=== PATIENT | male | born 1965 | race Caucasian/White ===

== ENCOUNTER 2018-01-08 14:06 | Inpatient (IN) | payer OTHER ==
[2018-01-08] VITALS (7 sets, daily range): BP systolic 145–176; BP diastolic 68–83
[~2018-01-08] VITALS: Ht 167.6 cm; Wt 68.5 kg
--- NOTE | 2018-01-08 14:10 | NUR ---
WITNESSED SEIZURE FROM HEART TO HEART, NO MEDICATION GIVEN. NO ACTIVE SEIZURE BOX CHIPPER. PT IS OBTUNDED, NAD NOTED, VSS, RESP EVEN AND UNLABORED. WAITING FOR MD CAPPS.
[2018-01-08 15:39] LABS: BASOPHILS % (AUTO) 0.3 % (0.0-2.0); EOSINOPHILS % (AUTO) 2.6 % (0.0-6.0); HEMATOCRIT 37 % (39-51); HEMOGLOBIN 12.2 g/dL (13.5-17.5); LYMPHOCYTES # (AUTO) 0.6 /CMM (0.8-4.8); LYMPHOCYTES % (AUTO) 8.2 % (20.0-44.0); MEAN CORPUSCULAR HGB CONC 33 g/dl (31.0-36.0); MEAN CORPUSCULAR VOLUME 83 fL (80-96); MONOCYTES # (AUTO) 0.5 /CMM (0.1-1.30); MONOCYTES % (AUTO) 6.2 % (2.0-12.0); NEUTROPHILS # (AUTO) 6.5 /CMM (1.8-8.9); NEUTROPHILS % (AUTO) 82.7 % (43.0-81.0); PLATELET COUNT (AUTO) 203 /CMM (150-450); RDW COEFFICIENT OF VARIATION 19.9 (11.5-15.0); RED BLOOD CELL COUNT(AUTO) 4.47 MIL/uL (4.5-6.0); WHITE BLOOD COUNT (AUTO) 7.9 K/uL (4.3-11.0)
[2018-01-08 15:41] LABS: APPEARANCE,URINE Turbid (CLEAR); BILIRUBIN,URINE Negative (NEGATIVE); BLOOD, URINE Small Ery/uL (NEGATIVE); COLOR,URINE Dark (YELLOW); KETONES,URINE Negative (NEGATIVE); LEUKOCYTE ESTERASE ,URINE Large (NEGATIVE); NITRITE, URINE Negative (NEGATIVE); PROTEIN,URINE >=300 mg/dl (NEGATIVE); UGLUCOSE Negative (NEGATIVE); UROBILINOGEN,URINE 0.2 EU/dL (0.2)
[2018-01-08] MEDS ORDERED: LORAZEPAM INJ 2 MG/ML VIAL ONE (15:42)
[2018-01-08 15:50] LABS: CALCIUM, SERUM 9.9 mg/dL (8.5-10.1); POTASSIUM 4.8 mmol/L (3.5-5.1)
[2018-01-08 15:56] LABS: BACTERIA,URINE 1+ /HPF (None Seen); SQUAMOUS EPITHELIAL CELL,UR Rare /HPF (None Seen); URINE AMORPHOUS URATE Many /HPF (None Seen)
[2018-01-08 15:57] LABS: WBC,URINE 100-150 /HPF (0-3)
[2018-01-08 15:59] LABS: INR 1.04 (0.85-1.15)
[2018-01-08] MEDS ORDERED: LORAZEPAM INJ 2 MG/ML VIAL IV ONE (16:00)
[2018-01-08] MEDS ORDERED: CEFTRIAXONE 1GM BAG (ER ONLY) 1 GM/50 ML PIGGYBACK IV ONE (16:00)
[2018-01-08] MEDS: LEVETIRACETAM (500MG) 1,000 MG in IV NS 0.9% 100 ML IV SCH ×2 (16:01→16:48)
[2018-01-08 16:02] LABS: ALBUMIN 3.3 g/dL (3.4-5.0); BILIRUBIN,DIRECT 0.1 mg/dL (0.0-0.2); BILIRUBIN,TOTAL 0.6 mg/dL (0.2-1.0); TOTAL PROTEIN, SERUM 7.1 g/dL (6.4-8.2)
[2018-01-08] MEDS ORDERED: CEFTRIAXONE 1 G in IV NS 0.9% 50 ML IV ONE (16:30)
--- NOTE | 2018-01-08 16:49 | NUR ---
non- admin- rocephine er 1 bag order duplicate order.
--- NOTE | 2018-01-08 17:12 | NUR ---
CALLED [facility] FOR PANEL CALL AND ARA KRISHNA NP WAS PAGED
[2018-01-08] MEDS ORDERED: CHOL200026 GT (17:22)
[2018-01-08] MEDS ORDERED: ATOR20TA GT (17:22)
[2018-01-08] MEDS ORDERED: FOLI1TAB16 GT (17:22)
[2018-01-08] MEDS ORDERED: MULT-213 GT (17:22)
[2018-01-08] MEDS ORDERED: AMLO10TA6 GT (17:22)
[2018-01-08] MEDS ORDERED: HEPA500014 SQ (17:22)
[2018-01-08] MEDS ORDERED: INSU100C10 SQ (17:22)
[2018-01-08] MEDS ORDERED: SERT25TA GT (17:22)
[2018-01-08] MEDS ORDERED: DOCU50LI PO (17:22)
[2018-01-08] MEDS ORDERED: LABE200T5 GT (17:22)
[2018-01-08] MEDS ORDERED: CLON0.5T12 GT (17:22)
[2018-01-08] MEDS ORDERED: LORA-259 GT (17:22)
[2018-01-08] MEDS ORDERED: INSU100V7 SQ (17:22)
[2018-01-08] MEDS ORDERED: DARB40DI SQ (17:22)
--- NOTE | 2018-01-08 17:23 | NUR ---
PT IS ASSIGNED TO [facility]#: [id number], DX: SEIZURE, AND ACCEPTING: ARA KRISHNA NP
--- NOTE | 2018-01-08 18:10 | NUR ---
TD PHONE BANKER NOTES: ADMITTED PT FROM ER WITH A DIAGNOSIS OF SEIZURE. PT IS OBTUNDED UPON ADMISSION FROM UNIT. NO APPARENT DISTRESS NOTED. NO FACIAL GRIMACING OR ANY SIGNS OF PAIN NOTED. ON 5LPM NC, NO SOB NOTED. PERTINENT ASSESSMENT DONE. PICTURES TAKEN AND PLACED ON CHART. IV ON LFA #20 INTACT AND PATENT, FLUSHING WELL. VITAL SIGNS STABLE. GT INTACT AND CLAMPED. SINUS RHYTHM ON TELE MONITOR HR 72BPM. KEPT CLEAN, DRY AND COMFORTABLE. SEIZURE PRECAUTIONS OBSERVED AND MAINTAINED. WILL ENDORSE TO DIETARY TECH FOR CONTINUITY OF CARE
[2018-01-08] MEDS ORDERED: MAGNESIUM HYDROXIDE 30 ML UDC PO PRN (18:30)
[2018-01-08] MEDS ORDERED: MAG HYDROX/AL HYDROX/SIMETH 30 ML UDC PO PRN (18:30)
[2018-01-08] MEDS ORDERED: DOCUSATE SODIUM LIQ 100 MG/10 ML UDC PO PRN (18:30)
[2018-01-08] MEDS ORDERED: ONDANSETRON HCL/PF 4 MG/2 ML VIAL IVP PRN (18:30)
[2018-01-08] MEDS ORDERED: phenytoin SODIUM IV 1,000 MG in IV NS 0.9% 100 ML IV ONE (19:00)
--- NOTE | 2018-01-08 19:00 | NUR ---
RN INITIAL NOTES RECEIVED THE PATIENT AWAKE ON BED, OBTUNDED, RESPONDS TO TOUCH AND PAIN ONLY. ON 5L O2 VIA NASAL CANNULA, SATURATING WELL, NO S/S OF RESP DISTRESS. CURRENTLY SINUS RHYTHM ON THE MONITOR, HR 60-70'S. PT IS ANURIC. RIGHT CHEST WALL HD CATH INTACT. LEFT AC 18G FLUSHED AND PATENT, NO S/S OF INFILTRATION/INFECTION, DRESSING CDI. PATIENT TO GO FOR STAT CTA BRAIN AND CAROTID, WILL INITIATE ANOTHER PERIPHERAL IV ACCESS. WILL TRANSFER TO ICU ROOM 254 S/P CTA. BED LOW AND LOCKED, SIDERAILS UP, SEIZURE PRECAUTIONS IN PLACE. WILL MONITOR CLOSELY
[2018-01-08] MEDS ORDERED: CT SWABBABLE VALVE TRANS SET 1 EA INFUS.SET MC ONE (19:46)
[2018-01-08] MEDS ORDERED: IV NS 0.9% 250 ML IV ONE (19:46)
[2018-01-08] MEDS ORDERED: IOHEXOL-350 100 ML VIAL IV ONE (19:46)
[2018-01-08] MEDS ORDERED: CEFTRIAXONE 1 G in IV NS 0.9% 50 ML IV SCH (20:00)
[2018-01-08] MEDS ORDERED: HEPARIN SODIUM, PORCINE 5000 UNITS/1 ML VIAL SQ SCH (21:00)
[2018-01-08] MEDS ORDERED: LABETALOL HCL 200 MG TABLET GT SCH (21:00)
--- NOTE | 2018-01-08 21:00 | NUR ---
RN NOTES NOTIFIED ON-CALL CABANA ATTENDANT NUNO ANDREWS ABOUT PATIENT SBP > 170'S. PER CABANA ATTENDANT, OK FOR HTN RECOMMENDED BY NEURO.
[2018-01-08 21:24] LABS: ABG BASE EXCESS 3.5 mmol/L; ABG OXYGEN SATURATION 96.4 % (92.0-98.5); ABG PCO2 31.4 mmHg (35.0-45.0); ABG PH 7.531 (7.350-7.450); ABG PO2 81.5 mmHg (75.0-100.0); AaDO2 138.8 mmHg; COHb 0.8 % (0.5-1.5); O2Hb 95.6 % (94.0-97.0); SITE, ABG Right Brachial; VENT MODE, BG Nasal Cannula
--- NOTE | 2018-01-08 21:26 | NUR ---
ABG DONE. RN NOTIFIED WITH THE RESULT.
[2018-01-08] MEDS: INSULIN GLARGINE, 100 UNIT/ML CARTRIDGE SQ SCH (22:00)
[2018-01-08] MEDS: BLOOD SUGAR DIAGNOSTIC 1 EACH STRIP IN SCH (23:53)
[2018-01-09] VITALS (24 sets, daily range): BP systolic 97–150; BP diastolic 50–66
[2018-01-09] MEDS: ACETAMINOPHEN 325 MG TABLET PO PRN (04:01)
[2018-01-09 04:47] LABS: BASOPHILS % (AUTO) 0.1 % (0.0-2.0); EOSINOPHILS % (AUTO) 0.1 % (0.0-6.0); HEMATOCRIT 36 % (39-51); HEMOGLOBIN 11.8 g/dL (13.5-17.5); LYMPHOCYTES # (AUTO) 0.8 /CMM (0.8-4.8); LYMPHOCYTES % (AUTO) 7.1 % (20.0-44.0); MEAN CORPUSCULAR HGB CONC 33 g/dl (31.0-36.0); MEAN CORPUSCULAR VOLUME 86 fL (80-96); MONOCYTES # (AUTO) 0.7 /CMM (0.1-1.30); MONOCYTES % (AUTO) 6.6 % (2.0-12.0); NEUTROPHILS # (AUTO) 9.2 /CMM (1.8-8.9); NEUTROPHILS % (AUTO) 86.1 % (43.0-81.0); PLATELET COUNT (AUTO) 206 /CMM (150-450); RDW COEFFICIENT OF VARIATION 21.3 (11.5-15.0); RED BLOOD CELL COUNT(AUTO) 4.24 MIL/uL (4.5-6.0); WHITE BLOOD COUNT (AUTO) 10.7 K/uL (4.3-11.0)
[2018-01-09] MEDS: BLOOD SUGAR DIAGNOSTIC 1 EACH STRIP IN SCH ×4 (05:07→23:45)
[2018-01-09 05:14] LABS: CALCIUM, SERUM 9.3 mg/dL (8.5-10.1); CREATININE 5.6 mg/dL (0.6-1.3); MAGNESIUM 2.3 mg/dL (1.8-2.4); PHOSPHORUS 3.1 mg/dL (2.5-4.9); POTASSIUM 4.7 mmol/L (3.5-5.1)
[2018-01-09 05:20] LABS: THYROID STIMULATING HORMONE 1.33 uIU/mL (0.358-3.74)
--- NOTE | 2018-01-09 06:10 | NUR ---
RN CLOSING NOTES PT REMAINS STABLE OF THE MOMENT. NO EPISODES OF SEIZURES TONIGHT. ALL DUE MEDS GIVEN, AM CARE PROVIDED. WILL ENDORSE KARLENE TO AM RN
[2018-01-09] MEDS ORDERED: phenytoin SODIUM IV 500 MG in IV NS 0.9% 50 ML IV SCH (07:00)
--- NOTE | 2018-01-09 07:30 | NUR ---
LEATHER STAMPER NOTE: RECEIVED PATIENT IN BED, AWAKE, NONVERBAL, AND NOT ON ANY FORM OF DISTRESS. HOB ELEVATED. ON O2 5L/MIN VIA NC AND SATURATING 97%. NO FACIAL GRIMACING. HOB ELEVATED. ON SEIZURE PRECAUTION. GT SITE CLAMPED PER MD ORDER. BED ALARMED AND LOCKED AT ALL TIMES. CALL LIGHT WITHIN REACH. NEEDS ANTICIPATED.
--- NOTE | 2018-01-09 08:11 | NUR ---
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 PT NOTED TO HAVE HEALED TRACH AND CLAMPED G TUBE. ALL SKIN CARE AND SKIN PROTECTION RECOMMENDATIONS DISCUSSED WITH NURSING STAFF. CURRENT RAFY SCORE IS 13. WILL SEE PRN. [place] IN AGREEMENT WITH PLAN OF CARE. Addendum: 01/09/18 at 0817 by JASMINE HOLBROOK WNDNU Amended: Links added.
[2018-01-09] MEDS ORDERED: AMLODIPINE BESYLATE 10 MG TABLET GT SCH (09:00)
[2018-01-09] MEDS: FOLIC ACID 1 MG TABLET GT SCH (09:56)
[2018-01-09] MEDS: SERTRALINE HCL 25 MG TABLET GT SCH (09:56)
[2018-01-09] MEDS: CHOLECALCIFEROL 1,000 UNIT TABLET (VIT D3) GT SCH (09:56)
[2018-01-09] MEDS: ATORVASTATIN 10 MG TABLET GT SCH (09:56)
[2018-01-09] MEDS: MULTIVIT, IRON, MIN NO. 8, FA 1 TAB GT SCH (09:56)
--- NOTE | 2018-01-09 10:00 | NUR ---
TOWER OBSERVER NOTE: CALLED AND SPOKE WITH DR. GARCIA RE: THE PATIENT'S GT FEEDING. PER MD, IT'S OK TO RESUME THE PATIENT'S FEEDING FROM THE FACILITY. SPOKE WITH ALFREDO SEWELL FROM HEART TO HEART FACILITY AND ACCORDING TO HER THE PATIENT IS RECEIVING NEPHRO @45ML/HR CONTINUOUS. LAST HD WAS MONDAY (01/06/18). WILL INFORM DR. BING MEEKS ABOUT IT WHEN SHE MAKES ROUND.
[2018-01-09] MEDS: NEPRO 1,000 ML BOTTLE GT PRN (10:33)
--- NOTE | 2018-01-09 11:00 | NUR ---
WEB PROJECT MANAGER NOTE: SEEN BY DR. GREGG AT THE BEDSIDE AND REPORTED THE REPEAT DILANTIN LEVEL 16.1. MD WITH NO NEW ORDER.
[2018-01-09] MEDS: PHENYTOIN SODIUM IV 50 MG/ML VIAL IV SCH ×2 (12:10→21:56)
[2018-01-09] MEDS: CALCIUM CARB 600MG /VIT D 1 EACH TABLET GT SCH (13:30)
[2018-01-09] MEDS: INSULIN REGULAR, HUMAN 100 UNIT/ML 3 ML VIAL SQ PRN ×2 (18:20→23:46)
--- NOTE | 2018-01-09 19:28 | NUR ---
OFFICE MANAGER RECEPTIONIST NOTE: PATIENT ABLE TO OPEN HIS EYES, NOT ON ANY FORM OF DISTRESS. HOB ELEVATED. ON O2 @5L/MIN VIA NC SATURATING 95%. ON SEIZURE PRECAUTION. NO SEIZURE EPISODE NOTED WITHIN THE SHIFT. REPORT GIVEN TO PM SHIFT NURSE FOR CONTINUITY OF CARE.
[2018-01-09] MEDS ORDERED: CEFTRIAXONE 1 G in IV D5W 50 ML IV SCH (20:00)
--- NOTE | 2018-01-09 20:30 | NUR ---
RN NOTES RECEIVED PT ASLEEP ON BED. RESPONSIVE TO NAME, AND PAIN, MOUTHING WORDS WHEN ASKED QUESTION BUT NO SOUNDS. DENIES PAIN. NO SEIZURE EPISODE. NO ACUTE RESP DISTRESS. TEMP 99.7 SR ON TELE MONITOR. PEG INTACT AND PATENT. IV SITE ON LFA AND LAC INFILTRATED. CHANGED WITH NEW LINE AT LAC G 20 AND L THUMB G 20 WITH GOOD BLOOD RETURN. RCW HD CATH CLEANED AND DRY. REPOSITIONED FOR SKIN MANAGEMENT. COOLING MEASURES PROVIDED. KEPT PT CLEAN AND IN COMFORTABLE POSITION. WILL CONTINUE TO MONITOR.
[2018-01-09] MEDS: INSULIN GLARGINE, 100 UNIT/ML CARTRIDGE SQ SCH (22:03)
[2018-01-10] VITALS (26 sets, daily range): BP systolic 115–189; BP diastolic 52–77
[2018-01-10 04:44] LABS: BASOPHILS # (AUTO) 0.1 /CMM (0.0-0.2); BASOPHILS % (AUTO) 0.4 % (0.0-2.0); EOSINOPHILS % (AUTO) 0.9 % (0.0-6.0); HEMATOCRIT 34 % (39-51); HEMOGLOBIN 11.1 g/dL (13.5-17.5); LYMPHOCYTES # (AUTO) 1.1 /CMM (0.8-4.8); LYMPHOCYTES % (AUTO) 8.9 % (20.0-44.0); MEAN CORPUSCULAR HGB CONC 33 g/dl (31.0-36.0); MEAN CORPUSCULAR VOLUME 86 fL (80-96); MONOCYTES # (AUTO) 1.1 /CMM (0.1-1.30); MONOCYTES % (AUTO) 8.9 % (2.0-12.0); NEUTROPHILS # (AUTO) 10.1 /CMM (1.8-8.9); NEUTROPHILS % (AUTO) 80.9 % (43.0-81.0); PLATELET COUNT (AUTO) 221 /CMM (150-450); RDW COEFFICIENT OF VARIATION 20.9 (11.5-15.0); RED BLOOD CELL COUNT(AUTO) 3.98 MIL/uL (4.5-6.0); WHITE BLOOD COUNT (AUTO) 12.5 K/uL (4.3-11.0)
[2018-01-10 05:04] LABS: CALCIUM, SERUM 9.3 mg/dL (8.5-10.1); CREATININE 6.6 mg/dL (0.6-1.3); MAGNESIUM 2.4 mg/dL (1.8-2.4); PHOSPHORUS 3.8 mg/dL (2.5-4.9); POTASSIUM 4.9 mmol/L (3.5-5.1)
[2018-01-10] MEDS: BLOOD SUGAR DIAGNOSTIC 1 EACH STRIP IN SCH ×2 (05:25→12:51)
[2018-01-10] MEDS: PHENYTOIN SODIUM IV 50 MG/ML VIAL IV SCH ×3 (05:27→20:59)
--- NOTE | 2018-01-10 07:05 | NUR ---
RN NOTES PT ASLEEP WELL ON BED, BREATHING EVEN AND UNLABORED , DENIES PAIN, AFEBRILE. NO EPISODE OF SEIZURE . NO SIGNIFICANT CHANGES SHOWS. INCONTINENT CARE RENDERED. NO BOWEL, NO URINE OUTPUT THROUGHOUT THE SHIFT. ALL IV SITE INTACT AND PATENT. BED BATH DONE AND TOLERATED WELL. PT IS CLEAN AND DRY. ENDORSED CONTINUITY OF CARE TO AM NURSE.
[2018-01-10] MEDS: CALCIUM CARB 600MG /VIT D 1 EACH TABLET GT SCH (09:02)
[2018-01-10] MEDS: SERTRALINE HCL 25 MG TABLET GT SCH (09:02)
[2018-01-10] MEDS: MULTIVIT, IRON, MIN NO. 8, FA 1 TAB GT SCH (09:02)
[2018-01-10] MEDS: ATORVASTATIN 10 MG TABLET GT SCH (09:02)
[2018-01-10] MEDS: CHOLECALCIFEROL 1,000 UNIT TABLET (VIT D3) GT SCH (09:02)
[2018-01-10] MEDS: FOLIC ACID 1 MG TABLET GT SCH (09:02)
[2018-01-10] MEDS: INSULIN REGULAR, HUMAN 100 UNIT/ML 3 ML VIAL SQ PRN (12:52)
[2018-01-10] MEDS: LORAZEPAM INJ 2 MG/ML VIAL IV PRN (13:27)
[2018-01-10] MEDS: ACETAMINOPHEN 325 MG TABLET PO PRN (13:27)
--- NOTE | 2018-01-10 16:45 | NUR ---
RN NOTE PATIENT OBSERVED WITH LABORED BREATHING CALLED RT. SWITCHED TO 15L NON REBREATHER MASK
[2018-01-10 19:40] LABS: ABG BASE EXCESS 3.3 mmol/L; ABG OXYGEN SATURATION 93.3 % (92.0-98.5); ABG PCO2 44.3 mmHg (35.0-45.0); ABG PH 7.422 (7.350-7.450); ABG PO2 67.8 mmHg (75.0-100.0); AaDO2 600.9 mmHg; COHb 0.7 % (0.5-1.5); MetHb 0.2 % (0.0-1.5); O2Hb 92.5 % (94.0-97.0); SITE, ABG Right Brachial
--- NOTE | 2018-01-10 20:35 | NUR ---
@192 RECEIVED PT ON 3L NC AND BREATHING LABORED. PT STARTED TO DESAT IN THE 80'S. PLACED ON NRB AND O2 SAT WENT UP TO 90'S. @193 O2 SAT DROPPED TO MID 80'S. STAT ABG WAS DONE AND NOTIFIED RN ABOUT THE RESULT. PT REMAINS ON NRB 15L O2 SAT 99%. WILL CONTINUE TO MONITOR.
[2018-01-10] MEDS: NEPRO 1,000 ML BOTTLE GT PRN (20:56)
[2018-01-10] MEDS: DOXYCYCLINE HYCLATE (100 MG) 100 MG TABLET PO SCH (21:00)
[2018-01-10] MEDS: MUPIROCIN OINT 2% 22 GM TUBE SCH (21:00)
[2018-01-10] MEDS: PIPERACILLIN /TAZOBACTAM 2.25 G in IV D5W 50 ML IV SCH (21:01)
--- NOTE | 2018-01-10 21:15 | NUR ---
SWIMMING POOL INSTALLER: PT CONTINUES TO DESATURATE BET. 79%-80s DESPITE OF BEING ON NON-REBREATHER MASK AT 15LPM. OBTAINED ORDER FOR STAT CXR. WILL HOLD FEEDING AT THIS TIME TO R/O ASPIRATION. HOB AT 45 DEGREES.
[2018-01-10] MEDS: INSULIN GLARGINE, 100 UNIT/ML CARTRIDGE SQ SCH (21:28)
--- NOTE | 2018-01-10 22:10 | NUR ---
GROCERY CLERK STOCKING: RELAYED CXR RESULT TO DR. SKYE CAM WT NEW ORDERS. NOTED AND CARRIED OUT. PT. IS PLACED ON BIPAP. WILL CONTINUE TO MONITOR EFFECTIVITY.
--- NOTE | 2018-01-10 22:26 | NUR ---
PT PLACED ON BIPAP PER WOLF CAM, SETTINGS 15/5 R 16 100% O2. PT MASK SIZE WAS MEDIUM SKIN BARRIER (MEPLIX)IN PLACE. PENDING ABG. PERFORMED CPT ORDERED. ALFREDO PEÑA AND CHARGE NURSE AWARE. Addendum: 01/10/18 at 2231 by LONNIE ASHBY RT Amended: Links added.
[2018-01-10 23:03] LABS: ABG BASE EXCESS 0.8 mmol/L; ABG OXYGEN SATURATION 83.9 % (92.0-98.5); ABG PCO2 37.5 mmHg (35.0-45.0); ABG PH 7.438 (7.350-7.450); ABG PO2 46.5 mmHg (75.0-100.0); COHb 0.9 % (0.5-1.5); MetHb 0.3 % (0.0-1.5); O2Hb 82.9 % (94.0-97.0); SITE, ABG Right Brachial
--- NOTE | 2018-01-10 23:05 | NUR ---
NET LEAD ARCHITECT: DR. CAM MADE AWARE OF ABG RESULTS AFTER 30 MINS OF BIPAP WT NO IMPROVEDB SATURATION. DNP SAID HE WILL CALL ER.
--- NOTE | 2018-01-10 23:25 | NUR ---
ASSOCIATE CONSULTING ENGINEER: PT. INTUBATED BY DR. WATSON FROM ER.
--- NOTE | 2018-01-10 23:30 | NUR ---
LEVELER HELPER: HONG AND SON JOSSELYN MADE AWARE OF INTUBATION.
[2018-01-10] MEDS ORDERED: PROPOFOL 100 ML ONE (23:34)
--- NOTE | 2018-01-10 23:42 | NUR ---
@2325 PT ORALLY INUTBATED BY DR WATSON (ER). 7.0 ETT SECURED AT 24CM AT THE LIP VIA ANCHOR FAST. GOOD COLOR CHANGED ON CO2 DETECTOR. EQUAL CHEST RISE AND BREATH SOUND. PLACED ON 840 VENT, AC 16, 450, 100%, +[address] WATSON. ABG IN 30MINS.
[2018-01-11] VITALS (64 sets, daily range): BP systolic 67–147; BP diastolic 39–73
[2018-01-11] MEDS ORDERED: ACETYLCYSTEINE 10% SOLN 400 MG/4 ML VIAL NEB SCH
[2018-01-11] MEDS: PROPOFOL 100 ML IV PRN ×3 (00:03→15:09)
--- NOTE | 2018-01-11 00:40 | NUR ---
PT SPUTUM SAMPLE COLLECTED, RED TINGED SPAULDING, APPROX. 10CC COLLECTED. ALFREDO HICKS
[2018-01-11 00:48] LABS: ABG BASE EXCESS 1.6 mmol/L; ABG OXYGEN SATURATION 97.1 % (92.0-98.5); ABG PH 7.446 (7.350-7.450); ABG PO2 98.6 mmHg (75.0-100.0); AaDO2 576.4 mmHg; COHb 0.6 % (0.5-1.5); MetHb 0.1 % (0.0-1.5); O2Hb 96.4 % (94.0-97.0); SITE, ABG Right Brachial; VENT MODE, BG AC 16 450 100% +5
[2018-01-11] MEDS: BLOOD SUGAR DIAGNOSTIC 1 EACH STRIP IN SCH ×5 (00:56→23:34)
[2018-01-11] MEDS: INSULIN REGULAR, HUMAN 100 UNIT/ML 3 ML VIAL SQ PRN ×3 (00:59→23:33)
[2018-01-11] MEDS: PHENYTOIN SODIUM IV 50 MG/ML VIAL IV SCH ×3 (05:30→21:41)
[2018-01-11] MEDS: PIPERACILLIN /TAZOBACTAM 2.25 G in IV D5W 50 ML IV SCH ×3 (05:31→21:42)
--- NOTE | 2018-01-11 06:30 | NUR ---
KITCHEN WORK SUPERVISOR: NOTIFIED DR. CAM THAT PT HAS BEEN HAVING LOW BP. DNP WT ORDER TO GIVE NS 500ML BOLUS X 1 THEN START LEVOPHED DRIP IF NOT RESOLVED. NOTED AND CARRIED OUT.
--- NOTE | 2018-01-11 06:55 | NUR ---
TENONER OPERATOR: SIRENA 500ML BOLUS STARTED. BS=65. WILL ENDORSE TO DAY SHIFT TO FOLLOW-UP MD IF WANTS TO RESUME FEEDING. NO ACUTE DISTRESS, NO S/S OF HYPOGLYCEMIA.
[2018-01-11] MEDS ORDERED: IV NS 0.9% 500 ML IV ONE (07:00)
--- NOTE | 2018-01-11 08:24 | NUR ---
received pt from slot shift supervisor, s/p intubation, sedated on Diprivan at 20mcg, SR, lungs diminished/congested, R arm edema, GT to feeding tolerates well, anuric, HD pt, restraints on, v/s stable, no pain, pt turned and repositioned.
[2018-01-11] MEDS: ATORVASTATIN 10 MG TABLET GT SCH (08:49)
[2018-01-11] MEDS: MULTIVIT, IRON, MIN NO. 8, FA 1 TAB GT SCH (08:49)
[2018-01-11] MEDS: DOXYCYCLINE HYCLATE (100 MG) 100 MG TABLET PO SCH (08:49)
[2018-01-11] MEDS: FOLIC ACID 1 MG TABLET GT SCH (08:49)
[2018-01-11] MEDS: SERTRALINE HCL 25 MG TABLET GT SCH (08:49)
[2018-01-11] MEDS: CALCIUM CARB 600MG /VIT D 1 EACH TABLET GT SCH (08:49)
[2018-01-11] MEDS: CHOLECALCIFEROL 1,000 UNIT TABLET (VIT D3) GT SCH (08:50)
[2018-01-11] MEDS: MUPIROCIN OINT 2% 22 GM TUBE SCH ×2 (08:51→21:42)
[2018-01-11] MEDS ORDERED: SUCCINYLCHOLINE CHLORIDE 20 MG/ML VIAL IV ONE (11:41)
[2018-01-11] MEDS ORDERED: ETOMIDATE 2 MG/ML VIAL IV ONE (11:41)
--- NOTE | 2018-01-11 12:12 | NUR ---
pt is resting in the bed, sedated on Diprivan at 20mcg, v/s stable, no pain, pt turned and repositioned q2hrs.
[2018-01-11] MEDS: IPRATROPIUM NEB FS 0.5 MG/2.5 ML AMPUL.NEB NEB SCH ×2 (13:03→19:48)
[2018-01-11] MEDS: ACETYLCYSTEINE 10% SOLN 400 MG/4 ML VIAL NEB SCH ×2 (13:03→23:27)
[2018-01-11] MEDS: ALBUTEROL HALF STRENGTH 1.25 MG/3 ML VIAL.NEB NEB SCH ×2 (13:34→19:48)
--- NOTE | 2018-01-11 16:11 | NUR ---
pt is resting in the bed, sedated on Diprivan at 15mcg, SR, tolerates feeding, v/s stable, no pain, pt cleaned, changed and repositioned q2hrs.
[2018-01-11] MEDS ORDERED: FEE PK DOSING 1 MIN EA MC ONE ×2 (17:14→17:19)
[2018-01-11] MEDS ORDERED: VANCOMYCIN 1 GM in IV D5W 250 ML IV ONE (18:00)
--- NOTE | 2018-01-11 19:51 | NUR ---
Received pt on ventilator intubated, pt is stable on current ventilator settings, no sob or respiratory distress noted at this time. Vent alarms are on and audible, ventilator is plugged into red outlet ambu bag at bedside. Addendum: 01/11/18 at 1953 by JOSIAS NGUYỄN RT Amended: Links added.
[2018-01-11] MEDS: INSULIN GLARGINE, 100 UNIT/ML CARTRIDGE SQ SCH (23:32)
[2018-01-12] VITALS (64 sets, daily range): BP systolic 109–160; BP diastolic 53–78
[2018-01-12] MEDS: ALBUTEROL HALF STRENGTH 1.25 MG/3 ML VIAL.NEB NEB SCH ×4 (00:57→19:47)
[2018-01-12] MEDS: IPRATROPIUM NEB FS 0.5 MG/2.5 ML AMPUL.NEB NEB SCH ×4 (00:57→19:47)
[2018-01-12] MEDS: PROPOFOL 100 ML IV PRN ×2 (03:28→21:08)
[2018-01-12 05:08] LABS: CREATININE 6.3 mg/dL (0.6-1.3); MAGNESIUM 2.4 mg/dL (1.8-2.4); POTASSIUM 4.4 mmol/L (3.5-5.1)
[2018-01-12] MEDS: PIPERACILLIN /TAZOBACTAM 2.25 G in IV D5W 50 ML IV SCH ×3 (05:20→20:52)
[2018-01-12] MEDS: PHENYTOIN SODIUM IV 50 MG/ML VIAL IV SCH ×3 (05:20→20:51)
[2018-01-12] MEDS: BLOOD SUGAR DIAGNOSTIC 1 EACH STRIP IN SCH ×4 (05:20→23:04)
[2018-01-12] MEDS: INSULIN REGULAR, HUMAN 100 UNIT/ML 3 ML VIAL SQ PRN ×4 (05:22→23:11)
--- NOTE | 2018-01-12 06:56 | NUR ---
RN NOTE PT DID NOT HAVE ANY SIGNIFICANT CHANGE IN CONDITION DURING SHFIT. ALL NEEDS MET, ALL ORDERS CARRIED OUT. WILL ENDORSE CARE TO AM RN FOR CONTINUITY OF CARE.
--- NOTE | 2018-01-12 08:22 | NUR ---
received pt from night, shift, sedated on diprivan at 15mcg, SR, on the vent, lungs partially congested, R arm pitting edema, GT to feeding, tolerates well, anuric, HD pt, restraints on, v/s stable, no pain, pt turned and repositioned.
[2018-01-12] MEDS: ACETYLCYSTEINE 10% SOLN 400 MG/4 ML VIAL NEB SCH ×3 (08:37→22:46)
[2018-01-12] MEDS: ATORVASTATIN 10 MG TABLET GT SCH (08:50)
[2018-01-12] MEDS: MUPIROCIN OINT 2% 22 GM TUBE SCH ×2 (08:51→20:54)
[2018-01-12] MEDS: FOLIC ACID 1 MG TABLET GT SCH (08:51)
[2018-01-12] MEDS: MULTIVIT, IRON, MIN NO. 8, FA 1 TAB GT SCH (08:51)
[2018-01-12] MEDS: CHOLECALCIFEROL 1,000 UNIT TABLET (VIT D3) GT SCH (08:51)
[2018-01-12] MEDS: CALCIUM CARB 600MG /VIT D 1 EACH TABLET GT SCH (08:51)
[2018-01-12] MEDS: SERTRALINE HCL 25 MG TABLET GT SCH (08:51)
[2018-01-12] MEDS: VANCOMYCIN 500 MG in IV D5W 100 ML IV PRN (13:43)
--- NOTE | 2018-01-12 16:12 | NUR ---
pt is resting in the bed, sedated on Diprivan at 20mcg, SR, tolerates feeding, v/s stable, no pain, pt cleaned, changed and repositioned q2hrs.
[2018-01-12] MEDS: LACTOBACILLUS RHAMNOSUS GG 1 EACH CAP.SPRINK GT SCH (16:28)
--- NOTE | 2018-01-12 19:34 | NUR ---
PAPER TESTER INITIAL NOTE RECEIVED PT CONT ON ET, MAINTAINED ON VENT SETTING ORDERED, WELL BALJINDER, ON CONT SEDATION, PROPOFOR@20MCQ, GTF RUNNING, WELL BALJINDER NO RESIDUAL AT THIS TIME, CLEAN AND DRY, HOB ELEVATED, WILL CONT TO MONITOR.
[2018-01-12] MEDS: INSULIN GLARGINE, 100 UNIT/ML CARTRIDGE SQ SCH (21:05)
[2018-01-12] MEDS: ACETAMINOPHEN 325 MG TABLET PO PRN (23:38)
[2018-01-12] MEDS: LORAZEPAM INJ 2 MG/ML VIAL IV PRN (23:38)
[2018-01-13] VITALS (80 sets, daily range): BP systolic 95–198; BP diastolic 46–126
[2018-01-13] MEDS: IPRATROPIUM NEB FS 0.5 MG/2.5 ML AMPUL.NEB NEB SCH ×4 (03:39→19:34)
[2018-01-13] MEDS: ALBUTEROL HALF STRENGTH 1.25 MG/3 ML VIAL.NEB NEB SCH ×4 (03:40→19:34)
[2018-01-13] MEDS: PROPOFOL 100 ML IV PRN ×2 (04:04→22:29)
[2018-01-13] MEDS: PHENYTOIN SODIUM IV 50 MG/ML VIAL IV SCH ×3 (04:06→20:09)
[2018-01-13] MEDS: PIPERACILLIN /TAZOBACTAM 2.25 G in IV D5W 50 ML IV SCH ×3 (04:06→20:09)
[2018-01-13 05:03] LABS: CREATININE 5.7 mg/dL (0.6-1.3); MAGNESIUM 2.5 mg/dL (1.8-2.4); POTASSIUM 3.7 mmol/L (3.5-5.1)
[2018-01-13] MEDS: BLOOD SUGAR DIAGNOSTIC 1 EACH STRIP IN SCH ×4 (05:04→23:41)
[2018-01-13] MEDS: INSULIN REGULAR, HUMAN 100 UNIT/ML 3 ML VIAL SQ PRN ×3 (05:14→23:23)
[2018-01-13 05:15] LABS: PHOSPHORUS 1.6 mg/dL (2.5-4.9)
--- NOTE | 2018-01-13 05:27 | NUR ---
Received pt on ventilator intubated, pt is stable on current ventilator settings, no sob or respiratory distress noted at this time. Vent alarms are on and audible, ventilator is plugged into red outlet ambu bag at bedside. Addendum: 01/13/18 at 0527 by MAKSIM OLIVARES RT Amended: Links added.
--- NOTE | 2018-01-13 06:18 | NUR ---
PAPER CORE MACHINE OPERATOR CLOSING NOTE ENDORSED PT CONT ON ET, MAINTAINED ON VENT SETTING ORDERED, WELL BALJINDER, ON CONT'D SEDATION, PROPOFOL@20MCQ, GTF RUNNING, WELL BALJINDER NO RESIDUAL AT THIS TIME, CLEAN AND DRY, HOB ELEVATED, WILL CONT TO MONITOR
--- NOTE | 2018-01-13 07:30 | NUR ---
RN NOTE RECEIVED PATIENT, PATIENT REMAINS INTUBATED WITH APPROPRIATE VENT SETTINGS AND SEDATED ON DIPRIVAN RUNNING AT 20MCG. ON BIOINFORMATICIST SINUS RHYTHM HR OF 67. PATIENT GT SITE INTACT AND PATENT WITH ONGOING FEEDINGS WITH NO RESIDUALS NOTED. IV SITE INTACT AND PATENT. PATIENT REMAINS COMFORTABLE AND STABLE. WILL CONTINUE TO REPOSITION AND TURN PATIENT Q2HRS. LEFT HAND RESTRAINTS IN PLACE WILL REMOVE AND RECHECK CIRCULATION PER PROTOCOL. ALL SAFETY MEASURES DONE. BED LOW AND LOCKED POSITION. WILL CONTINUE TO MONITOR CLOSELY.
[2018-01-13] MEDS: ACETYLCYSTEINE 10% SOLN 400 MG/4 ML VIAL NEB SCH ×3 (07:58→23:26)
[2018-01-13] MEDS: CHOLECALCIFEROL 1,000 UNIT TABLET (VIT D3) GT SCH (08:38)
[2018-01-13] MEDS: CALCIUM CARB 600MG /VIT D 1 EACH TABLET GT SCH (08:38)
[2018-01-13] MEDS: LACTOBACILLUS RHAMNOSUS GG 1 EACH CAP.SPRINK GT SCH ×2 (08:38→16:46)
[2018-01-13] MEDS: SERTRALINE HCL 25 MG TABLET GT SCH (08:38)
[2018-01-13] MEDS: FOLIC ACID 1 MG TABLET GT SCH (08:39)
[2018-01-13] MEDS: MULTIVIT, IRON, MIN NO. 8, FA 1 TAB GT SCH (08:39)
[2018-01-13] MEDS: ATORVASTATIN 10 MG TABLET GT SCH (08:39)
[2018-01-13] MEDS: MUPIROCIN OINT 2% 22 GM TUBE SCH ×2 (08:40→20:10)
--- NOTE | 2018-01-13 08:50 | NUR ---
pt is on CPAP mode, off of Diprivan.
--- NOTE | 2018-01-13 10:18 | NUR ---
RT NOTE RECEIVED PT MECHANICALLY VENTILATED VIA 7.0 ETT 24 CM AT LIP. TUBE SECURE. CUFF INFLATED. VENTILATOR SETTINGS PRESCRIBED. ALARMS SET PER PROTOCOL AND AUDIBLE. VENT PLUGGED IN TO RED OUTLET. AMBU BAG AT BED SIDE. NO DISTRESS NOTED. Addendum: 01/13/18 at 1021 by HILARY SUBRAMANIAN RT Amended: Links added.
[2018-01-13 10:45] LABS: ABG BASE EXCESS -1.1 mmol/L; ABG OXYGEN SATURATION 94.3 % (92.0-98.5); ABG PCO2 35.5 mmHg (35.0-45.0); ABG PH 7.427 (7.350-7.450); AaDO2 172.4 mmHg; COHb 0.4 % (0.5-1.5); MetHb 0.3 % (0.0-1.5); O2Hb 93.6 % (94.0-97.0); SITE, ABG Right Radial
--- NOTE | 2018-01-13 10:49 | NUR ---
ABG's done, increased FIO2 to 40% pt still very lethargic
--- NOTE | 2018-01-13 10:57 | NUR ---
pt did not tolerate weaning RR 38-42 and very lethargic pt back to AC mode.
[2018-01-13] MEDS ORDERED: NEUTRA PHOS 1 POWD.PACKET NG ONE (12:00)
[2018-01-13] MEDS: NEPRO 1,000 ML BOTTLE GT PRN (13:13)
--- NOTE | 2018-01-13 15:30 | NUR ---
pt SBP 177- 183 Dr Russell notified.
[2018-01-13] MEDS ORDERED: LABETALOL 20 MG/4 ML VIAL IV ONE (16:30)
[2018-01-13] MEDS: ACETAMINOPHEN 325 MG TABLET PO PRN (17:11)
[2018-01-13] MEDS ORDERED: hydrALAZINE HCL IV 20 MG VIAL IV PRN (18:00)
--- NOTE | 2018-01-13 19:00 | NUR ---
RN INITIAL NOTES RECEIVED THE PATIENT AWAKE ON BED, OCCASIONALLY CHEWING ON ETT, UNABLE TO FOLLOW COMMANDS. ON DIPRIVAN 15MCG/KG/MIN, WILL INCREASE PER PROTOCOL. INTUBATED AND ON VENT WITH SETTINGS AC 16, TV 450, FIO2 40%, PEEP 5, ETT 7.0/24, SATURATING WELL, NO S/S OF RESP DISTRESS. SR ON THE MONITOR, HR 70'S. PEG TO NEPRO @ 45MLS/HR, WITH 60MLS RESIDUALS. PT IS ANURIC, ON DIAPERS ONLY. LEFT WRIST RESTRAINT IN PLACE. RIGHT CHEST WALL HD CATH INTACT. LEFT UPPER ARM PICC AND LEFT AC 20G, BOTH FLUSHED AND PATENT, NO S/S OF INFILTRATION/INFECTION, DRESSINGS CDI. BED LOW AND LOCKED, SIDERAILS UP, BED ALARM ON. WILL MONITOR
--- NOTE | 2018-01-13 19:09 | NUR ---
RN NOTE PATIENT REMAINED STABLE THROUGHOUT SHIFT. NO DISTRESS NOTED. WILL ENDORSE TO NEXT SHIFT TO CONTINUE TO MONITOR CONTINUITY OF CARE.
[2018-01-13] MEDS: LABETALOL HCL (100MG) 100 MG TABLET GT SCH (20:09)
--- NOTE | 2018-01-13 20:25 | NUR ---
RECEIVED PT ORALLY INTUBATED, 7.0 ETT SECURED AT 24CM AT THE LIP VIA ANCHOR FAST. PT IS AWAKE, NO RESP DISTRESS. TOLERATING VENT SETTINGS. SX'D FOR LARGE AMT OF THICK SPAULDING SECRETIONS. VENT ALARMS SET AND AUDIBLE. AMBU BAG AT BEDSIDE. VENT PLUGGED INTO RED OUTLET. WILL CONTINUE TO MONITOR. Addendum: 01/13/18 at 2028 by ALLYSSA NEGRO RT Amended: Links added.
[2018-01-13] MEDS ORDERED: MEROPENEM 500 MG VIAL IV ONE (21:16)
[2018-01-13] MEDS: INSULIN GLARGINE, 100 UNIT/ML CARTRIDGE SQ SCH (21:22)
[2018-01-13] MEDS: MEROPENEM 500 MG in IV NS 0.9% 50 ML IV SCH (21:22)
--- NOTE | 2018-01-13 23:20 | NUR ---
RN NOTES NOTIFIED BUCKET PUSHER DR CAM ABOUT SBP > 160. PER DR CAM, CHANGE FREQUENCY OF PRN HYDRALAZINE IVP TO Q4H
[2018-01-13] MEDS: hydrALAZINE HCL IV 20 MG VIAL IV PRN (23:41)
[2018-01-14] VITALS (70 sets, daily range): BP systolic 84–194; BP diastolic 42–93
[2018-01-14] MEDS: ALBUTEROL HALF STRENGTH 1.25 MG/3 ML VIAL.NEB NEB SCH ×5 (00:51→23:39)
[2018-01-14] MEDS: IPRATROPIUM NEB FS 0.5 MG/2.5 ML AMPUL.NEB NEB SCH ×5 (00:51→23:39)
[2018-01-14] MEDS: PROPOFOL 100 ML IV PRN ×6 (04:29→22:58)
[2018-01-14 04:40] LABS: BASOPHILS # (AUTO) 0.1 /CMM (0.0-0.2); BASOPHILS % (AUTO) 0.4 % (0.0-2.0); EOSINOPHILS % (AUTO) 2.5 % (0.0-6.0); HEMATOCRIT 31 % (39-51); HEMOGLOBIN 10.1 g/dL (13.5-17.5); LYMPHOCYTES # (AUTO) 0.8 /CMM (0.8-4.8); LYMPHOCYTES % (AUTO) 4.1 % (20.0-44.0); MEAN CORPUSCULAR HGB CONC 33 g/dl (31.0-36.0); MEAN CORPUSCULAR VOLUME 84 fL (80-96); MONOCYTES # (AUTO) 1.1 /CMM (0.1-1.30); MONOCYTES % (AUTO) 5.6 % (2.0-12.0); NEUTROPHILS # (AUTO) 16.8 /CMM (1.8-8.9); NEUTROPHILS % (AUTO) 87.4 % (43.0-81.0); PLATELET COUNT (AUTO) 216 /CMM (150-450); RDW COEFFICIENT OF VARIATION 20.5 (11.5-15.0); RED BLOOD CELL COUNT(AUTO) 3.66 MIL/uL (4.5-6.0); WHITE BLOOD COUNT (AUTO) 19.2 K/uL (4.3-11.0)
[2018-01-14 04:58] LABS: CALCIUM, SERUM 9.1 mg/dL (8.5-10.1); CREATININE 6.2 mg/dL (0.6-1.3); MAGNESIUM 2.6 mg/dL (1.8-2.4); PHOSPHORUS 1.8 mg/dL (2.5-4.9); POTASSIUM 4.4 mmol/L (3.5-5.1)
[2018-01-14] MEDS: BLOOD SUGAR DIAGNOSTIC 1 EACH STRIP IN SCH ×3 (05:08→18:21)
[2018-01-14] MEDS: PHENYTOIN SODIUM IV 50 MG/ML VIAL IV SCH ×3 (05:09→20:52)
[2018-01-14] MEDS: INSULIN REGULAR, HUMAN 100 UNIT/ML 3 ML VIAL SQ PRN ×3 (05:09→18:24)
[2018-01-14] MEDS: PIPERACILLIN /TAZOBACTAM 2.25 G in IV D5W 50 ML IV SCH (05:09)
--- NOTE | 2018-01-14 06:10 | NUR ---
RN CLOSING NOTES PT REMAINS STABLE OF THE MOMENT. ALL DUE MEDS GIVEN, AM CARE PROVIDED. WILL ENDORSE KARLENE TO AM RN
[2018-01-14] MEDS: ACETYLCYSTEINE 10% SOLN 400 MG/4 ML VIAL NEB SCH ×3 (07:53→23:39)
--- NOTE | 2018-01-14 07:54 | NUR ---
RT PATIENT REC'D ORALLY INTUBATED ON [facility] VENT WITH ORDERED SETTINGS TOLERATED WELL. VENT ALARMS CHECKED + AUDIBLE. ETT SECURE AND IN PROPER POSITION. AIRWAY SUCTIONED WITH SMALL/MODERATE AMOUNT OF PALE SEMITHICK SECRETIONS. B/S DIM COARSE. PATIENT NON VERBAL, NON RESPONSIVE, NO SOB NOTED AT THIS TIME. AMBU BAG AT [facility] Addendum: 01/14/18 at 1642 by CASTILLO QURESHI RT Amended: Links added.
--- NOTE | 2018-01-14 07:54 | NUR ---
INITIAL HOOKER LASTER NOTE RCVD PT SEDATED, SR ON TELE UNDERGOING DIALYSIS AT THIS TIME. VITAL SIGNS REMAIN STABLE. INTUBATED, TOLERATING ORDERED VENT SETTINGS. PEG PLACEMENT VERIFIED BY AUSCULTATION/ASPIRATION. RESIDUAL OF 50 ML OBTAINED. IV SITES C/D/I/PATENT. NO S/O INFILTRATION/PHLEBITIS OBSERVED UPON FLUSHING. LEFT WRIST RESTRAINT IN PLACE. CIRCULATION CHECKS DONE. PULSES PRESENT DISTALLY/BILATERALLY. WILL CONTINUE TO MONITOR PT FOR SAFETY AND COMFORT. BED IN LOW AND LOCKED POSITION.
--- NOTE | 2018-01-14 08:25 | NUR ---
PT APPEARS TO BE LIGHTLY SEDATED, STILL BITING ETT AND CLENCHING TEETH WHEN ORAL CARE PROVIDED. Addendum: 01/14/18 at 827 by ELIAN MARTINEZ RN Amended: Links added.
[2018-01-14] MEDS: LABETALOL HCL (100MG) 100 MG TABLET GT SCH ×3 (09:00→20:52)
[2018-01-14] MEDS: CHOLECALCIFEROL 1,000 UNIT TABLET (VIT D3) GT SCH (09:05)
[2018-01-14] MEDS: SERTRALINE HCL 25 MG TABLET GT SCH (09:05)
[2018-01-14] MEDS: LACTOBACILLUS RHAMNOSUS GG 1 EACH CAP.SPRINK GT SCH ×2 (09:05→18:19)
[2018-01-14] MEDS: FOLIC ACID 1 MG TABLET GT SCH (09:05)
[2018-01-14] MEDS: ATORVASTATIN 10 MG TABLET GT SCH (09:05)
[2018-01-14] MEDS: CALCIUM CARB 600MG /VIT D 1 EACH TABLET GT SCH (09:05)
[2018-01-14] MEDS: MUPIROCIN OINT 2% 22 GM TUBE SCH ×2 (09:05→20:53)
[2018-01-14] MEDS: MULTIVIT, IRON, MIN NO. 8, FA 1 TAB GT SCH (09:05)
[2018-01-14] MEDS: IV NS 0.9% 250 ML IV PRN (09:06)
[2018-01-14] MEDS: MEROPENEM 500 MG in IV NS 0.9% 50 ML IV SCH (09:06)
[2018-01-14] MEDS: Z GUARD REMEDY 2 OZ OINT TP PRN (09:19)
--- NOTE | 2018-01-14 11:03 | NUR ---
LINEMAN A CLASS NOTE SEDATION VACATION DONE PT ABLE TO OPEN EYES WHEN HIS NAME IS CALLED BUT UNABLE TO FOLLOW COMMANDS IN EITHER TURKMEN/CHINESE. WILL CONTINUE TO MONITOR.
[2018-01-14] MEDS: VANCOMYCIN 500 MG in IV D5W 100 ML IV PRN (12:03)
[2018-01-14] MEDS: hydrALAZINE HCL IV 20 MG VIAL IV PRN (12:07)
[2018-01-14] MEDS: ACETAMINOPHEN 325 MG TABLET PO PRN ×2 (12:30→21:53)
[2018-01-14] MEDS: LORAZEPAM INJ 2 MG/ML VIAL IV PRN ×2 (12:32→22:16)
--- NOTE | 2018-01-14 12:35 | NUR ---
SHOCK ABSORPTION FLOOR LAYER NOTE PT REMAINS TACHYPNEIC DESPITE SEDATION BEING TITRATED UP. EYES ROLLED TO THE BACK OF THE HEAD, POSTURING OBSERVED, ATIVAN GIVEN. DR. EM IN UNIT AWARE OF PT'S CONDITION. PT REMAINS TACHYPNEIC. WILL CONTINUE TO MONITOR.
--- NOTE | 2018-01-14 12:47 | NUR ---
PER DR EM PATIENT IS TO HAVE HEAD CT WO S/T POSTURING ON VENT. CHEST X STAT. ORDER ONE TIME IVP 2MG ATIVAN AND ONE TIME IV 50MG DIPROVAN
[2018-01-14] MEDS ORDERED: LORAZEPAM INJ 2 MG/ML VIAL IV ONE (13:00)
[2018-01-14] MEDS ORDERED: PROPOFOL 200 MG/20 ML VIAL IV ONE (13:00)
--- NOTE | 2018-01-14 13:01 | NUR ---
SUPERVISOR TWISTING DEPARTMENT NOTE PT FELT HOT TO TOUCH RECTAL TEMP CHECKED 105.4. DR. EM IN UNIT INFORMED. COOLING BLANKET REQUESTED FROM [facility]. MD RECOMMENDED CT BRAIN AND CHEST X-RAY. RADIOLOGY DPT CALLED WILL TAKE PT IN 20 MINUTES.
[2018-01-14] MEDS ORDERED: MANNITOL 12.5 GM/50 ML VIAL IV ONE ×3 (14:00→17:00)
--- NOTE | 2018-01-14 14:12 | NUR ---
TECHNOLOGY INSTRUCTOR NOTE PT RETURNED FROM CT SCAN TO ROOM IN STABLE CONDITION. TEMP TRENDING DOWN, COOLING MEASURES STARTED, TYLENOL ADMINISTERED ORDERED.
[2018-01-14] MEDS ORDERED: Sodium Phosphate 7.5 MMOL in IV D5W 100 ML IV ONE (14:30)
[2018-01-14] MEDS: NEPRO 1,000 ML BOTTLE GT PRN (15:02)
--- NOTE | 2018-01-14 18:05 | NUR ---
TUMBLING AND ROLLING SUPERVISOR NOTE PT'S VITAL SIGNS REMAIN STABLE, PT'S AND BROTHER UPDATED ON TODAY'S EVENTS AND PT'S CONDITION. SR ON TELE. TOLERATING VENT SETTINGS AT THIS TIME. REMAINS SEDATED ON PROPOFOL, COOLING MEASURES IN PLACE WITH TEMP TRENDING DOWN. PT'S CARE WILL BE ENDORSED TO PLASTERER JOURNEYMAN RN FOR CONTINUITY OF CARE. BED IN LOW AND LOCKED POSITION.
--- NOTE | 2018-01-14 18:28 | NUR ---
MEDICATION NOTE MANNITOL ORDER FROM EARLIER IN THE DAY HELD UNTIL NOW PENDING CLARIFICATION WITH DR. EM. PER DR. EM TO GIVE MANNITOL VIA IV INFUSION INSTEAD OF AN IV PUSH. DOSE OF MANNITOL 25% 17.5 GRAMS GIVEN VIA IV INFUSION WITH FILTER. PT TOLERATED WELL. NO S/O REACTION OBSERVED.
[2018-01-14] MEDS ORDERED: DOSING PER PHARMACY-AMIKACI IV XX PRN (19:00)
--- NOTE | 2018-01-14 19:00 | NUR ---
RN INITIAL NOTES RECEIVED THE PATIENT SEDATED WITH DIPRIVAN 50MCG/KG/MIN, AROUSABLE TO PAIN. INTUBATED AND ON VENT WITH SETTINGS AC 16, TV 450, FIO2 40%, PEEP 5, ETT 7.0/24, SATURATING WELL, NO S/S OF RESP DISTRESS. SR ON THE MONITOR, HR 70'S. PEG TO NEPRO @ 45MLS/HR, WITH 50MLS RESIDUALS. PT IS ANURIC, ON DIAPERS ONLY. RIGHT CHEST WALL HD CATH INTACT. LEFT UPPER ARM PICC AND LEFT AC 20G, BOTH FLUSHED AND PATENT, NO S/S OF INFILTRATION/INFECTION, DRESSINGS CDI. BED LOW AND LOCKED, SIDERAILS UP, BED ALARM ON. WILL MONITOR
[2018-01-14] MEDS ORDERED: AMIKACIN 500 MG in IV D5W 100 ML IV ONE (20:00)
[2018-01-14] MEDS ORDERED: CEFEPIME 1 GM in IV D5W 50 ML IV SCH (20:00)
--- NOTE | 2018-01-14 20:56 | NUR ---
RECEIVED PT ORALLY INTUBATED ON VENT. NO RESP DISTRESS. TOLERATING VENT SETTINGS. SX'D FOR MOD AMT OF THICK SPAULDING SECRETIONS. VENT ALARMS SET AND AUDIBLE. AMBU BAG AT BEDSIDE. VENT PLUGGED INTO RED OUTLET. WILL CONTINUE TO MONITOR. Addendum: 01/14/18 at 2056 by ALLYSSA NEGRO RT Amended: Links added.
[2018-01-14] MEDS ORDERED: AMIKACIN 250 MG/ML VIAL ONE (20:57)
[2018-01-14] MEDS ORDERED: CEFEPIME 1 GM VIAL ONE (20:57)
[2018-01-14] MEDS: INSULIN GLARGINE, 100 UNIT/ML CARTRIDGE SQ SCH (21:04)
[2018-01-14] MEDS: CEFEPIME 1 GM in IV D5W 50 ML IV SCH (21:06)
--- NOTE | 2018-01-14 21:30 | NUR ---
RN NOTES PATIENT'S TEMP IS GRADUALLY INCREASING, CURRENTLY AT 99DEGREES PER RECTAL TEMP. WILL INITIATE COOLING MEASURES
[2018-01-15] VITALS (135 sets, daily range): BP systolic 55–141; BP diastolic 28–67
[2018-01-15] MEDS ORDERED: NOREPINEPHRINE 4 MG/4 ML AMPUL IV ONE (00:02)
[2018-01-15] MEDS: NOREPINEPHRINE 16 MG in IV D5W 500 ML IV PRN ×2 (00:09→15:35)
[2018-01-15] MEDS: BLOOD SUGAR DIAGNOSTIC 1 EACH STRIP IN SCH ×5 (00:17→23:32)
[2018-01-15] MEDS: PROPOFOL 100 ML IV PRN ×3 (02:08→11:29)
[2018-01-15] MEDS: ACETAMINOPHEN 325 MG TABLET PO PRN ×3 (03:03→20:30)
[2018-01-15 04:31] LABS: EOSINOPHILS % (AUTO) 1.6 % (0.0-6.0); HEMATOCRIT 30 % (39-51); HEMOGLOBIN 9.6 g/dL (13.5-17.5); LYMPHOCYTES # (AUTO) 0.8 /CMM (0.8-4.8); LYMPHOCYTES % (AUTO) 3.4 % (20.0-44.0); MEAN CORPUSCULAR HGB CONC 33 g/dl (31.0-36.0); MEAN CORPUSCULAR VOLUME 84 fL (80-96); MONOCYTES # (AUTO) 0.4 /CMM (0.1-1.30); MONOCYTES % (AUTO) 1.9 % (2.0-12.0); NEUTROPHILS % (AUTO) 93.1 % (43.0-81.0); PLATELET COUNT (AUTO) 137 /CMM (150-450); RDW COEFFICIENT OF VARIATION 20.5 (11.5-15.0); RED BLOOD CELL COUNT(AUTO) 3.54 MIL/uL (4.5-6.0); WHITE BLOOD COUNT (AUTO) 23.6 K/uL (4.3-11.0)
[2018-01-15 04:51] LABS: CALCIUM, SERUM 8.8 mg/dL (8.5-10.1); CREATININE 4.3 mg/dL (0.6-1.3); POTASSIUM 3.5 mmol/L (3.5-5.1)
[2018-01-15 04:52] LABS: BAND % (MANUAL) 7 % (0.0-5.0); EOSINOPHILS % (MANUAL) 3 % (0-4); LYMPHOCYTES % (MANUAL) 5 % (16-48); MONOCYTES % (MANUAL) 4 % (0-11.0); NEUTROPHILS % (MANUAL) 81 (42-76)
[2018-01-15 05:12] LABS: PHOSPHORUS 0.9 mg/dL (2.5-4.9)
[2018-01-15] MEDS: PHENYTOIN SODIUM IV 50 MG/ML VIAL IV SCH ×3 (05:13→20:31)
--- NOTE | 2018-01-15 06:10 | NUR ---
RN CLOSING NOTES PT REMAINS TO HAVE ELEVATED TEMP, CURRENTLY AT 101.5 DEGREES VIA RECTAL TEMP. COOLING MEASURES MAINTAINED. ALL DUE MEDS GIVEN, AM CARE PROVIDED. WILL ENDORSE KARLENE TO AM RN
--- NOTE | 2018-01-15 06:39 | NUR ---
RN NOTES SPRING ENCASER DR CAM ORDERED 30MMOL POTASSIUM PHOS IV TO BE GIVEN FOR CRITICAL LAB PHOS 0.9
[2018-01-15] MEDS: ACETYLCYSTEINE 10% SOLN 400 MG/4 ML VIAL NEB SCH ×3 (07:41→22:43)
[2018-01-15] MEDS: ALBUTEROL HALF STRENGTH 1.25 MG/3 ML VIAL.NEB NEB SCH ×3 (07:41→19:21)
[2018-01-15] MEDS: IPRATROPIUM NEB FS 0.5 MG/2.5 ML AMPUL.NEB NEB SCH ×3 (07:41→19:21)
--- NOTE | 2018-01-15 07:51 | NUR ---
INITIAL DEPUTY SHERIFF CHIEF NOTE RCVD PT SEDATED, ACCELERATED JUNCTIONAL RHYTHM ON TELE. TOLERATING ORDERED VENT SETTINGS WELL NO TACHYPNEA OBSERVED. PT APPEARS TO BE HYPOTENSIVE, LEVOPHED TITRATED TO MEET PARAMETERS. PEG PLACEMENT VERIFIED BY AUSCULTATION/ASPIRATION. RESIDUAL OBTAINED, TUBE FEEDING HELD. IV SITES REMAINS C/D/I/PATENT. NO S/O INFILTRATION/PHLEBITIS OBSERVED. PT ON DIPRIVAN, LEVOPHED. WILL CONTINUE TO MONITOR PT FOR SAFETY AND COMFORT. BED IN LOW AND LOCKED POSITION.
--- NOTE | 2018-01-15 07:54 | NUR ---
RT PATIENT REC'D ORALLY INTUBATED ON [facility] VENT WITH ORDERED SETTINGS. VENT ALARMS CHECKED + AUDIBLE. ETT SECURE AND IN PROPER POSITION. AIRWAY SUCTIONED WITH SMALL/MODERATE AMOUNT OF PALE SEMITHICK SECRETIONS. B/S DIM COARSE. PATIENT NON VERBAL, NON RESPONSIVE, IN CRITICAL CONDITION. AMBU BAG AT [facility] Addendum: 01/15/18 at 1342 by CASTILLO QURESHI RT Amended: Links added.
[2018-01-15] MEDS ORDERED: FEE PK DOSING 1 MIN EA MC ONE (08:02)
[2018-01-15] MEDS: FOLIC ACID 1 MG TABLET GT SCH (08:20)
[2018-01-15] MEDS: LACTOBACILLUS RHAMNOSUS GG 1 EACH CAP.SPRINK GT SCH ×2 (08:20→16:41)
[2018-01-15] MEDS: CALCIUM CARB 600MG /VIT D 1 EACH TABLET GT SCH (08:20)
[2018-01-15] MEDS: CHOLECALCIFEROL 1,000 UNIT TABLET (VIT D3) GT SCH (08:20)
[2018-01-15] MEDS: SERTRALINE HCL 25 MG TABLET GT SCH (08:20)
[2018-01-15] MEDS: MULTIVIT, IRON, MIN NO. 8, FA 1 TAB GT SCH (08:20)
[2018-01-15] MEDS: LABETALOL HCL (100MG) 100 MG TABLET GT SCH ×2 (08:21→20:32)
[2018-01-15] MEDS: ATORVASTATIN 10 MG TABLET GT SCH (08:21)
[2018-01-15 08:22] LABS: ABG BASE EXCESS -2.1 mmol/L; ABG OXYGEN SATURATION 98.5 % (92.0-98.5); ABG PH 7.368 (7.350-7.450); ABG PO2 223.8 mmHg (75.0-100.0); AaDO2 158.9 mmHg; COHb 0.3 % (0.5-1.5); MetHb 0.4 % (0.0-1.5); O2Hb 97.8 % (94.0-97.0); PEEP,BG 5 cm H2O; SITE, ABG Right Brachial; VENT MODE, BG AC 16 450 60% +5; VT, ABG 450 mL
[2018-01-15] MEDS ORDERED: PHENYLEPHRINE 40 MG in IV D5W 250 ML IV PRN (08:30)
[2018-01-15] MEDS: MUPIROCIN OINT 2% 22 GM TUBE SCH ×2 (08:34→20:33)
[2018-01-15] MEDS: POTASSIUM PHOSPHATE MM 5 MMOL in IV NS 0.9% 100 ML IV SCH ×6 (08:35→18:18)
[2018-01-15] MEDS ORDERED: IV NS 0.9% 1,000 ML IV PRN (10:00)
[2018-01-15 11:17] LABS: BILIRUBIN,TOTAL 1.6 mg/dL (0.2-1.0)
--- NOTE | 2018-01-15 12:07 | NUR ---
LOOSE HAND PACKER NOTE PT REMAINS FEBRILE, COOLING BLANKET IN PLACE. PT'S LACTIC ACID ELEVATED. DR. GARCIA AWARE. PT STARTED ON IVF WILL CONTINUE TO MONITOR. DR. GREGG IN UNIT EARLIER TODAY, UPDATED ON PT'S CONDITION. NO RECOMMENDATION FOR CT HEAD OR EEG AT THIS TIME.
--- NOTE | 2018-01-15 15:50 | NUR ---
CULINARY ASSISTANT NOTE PT CONTINUES TO HAVE HIGH TUBE FEEDING RESIDUALS, TUBE FEEDING REMAINS ON HOLD. DR RIVERA IN UNIT INFORMED. REGLAN IVP RECOMMENDED. ORDER ENTERED.
--- NOTE | 2018-01-15 16:26 | NUR ---
DIPRIVAN OFF PT REMAINS UNRESPONSIVE, HR TRENDING UP, RR MAINTAINED. DR. GARCIA AWARE CT HEAD ORDERED. RADIOLOGY CALLED VLADIMIR AWARE OF ORDER NOT READY FOR PT YET. KATHYA AHUJA AWARE. Addendum: 01/15/18 at 1629 by ELIAN MARTINEZ RN Amended: Links added.
[2018-01-15] MEDS: METOCLOPRAMIDE HCL 10 MG/2 ML VIAL IV SCH ×2 (16:42→23:32)
--- NOTE | 2018-01-15 17:58 | NUR ---
BALL MILL MIXER NOTE PT TRANSPORTED TO RADIOLOGY FOR CT HEAD PER PROTOCOL. NO S/O DISTRESS OBSERVED UPON TRANSPORT. PT BROUGHT BACK TO HIS ROOM.
--- NOTE | 2018-01-15 18:52 | NUR ---
DEFENSE ATTORNEY NOTE PT REMAINS INTUBATED ETT 7.0, 26 AT LIP, OFF SEDATION TOLERATING WELL, SR ON TELE, PEG CLAMPED DUE TO HIGH RESIDUALS, IV SITES C/D/I/PATENT. NO S/O INFILTRATION/PHLEBITIS OBSERVED UPON FLUSHING. PT'S TEMP DECREASING. IVF DISCONTINUED. PT'S CARE ENDORSED TO CNA RN FOR CONTINUITY OF CARE. BED IN LOW AND LOCKED POSITION. PT'S AND BROTHERS AT BEDSIDE UPDATED ON PT'S CONDITION. MADE DECISION TO CHANGE CODE STATUS TO DNR. DR. GARCIA UPDATED ON THIS AND RESULTS OF CT HEAD WERE GIVEN TO MD WITH NO NEW ORDERS RECOMMENDED.
--- NOTE | 2018-01-15 19:00 | NUR ---
RN INITIAL NOTES RECEIVED THE PATIENT OBTUNDED, ONLY AROUSABLE TO PAIN. INTUBATED AND ON VENT WITH SETTINGS AC 16, TV 450, FIO2 40%, PEEP 5, ETT 7.0/24, SATURATING WELL, NO S/S OF RESP DISTRESS. SR ON THE MONITOR, HR 90'S. PEG IS CLAMPED, WITH 150MLS RESIDUALS. PT IS ANURIC, ON DIAPERS ONLY. RIGHT CHEST WALL HD CATH INTACT. LEFT UPPER ARM PICC AND LEFT AC 20G, BOTH FLUSHED AND PATENT, NO S/S OF INFILTRATION/INFECTION, DRESSINGS CDI. BED LOW AND LOCKED, SIDERAILS UP, BED ALARM ON. WILL MONITOR
--- NOTE | 2018-01-15 19:34 | NUR ---
PATIENT REC'D ORALLY INTUBATED ON [facility] VENT WITH ORDERED SETTINGS. VENT ALARMS CHECKED + AUDIBLE. ETT SECURE AND IN PROPER POSITION. AIRWAY SUCTIONED WITH SMALL/MODERATE AMOUNT OF PALE SEMITHICK SECRETIONS. B/S DIM COARSE. PATIENT NON VERBAL, NON RESPONSIVE, IN CRITICAL CONDITION. AMBU BAG AT [facility] Addendum: 01/15/18 at 1935 by MOE GRIGSBY RT Amended: Links added.
[2018-01-15] MEDS: CEFEPIME 1 GM in IV D5W 50 ML IV SCH (20:31)
--- NOTE | 2018-01-15 20:33 | NUR ---
RN NOTES DID NOT ADMINISTER SCHEDULED LABETALOL PO DUE TO PATIENT HYPOTENSION AND CURRENTLY ON LEVO DRIP
[2018-01-15] MEDS: INSULIN GLARGINE, 100 UNIT/ML CARTRIDGE SQ SCH (21:58)
[2018-01-15] MEDS: INSULIN REGULAR, HUMAN 100 UNIT/ML 3 ML VIAL SQ PRN (23:32)
[2018-01-16] VITALS (119 sets, daily range): BP systolic 54–157; BP diastolic 27–73
[2018-01-16] MEDS: ALBUTEROL HALF STRENGTH 1.25 MG/3 ML VIAL.NEB NEB SCH ×5 (01:21→23:14)
[2018-01-16] MEDS: IPRATROPIUM NEB FS 0.5 MG/2.5 ML AMPUL.NEB NEB SCH ×5 (01:21→23:14)
[2018-01-16 04:26] LABS: EOSINOPHILS % (AUTO) 0.6 % (0.0-6.0); HEMATOCRIT 31 % (39-51); HEMOGLOBIN 9.8 g/dL (13.5-17.5); LYMPHOCYTES # (AUTO) 1.8 /CMM (0.8-4.8); LYMPHOCYTES % (AUTO) 3.1 % (20.0-44.0); MEAN CORPUSCULAR HGB CONC 32 g/dl (31.0-36.0); MEAN CORPUSCULAR VOLUME 84 fL (80-96); MONOCYTES # (AUTO) 1.1 /CMM (0.1-1.30); MONOCYTES % (AUTO) 1.9 % (2.0-12.0); NEUTROPHILS # (AUTO) 54.9 /CMM (1.8-8.9); NEUTROPHILS % (AUTO) 94.4 % (43.0-81.0); PLATELET COUNT (AUTO) 156 /CMM (150-450); RDW COEFFICIENT OF VARIATION 20.9 (11.5-15.0); RED BLOOD CELL COUNT(AUTO) 3.68 MIL/uL (4.5-6.0)
[2018-01-16 04:33] LABS: WHITE BLOOD COUNT (AUTO) 58.1 K/uL (4.3-11.0)
[2018-01-16 04:44] LABS: CALCIUM, SERUM 8.7 mg/dL (8.5-10.1); CREATININE 4.9 mg/dL (0.6-1.3); PHOSPHORUS 3.1 mg/dL (2.5-4.9); POTASSIUM 4.1 mmol/L (3.5-5.1)
[2018-01-16 05:01] LABS: BAND % (MANUAL) 30 % (0.0-5.0); LYMPHOCYTES % (MANUAL) 3 % (16-48); MONOCYTES % (MANUAL) 2 % (0-11.0); NEUTROPHILS % (MANUAL) 63 (42-76)
[2018-01-16 05:02] LABS: METAMYELOCYTES % 2 % (0-0)
[2018-01-16] MEDS: BLOOD SUGAR DIAGNOSTIC 1 EACH STRIP IN SCH ×4 (05:24→23:53)
[2018-01-16] MEDS: METOCLOPRAMIDE HCL 10 MG/2 ML VIAL IV SCH ×4 (05:25→22:12)
[2018-01-16] MEDS: PHENYTOIN SODIUM IV 50 MG/ML VIAL IV SCH ×2 (05:25→19:14)
[2018-01-16] MEDS: INSULIN REGULAR, HUMAN 100 UNIT/ML 3 ML VIAL SQ PRN ×2 (05:25→23:57)
--- NOTE | 2018-01-16 06:20 | NUR ---
RN CLOSING NOTES PT REMAINS STABLE OF THE MOMENT. CURRENTLY AFEBRILE. ALL DUE MEDS GIVEN, AM CARE PROVIDED. WILL ENDORSE KARLENE TO AM RN
[2018-01-16] MEDS ORDERED: phenytoin SODIUM IV 1,500 MG in IV NS 0.9% 100 ML IV STA (06:41)
--- NOTE | 2018-01-16 07:48 | NUR ---
INITIAL OIL TRUCK DRIVER NOTE RCVD PT UNRESPONSIVE, UNABLE TO FOLLOW COMMANDS OR RESPOND TO HIS NAME, SR ON TELE. TOLERATING VENT SETTINGS, ETT 7.0 26 AT LIP. PEG CLAMPED PLACEMENT VERIFIED BY AUSCULTATION/ASPIRATION, COFFEE GROUND OBSERVED IN TUBING AND SYRINGE ABOUT 80 ML, KATHYA AHUJA AWARE, IV SITES C/D/I/PATENT. PT REMAINS FEBRILE. WILL CONTINUE TO MONITOR PT FOR SAFETY AND COMFORT. BED IN LOW AND LOCKED POSITION.
[2018-01-16] MEDS: ACETYLCYSTEINE 10% SOLN 400 MG/4 ML VIAL NEB SCH ×3 (08:02→23:15)
--- NOTE | 2018-01-16 08:02 | NUR ---
RT PT RECEIVED ORALLY INTUBATED WITH A 7.0 ETT SECURED AT 23CM AT THE LIP LINE. PT RESPONDS TO STIMULI WHEN SX'D. PT IS ON THE VENT WITH NOTED SETTINGS WITH BVM BY BEDSIDE. INTERNET SITE DESIGNER CUFF PRESSURE NOTED. VENT ALARMS ARE SET AND AUDIBLE. PT SX'D WITH SMALL TO NONE THIN CLEAR SECRETIONS. NO RESPIRATORY DISTRESS NOTED AT THIS TIME, WILL CONTINUE TO MONITOR. Addendum: 01/16/18 at 1654 by JESSIE BERMUDEZ RT Amended: Links added.
[2018-01-16] MEDS: LABETALOL HCL (100MG) 100 MG TABLET GT SCH ×2 (09:00→20:12)
[2018-01-16 09:45] LABS: ABG BASE EXCESS -1.9 mmol/L; ABG OXYGEN SATURATION 96.4 % (92.0-98.5); ABG PCO2 31.2 mmHg (35.0-45.0); ABG PH 7.453 (7.350-7.450); ABG PO2 85.2 mmHg (75.0-100.0); AaDO2 164.1 mmHg; COHb 0.3 % (0.5-1.5); MetHb 0.5 % (0.0-1.5); O2Hb 95.6 % (94.0-97.0); PEEP,BG 5 cm H2O; SITE, ABG Right Brachial; VT, ABG 450 mL
[2018-01-16] MEDS: MULTIVIT, IRON, MIN NO. 8, FA 1 TAB GT SCH (09:49)
[2018-01-16] MEDS: CHOLECALCIFEROL 1,000 UNIT TABLET (VIT D3) GT SCH (09:49)
[2018-01-16] MEDS: FOLIC ACID 1 MG TABLET GT SCH (09:49)
[2018-01-16] MEDS: ATORVASTATIN 10 MG TABLET GT SCH (09:49)
[2018-01-16] MEDS: CALCIUM CARB 600MG /VIT D 1 EACH TABLET GT SCH (09:49)
[2018-01-16] MEDS: SERTRALINE HCL 25 MG TABLET GT SCH (09:49)
[2018-01-16] MEDS: LACTOBACILLUS RHAMNOSUS GG 1 EACH CAP.SPRINK GT SCH ×2 (09:49→16:06)
[2018-01-16] MEDS: MUPIROCIN OINT 2% 22 GM TUBE SCH ×2 (09:50→20:16)
--- NOTE | 2018-01-16 09:52 | NUR ---
SERVICE RIG OPERATOR NOTE TYLENOL GIVEN FOR FEVER, COOLING MEASURES RESTARTED. WILL CONTINUE TO MONITOR. PT'S FAMILY AT BEDSIDE UPDATE ON PT'S STATUS. DR. GREGG SPOKE WITH PT AND DISCUSSED PROGNOSIS. PT'S FAMILY INFORMED RN THAT THEY DON'T WANT PT TO HAVE TRACHEOSTOMY DONE. DR. RIVERA WAS GIVEN THIS INFORMATION. DR. GREGG WAS UPDATED REGARDING THE CHANGE IN MENTAL STATUS DESPITE PT BEING OFF SEDATION SINCE YESTERDAY. SHE ACKNOWLEDGED RAN MCDONOUGH INFORMED REGARDING COFFEE GROUND THIS AM. NO NEW ORDERS RCVD WILL CONTINUE TO MONITOR.
[2018-01-16] MEDS: NOREPINEPHRINE 16 MG in IV D5W 500 ML IV PRN (11:54)
[2018-01-16 12:29] LABS: ALANINE AMINOTRANSFERASE 76 U/L (12-78); ALBUMIN 1.9 g/dL (3.4-5.0); ALKALINE PHOSPHATASE 467 U/L (46-116); ASPARTATE AMINOTRANSFERASE 76 U/L (15-37); BILIRUBIN,DIRECT 0.9 mg/dL (0.0-0.2); BILIRUBIN,TOTAL 1.5 mg/dL (0.2-1.0); TOTAL PROTEIN, SERUM 6.3 g/dL (6.4-8.2)
[2018-01-16 12:34] LABS: PHENYTOIN (DILANTIN) 19.2 ug/ml (10.0-20.0)
[2018-01-16 12:36] LABS: SERUM AMMONIA < 10 umol/L (11-32)
[2018-01-16] MEDS: PANTOPRAZOLE 40 MG VIAL IV SCH ×2 (13:28→20:15)
[2018-01-16] MEDS: PROPOFOL 100 ML IV PRN (13:29)
[2018-01-16] MEDS: VANCOMYCIN 500 MG in IV D5W 100 ML IV PRN (16:06)
--- NOTE | 2018-01-16 18:06 | NUR ---
WHOLESALE ACCOUNT MANAGER NOTE PT'S BROTHER INFORMED RN THAT THEY WOULD LIKE TO DISCONNECT PT FROM VENT, PT'S NOT ON BOARD WITH DECISION. HE WAS INSTRUCTED TO DISCUSS THE DECISION WITH PT'S SINCE SHE'S MAKING DECISIONS FOR PT AT THIS TIME. FAMILY CHOSES TO CONTINUE CARE FOR THIS WEEK.
--- NOTE | 2018-01-16 18:47 | NUR ---
SOLAR INSTALLER PV NOTE PT REMAINS INTUBATED, TOLERATING VENT SETTINGS WELL, SR ON TELE. PEG CLAMPED, DIALYSIS COMPLETED THIS AFTERNOON. PT TOLERATED WELL. IV SITES C/D/I/PATENT. NO S/O INFILTRATION/PHLEBITIS OBSERVED, LEVO INFUSING. PT'S CARE ENDORSED TO TUBING DRIER RN FOR CONTINUITY OF CARE. BED IN LOW AND LOCKED POSITION.
[2018-01-16] MEDS: METRONIDAZOLE 500MG/ NS 100ML 500 MG in PREMIX 1 EA IV SCH ×2 (19:14→23:56)
--- NOTE | 2018-01-16 20:00 | NUR ---
HEAT AND VENT AIRCRAFT MECHANIC - NOTES - RCVD PT UNRESPONSIVE, UNABLE TO FOLLOW COMMANDS OR RESPOND TO HIS NAME, SR ON TELE. TOLERATING VENT SETTINGS, ETT 7.0 26 AT LIP. PEG CLAMPED PLACEMENT VERIFIED BY AUSCULTATION/ASPIRATION, COFFEE GROUND OBSERVED IN TUBING AND SYRINGE ABOUT 80 ML. IV SITES C/D/I/PATENT. PT REMAINS FEBRILE. WILL CONTINUE TO MONITOR PT FOR SAFETY AND COMFORT. BED IN LOW AND LOCKED POSITION.
[2018-01-16] MEDS: CEFEPIME 1 GM in IV D5W 50 ML IV SCH (20:15)
[2018-01-16] MEDS: ACETAMINOPHEN 325 MG TABLET PO PRN (20:15)
--- NOTE | 2018-01-16 21:26 | NUR ---
PT RECEIVED INTUBATED ON [facility] VENT. PT TOLERATING VENT SETTINGS. SX'D FOR MOD AMT OF THICK SPAULDING SECRETIONS. VENT ALARMS SET AND AUDIBLE. AMBU BAG AT BEDSIDE. VENT PLUGGED INTO RED OUTLET. WILL CONTINUE TO MONITOR. Addendum: 01/16/18 at 2127 by ALLYSSA NEGRO RT Amended: Links added.
[2018-01-16] MEDS: INSULIN GLARGINE, 100 UNIT/ML CARTRIDGE SQ SCH (21:34)
--- NOTE | 2018-01-16 22:00 | NUR ---
dr fontenot notified of 30 ml of coffee ground residuals noted from peg tube. he said to hold tf for now
[2018-01-17] VITALS (66 sets, daily range): BP systolic 64–116; BP diastolic 39–66
[2018-01-17 04:59] LABS: EOSINOPHILS % (AUTO) 0.2 % (0.0-6.0); HEMATOCRIT 29 % (39-51); HEMOGLOBIN 8.9 g/dL (13.5-17.5); LYMPHOCYTES # (AUTO) 1.4 /CMM (0.8-4.8); LYMPHOCYTES % (AUTO) 2.4 % (20.0-44.0); MEAN CORPUSCULAR HGB CONC 31 g/dl (31.0-36.0); MEAN CORPUSCULAR VOLUME 84 fL (80-96); MONOCYTES # (AUTO) 0.4 /CMM (0.1-1.30); MONOCYTES % (AUTO) 0.7 % (2.0-12.0); NEUTROPHILS # (AUTO) 54.2 /CMM (1.8-8.9); NEUTROPHILS % (AUTO) 96.7 % (43.0-81.0); PLATELET COUNT (AUTO) 174 /CMM (150-450); RDW COEFFICIENT OF VARIATION 21.1 (11.5-15.0); RED BLOOD CELL COUNT(AUTO) 3.46 MIL/uL (4.5-6.0)
[2018-01-17 05:21] LABS: WHITE BLOOD COUNT (AUTO) 56.1 K/uL (4.3-11.0)
[2018-01-17 05:26] LABS: ALBUMIN 1.9 g/dL (3.4-5.0); BILIRUBIN,TOTAL 1.1 mg/dL (0.2-1.0); CALCIUM, SERUM 8.4 mg/dL (8.5-10.1); CREATININE 3.9 mg/dL (0.6-1.3); MAGNESIUM 2.1 mg/dL (1.8-2.4); PHOSPHORUS 2.5 mg/dL (2.5-4.9); POTASSIUM 3.6 mmol/L (3.5-5.1); TOTAL PROTEIN, SERUM 6.4 g/dL (6.4-8.2)
--- NOTE | 2018-01-17 05:26 | NUR ---
WBC CRITICAL 56.1, DOWN FROM 58.1, TRENDING IN EXPECTED DIRECTION, PT IS ON ABX. WILL CONTINUE TO MONITOR AND CARRY OUT PLAN OF CARE
[2018-01-17] MEDS: METOCLOPRAMIDE HCL 10 MG/2 ML VIAL IV SCH ×4 (05:37→23:18)
[2018-01-17] MEDS: METRONIDAZOLE 500MG/ NS 100ML 500 MG in PREMIX 1 EA IV SCH ×4 (05:38→23:19)
[2018-01-17] MEDS: PHENYTOIN SODIUM IV 50 MG/ML VIAL IV SCH ×2 (05:39→17:21)
[2018-01-17] MEDS: BLOOD SUGAR DIAGNOSTIC 1 EACH STRIP IN SCH ×4 (05:59→23:19)
[2018-01-17 06:18] LABS: BAND % (MANUAL) 9 % (0.0-5.0); EOSINOPHILS % (MANUAL) 1 % (0-4); LYMPHOCYTES % (MANUAL) 2 % (16-48); MONOCYTES % (MANUAL) 1 % (0-11.0); NEUTROPHILS % (MANUAL) 87 (42-76)
--- NOTE | 2018-01-17 07:10 | NUR ---
RN INITIAL NOTES: Rec'd pt on bed, obtunded, not in any distress. On MV via ETT, sating at 100%. On telemonitor, SR 76 bpm. Has 2 IV line access: JEB PICC line, TLC w/ Levophed x 4 mcg/hr infusing well & L AC G20, SL, both no s/sx of infection/infiltration noted. Has RCW HD cath in place. Provided comfort & safety measures. Bed kept low & in locked pos. Call light placed w/in reach. Will observe isolation precaution. Will cont to monitor & attend pt needs.
--- NOTE | 2018-01-17 07:50 | NUR ---
RT PATIENT REC'D ORALLY INTUBATED ON [facility] VENT WITH ORDERED SETTINGS. VENT ALARMS CHECKED + AUDIBLE. ETT SECURE AND IN PROPER POSITION. AIRWAY SUCTIONED WITH SMALL/MODERATE AMOUNT OF PALE SEMITHICK SECRETIONS. B/S DIM COARSE. PATIENT NON VERBAL, NON RESPONSIVE, IN CRITICAL CONDITION. AMBU BAG AT HOB Addendum: 01/17/18 at 1055 by CASTILLO QURESHI RT Amended: Links added.
[2018-01-17] MEDS: ALBUTEROL HALF STRENGTH 1.25 MG/3 ML VIAL.NEB NEB SCH ×3 (08:00→19:33)
[2018-01-17] MEDS: ACETYLCYSTEINE 10% SOLN 400 MG/4 ML VIAL NEB SCH ×3 (08:00→23:06)
[2018-01-17] MEDS: IPRATROPIUM NEB FS 0.5 MG/2.5 ML AMPUL.NEB NEB SCH ×3 (08:00→19:33)
[2018-01-17] MEDS: FOLIC ACID 1 MG TABLET GT SCH (08:45)
[2018-01-17] MEDS: MULTIVIT, IRON, MIN NO. 8, FA 1 TAB GT SCH (08:45)
[2018-01-17] MEDS: LACTOBACILLUS RHAMNOSUS GG 1 EACH CAP.SPRINK GT SCH ×2 (08:45→17:21)
[2018-01-17] MEDS: CHOLECALCIFEROL 1,000 UNIT TABLET (VIT D3) GT SCH (08:45)
[2018-01-17] MEDS: ATORVASTATIN 10 MG TABLET GT SCH (08:45)
[2018-01-17] MEDS: SERTRALINE HCL 25 MG TABLET GT SCH (08:45)
[2018-01-17] MEDS: PANTOPRAZOLE 40 MG VIAL IV SCH ×2 (08:45→21:17)
[2018-01-17] MEDS: LABETALOL HCL (100MG) 100 MG TABLET GT SCH ×2 (08:46→21:00)
[2018-01-17] MEDS: MUPIROCIN OINT 2% 22 GM TUBE SCH ×2 (08:49→21:17)
[2018-01-17] MEDS: NOREPINEPHRINE 16 MG in IV D5W 500 ML IV PRN (08:49)
[2018-01-17] MEDS: Z GUARD REMEDY 2 OZ OINT TP PRN (08:50)
[2018-01-17] MEDS: CALCIUM CARB 600MG /VIT D 1 EACH TABLET GT SCH (08:51)
--- NOTE | 2018-01-17 09:16 | NUR ---
Per Dr. Tanner may DC PEEP. RT made aware.
--- NOTE | 2018-01-17 09:30 | NUR ---
Lelia, RAN & Berta (wound nurse) made aware of the wound consult for sacral re-evaluation. Pt seen & examined by HOSPICE COMMUNITY LIAISON, will order for wound tx & KCI mattress.
--- NOTE | 2018-01-17 10:51 | NUR ---
Pt seen & examined by Dr. Moctezuma & updated about pt condition.
--- NOTE | 2018-01-17 11:28 | NUR ---
PER DR RIVERA DAILY ABG CANCELLED
[2018-01-17] MEDS: INSULIN REGULAR, HUMAN 100 UNIT/ML 3 ML VIAL SQ PRN ×2 (12:01→17:24)
--- NOTE | 2018-01-17 12:30 | NUR ---
Pt seen & examined by RAN Diaz. Per HARPSICHORD MAKER may restart GTF.
[2018-01-17] MEDS: NEPRO 1,000 ML BOTTLE GT PRN (14:49)
--- NOTE | 2018-01-17 18:34 | NUR ---
RN CLOSING NOTES: No significant changes noted w/in shift. Pt able to open his eyes spontaneously. Pt tolerated current MV settings via ETT, PEEP 0. On telemonitor, still SR. 2 IV line access: JEB PICC line, TLC w/ Levophed x 2 mcg/hr infusing well, no s/sx of infection/infiltration noted. Has RCW HD cath in place. Kept well rested. Needs attended. Bed kept low & in locked pos. Call light placed w/in reach. Isolation precaution observed. Will cont to monitor & attend pt needs. Addendum: 01/17/18 at 1836 by PJ DAVISON RN Restarted on GTF Nepro x 20 cc/hr, no high residual noted.
--- NOTE | 2018-01-17 18:37 | NUR ---
Addendum: Pt noted seizing, gave Ativan PRN. Seizure precaution observed.
[2018-01-17] MEDS: LORAZEPAM INJ 2 MG/ML VIAL IV PRN (18:55)
--- NOTE | 2018-01-17 19:00 | NUR ---
GED TEACHER NOTES ATIVAN PRN FOR SEIZURE GIVEN , NO AMOUNT WASTED , WRONG AMOUNT WASTED IN OMNICELL , ORDER IS 2MG IVP PRN
[2018-01-17] MEDS: ACETAMINOPHEN 325 MG TABLET PO PRN (19:59)
--- NOTE | 2018-01-17 20:26 | NUR ---
PT RECEIVED INTUBATED 7.0 ETT AT 24CM. BITE BLOCK IN PLACE. PT TOLERATING VENT SETTINGS. SX'D FOR MOD AMT OF THICK SPAULDING SECRETIONS. VENT ALARMS SET AND AUDIBLE. AMBU BAG AT BEDSIDE. VENT PLUGGED INTO RED OUTLET. WILL CONTINUE TO MONITOR. Addendum: 01/17/18 at 2027 by ALLYSSA NEGRO RT Amended: Links added.
[2018-01-17] MEDS: CEFEPIME 1 GM in IV D5W 50 ML IV SCH (21:16)
[2018-01-17] MEDS: INSULIN GLARGINE, 100 UNIT/ML CARTRIDGE SQ SCH (21:29)
[2018-01-18] VITALS (77 sets, daily range): BP systolic 77–144; BP diastolic 43–96
[2018-01-18] MEDS: IPRATROPIUM NEB FS 0.5 MG/2.5 ML AMPUL.NEB NEB SCH ×4 (00:55→19:36)
[2018-01-18] MEDS: ALBUTEROL HALF STRENGTH 1.25 MG/3 ML VIAL.NEB NEB SCH ×4 (00:55→19:36)
[2018-01-18] MEDS: PHENYTOIN SODIUM IV 50 MG/ML VIAL IV SCH ×2 (05:08→17:41)
[2018-01-18] MEDS: BLOOD SUGAR DIAGNOSTIC 1 EACH STRIP IN SCH ×4 (05:08→23:42)
[2018-01-18] MEDS: METOCLOPRAMIDE HCL 10 MG/2 ML VIAL IV SCH ×4 (05:08→22:22)
[2018-01-18] MEDS: METRONIDAZOLE 500MG/ NS 100ML 500 MG in PREMIX 1 EA IV SCH ×4 (05:08→23:25)
[2018-01-18 06:43] LABS: EOSINOPHILS % (AUTO) 1.3 % (0.0-6.0); HEMATOCRIT 28 % (39-51); HEMOGLOBIN 9.2 g/dL (13.5-17.5); LYMPHOCYTES % (AUTO) 3.3 % (20.0-44.0); MEAN CORPUSCULAR HGB CONC 32 g/dl (31.0-36.0); MEAN CORPUSCULAR VOLUME 83 fL (80-96); MONOCYTES # (AUTO) 0.5 /CMM (0.1-1.30); MONOCYTES % (AUTO) 1.6 % (2.0-12.0); NEUTROPHILS # (AUTO) 29.3 /CMM (1.8-8.9); NEUTROPHILS % (AUTO) 93.8 % (43.0-81.0); PLATELET COUNT (AUTO) 128 /CMM (150-450); RDW COEFFICIENT OF VARIATION 20.7 (11.5-15.0); RED BLOOD CELL COUNT(AUTO) 3.43 MIL/uL (4.5-6.0)
--- NOTE | 2018-01-18 06:47 | NUR ---
RN NOTE PT DID NOT HAVE ANY SIGNIFICANT CHANGE IN CONDITION DURING SHIFT. PT TOLERATED VENT SETTING WELL. ALL NEEDS MET, ALL ORDERS CARRIED OUT. WILL ENDORSE CARE TO AM RN FOR CONTINUITY OF CARE.
--- NOTE | 2018-01-18 07:00 | NUR ---
RN NOTES RECEIVED PT ON BED, OBTUNDED, INTUBATED, TOLERATING CURRENT SETTING WELL, O2 SAT 98%, NO DISTRESS NOTED, ON TELE SR , HR IN 70'S , L UPPER ARM PICC LINE SITE , CLEAN ,DRY AND INTACT, LEVOPHED RUNNING AT 1MCG/MIN . NEPRO AT 20CC/HR RUNNING VIA GT , NO RESIDUAL NOTED, COMFORT AND SAFETY MEASURES PROVIDED, SR UP x3, CALL LIGHT WITHIN EASY REACH, BED LOCKED AND IN LOWEST POSITION , CONTINUE TO MONITOR
[2018-01-18 07:06] LABS: WHITE BLOOD COUNT (AUTO) 31.2 K/uL (4.3-11.0)
[2018-01-18 07:09] LABS: CALCIUM, SERUM 8.3 mg/dL (8.5-10.1); CREATININE 4.5 mg/dL (0.6-1.3); MAGNESIUM 2.2 mg/dL (1.8-2.4); PHOSPHORUS 2.6 mg/dL (2.5-4.9); POTASSIUM 3.7 mmol/L (3.5-5.1)
[2018-01-18] MEDS: ACETYLCYSTEINE 10% SOLN 400 MG/4 ML VIAL NEB SCH ×3 (07:58→23:27)
[2018-01-18] MEDS: LABETALOL HCL (100MG) 100 MG TABLET GT SCH ×2 (08:36→20:53)
[2018-01-18] MEDS: MUPIROCIN OINT 2% 22 GM TUBE SCH ×2 (08:39→22:04)
--- NOTE | 2018-01-18 08:49 | NUR ---
WOUND CARE CONSULT WOUND CARE RECEIVED CONSULT FOR SACRAL RE-EVALUATION. PATIENT CURRENTLY HAVING DIALYSIS, WILL SEE PATIENT AFTER DIALYSIS PATIENT CONDITION PERMITS FOR SACRAL EVALUATION. DISCUSSED WITH PRIMARY RN.
[2018-01-18 09:23] LABS: EOSINOPHILS % (MANUAL) 3 % (0-4); LYMPHOCYTES % (MANUAL) 3 % (16-48); MONOCYTES % (MANUAL) 2 % (0-11.0); NEUTROPHILS % (MANUAL) 92 (42-76)
--- NOTE | 2018-01-18 09:50 | NUR ---
RN NOTES P RECEIVING HD AT THIS TIME, MORNING MEDS HELD FOR NOW.
--- NOTE | 2018-01-18 10:00 | NUR ---
RN NOTES DR IGLESIAS NOTIFED REGARDING WBC 31.2 , CONTINUE TO MONITOR .
[2018-01-18] MEDS: NOREPINEPHRINE 16 MG in IV D5W 500 ML IV PRN (10:22)
[2018-01-18] MEDS: SERTRALINE HCL 25 MG TABLET GT SCH (10:36)
[2018-01-18] MEDS: FOLIC ACID 1 MG TABLET GT SCH (10:36)
[2018-01-18] MEDS: LACTOBACILLUS RHAMNOSUS GG 1 EACH CAP.SPRINK GT SCH ×2 (10:37→17:40)
[2018-01-18] MEDS: CALCIUM CARB 600MG /VIT D 1 EACH TABLET GT SCH (10:37)
[2018-01-18] MEDS: ATORVASTATIN 10 MG TABLET GT SCH (10:37)
[2018-01-18] MEDS: MULTIVIT, IRON, MIN NO. 8, FA 1 TAB GT SCH (10:37)
[2018-01-18] MEDS: CHOLECALCIFEROL 1,000 UNIT TABLET (VIT D3) GT SCH (10:37)
[2018-01-18] MEDS: PANTOPRAZOLE 40 MG VIAL IV SCH ×2 (10:37→20:54)
--- NOTE | 2018-01-18 10:56 | NUR ---
RN NOTES PHARMACY NOTIFED REGARDING AMIKACIN LEVEL OF 6.3 ,
[2018-01-18] MEDS ORDERED: CADEXOMER IODINE 40 GM TUBE TP SCH (11:00)
--- NOTE | 2018-01-18 11:09 | NUR ---
MILK BOTTLER PATIENT ADMITTED 01/08/18 WITH LARGE SCARRED AREA TO THE SACRAL REGION. I PLAC[facility]SPOKE TO ANTONIO) AND WAS ABLE TO RECEIVE PATIENT MEDICAL RECORDS DOCUMENTING A PREVIOUS PRESSURE ULCER TO THE SACRAL REGION. THE RECORDS WERE FROM [facility] . I HAVE MADE SEVERAL ATTEMPTS TO CONTACT [facility] AND HAVE LEFT NUMEROUS VOICE MAILS WITH THE SUPERVISORS FOR MEDICAL RECORDS AND HEALTH INFORMATION MANAGEMENT TO VALIDATE THE STAGE OF THE PRESSURE ULCER WHILE PATIENT WAS AT THEIR FACILITY AND HAVE NOT RECEIVED ANY PHONE CALLS BACK. THE PHONE NUMBERS THAT WERE CALLED ARE AND .
--- NOTE | 2018-01-18 11:44 | NUR ---
WOUND CARE CONSULT SPEECH/LANGUAGE THERAPIST EVALUATED PATIENT'S SACRAL REGION. PATIENT PRESENTS WITH SACRAL UNSTAGEABLE RECURRENT PRESSURE ULCER MEASURING 6CM X 9CM X UTD OVER POA SCARRED AREA. THERE IS NOTED NECROTIC TISSUE TO THE WOUND BED, THERE IS MOD AMOUNT OF S/S DRAINAGE WITH MILD ODOR. SURGICAL TEAM HAS EVALUATED ALSO AND WOUND CARE WILL DEFER TO SURGICAL TEAM FOR ALL TREATMENT PLANS. WOUND CARE WILL SEE PRN. A 1ST STEP LOW AIRLOSS MATTRESS IS IN PLACE FOR TREATMENT. PATIENT CONTINUES TO HAVE MULTIPLE CO-MORBIDITIES INCLUDING MULTI SYSTEM FAILURE, AND ALBUMIN OF 1.9.
[2018-01-18] MEDS ORDERED: CASPOFUNGIN 50 MG in IV NS 0.9% 250 ML IV SCH (12:00)
[2018-01-18] MEDS: VANCOMYCIN 500 MG in IV D5W 100 ML IV PRN (12:16)
[2018-01-18] MEDS: MICAFUNGIN SODIUM 100 MG in IV NS 0.9% 100 ML IV SCH (13:10)
[2018-01-18] MEDS: ACETAMINOPHEN 325 MG TABLET PO PRN (14:11)
--- NOTE | 2018-01-18 14:18 | NUR ---
RN NOTES T=100.7 RECTALLY, TYLENOL 650 x1 GIVEN , PAULINA BLAST FURNACE KEEPER NOTIFED, CONTINUE TO MONITOR .
[2018-01-18] MEDS: AMIKACIN 500 MG in IV D5W 100 ML IV PRN (14:33)
[2018-01-18] MEDS: IV NS 0.9% 250 ML IV PRN ×2 (14:51→23:15)
--- NOTE | 2018-01-18 15:00 | NUR ---
RN NOTES TELEPHONE CONSENT OBTAIN FROM PT'S FOR DEBRIDEMENT OF SACRAL WOUND .
--- NOTE | 2018-01-18 17:00 | NUR ---
RN NOTES T=99.1 AT THIS TIME .
[2018-01-18] MEDS: INSULIN REGULAR, HUMAN 100 UNIT/ML 3 ML VIAL SQ PRN ×2 (17:40→23:41)
--- NOTE | 2018-01-18 18:38 | NUR ---
RN NOTES VERONICAA WAX SPECIALIST NOTIFED REGARDING T=100.7 EARLIER . ET SUCTIONING DONE , R UPPER ARM PICC LINE ,CLEAN ,DRY AND INTACT, SR UP x3, BED LOCKED AND IN LOWEST POSITION, WILL ENDOSE TO LAWN MOWER OPERATOR NURSE FOR CONTINUITY OF CARE
--- NOTE | 2018-01-18 19:00 | NUR ---
RN NOTES UNABLE TO TAKE POST DEBRIDEMENT PICTURE OF SACRAL WOUND DUE TO MODERATE AMOUNT OF OOZING AT THE SACRAL WOUND. PRESSURE DRESSING APPLIED AND ENDORSE TO STEPHANIE FUENTES FOR CONTINUITY OF CARE AND POST DEBRIDEMENT SACRAL WOUND PICTURE .
--- NOTE | 2018-01-18 19:12 | NUR ---
RN NOTES DRESSING TO SACRAL WOUND IS DRY AND INTACT AT THIS TIME.
--- NOTE | 2018-01-18 19:38 | NUR ---
PT RECEIVED INTUBATED 7.0 ETT AT 24CM. BITE BLOCK IN PLACE. PT TOLERATING VENT SETTINGS.NO RESPIRATORY DISTRESS NOTED AT THIS TIME. SX'D FOR MOD AMT OF THICK SPAULDING SECRETIONS. VENT ALARMS SET AND AUDIBLE. AMBU BAG AT BEDSIDE. VENT PLUGGED INTO RED OUTLET. WILL CONTINUE TO MONITOR. Addendum: 01/18/18 at 1938 by JOSIAS NGUYỄN RT Amended: Links added.
--- NOTE | 2018-01-18 20:00 | NUR ---
ICU/RN RECEIVED PT OBTUNDED,ON VENT VIA ORAL ETT FI02 AT40% WITH SATURATION OF 99%.ON LEVOPHED AT 1 MCG/MIN W/ AAZ=100DTGP.ON TUBE FEEDING NEPHRO AT 20 ML/HR,WITHOUT RESIDUAL
[2018-01-18] MEDS: CEFEPIME 1 GM in IV D5W 50 ML IV SCH (20:55)
[2018-01-18] MEDS: HYDROGEL DRESSING 90 GM TUBE TP SCH (21:00)
[2018-01-18] MEDS: INSULIN GLARGINE, 100 UNIT/ML CARTRIDGE SQ SCH (22:11)
[2018-01-19] VITALS (55 sets, daily range): BP systolic 76–154; BP diastolic 47–73
[2018-01-19] MEDS: IPRATROPIUM NEB FS 0.5 MG/2.5 ML AMPUL.NEB NEB SCH ×4 (01:52→19:40)
[2018-01-19] MEDS: ALBUTEROL HALF STRENGTH 1.25 MG/3 ML VIAL.NEB NEB SCH ×4 (01:52→19:40)
[2018-01-19] MEDS: ACETAMINOPHEN 325 MG TABLET PO PRN (02:19)
[2018-01-19] MEDS: BLOOD SUGAR DIAGNOSTIC 1 EACH STRIP IN SCH ×3 (05:47→17:05)
[2018-01-19] MEDS: PHENYTOIN SODIUM IV 50 MG/ML VIAL IV SCH ×2 (05:53→17:09)
[2018-01-19] MEDS: METRONIDAZOLE 500MG/ NS 100ML 500 MG in PREMIX 1 EA IV SCH ×3 (05:55→17:09)
[2018-01-19] MEDS: METOCLOPRAMIDE HCL 10 MG/2 ML VIAL IV SCH ×4 (05:58→23:07)
--- NOTE | 2018-01-19 06:00 | NUR ---
ICU/RN. REMAINS ON LEVOPHED DRIP AT 1MCG/MIN, ATTEMPTED TO DECREASE RATE EARLIER THIS AM BUT SBP=80'S.SUCTIONED FOR LARGE AMT ORAL SECRETIONS,ORAL CARE DONE.
[2018-01-19] MEDS: INSULIN REGULAR, HUMAN 100 UNIT/ML 3 ML VIAL SQ PRN (06:01)
--- NOTE | 2018-01-19 07:00 | NUR ---
ICU/RN LEVOPHED DRIP INCREASED TO 2MCG/MIN SBP=76.
--- NOTE | 2018-01-19 07:15 | NUR ---
ICU/RN: Pt received, intubated, no distress; levophed titrated per MD parameters, BP labile. Tolerating TF. Will cont to monitor pt.
[2018-01-19] MEDS: ACETYLCYSTEINE 10% SOLN 400 MG/4 ML VIAL NEB SCH ×3 (07:22→23:50)
[2018-01-19] MEDS: PANTOPRAZOLE 40 MG VIAL IV SCH ×2 (08:17→21:03)
[2018-01-19] MEDS: CALCIUM CARB 600MG /VIT D 1 EACH TABLET GT SCH (08:17)
[2018-01-19] MEDS: SERTRALINE HCL 25 MG TABLET GT SCH (08:18)
[2018-01-19] MEDS: LACTOBACILLUS RHAMNOSUS GG 1 EACH CAP.SPRINK GT SCH ×2 (08:18→16:20)
[2018-01-19] MEDS: ATORVASTATIN 10 MG TABLET GT SCH (08:18)
[2018-01-19] MEDS: MULTIVIT, IRON, MIN NO. 8, FA 1 TAB GT SCH (08:18)
[2018-01-19] MEDS: CHOLECALCIFEROL 1,000 UNIT TABLET (VIT D3) GT SCH (08:18)
[2018-01-19] MEDS: HYDROGEL DRESSING 90 GM TUBE TP SCH ×2 (08:19→21:12)
[2018-01-19] MEDS: FOLIC ACID 1 MG TABLET GT SCH (08:19)
[2018-01-19 08:26] LABS: BASOPHILS % (AUTO) 0.2 % (0.0-2.0); EOSINOPHILS % (AUTO) 3.3 % (0.0-6.0); HEMATOCRIT 29 % (39-51); HEMOGLOBIN 9.5 g/dL (13.5-17.5); MEAN CORPUSCULAR HGB CONC 33 g/dl (31.0-36.0); MEAN CORPUSCULAR VOLUME 83 fL (80-96); MONOCYTES # (AUTO) 0.3 /CMM (0.1-1.30); MONOCYTES % (AUTO) 2.3 % (2.0-12.0); NEUTROPHILS # (AUTO) 12.6 /CMM (1.8-8.9); NEUTROPHILS % (AUTO) 87.2 % (43.0-81.0); PLATELET COUNT (AUTO) 136 /CMM (150-450); RDW COEFFICIENT OF VARIATION 20.2 (11.5-15.0); RED BLOOD CELL COUNT(AUTO) 3.52 MIL/uL (4.5-6.0); WHITE BLOOD COUNT (AUTO) 14.4 K/uL (4.3-11.0)
[2018-01-19 08:34] LABS: CALCIUM, SERUM 7.6 mg/dL (8.5-10.1); CREATININE 4.1 mg/dL (0.6-1.3); POTASSIUM 3.6 mmol/L (3.5-5.1)
[2018-01-19] MEDS: MUPIROCIN OINT 2% 22 GM TUBE SCH ×2 (08:40→21:20)
[2018-01-19] MEDS: LABETALOL HCL (100MG) 100 MG TABLET GT SCH ×2 (08:40→21:00)
--- NOTE | 2018-01-19 09:15 | NUR ---
ICU/RN: Dr Sneed rounds; updated on pt status. Awaiting family decision regarding trach vs comfort care.
[2018-01-19] MEDS: Z GUARD REMEDY 2 OZ OINT TP PRN (12:07)
[2018-01-19] MEDS: MICAFUNGIN SODIUM 100 MG in IV NS 0.9% 100 ML IV SCH (12:07)
--- NOTE | 2018-01-19 14:00 | NUR ---
ICU/RN: Bed bath, wound care rendered. Pt opens eyes, lethargic. Tolerated well.
--- NOTE | 2018-01-19 14:55 | NUR ---
HHN DEFERRED RT BUSY ON FLOORS. ZERO DISTRESS NOTED RN AWARE.
--- NOTE | 2018-01-19 15:45 | NUR ---
ICU/RN: Pt and family at bedside, updated on pt status. Per , the family decided to wait a few more days before making a decision. Per , family is leaning towards comfort care should pt status continue to decline.
[2018-01-19] MEDS: NOREPINEPHRINE 16 MG in IV D5W 500 ML IV PRN (17:05)
--- NOTE | 2018-01-19 17:35 | NUR ---
ICU/RN: RAN Ruiz at bedside for ID consult. Updated on pt status.
--- NOTE | 2018-01-19 19:41 | NUR ---
PT RECEIVED INTUBATED 7.0 ETT AT 24CM. BITE BLOCK IN PLACE. PT TOLERATING VENT SETTINGS.NO RESPIRATORY DISTRESS NOTED AT THIS TIME. SX'D FOR MOD AMT OF THICK SPAULDING SECRETIONS. VENT ALARMS SET AND AUDIBLE. AMBU BAG AT BEDSIDE. VENT PLUGGED INTO RED OUTLET. WILL CONTINUE TO MONITOR. Addendum: 01/19/18 at 1941 by JOSIAS NGUYỄN RT Amended: Links added.
--- NOTE | 2018-01-19 20:00 | NUR ---
ICU/RN RECEIVED PT W EYES OPEN TRACKS,DOES NOT FOLLOW COMMANDS.ON VENT PER TRACH SAT 100% ON 40%,SUCTIONED FOR SCANT AMOUNT SECRETIONS,TANNISH-COLORED.TOLERATING TF W/OUT RESIDUAL.REMAINS ON LEVOPHED DRIP AT 1MCG/MIN W/WJX=734'SMMHG.
[2018-01-19] MEDS: CEFEPIME 1 GM in IV D5W 50 ML IV SCH (21:04)
[2018-01-19] MEDS: HYDROGEL DRESSING 90 GM TUBE TP PRN (21:10)
[2018-01-19] MEDS: INSULIN GLARGINE, 100 UNIT/ML CARTRIDGE SQ SCH (22:05)
[2018-01-20] VITALS (71 sets, daily range): BP systolic 81–176; BP diastolic 47–83
[2018-01-20] MEDS: BLOOD SUGAR DIAGNOSTIC 1 EACH STRIP IN SCH ×4 (00:47→17:08)
[2018-01-20] MEDS: METRONIDAZOLE 500MG/ NS 100ML 500 MG in PREMIX 1 EA IV SCH ×4 (00:50→17:00)
[2018-01-20] MEDS: IPRATROPIUM NEB FS 0.5 MG/2.5 ML AMPUL.NEB NEB SCH ×4 (01:40→19:49)
[2018-01-20] MEDS: ALBUTEROL HALF STRENGTH 1.25 MG/3 ML VIAL.NEB NEB SCH ×4 (01:40→19:49)
[2018-01-20] MEDS: METOCLOPRAMIDE HCL 10 MG/2 ML VIAL IV SCH ×4 (05:17→21:49)
[2018-01-20] MEDS: PHENYTOIN SODIUM IV 50 MG/ML VIAL IV SCH (05:20)
[2018-01-20] MEDS: NEPRO 1,000 ML BOTTLE GT PRN (05:55)
--- NOTE | 2018-01-20 06:00 | NUR ---
ICU/RN REMAINS ON LEVOPHED AT 1MCG/MIN.MONITOR SHOW NSR.WRIST RESTRAINTS DC'D.NO SEIZURE ACTIVITY NOTED.
--- NOTE | 2018-01-20 07:00 | NUR ---
RN NOTES RECEIVED PT ON BED , INTUBATED, OBTUNDED, ON VENT, ET SUCTIONING DONE, ON TELE SR HR IN 60'S , L UPPER ARM PICC LINE SITE WITH LEVO AT 1MCG/MIN RUNNING , IV SITE , CLEAN, DRY AND INTACT, TF NEPHRO AT 20CC/HR RUNNING VIA GT , TOLERATING WELL, NO RESIDUAL NOTED, R UPPER CHEST HD CATH SITE CLEAN ,DRY AND INTACT, SR UP x3, CALL LIGHT WITHIN EASY REACH, BED LOCKED AND IN LOWEST POSITION, CONTINUE TO MONITOR ZOE.
[2018-01-20] MEDS: ACETYLCYSTEINE 10% SOLN 400 MG/4 ML VIAL NEB SCH ×3 (08:14→23:53)
[2018-01-20] MEDS: FOLIC ACID 1 MG TABLET GT SCH (08:23)
[2018-01-20] MEDS: CHOLECALCIFEROL 1,000 UNIT TABLET (VIT D3) GT SCH (08:23)
[2018-01-20] MEDS: MULTIVIT, IRON, MIN NO. 8, FA 1 TAB GT SCH (08:23)
[2018-01-20] MEDS: LACTOBACILLUS RHAMNOSUS GG 1 EACH CAP.SPRINK GT SCH ×2 (08:23→16:54)
[2018-01-20] MEDS: SERTRALINE HCL 25 MG TABLET GT SCH (08:23)
[2018-01-20] MEDS: PANTOPRAZOLE 40 MG VIAL IV SCH ×2 (08:24→21:21)
[2018-01-20] MEDS: MUPIROCIN OINT 2% 22 GM TUBE SCH ×2 (08:24→21:19)
[2018-01-20] MEDS: CALCIUM CARB 600MG /VIT D 1 EACH TABLET GT SCH (08:24)
[2018-01-20] MEDS: ATORVASTATIN 10 MG TABLET GT SCH (08:24)
[2018-01-20] MEDS: Z GUARD REMEDY 2 OZ OINT TP PRN (08:26)
[2018-01-20] MEDS: LABETALOL HCL (100MG) 100 MG TABLET GT SCH ×2 (09:00→21:19)
[2018-01-20] MEDS: HYDROGEL DRESSING 90 GM TUBE TP SCH ×2 (10:09→21:19)
[2018-01-20 10:47] LABS: BASOPHILS % (AUTO) 0.2 % (0.0-2.0); EOSINOPHILS % (AUTO) 4.1 % (0.0-6.0); HEMATOCRIT 32 % (39-51); HEMOGLOBIN 9.8 g/dL (13.5-17.5); LYMPHOCYTES % (AUTO) 8.4 % (20.0-44.0); MEAN CORPUSCULAR HGB CONC 31 g/dl (31.0-36.0); MEAN CORPUSCULAR VOLUME 82 fL (80-96); MONOCYTES # (AUTO) 0.8 /CMM (0.1-1.30); MONOCYTES % (AUTO) 6.3 % (2.0-12.0); PLATELET COUNT (AUTO) 177 /CMM (150-450); RDW COEFFICIENT OF VARIATION 21.2 (11.5-15.0); RED BLOOD CELL COUNT(AUTO) 3.84 MIL/uL (4.5-6.0); WHITE BLOOD COUNT (AUTO) 12.4 K/uL (4.3-11.0)
[2018-01-20 11:03] LABS: CALCIUM, SERUM 7.9 mg/dL (8.5-10.1); CREATININE 4.8 mg/dL (0.6-1.3); MAGNESIUM 2.2 mg/dL (1.8-2.4); POTASSIUM 3.8 mmol/L (3.5-5.1)
--- NOTE | 2018-01-20 11:42 | NUR ---
RN NOTES PT STILL RECEIVING HD , 11 AM MEDS HELD FOR NOW
[2018-01-20] MEDS: MICAFUNGIN SODIUM 100 MG in IV NS 0.9% 100 ML IV SCH (12:57)
--- NOTE | 2018-01-20 13:00 | NUR ---
RN NOTES PT IS MORE AWAKE AND RESPONDS TO YES OR NO QUESTIONS
--- NOTE | 2018-01-20 16:00 | NUR ---
RN NOTES PHARMACY NOTIFED REGARDING AMIKACIN LEVEL 12.5,
--- NOTE | 2018-01-20 16:30 | NUR ---
RN NOTES LEVO D/MACHELLE AT THIS TIME , BP STABLE , CONTINUE TO MONITOR.
[2018-01-20] MEDS: INSULIN REGULAR, HUMAN 100 UNIT/ML 3 ML VIAL SQ PRN (17:07)
[2018-01-20] MEDS: IV NS 0.9% 250 ML IV PRN (18:16)
--- NOTE | 2018-01-20 18:20 | NUR ---
RN NOTES VSS STABLE, TOLERATING TF WELL ,PT EYES ARE OPEN , NODDING TO YES OR NO QUESTIONS, L UPPER ARM PICC LINE CLEAN, DRY AND INTACT, HR IN 80'S , SR UP x3, CALL LIGHT WITHIN EASY REACH, BED LOCKED AND IN LOWEST POSITION, WILL ENDORSE TO SYSTEM ANALYST NURSE FOR CONTINUITY OF CARE .
--- NOTE | 2018-01-20 19:06 | NUR ---
RN NOTES TF INCREASED TO 30 CC/HR .
--- NOTE | 2018-01-20 19:45 | NUR ---
ICU/DEFENSIVE DRIVING INSTRUCTOR RECEIVED REPORT FROM DAY NURSE, PT APPEARS TO BE MORE ALERT THAN WHAT WAS RECEIVED IN REPORT. PT IS VENTED, SATURATION IS 99-100% TOLERATING VENT SETTINGS WELL. G/T FEEDING INCREASED TO 35 FROM 25 WILL MONITOR THE RESIDUALS. SKIN ISSUES ARE ADDRESSED ON FLOWSHEET. PT WAS TURNED AND REPOSITIONED FOR COMFORT AND CARE, WILL CONTINUE TO MONITOR THIS PT.
--- NOTE | 2018-01-20 19:56 | NUR ---
RECEIVED PT ORALLY INTUBATED ON VENT. NO RESP DISTRESS. PT TOLERATING VENT SETTINGS. SX'D FOR MOD AMT OF THICK SPAULDING SECRETIONS. VENT ALARMS SET AND AUDIBLE. AMBU BAG AT BEDSIDE. VENT PLUGGED INTO RED OUTLET. WILL CONTINUE TO MONITOR. Addendum: 01/20/18 at 1956 by JOSIAS NGUYỄN RT Amended: Links added.
[2018-01-20] MEDS: PHENYTOIN SUSP UDC 100 MG/4 ML UDC GT SCH (21:18)
[2018-01-20] MEDS: CEFEPIME 1 GM in IV D5W 50 ML IV SCH (21:21)
[2018-01-20] MEDS: INSULIN GLARGINE, 100 UNIT/ML CARTRIDGE SQ SCH (21:48)
--- NOTE | 2018-01-20 22:30 | NUR ---
ICU/GLASS SANDER BELT BLOOD SUGAR IS 141, THIS WAS COVERED WITH PM DOSE OF LANTUS 10 UNITS SQ THAT WAS ORDERED PER MD. WILL CONTINUE TO MONITOR PT'S SUGARS. PT WAS TURNED AND REPOSITIONED FOR COMFORT AND CARE, NO ACUTE DISTRESS SEEN AT THIS TIME.
[2018-01-21] VITALS (42 sets, daily range): BP systolic 94–159; BP diastolic 47–83
[2018-01-21] MEDS: BLOOD SUGAR DIAGNOSTIC 1 EACH STRIP IN SCH ×4 (00:11→17:08)
[2018-01-21] MEDS: METRONIDAZOLE 500MG/ NS 100ML 500 MG in PREMIX 1 EA IV SCH ×4 (00:13→17:01)
--- NOTE | 2018-01-21 00:15 | NUR ---
ICU/IT PROGRAMMER BLOOD SUGAR IS 161, THIS WAS COVERED WITH SLIDING SCALE THAT WAS ORDERED PER MD. WILL CONTINUE TO MONITOR PT'S SUGARS. PT WAS TURNED AND REPOSITIONED FOR COMFORT AND CARE, NO ACUTE DISTRESS SEEN AT THIS TIME.
[2018-01-21] MEDS: INSULIN REGULAR, HUMAN 100 UNIT/ML 3 ML VIAL SQ PRN ×2 (00:16→17:11)
[2018-01-21] MEDS: IPRATROPIUM NEB FS 0.5 MG/2.5 ML AMPUL.NEB NEB SCH ×4 (01:03→19:27)
[2018-01-21] MEDS: ALBUTEROL HALF STRENGTH 1.25 MG/3 ML VIAL.NEB NEB SCH ×4 (01:03→19:27)
--- NOTE | 2018-01-21 02:30 | NUR ---
ICU/EMERGENCY CREW SUPERVISOR PT GIVEN AM CARE ALONG WITH ORAL CARE, PT TOLERATED THIS WELL. PT REMAINS ON CURRENT VENT SETTINGS, WITH SATURATION AT 99%. PT WAS TURNED AND REPOSITIONED FOR COMFORT AND CARE. WILL CONTINUE TO MONITOR THIS PT, NO ACUTE DISTRESS SEEN AT THIS TIME.
[2018-01-21] MEDS: METOCLOPRAMIDE HCL 10 MG/2 ML VIAL IV SCH ×4 (05:15→23:00)
[2018-01-21 05:23] LABS: BASOPHILS % (AUTO) 0.2 % (0.0-2.0); EOSINOPHILS % (AUTO) 2.5 % (0.0-6.0); HEMATOCRIT 29 % (39-51); HEMOGLOBIN 9.3 g/dL (13.5-17.5); LYMPHOCYTES % (AUTO) 8.6 % (20.0-44.0); MEAN CORPUSCULAR HGB CONC 33 g/dl (31.0-36.0); MEAN CORPUSCULAR VOLUME 82 fL (80-96); MONOCYTES # (AUTO) 0.8 /CMM (0.1-1.30); MONOCYTES % (AUTO) 6.9 % (2.0-12.0); NEUTROPHILS # (AUTO) 9.6 /CMM (1.8-8.9); NEUTROPHILS % (AUTO) 81.8 % (43.0-81.0); PLATELET COUNT (AUTO) 150 /CMM (150-450); RDW COEFFICIENT OF VARIATION 20.6 (11.5-15.0); RED BLOOD CELL COUNT(AUTO) 3.49 MIL/uL (4.5-6.0); WHITE BLOOD COUNT (AUTO) 11.8 K/uL (4.3-11.0)
[2018-01-21 05:42] LABS: CREATININE 3.5 mg/dL (0.6-1.3); MAGNESIUM 2.2 mg/dL (1.8-2.4); PHOSPHORUS 2.6 mg/dL (2.5-4.9); POTASSIUM 3.7 mmol/L (3.5-5.1)
--- NOTE | 2018-01-21 05:50 | NUR ---
ICU/WOOD REPATCHER BLOOD SUGAR IS 77, THIS WASN'T COVERED PER MD'S ORDERS. WILL CONTINUE TO MONITOR PT'S SUGARS. PT WAS TURNED AND REPOSITIONED FOR COMFORT AND CARE, NO ACUTE DISTRESS SEEN AT THIS TIME.
[2018-01-21] MEDS: NEPRO 1,000 ML BOTTLE GT PRN (06:06)
[2018-01-21] MEDS: IV NS 0.9% 250 ML IV PRN (06:07)
[2018-01-21] MEDS: ACETYLCYSTEINE 10% SOLN 400 MG/4 ML VIAL NEB SCH ×2 (07:24→15:27)
--- NOTE | 2018-01-21 07:49 | NUR ---
MACHINE DESIGN ENGINEER NOTE PATIENT IN BED , OPEN BOTH EYES SLOWLY, ON TELE MONITOR ST HR 104 . WITH ETT 7CM TO LIP SIDE 24 CM TO VENT SETTING, AMBU BAG AT HOB , RT CW HD CATH INTACT , LT UPPER ARM PICC LINE IN PLACE WITH TKO ,WITH G TUBE FEEDING ORDERED , KEEP HOB ELEVATED AT ALL TIME SAT 99 %AT THIS TIME ,ON SEIZURE PRECAUTION, RT AT BEDSIDE TRACH SUCTION DONE , RECTAL TUBE IN PLACE, T NOW 101.6,BED IN LOWEST AND LOCKED POSITION , WILL CONT TO MONITORS CLOSELY Addendum: 01/21/18 at 1840 by MIRANDA JEROME RN RECEIVED PATIENT IN BED ,NOT RESPONSIVE TO VERBAL OR TACTILE STIMULI
[2018-01-21] MEDS: ACETAMINOPHEN 325 MG TABLET PO PRN ×3 (08:40→21:51)
--- NOTE | 2018-01-21 08:40 | NUR ---
SWITCHBOARD WIRE WORKER HELPER NOTE T 102.3 TYLENOL GIVEN COOLING MEASURE PROVIDED ,COOLING BLANKET APPLIED , PATIENT IS RESTLESS, RR 34, WILL CONT TO MONITOR CLOSELY
[2018-01-21] MEDS: CHOLECALCIFEROL 1,000 UNIT TABLET (VIT D3) GT SCH (08:41)
[2018-01-21] MEDS: SERTRALINE HCL 25 MG TABLET GT SCH (08:41)
[2018-01-21] MEDS: ATORVASTATIN 10 MG TABLET GT SCH (08:42)
[2018-01-21] MEDS: LACTOBACILLUS RHAMNOSUS GG 1 EACH CAP.SPRINK GT SCH ×2 (08:42→16:39)
[2018-01-21] MEDS: FOLIC ACID 1 MG TABLET GT SCH (08:42)
[2018-01-21] MEDS: MULTIVIT, IRON, MIN NO. 8, FA 1 TAB GT SCH (08:42)
[2018-01-21] MEDS: PHENYTOIN SUSP UDC 100 MG/4 ML UDC GT SCH ×2 (08:42→21:51)
[2018-01-21] MEDS: CALCIUM CARB 600MG /VIT D 1 EACH TABLET GT SCH (08:42)
[2018-01-21] MEDS: LABETALOL HCL (100MG) 100 MG TABLET GT SCH ×2 (08:43→21:52)
[2018-01-21] MEDS: LORAZEPAM INJ 2 MG/ML VIAL IV PRN (08:43)
[2018-01-21] MEDS: PANTOPRAZOLE 40 MG VIAL IV SCH ×2 (08:44→21:50)
[2018-01-21] MEDS: HYDROGEL DRESSING 90 GM TUBE TP SCH ×2 (08:44→21:55)
[2018-01-21] MEDS: MUPIROCIN OINT 2% 22 GM TUBE SCH ×2 (08:44→21:49)
--- NOTE | 2018-01-21 09:00 | NUR ---
ROOM SERVICE FOOD SERVER NOTE PATIENT IS RESTLESS .RR 37 ATIVAN 2 MG IVP GIVEN ORDERED , WILL CONT TO MONITOR CLOSELY
--- NOTE | 2018-01-21 09:44 | NUR ---
TOWBOAT CAPTAIN NOTE NOTED SAT 91-9% RT AT BEDSIDE CHANGED FI02 45% .WILL MONITOR
--- NOTE | 2018-01-21 11:22 | NUR ---
GENERAL CLERK NOTE SAT 100% ON FIO2 45% , NO RESIDUAL NOTED , INCREASED G TUBE FEEDING TO 35 ML PER HOUR ALSO T 101 AT THIS TIME, RT AT BEDSIDE, WILL MONITOR
[2018-01-21 11:58] LABS: ABG BASE EXCESS -1.3 mmol/L; ABG OXYGEN SATURATION 97.3 % (92.0-98.5); ABG PCO2 29.4 mmHg (35.0-45.0); ABG PH 7.482 (7.350-7.450); ABG PO2 109.5 mmHg (75.0-100.0); AaDO2 177.9 mmHg; COHb 0.3 % (0.5-1.5); MetHb 0.2 % (0.0-1.5); O2Hb 96.8 % (94.0-97.0); PEEP,BG 0 cm H2O; SITE, ABG Right Brachial; VT, ABG 450 mL
[2018-01-21] MEDS: MICAFUNGIN SODIUM 100 MG in IV NS 0.9% 100 ML IV SCH (12:41)
--- NOTE | 2018-01-21 12:43 | NUR ---
SOURCE WATER PROTECTION SPECIALIST NOTE ABG DONE, REPORTED RESULT TO DR SOSA PHOTORESIST CONTACT PRINTER, AWARE THAT BREATHING LABORED SLIGHTLY, STATED STILL OK SAME VENT SETTING , ALSO AWARE THAT T 100.7 ATIVAN AND TYLENOL GIVEN EARLIER ,WILL CONT TO MONITOR ,PER DR LOPEZ RN CEO & FOUNDER ID RN BLOOD CX DONE AWARE THAT WAS DONE ON 01/16/18 STILL PENDING RESULT AND AWARE THAT NOW 100.8
--- NOTE | 2018-01-21 14:15 | NUR ---
ICU R N NOTE T 100.7 ,TYLENOL VIA G TUBE GIVEN ORDERED ,WILL CONT TO MONITOR CLOSELY, MOUTH CARE DONE TRACH CARE DONE ,FAMILY AT BEDSIDE , KEEP CLEAN DRY, CONT ON COOLING BLANKET
--- NOTE | 2018-01-21 15:47 | NUR ---
OUTBOARD MOTOR MECHANIC NOTE SHARONDA GALLARDO RN GROUP CHIEF OPERATOR AT BEDSIDE ,AWARE THAT PATIENT SPIKE FEVER TODAY , JESSICA FUENTES GROUP CHIEF OPERATOR ID AWARE ,NOTIFIED THAT ATIVAN AND TYLENOL GIVEN EARLIER WILL CONT TO MONITOR CLOSELY T 99.6 FOR NOW
--- NOTE | 2018-01-21 17:35 | NUR ---
RT NOTE: PATIENT RECEIVED ORALLY INTUBATED WITH 7.0 ETT SECURED AT 24 CM MID LIP LINE ON ESPRIT VENT. ORANGE BITE BLOCK IN PLACE. ANCHOR FAST REPLACED AND SECURED AT 24 CM MID LIP LINE. ETT MOVED FROM LEFT TO RIGHT VIA ANCHORFAST THROUGHOUT SHIFT PER PROTOCOL. ALARMS VERIFIED AND AUDIBLE. SUCTIONED AND LAVAGED SMALL AMOUNTS OF THIN CLEAR SECRETIONS. BILATERAL CHEST RISE NOTED. VENT PLUGGED INTO RED OUTLET. AMBU BAG AT [facility].
--- NOTE | 2018-01-21 18:29 | NUR ---
LOCAL SALES ASSOCIATE NOTE BECOME MORE ALERT, MOVING HIS HEAD WHEN DO SUCTION , AT RISK TO REMOVE ETT AND OTHER LINE, SHARONDA GALLARDO RN SECURITY GUARD SUPERVISOR AWARE WITH ORDER OK TO PLACE SOFT RESTRAIN , PLACED O LT SIDE , WILL CONT TO MONITOR CLOSELY
--- NOTE | 2018-01-21 18:41 | NUR ---
HISTOTECHNICIAN NOTE PATIENT IN BED ,WITH ETT TO VENT SETTING ORDERED, FAMILY AT BEDSIDE T 99.7
[2018-01-21] MEDS: CEFEPIME 1 GM in IV D5W 50 ML IV SCH (21:50)
[2018-01-21] MEDS: INSULIN GLARGINE, 100 UNIT/ML CARTRIDGE SQ SCH (22:13)
[2018-01-22] VITALS (37 sets, daily range): BP systolic 79–152; BP diastolic 48–82
[2018-01-22] MEDS: METRONIDAZOLE 500MG/ NS 100ML 500 MG in PREMIX 1 EA IV SCH ×5 (00:24→23:09)
[2018-01-22] MEDS: BLOOD SUGAR DIAGNOSTIC 1 EACH STRIP IN SCH ×5 (00:25→23:09)
[2018-01-22] MEDS: INSULIN REGULAR, HUMAN 100 UNIT/ML 3 ML VIAL SQ PRN ×3 (00:25→23:21)
[2018-01-22] MEDS: ACETYLCYSTEINE 10% SOLN 400 MG/4 ML VIAL NEB SCH ×4 (01:05→23:29)
[2018-01-22] MEDS: IPRATROPIUM NEB FS 0.5 MG/2.5 ML AMPUL.NEB NEB SCH ×4 (01:06→19:43)
[2018-01-22] MEDS: ALBUTEROL HALF STRENGTH 1.25 MG/3 ML VIAL.NEB NEB SCH ×4 (01:06→19:43)
[2018-01-22] MEDS: HYDROCODONE/APAP 5/325MG 1 EACH TABLET PO PRN (02:58)
--- NOTE | 2018-01-22 02:59 | NUR ---
STRATEGIC INSIGHTS LEAD - PT. WAS ADM. NORCO=/GT FOR GEN. PAIN. PT. HAS FACIAL GRIMACING & NODDED "YES" WHEN ASKED IF HE WAS IN PAIN. A COMPLETE BEDBATH WAS ADM. W/ORAL/VENT/CHRISTIANE/PEG/TRACH/SKIN & WOUND CARE WAS GIVEN. SKIN PICS TAKEN & PLACED IN CHART FOR DOCUMENTATION. CONT.POC.
[2018-01-22 04:57] LABS: BASOPHILS # (AUTO) 0.2 /CMM (0.0-0.2); BASOPHILS % (AUTO) 1.5 % (0.0-2.0); EOSINOPHILS % (AUTO) 0.5 % (0.0-6.0); HEMATOCRIT 28 % (39-51); HEMOGLOBIN 9.1 g/dL (13.5-17.5); LYMPHOCYTES # (AUTO) 1.7 /CMM (0.8-4.8); LYMPHOCYTES % (AUTO) 10.5 % (20.0-44.0); MEAN CORPUSCULAR HGB CONC 32 g/dl (31.0-36.0); MEAN CORPUSCULAR VOLUME 82 fL (80-96); MONOCYTES # (AUTO) 0.4 /CMM (0.1-1.30); MONOCYTES % (AUTO) 2.7 % (2.0-12.0); NEUTROPHILS # (AUTO) 13.7 /CMM (1.8-8.9); NEUTROPHILS % (AUTO) 84.8 % (43.0-81.0); PLATELET COUNT (AUTO) 217 /CMM (150-450); RDW COEFFICIENT OF VARIATION 20.3 (11.5-15.0); RED BLOOD CELL COUNT(AUTO) 3.45 MIL/uL (4.5-6.0); WHITE BLOOD COUNT (AUTO) 16.2 K/uL (4.3-11.0)
[2018-01-22] MEDS: METOCLOPRAMIDE HCL 10 MG/2 ML VIAL IV SCH ×4 (05:00→23:08)
[2018-01-22 05:21] LABS: ALBUMIN 1.9 g/dL (3.4-5.0); BILIRUBIN,TOTAL 0.9 mg/dL (0.2-1.0); CALCIUM, SERUM 8.2 mg/dL (8.5-10.1); CREATININE 4.3 mg/dL (0.6-1.3); MAGNESIUM 2.2 mg/dL (1.8-2.4); PHOSPHORUS 3.1 mg/dL (2.5-4.9); TOTAL PROTEIN, SERUM 5.8 g/dL (6.4-8.2)
[2018-01-22 05:33] LABS: BAND % (MANUAL) 1 % (0.0-5.0); LYMPHOCYTES % (MANUAL) 7 % (16-48); MONOCYTES % (MANUAL) 3 % (0-11.0); NEUTROPHILS % (MANUAL) 89 (42-76)
--- NOTE | 2018-01-22 05:50 | NUR ---
RT NOTE: PATIENT RECEIVED ORALLY INTUBATED WITH 7.0 ETT SECURED AT 24 CM LIP LINE VENT. ETT PROPERLY SECURED. ALARMS VERIFIED AND AUDIBLE. SUCTIONED AND LAVAGED SMALL AMOUNTS OF THIN CLEAR SECRETIONS. BILATERAL CHEST RISE NOTED. VENT PLUGGED INTO RED OUTLET. AMBU BAG AT HOB. Addendum: 01/22/18 at 0551 by MAKSIM OLIVARES RT Amended: Links added.
--- NOTE | 2018-01-22 07:45 | NUR ---
ICU/RN: Pt received, intubated, tolerating current settings, airway noted with thick copious secretions, cleared. Tolerating TF. VSS.
[2018-01-22] MEDS: LABETALOL HCL (100MG) 100 MG TABLET GT SCH ×2 (08:37→21:25)
[2018-01-22] MEDS: FOLIC ACID 1 MG TABLET GT SCH (08:37)
[2018-01-22] MEDS: LACTOBACILLUS RHAMNOSUS GG 1 EACH CAP.SPRINK GT SCH ×2 (08:37→16:48)
[2018-01-22] MEDS: PHENYTOIN SUSP UDC 100 MG/4 ML UDC GT SCH ×2 (08:37→21:25)
[2018-01-22] MEDS: CALCIUM CARB 600MG /VIT D 1 EACH TABLET GT SCH (08:37)
[2018-01-22] MEDS: MULTIVIT, IRON, MIN NO. 8, FA 1 TAB GT SCH (08:37)
[2018-01-22] MEDS: PANTOPRAZOLE 40 MG VIAL IV SCH ×2 (08:38→21:24)
[2018-01-22] MEDS: SERTRALINE HCL 25 MG TABLET GT SCH (08:38)
[2018-01-22] MEDS: ATORVASTATIN 10 MG TABLET GT SCH (08:38)
[2018-01-22] MEDS: CHOLECALCIFEROL 1,000 UNIT TABLET (VIT D3) GT SCH (08:38)
[2018-01-22] MEDS: HYDROGEL DRESSING 90 GM TUBE TP SCH ×2 (08:38→21:28)
[2018-01-22] MEDS: MUPIROCIN OINT 2% 22 GM TUBE SCH ×2 (08:39→21:27)
[2018-01-22] MEDS: Z GUARD REMEDY 2 OZ OINT TP PRN (08:39)
[2018-01-22] MEDS: NEPRO 1,000 ML BOTTLE GT PRN (08:52)
--- NOTE | 2018-01-22 12:00 | NUR ---
ICU/RN: HD RN at bedside; VSS stable; IV abx on hold. Labs and VS reviewed.
--- NOTE | 2018-01-22 14:00 | NUR ---
ICU/RN: HD complete, 1L out. VSS. Notified Rx of vanco trough 20 and clarified whether or not to hold post-HD dose; per Rx Radha "okay to give it"
[2018-01-22] MEDS: MICAFUNGIN SODIUM 100 MG in IV NS 0.9% 100 ML IV SCH (14:09)
[2018-01-22] MEDS: VANCOMYCIN 500 MG in IV D5W 100 ML IV PRN (14:10)
[2018-01-22] MEDS: AMIKACIN 500 MG in IV D5W 100 ML IV PRN (16:43)
--- NOTE | 2018-01-22 17:00 | NUR ---
ICU/RN: Family at bedside, per , the family has decided to terminally extubate pt on Jan 24 around 1100 to allow other family members to arrive. Emily Polanco NP notified. finance mgr aware.
--- NOTE | 2018-01-22 19:15 | NUR ---
ICU/RN: Pt resting in bed comfortably, no distress noted. Restraint care rendered. Tolerating TF. Dressing C/D/I. Safety measures in place. Bedside report given to noc RN for KARLENE.
--- NOTE | 2018-01-22 19:30 | NUR ---
NEON SIGN SERVICER INITIAL SHIFT NOTES: Pt received in bed, asleep, eyes closed, orally intubated, tolerating current settings, airway noted with moderate secretions, suctioned for clearance. Tolerating TF well, no gastric residuals at this time. VSS. Will monitor closely
--- NOTE | 2018-01-22 20:18 | NUR ---
RECEIVED PT INTUBATED ON VENT. PT TOLERATING VENT SETTINGS. SX'D FOR SML AMT OF THIN WHITE SECRETIONS. VENT ALARMS SET AND AUDIBLE. ETT SECURED, CUFF VETERINARY MICROBIOLOGIST AND BITE BLOCK IN PLACE. AMBU BAG AT BEDSIDE. VENT PLUGGED INTO RED OUTLET. WILL CONTINUE TO MONITOR. Addendum: 01/22/18 at 2020 by ALLYSSA NEGRO RT Amended: Links added.
[2018-01-22] MEDS: CEFEPIME 1 GM in IV D5W 50 ML IV SCH (21:25)
[2018-01-22] MEDS: INSULIN GLARGINE, 100 UNIT/ML CARTRIDGE SQ SCH (21:34)
[2018-01-23] VITALS (35 sets, daily range): BP systolic 106–190; BP diastolic 48–99
[2018-01-23] MEDS: ALBUTEROL HALF STRENGTH 1.25 MG/3 ML VIAL.NEB NEB SCH ×4 (00:58→19:55)
[2018-01-23] MEDS: IPRATROPIUM NEB FS 0.5 MG/2.5 ML AMPUL.NEB NEB SCH ×4 (00:58→19:55)
--- NOTE | 2018-01-23 01:10 | NUR ---
RN NOTES PATIENT ENDORSED TO NURSE MARGOTH FOR CONTINUITY OF CARE
[2018-01-23] MEDS: IV NS 0.9% 250 ML IV PRN (01:43)
[2018-01-23] MEDS: METOCLOPRAMIDE HCL 10 MG/2 ML VIAL IV SCH ×4 (04:31→23:10)
[2018-01-23] MEDS: HYDROCODONE/APAP 5/325MG 1 EACH TABLET PO PRN (04:31)
[2018-01-23 04:55] LABS: BASOPHILS # (AUTO) 0.1 /CMM (0.0-0.2); BASOPHILS % (AUTO) 0.4 % (0.0-2.0); EOSINOPHILS % (AUTO) 1.5 % (0.0-6.0); HEMATOCRIT 28 % (39-51); HEMOGLOBIN 8.9 g/dL (13.5-17.5); LYMPHOCYTES # (AUTO) 0.9 /CMM (0.8-4.8); LYMPHOCYTES % (AUTO) 6.3 % (20.0-44.0); MEAN CORPUSCULAR HGB CONC 31 g/dl (31.0-36.0); MEAN CORPUSCULAR VOLUME 83 fL (80-96); MONOCYTES # (AUTO) 0.7 /CMM (0.1-1.30); MONOCYTES % (AUTO) 4.8 % (2.0-12.0); NEUTROPHILS # (AUTO) 11.8 /CMM (1.8-8.9); PLATELET COUNT (AUTO) 242 /CMM (150-450); RDW COEFFICIENT OF VARIATION 21.5 (11.5-15.0); RED BLOOD CELL COUNT(AUTO) 3.41 MIL/uL (4.5-6.0); WHITE BLOOD COUNT (AUTO) 13.6 K/uL (4.3-11.0)
[2018-01-23 05:15] LABS: CALCIUM, SERUM 8.2 mg/dL (8.5-10.1); MAGNESIUM 2.1 mg/dL (1.8-2.4); PHOSPHORUS 3.3 mg/dL (2.5-4.9); POTASSIUM 3.9 mmol/L (3.5-5.1)
[2018-01-23] MEDS: METRONIDAZOLE 500MG/ NS 100ML 500 MG in PREMIX 1 EA IV SCH ×3 (06:02→17:08)
[2018-01-23] MEDS: BLOOD SUGAR DIAGNOSTIC 1 EACH STRIP IN SCH ×4 (06:02→23:10)
[2018-01-23] MEDS: ACETYLCYSTEINE 10% SOLN 400 MG/4 ML VIAL NEB SCH ×3 (07:21→23:51)
--- NOTE | 2018-01-23 07:21 | NUR ---
PT. RECEIVED ON VENT SUPPORT VIA ET TUBE SIZE 7.0 SECURED @ 24 CM LIP LINE WITH PARAMETERS BELOW ORDER: AC 16 VT 450 FIO2 40 % 0 PEEP BREATH SOUNDS COARSE RHONCHI BILATERAL, SXN MOD. AMNT PALE YELLOW SEMI THICK SECRETIONS. EVIE BAG @ BEDSIDE. Addendum: 01/23/18 at 1100 by DENISE BERRY RT Amended: Links added.
[2018-01-23] MEDS: NEPRO 1,000 ML BOTTLE GT PRN (07:59)
[2018-01-23] MEDS: PHENYTOIN SUSP UDC 100 MG/4 ML UDC GT SCH ×2 (08:08→21:10)
[2018-01-23] MEDS: SERTRALINE HCL 25 MG TABLET GT SCH (08:08)
[2018-01-23] MEDS: CHOLECALCIFEROL 1,000 UNIT TABLET (VIT D3) GT SCH (08:08)
[2018-01-23] MEDS: PANTOPRAZOLE 40 MG VIAL IV SCH ×2 (08:08→21:10)
[2018-01-23] MEDS: FOLIC ACID 1 MG TABLET GT SCH (08:08)
[2018-01-23] MEDS: MULTIVIT, IRON, MIN NO. 8, FA 1 TAB GT SCH (08:08)
[2018-01-23] MEDS: LACTOBACILLUS RHAMNOSUS GG 1 EACH CAP.SPRINK GT SCH ×2 (08:08→16:22)
[2018-01-23] MEDS: CALCIUM CARB 600MG /VIT D 1 EACH TABLET GT SCH (08:08)
[2018-01-23] MEDS: ATORVASTATIN 10 MG TABLET GT SCH (08:09)
[2018-01-23] MEDS: HYDROGEL DRESSING 90 GM TUBE TP SCH ×2 (08:09→21:10)
[2018-01-23] MEDS: hydrALAZINE HCL IV 20 MG VIAL IV PRN (08:09)
[2018-01-23] MEDS: MUPIROCIN OINT 2% 22 GM TUBE SCH ×2 (08:10→21:11)
[2018-01-23] MEDS: Z GUARD REMEDY 2 OZ OINT TP PRN (08:10)
[2018-01-23 09:05] LABS: ABG BASE EXCESS 0.3 mmol/L; ABG OXYGEN SATURATION 96.4 % (92.0-98.5); ABG PCO2 34.1 mmHg (35.0-45.0); ABG PH 7.461 (7.350-7.450); ABG PO2 91.1 mmHg (75.0-100.0); AaDO2 154.9 mmHg; COHb 0.3 % (0.5-1.5); MetHb 0.2 % (0.0-1.5); O2Hb 95.9 % (94.0-97.0); PEEP,BG 0 cm H2O; SITE, ABG Left Radial; VT, ABG 450 mL
[2018-01-23] MEDS: LABETALOL HCL (100MG) 100 MG TABLET GT SCH ×2 (09:24→21:10)
--- NOTE | 2018-01-23 10:00 | NUR ---
ICU/RN: Dr Sneed at bedside; updated on pt status, ABG's reviewed. Pt awake, alert, no distress, follows some commands however noted with mild tachypnea. Per MD, pt with marked improvement, will place on CPAP trial. Informed MD that family does not wish to proceed with tracheostomy should pt status continue to decline. Pt's family considering terminal extubation tomorrow, 01/24/18.
--- NOTE | 2018-01-23 10:15 | NUR ---
PLACED ON CPAP WITH PS 10 @ 40 % FIO2 PER DR. IGLESIAS. HR 85 SPO2 100% Addendum: 01/23/18 at 1017 by DENISE BERRY RT Amended: Links added.
--- NOTE | 2018-01-23 10:40 | NUR ---
ICU/RN: Dr Francesca dumont; pt currently on CPAP trial, s/p HD yesterday with 1L out. Informed of ID rec to DC permacath/ line holiday. MD to consult with Dr Snow or Dr Higginbotham regarding permacath removal.
--- NOTE | 2018-01-23 10:55 | NUR ---
BACK TO AC 16, VT 450, FIO2 40%, NO PEEP DUE TO 39 RR. Addendum: 01/23/18 at 1057 by DENISE BERRY RT Amended: Links added.
--- NOTE | 2018-01-23 11:00 | NUR ---
ICU/RN: Dr Drew dumont; updated on pt status, labs, failed CPAP trial. Informed of family wishes, no trach; plan to dc permacath per Dr Ma.
[2018-01-23] MEDS: MICAFUNGIN SODIUM 100 MG in IV NS 0.9% 100 ML IV SCH (12:25)
--- NOTE | 2018-01-23 15:00 | NUR ---
ICU/RN: Bed bath, wound care rendered, pt tolerated well. Remains afebrile at this time. Small soft formed brown bm x1 noted.
[2018-01-23] MEDS: INSULIN REGULAR, HUMAN 100 UNIT/ML 3 ML VIAL SQ PRN ×2 (17:28→23:11)
--- NOTE | 2018-01-23 18:15 | NUR ---
ICU/RN: IV abx, meds administered. Family at bedside, updated on poc. Will cont to monitor pt.
--- NOTE | 2018-01-23 18:40 | NUR ---
ICU/RN: Family at bedside, speaking and communicating with pt. Pt nods head in agreement when asked if he would agree to a tracheostomy if needed. Pt asked in korean and kiswahili and confirmed with multiple family members. electric power line examiner and Dr Russell updated.
--- NOTE | 2018-01-23 19:43 | NUR ---
ADMINISTRATIVE SERVICES ASSISTANT RCD PT W/DX SEIZURE; PT IS LETHARGIC WITH EPISODES OF WAKING UP BUT DOES NOT FOLLOW COMMANDS W/RIGHT SIDED PARALYSIS HOWEVER PT HAS LEFT HAND SOFT WRIST RESTRAINT IN PLACE FOR SAFETY. NSR ON MONITOR. INTUBATED 7.0 @ 24 W/VENT SETTINGS AC 16 450 40% 0. PT IS ANURIC. SACRAL WOUND WITH DRESSING IN PLACE. JEB PICC LINE W/NS@ TKO. NEPRO @ 40 ML/HR WITH GOAL RATE 50; 10 ML RESIDUAL AT THIS TIME. HEELS OFFLOADED. HOB ELEVATED. POC PENDING DISCUSSION BETWEEN FAMILY AND DOCTORS.
[2018-01-23] MEDS: INSULIN GLARGINE, 100 UNIT/ML CARTRIDGE SQ SCH (23:12)
[2018-01-24] VITALS (50 sets, daily range): BP systolic 99–163; BP diastolic 36–70
[2018-01-24] MEDS: ALBUTEROL HALF STRENGTH 1.25 MG/3 ML VIAL.NEB NEB SCH ×4 (02:18→19:42)
[2018-01-24] MEDS: IPRATROPIUM NEB FS 0.5 MG/2.5 ML AMPUL.NEB NEB SCH ×4 (02:18→19:42)
--- NOTE | 2018-01-24 04:10 | NUR ---
pt received on vent via ett with charted settings. airway patent. secure via anchor fast. ambu bag at bedside. alarms set and audible, disconnect alarms checked plugged into red outlet suctioned a small amount of thin white secretions. pt hob at 30 degrees. suctioned oral secretion from pts mouth Addendum: 01/24/18 at 0410 by RENETTA FRANK RT Amended: Links added.
[2018-01-24 04:15] LABS: BASOPHILS # (AUTO) 0.1 /CMM (0.0-0.2); BASOPHILS % (AUTO) 0.7 % (0.0-2.0); EOSINOPHILS % (AUTO) 1.2 % (0.0-6.0); HEMATOCRIT 28 % (39-51); HEMOGLOBIN 8.5 g/dL (13.5-17.5); LYMPHOCYTES # (AUTO) 0.9 /CMM (0.8-4.8); MEAN CORPUSCULAR HGB CONC 31 g/dl (31.0-36.0); MEAN CORPUSCULAR VOLUME 82 fL (80-96); MONOCYTES # (AUTO) 0.7 /CMM (0.1-1.30); MONOCYTES % (AUTO) 5.9 % (2.0-12.0); NEUTROPHILS # (AUTO) 9.6 /CMM (1.8-8.9); NEUTROPHILS % (AUTO) 84.2 % (43.0-81.0); PLATELET COUNT (AUTO) 298 /CMM (150-450); RED BLOOD CELL COUNT(AUTO) 3.34 MIL/uL (4.5-6.0); WHITE BLOOD COUNT (AUTO) 11.4 K/uL (4.3-11.0)
[2018-01-24 04:22] LABS: CALCIUM, SERUM 8.1 mg/dL (8.5-10.1); CREATININE 4.6 mg/dL (0.6-1.3); MAGNESIUM 2.2 mg/dL (1.8-2.4); PHOSPHORUS 3.4 mg/dL (2.5-4.9); POTASSIUM 3.9 mmol/L (3.5-5.1)
[2018-01-24] MEDS: NEPRO 1,000 ML BOTTLE GT PRN (05:22)
[2018-01-24] MEDS: METOCLOPRAMIDE HCL 10 MG/2 ML VIAL IV SCH ×4 (05:22→22:27)
[2018-01-24] MEDS: INSULIN REGULAR, HUMAN 100 UNIT/ML 3 ML VIAL SQ PRN ×3 (05:33→23:30)
[2018-01-24] MEDS: BLOOD SUGAR DIAGNOSTIC 1 EACH STRIP IN SCH ×4 (05:47→23:29)
--- NOTE | 2018-01-24 07:15 | NUR ---
RECEIVED PATIENT VENT SETTINGS PER ORDER. ETT 7.0/24. PATIENT IS AWAKE AND FOLLOWING COMMANDS IN EXTREMITIES ABLE TO BE MOVED. PATIENT HAS NO NOTED SOB, DIFFICULTY BREATHING AND FLACC 0. PATIENT TELE NSR. LEFT WRIST RESTRAINT IN PLACE AND REMOVED FOR ROM AND PLACED BACK ON. PATIENT NEPHRO RUNNING PER ORDER NO RESIDUALS NOTED AT THIS TIEM. IV LIVE C/D/I/P GOOD BLOOD RETURN. RCW PERMACATH INTACT AND CLEAN. SKIN, SAFETY, ASPIRATION PRECAUTIONS IN PLACE. WILL MONITOR
[2018-01-24] MEDS: ACETYLCYSTEINE 10% SOLN 400 MG/4 ML VIAL NEB SCH ×3 (07:43→23:19)
--- NOTE | 2018-01-24 07:43 | NUR ---
RT PATIENT REC'D ORALLY INTUBATED ON [facility] VENT WITH SETTING SET BY . VENT ALARMS CHECKED + AUDIBLE. 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 SUCTIONED AIRWAY WITH SMALL/MOD AMT OF SPAULDING SEMITHICK SECRETIONS. B/S DIM. PATIENT IN CRITICAL CONDITION. AMBU BAG AT HOB. Addendum: 01/24/18 at 0856 by CASTILLO QURESHI RT Amended: Links added.
--- NOTE | 2018-01-24 07:58 | NUR ---
PATIENT TEMP 100.8 APPLIED COOLING BLANKET WILL MONITOR.
[2018-01-24] MEDS: PANTOPRAZOLE 40 MG VIAL IV SCH ×2 (08:34→20:38)
[2018-01-24] MEDS: SERTRALINE HCL 25 MG TABLET GT SCH (08:34)
[2018-01-24] MEDS: ATORVASTATIN 10 MG TABLET GT SCH (08:35)
[2018-01-24] MEDS: PHENYTOIN SUSP UDC 100 MG/4 ML UDC GT SCH ×2 (08:35→20:38)
[2018-01-24] MEDS: FOLIC ACID 1 MG TABLET GT SCH (08:35)
[2018-01-24] MEDS: CALCIUM CARB 600MG /VIT D 1 EACH TABLET GT SCH (08:35)
[2018-01-24] MEDS: CHOLECALCIFEROL 1,000 UNIT TABLET (VIT D3) GT SCH (08:35)
[2018-01-24] MEDS: LACTOBACILLUS RHAMNOSUS GG 1 EACH CAP.SPRINK GT SCH ×2 (08:35→17:09)
[2018-01-24] MEDS: LABETALOL HCL (100MG) 100 MG TABLET GT SCH ×2 (08:35→20:39)
[2018-01-24] MEDS: MULTIVIT, IRON, MIN NO. 8, FA 1 TAB GT SCH (08:35)
[2018-01-24] MEDS: Z GUARD REMEDY 2 OZ OINT TP PRN ×2 (08:35→11:32)
[2018-01-24] MEDS: ACETAMINOPHEN 325 MG TABLET PO PRN (08:35)
[2018-01-24] MEDS: HYDROGEL DRESSING 90 GM TUBE TP SCH ×2 (08:36→21:00)
[2018-01-24] MEDS: IV NS 0.9% 250 ML IV PRN (09:40)
[2018-01-24] MEDS: MUPIROCIN OINT 2% 22 GM TUBE SCH ×2 (09:42→20:40)
--- NOTE | 2018-01-24 10:44 | NUR ---
DR IGLESIAS NOTIFIED PATIENT REQUEST FOR TRACHEOSTOMY PLACEMENT. PER MD PLEASE HAVE PATIENT TIRAL CPAP AGAIN PSV 10 AFTER HD
--- NOTE | 2018-01-24 11:21 | NUR ---
RT PER DR IGLESIAS'S ORDER PATIENT PLACED ON CPAP 10 TRIAL. PATIENT IMMEDIATELY BEGAN TO BREATH IN THE HIGH 30'S. PATIENT HAS LOTS OF SECRETIONS. WILL MONITOR CLOSELY. Addendum: 01/24/18 at 1123 by CASTILLO QURESHI RT Amended: Links added.
[2018-01-24] MEDS: AMIKACIN 500 MG in IV D5W 100 ML IV PRN (11:27)
[2018-01-24] MEDS: VANCOMYCIN 500 MG in IV D5W 100 ML IV PRN (11:28)
--- NOTE | 2018-01-24 11:28 | NUR ---
NON ADMIN VANCO AND AMIKACIN PER ELEVATED TROUGH LEVELS.
[2018-01-24] MEDS: MICAFUNGIN SODIUM 100 MG in IV NS 0.9% 100 ML IV SCH (11:31)
[2018-01-24] MEDS: HYDROGEL DRESSING 90 GM TUBE TP PRN (11:32)
--- NOTE | 2018-01-24 12:30 | NUR ---
ON CPAP PATIENT UNABLE TO TOLERATE. BECAME TACHYPNEIC AND FIGHING VENT. PER DR IGLESIAS RESUME DIPRIVAN SEDATION TO ASSIST WITH VENTILATOR ACCEPTANCE.
--- NOTE | 2018-01-24 12:34 | NUR ---
PATIENT UNABLE TO TOLERATE CPAP VENT WEANING MODE. RR INCREASED AND INCREASE IN SECRETIONS. PER DR IGLESIAS PLACED BACK ON AC MODE. ABG CANCELLED. Addendum: 01/24/18 at 1236 by CASTILLO QURESHI RT Amended: Links added.
[2018-01-24] MEDS: PROPOFOL 100 ML IV PRN ×2 (12:45→20:38)
[2018-01-24 15:47] LABS: INR 1.22 (0.87-1.13)
--- NOTE | 2018-01-24 18:47 | NUR ---
PATIENT STABLE. DIP RUNNING 20MCG/KG/MIN AND RESPIRATORY RATE STABLE. IV SITE C/D/I/P GOOD BLOOD RETURN. HD CATH C/D/I. PATIENT SAFETY, SKIN, ASPIRATION, AND SEIZURE PRECAUTIONS IN PLACE. FAMILY AT BEDSIDE.
--- NOTE | 2018-01-24 19:30 | NUR ---
TALENT ACQUISITION ASSISTANT INITIAL NOTE RECEIVED PATIENT ASLEEP, DROWSY, AROUSABLE, BLINKS TO ANSWER YES OR NO QUESTIONS. DENIES PAIN OR DISCOMFORT. NO RESPIRATORY DISTRESS NOTED. WITH ETT 7.0/24CM AT THE LIP. VENT SETTINGS AC 16, TV 450, FIO2 40%, PEEP 0. SKIN WARM AND DRY TO TOUCH. WITH GT PATENT, INTACT, IN PLACE, NO RESIDUAL NOTED. ON TEL MONITOR SR WITH BBB. NOTED WITH LEFT WRIST RESTRAINT, WITH GOOD CIRCULATION. LUE PICC LINE PATENT AND INTACT, WITH TKO AND DIPRIVAN AT 20MCG/KG/MIN RUNNING. PER REPORT DIPRIVAN IS FOR RESPIRATORY RATE CONTROL AND NOT FOR SEDATION PURPOSES. RCW HD CATH IN PLACE. ISOLATION PRECAUTIONS OBSERVED. SEIZURE PRECAUTIONS OBSERVED. HOB ELEVATED. SIDE RAILS UP AND LOCKED. BED KEPT AT LOWEST POSITION. CALL LIGHT KEPT WITHIN EASY REACH. WILL CONTINUE TO MONITOR.
--- NOTE | 2018-01-24 20:10 | NUR ---
RECEIVED PT INTUBATED ON VENT. PT TOLERATING VENT SETTINGS. SX'D FOR SML AMT OF THIN WHITE SECRETIONS. VENT ALARMS SET AND AUDIBLE. ETT SECURED, CUFF STRADDLE BUG AND BITE BLOCK IN PLACE. AMBU BAG AT BEDSIDE. VENT PLUGGED INTO RED OUTLET. WILL CONTINUE TO MONITOR Addendum: 01/24/18 at 2010 by ALLYSSA NEGRO RT Amended: Links added.
--- NOTE | 2018-01-24 21:00 | NUR ---
TERRAZZO TILE MAKER NOTE PATIENT NOTED WITH NO HYDROGEL AT BEDSIDE, FAXED ORDER TO RN CAREER TECHNICAL EDUCATION TEACHER, PER CAREER TECHNICAL EDUCATION TEACHER SHE DOES NOT HAVE HYDROGEL EITHER.
[2018-01-24] MEDS: INSULIN GLARGINE, 100 UNIT/ML CARTRIDGE SQ SCH (22:26)
[2018-01-25] VITALS (48 sets, daily range): BP systolic 124–177; BP diastolic 56–79
[2018-01-25] MEDS: HYDROCODONE/APAP 5/325MG 1 EACH TABLET PO PRN ×4 (00:50→22:58)
[2018-01-25] MEDS: ALBUTEROL HALF STRENGTH 1.25 MG/3 ML VIAL.NEB NEB SCH ×4 (00:55→19:40)
[2018-01-25] MEDS: IPRATROPIUM NEB FS 0.5 MG/2.5 ML AMPUL.NEB NEB SCH ×4 (00:55→19:40)
[2018-01-25] MEDS: hydrALAZINE HCL 10 MG TABLET GT PRN ×3 (03:00→15:03)
--- NOTE | 2018-01-25 03:13 | NUR ---
ON SITE PROPERTY MANAGER NOTE NOTED PATIENT WITH BP 174/79, NO S/S OF PAIN OR DISCOMFORT. NO DISTRESS NOTED. PRN HYDRALAZINE GIVEN. WILL CONTINUE TO MONITOR.
[2018-01-25] MEDS: NEPRO 1,000 ML BOTTLE GT PRN (04:06)
[2018-01-25] MEDS: METOCLOPRAMIDE HCL 10 MG/2 ML VIAL IV SCH ×4 (04:06→22:58)
[2018-01-25] MEDS: PROPOFOL 100 ML IV PRN ×2 (04:07→09:22)
[2018-01-25 04:39] LABS: BASOPHILS % (AUTO) 0.4 % (0.0-2.0); EOSINOPHILS % (AUTO) 1.8 % (0.0-6.0); HEMATOCRIT 26 % (39-51); HEMOGLOBIN 8.4 g/dL (13.5-17.5); LYMPHOCYTES % (AUTO) 7.8 % (20.0-44.0); MEAN CORPUSCULAR HGB CONC 32 g/dl (31.0-36.0); MEAN CORPUSCULAR VOLUME 82 fL (80-96); MONOCYTES # (AUTO) 0.8 /CMM (0.1-1.30); MONOCYTES % (AUTO) 6.3 % (2.0-12.0); NEUTROPHILS # (AUTO) 10.3 /CMM (1.8-8.9); NEUTROPHILS % (AUTO) 83.7 % (43.0-81.0); PLATELET COUNT (AUTO) 335 /CMM (150-450); RDW COEFFICIENT OF VARIATION 20.8 (11.5-15.0); WHITE BLOOD COUNT (AUTO) 12.3 K/uL (4.3-11.0)
[2018-01-25 04:50] LABS: CALCIUM, SERUM 8.1 mg/dL (8.5-10.1); CREATININE 3.8 mg/dL (0.6-1.3); POTASSIUM 3.6 mmol/L (3.5-5.1)
[2018-01-25] MEDS: BLOOD SUGAR DIAGNOSTIC 1 EACH STRIP IN SCH ×4 (05:10→23:19)
--- NOTE | 2018-01-25 07:20 | NUR ---
RECEIVED PATIENT VENT SETTINGS PER ORDER. ETT 7.0/24. PATIENT IS SEDATED ON DIPRIVAN 35MCG/KG/MIN PER DR IGLESIAS FOR RR CONTROL. PATIENT RR 24 AT THIS TIME. PATIENT HAS NO NOTED SOB, DIFFICULTY BREATHING AND FLACC 0. PATIENT TELE NSR. LEFT WRIST RESTRAINT IN PLACE AND REMOVED FOR ROM AND PLACED BACK ON. PATIENT AWAKE TO LIGHT TOUCH AND WILL CONTINUE TO TRY AND PULL AT ETT. PATIENT NEPHRO RUNNING PER ORDER NO RESIDUALS NOTED AT THIS TIME. IV LIVE C/D/I/P GOOD BLOOD RETURN. PERMACATH INTACT AND CLEAN; PENDING MD ORDER FOR POSSIBLE REMOVAL AND CULTURE. SKIN, SAFETY, ASPIRATION PRECAUTIONS IN PLACE. WILL MONITOR
[2018-01-25] MEDS: ACETYLCYSTEINE 10% SOLN 400 MG/4 ML VIAL NEB SCH ×3 (07:25→23:35)
--- NOTE | 2018-01-25 07:29 | NUR ---
pt received on vent via ett with charted settings. airway patent. secure via anchor fast. ambu bag at bedside. alarms set and audible, disconnect alarms checked plugged into red outlet suctioned a small amount of thin white secretions. suctioned oral secretion from pts mouth Addendum: 01/25/18 at 0730 by LUIS M BILLY RT Amended: Links added.
--- NOTE | 2018-01-25 07:48 | NUR ---
CHIP FRIER CLOSING NOTE NO SIGNIFICANT CHANGES OVERNIGHT. ALL DUE MEDS GIVEN. NO RESPIRATORY DISTRESS NOTED, TOLERATING CURRENT VENT SETTINGS. TOLERATING GTF. KEPT CLEAN AND DRY. TURNED AND REPOSITIONED Q2 AND PRN. WOUND TX PROVIDED. NO SEIZURE ACTIVITY NOTED. SEIZURE PRECAUTIONS OBSERVED. HOB ELEVATED. SIDE RAILS UP AND LOCKED. BED KEPT AT LOWEST POSITION. CALL LIGHT KEPT WITHIN EASY REACH. CONTINUITY OF CARE ENDORSED TO AM NURSE.
[2018-01-25] MEDS: MULTIVIT, IRON, MIN NO. 8, FA 1 TAB GT SCH (08:24)
[2018-01-25] MEDS: SERTRALINE HCL 25 MG TABLET GT SCH (08:24)
[2018-01-25] MEDS: LACTOBACILLUS RHAMNOSUS GG 1 EACH CAP.SPRINK GT SCH ×2 (08:24→16:01)
[2018-01-25] MEDS: PANTOPRAZOLE 40 MG VIAL IV SCH ×2 (08:24→21:05)
[2018-01-25] MEDS: ATORVASTATIN 10 MG TABLET GT SCH (08:24)
[2018-01-25] MEDS: CALCIUM CARB 600MG /VIT D 1 EACH TABLET GT SCH (08:24)
[2018-01-25] MEDS: CHOLECALCIFEROL 1,000 UNIT TABLET (VIT D3) GT SCH (08:24)
[2018-01-25] MEDS: FOLIC ACID 1 MG TABLET GT SCH (08:24)
[2018-01-25] MEDS: LABETALOL HCL (100MG) 100 MG TABLET GT SCH ×2 (08:24→21:07)
[2018-01-25] MEDS: Z GUARD REMEDY 2 OZ OINT TP PRN ×2 (08:25→15:03)
[2018-01-25] MEDS: HYDROGEL DRESSING 90 GM TUBE TP SCH ×2 (08:25→21:07)
[2018-01-25] MEDS: PHENYTOIN SUSP UDC 100 MG/4 ML UDC GT SCH ×2 (08:26→21:05)
[2018-01-25] MEDS: MUPIROCIN OINT 2% 22 GM TUBE SCH ×2 (08:27→21:07)
[2018-01-25] MEDS: IV NS 0.9% 250 ML IV PRN (08:29)
--- NOTE | 2018-01-25 09:57 | NUR ---
PER DR IGLESIAS PATIENT IS TO HAVE TRACHEOSTOMY PROCEDURE. DR ROACH PAGED AND NOTIFIED.
--- NOTE | 2018-01-25 10:13 | NUR ---
PER DR ROACH PATIENT IS SCHEDULED FOR TRACHEOSTOMY PLACEMENT AT NOON 01/26. NPO MIDNIGHT. NOTIFIED DR IGLESIAS. PATIENT NODDING YES TO TRACH AND STILL AGREEABLE
[2018-01-25] MEDS: HYDROGEL DRESSING 90 GM TUBE TP PRN (15:04)
--- NOTE | 2018-01-25 15:31 | NUR ---
PATIENT COOPERATIVE. REMOVED RESTRAINTS.
--- NOTE | 2018-01-25 16:00 | NUR ---
MESSAGE TO DR GARCIA TO NOTIFY OF PERSISTENT HTN DESPITE MEDICATIONS.
--- NOTE | 2018-01-25 17:59 | NUR ---
ANOTHER MESSAGE TO DR GARCIA TO NOTIFY OF PATIENT BLOOD PRESSURE
[2018-01-25] MEDS: INSULIN REGULAR, HUMAN 100 UNIT/ML 3 ML VIAL SQ PRN ×2 (18:09→23:19)
--- NOTE | 2018-01-25 18:43 | NUR ---
PATIENT VS STABLE. TOLERATING LOW DOSE DIPRIVAN FOR VENTILATOR ACCEPTANCE. ON 10MCG/KG/MIN. FAMILY AT BEDSIDE AND UPDATED ON PATIENT. ALL DUE MEDS GIVEN AND ALL NEEDS MET. NO SOB NOTED. PATIENT AWAKE AND ALERT AGREEABLE TO TRACH STILL. TUBE FEEDING PER ORDER NO RESIDUAL NOTED. IV SITE C/D/I/P BLOOD RETURN POSITIVE. SKIN, SAFETY, ASPIRATION, SEIZURE, AND ISOLATION PRECAUTIONS MONITORED THROUGHOUT DAY. CARE WILL BE ENDORSED TO RN FOR KARLENE.
--- NOTE | 2018-01-25 19:30 | NUR ---
PUBLIC RELATIONS COUNSELOR INITIAL NOTE RECEIVED PATIENT ASLEEP, DROWSY, AROUSABLE, BLINKS TO ANSWER YES OR NO QUESTIONS. NO S/S OF PAIN OR DISCOMFORT. NO RESPIRATORY DISTRESS NOTED. WITH ETT 7.0/24CM AT THE LIP. VENT SETTINGS AC 16, TV 450, FIO2 40%, PEEP 0. SKIN WARM AND DRY TO TOUCH. WITH GT PATENT, INTACT, IN PLACE, NO RESIDUAL NOTED. ON TEL MONITOR SR WITH BBB. WITH LEFT WRIST RESTRAINT FOR SAFETY TO PREVENT PULLING LIFE SUSTAINING TUBES, WITH GOOD CIRCULATION. LUE PICC LINE PATENT AND INTACT, WITH TKO RUNNING. RCW HD CATH IN PLACE. ISOLATION PRECAUTIONS OBSERVED. SEIZURE PRECAUTIONS OBSERVED. PER REPORT PATIENT FOR TRACH PLACEMENT TOMORROW AT NOON WITH DR. ROACH. HOB ELEVATED. SIDE RAILS UP AND LOCKED. BED KEPT AT LOWEST POSITION. WILL CONTINUE TO MONITOR.
[2018-01-25] MEDS: INSULIN GLARGINE, 100 UNIT/ML CARTRIDGE SQ SCH (21:11)
[2018-01-26] VITALS (41 sets, daily range): BP systolic 91–177; BP diastolic 49–81
[2018-01-26] MEDS: IPRATROPIUM NEB FS 0.5 MG/2.5 ML AMPUL.NEB NEB SCH ×4 (01:55→18:56)
[2018-01-26] MEDS: ALBUTEROL HALF STRENGTH 1.25 MG/3 ML VIAL.NEB NEB SCH ×4 (01:55→18:56)
--- NOTE | 2018-01-26 03:00 | NUR ---
STOPBOARD ASSEMBLER NOTE NOTED PATIENT TACHYPNEIC, BITING ETT. DIPRIVAN RESUMED. WILL CONTINUE TO MONITOR.
[2018-01-26] MEDS: BLOOD SUGAR DIAGNOSTIC 1 EACH STRIP IN SCH ×3 (05:40→17:55)
[2018-01-26] MEDS: METOCLOPRAMIDE HCL 10 MG/2 ML VIAL IV SCH ×4 (05:40→22:12)
[2018-01-26] MEDS: INSULIN REGULAR, HUMAN 100 UNIT/ML 3 ML VIAL SQ PRN (05:41)
--- NOTE | 2018-01-26 06:17 | NUR ---
DIRECTOR OF CAREER RESOURCES NOTE HD NURSE AT BEDSIDE
[2018-01-26 06:20] LABS: BASOPHILS # (AUTO) 0.1 /CMM (0.0-0.2); BASOPHILS % (AUTO) 0.4 % (0.0-2.0); EOSINOPHILS % (AUTO) 1.2 % (0.0-6.0); HEMATOCRIT 27 % (39-51); HEMOGLOBIN 8.6 g/dL (13.5-17.5); LYMPHOCYTES # (AUTO) 1.1 /CMM (0.8-4.8); LYMPHOCYTES % (AUTO) 7.7 % (20.0-44.0); MEAN CORPUSCULAR HGB CONC 32 g/dl (31.0-36.0); MEAN CORPUSCULAR VOLUME 83 fL (80-96); MONOCYTES # (AUTO) 0.9 /CMM (0.1-1.30); MONOCYTES % (AUTO) 6.6 % (2.0-12.0); NEUTROPHILS # (AUTO) 11.9 /CMM (1.8-8.9); NEUTROPHILS % (AUTO) 84.1 % (43.0-81.0); PLATELET COUNT (AUTO) 387 /CMM (150-450); RDW COEFFICIENT OF VARIATION 21.3 (11.5-15.0); RED BLOOD CELL COUNT(AUTO) 3.29 MIL/uL (4.5-6.0); WHITE BLOOD COUNT (AUTO) 14.1 K/uL (4.3-11.0)
[2018-01-26 06:57] LABS: CALCIUM, SERUM 8.3 mg/dL (8.5-10.1); CREATININE 4.2 mg/dL (0.6-1.3); POTASSIUM 3.8 mmol/L (3.5-5.1)
--- NOTE | 2018-01-26 07:19 | NUR ---
SUPERVISOR FEED MILL CLOSING NOTE NO SIGNIFICANT CHANGES OVERNIGHT. ALL DUE MEDS GIVEN. NO RESPIRATORY DISTRESS NOTED, TOLERATING CURRENT VENT SETTINGS. NPO SINCE MIDNIGHT, FOR TRACH PLACEMENT TODAY. WITH JEB PICC LINE PATENT AND INTACT, WITH DIPRIVAN AT 20MCG/KG/MIN AND TKO RUNNING. ONGOING DIALYSIS. KEPT CLEAN AND DRY. TURNED AND REPOSITIONED Q2 AND PRN. WOUND TX PROVIDED. NO SEIZURE ACTIVITY NOTED. SEIZURE PRECAUTIONS OBSERVED. HOB ELEVATED. SIDE RAILS UP AND LOCKED. BED KEPT AT LOWEST POSITION. DVT PUMPS IN PLACE. CONTINUITY OF CARE ENDORSED TO AM NURSE.
--- NOTE | 2018-01-26 07:30 | NUR ---
RN NOTE RECEIVED PT ON BED, ETT IN PLACE, 7.0/24 AT LIP, NO RESPIRATORY DISTRESS NOTED, TOLERATING CURRENT VENT SETTINGS. JEB PICC LINE PATENT AND INTACT, WITH DIPRIVAN AT 20MCG/KG/MIN AND TKO RUNNING. OPENS EYES, ONGOING DIALYSIS. NO SEIZURE ACTIVITY NOTED. SEIZURE PRECAUTIONS OBSERVED. HOB ELEVATED. SIDE RAILS UP AND LOCKED. BED KEPT AT LOWEST POSITION. DVT PUMPS IN PLACE.
[2018-01-26] MEDS: ACETYLCYSTEINE 10% SOLN 400 MG/4 ML VIAL NEB SCH ×3 (07:43→23:14)
--- NOTE | 2018-01-26 08:44 | NUR ---
RT PT RECEIVED ORALLY INTUBATED WITH A 7.0 ETT SECURED AT 24CM AT THE LIP LINE. PT IS ON THE VENT WITH NOTED SETTINGS. VENT ALARMS ARE SET AND AUDIBLE WITH BVM BY BEDSIDE. MENTAL HEALTH TECHNICIAN CUFF PRESSURE NOTED. VENT IS PLUGGED INTO RED OUTLET. HHN TX GIVEN INLINE WITH NO ADVERSE REACTIONS. PT SX'D MODERATE THICK PALE YELLOW SECRETIONS. NO RESPIRATORY DISTRESS NOTED AT THIS TIME, WILL CONTINUE TO MONITOR. Addendum: 01/26/18 at 0845 by JESSIE BERMUDEZ RT Amended: Links added.
[2018-01-26] MEDS: ATORVASTATIN 10 MG TABLET GT SCH (09:00)
[2018-01-26] MEDS: FOLIC ACID 1 MG TABLET GT SCH (09:00)
[2018-01-26] MEDS: CALCIUM CARB 600MG /VIT D 1 EACH TABLET GT SCH (09:00)
[2018-01-26] MEDS: LABETALOL HCL (100MG) 100 MG TABLET GT SCH ×2 (09:00→20:33)
[2018-01-26] MEDS: SERTRALINE HCL 25 MG TABLET GT SCH (09:00)
[2018-01-26] MEDS: CHOLECALCIFEROL 1,000 UNIT TABLET (VIT D3) GT SCH (09:00)
[2018-01-26] MEDS: PHENYTOIN SUSP UDC 100 MG/4 ML UDC GT SCH ×2 (09:00→20:32)
[2018-01-26] MEDS: LACTOBACILLUS RHAMNOSUS GG 1 EACH CAP.SPRINK GT SCH ×2 (09:00→16:09)
[2018-01-26] MEDS: MULTIVIT, IRON, MIN NO. 8, FA 1 TAB GT SCH (09:00)
--- NOTE | 2018-01-26 09:10 | NUR ---
RN NOTE PT CXR RESULT NOTIFIED TO DR GARCIA AND DR IGLESIAS. NO NEW ORDERS YET. WILL MONITOR PT CLOSELY.
[2018-01-26] MEDS: PANTOPRAZOLE 40 MG VIAL IV SCH ×2 (09:34→20:34)
[2018-01-26] MEDS: HYDROGEL DRESSING 90 GM TUBE TP SCH ×2 (09:37→20:39)
[2018-01-26] MEDS: MUPIROCIN OINT 2% 22 GM TUBE SCH ×2 (09:37→20:38)
--- NOTE | 2018-01-26 10:52 | NUR ---
RN NOTE PER DR IGLESIAS IT IS OKAY TO PROCEED WITH TRACHEOSTOMY PLACEMENT. DR GARCIA AWARE.
--- NOTE | 2018-01-26 12:05 | NUR ---
RN NOTE RECEIVED CALL FROM [employer] REGARDING AMIKACIN TROUGH LEVEL 10.6. SPOKE WITH PHARMACY AND PER PHARMACY WILL ADMINISTER DOSE TOADY.
[2018-01-26] MEDS ORDERED: LIDOCAINE 1%-EPI 1:100,000 20 ML VIAL ONE (12:50)
[2018-01-26] MEDS ORDERED: ROCURONIUM BROMIDE 50 MG/5 ML ONE (13:04)
[2018-01-26] MEDS ORDERED: MIDAZOLAM HCL 2 MG/2ML VIAL ONE (13:04)
--- NOTE | 2018-01-26 13:50 | NUR ---
RT PT BROUGHT BACK FROM PROCEDURE. PT RECEIVED WITH A iNEWiTLEY 8 TRACH, PT PLACED BACK ON VENT WITH NOTED SETTINGS. SX'D MODERATE THICK BLOOD TINGED SECRETIONS. MARKER DELIVERY CUFF PRESSURE NOTED. EQUAL BILATERAL BREATHE SOUNDS AND CHEST RISE. NO RESPIRATORY DISTRESS NOTED AT THIS TIME, WILL CONTINUE TO MONITOR. Addendum: 01/26/18 at 1352 by JESSIE BERMUDEZ RT Amended: Links added.
--- NOTE | 2018-01-26 14:00 | NUR ---
RN NOTE PT CAME BACK FROM OR AFTER TRACHEOSTOMY PLACEMENT, NOTED TO HAVE A LOT OF SECRETIONS FROM TRACHEOSTOMY SITE., PT SUCTIONED AND CLEANED, WILL MONITOR, AND CARRY OUT POST OP ORDERS.
[2018-01-26] MEDS: VANCOMYCIN 500 MG in IV D5W 100 ML IV PRN (15:04)
[2018-01-26] MEDS: NEPRO 1,000 ML BOTTLE GT PRN (15:11)
[2018-01-26] MEDS: hydrALAZINE HCL 10 MG TABLET GT PRN (16:10)
[2018-01-26] MEDS: HYDROCODONE/APAP 5/325MG 1 EACH TABLET PO PRN (16:10)
[2018-01-26] MEDS: AMIKACIN 500 MG in IV D5W 100 ML IV PRN (16:45)
[2018-01-26] MEDS: LORAZEPAM INJ 2 MG/ML VIAL IV PRN (17:22)
--- NOTE | 2018-01-26 17:25 | NUR ---
RN NOTE PT NOTED TO BE STIFFENING HIS ARMS AND SHOULDERS AND MILDLY SHAKING, ATIVAN 2MG ADMINISTERED. WILL MONITOR PT CLOSELY. SAFETY PRECAUTIONS IN PLACE.
--- NOTE | 2018-01-26 19:30 | NUR ---
SKIMMER: RECEIVED S/P TRACHEOSTOMY PT ON VENT WT SETTINGS ORDERED. ALERT AND AWAKE, EYES TRACK AND ABLE TO NOD HEAD WHEN TALK TO. NO ACUTE DISTRESS, NO EVIDENCE OF DISCOMFORT. SR WT BBB ON MONITOR. TEMP. 99.4, COOLING MEASURES RENDERED. TRACH. SITE NOTED WT MINIMAL BLOOD TINGED SECRETIONS. SUCTIONED, KEPT CLEAN AND DRY. GT RUNNING NEPRO AT 45ML/HR WT NO RESIDUAL. JEB PICC TKO AND RT. CHEST WALL HD CATH IN PLACE WT NO S/S OF COMPLICATIONS. LT. WRIST SOFT RESTRAINT IN PLACE TO PREVENT FROM REMOVING TUBINGS. SKIN CIRCULATION WNL WT NO NEW BREAKDOWN. SR PADDED FOR SEIZURE PRECAUTION. HOB AT 35 DEGREES. WILL CONTINUE TO MONITOR.
[2018-01-26] MEDS: ACETAMINOPHEN 325 MG TABLET PO PRN (21:50)
[2018-01-26] MEDS: INSULIN GLARGINE, 100 UNIT/ML CARTRIDGE SQ SCH (21:51)
--- NOTE | 2018-01-26 23:00 | NUR ---
RIDE MECHANIC: REASSESSED AFTER GIVEN TYLENOL WT GOOD EFFECT. NO FACIAL GRIMACING NOTED AT THIS TIME. WILL CONTINUE TO MONITOR.
[2018-01-27] VITALS (37 sets, daily range): BP systolic 103–169; BP diastolic 55–86
[2018-01-27] MEDS: BLOOD SUGAR DIAGNOSTIC 1 EACH STRIP IN SCH ×5 (00:25→23:20)
[2018-01-27] MEDS: IPRATROPIUM NEB FS 0.5 MG/2.5 ML AMPUL.NEB NEB SCH ×4 (01:15→19:43)
[2018-01-27] MEDS: ALBUTEROL HALF STRENGTH 1.25 MG/3 ML VIAL.NEB NEB SCH ×4 (01:15→19:43)
--- NOTE | 2018-01-27 04:00 | NUR ---
MEDIA LIAISON OFFICER: NOTED WT 200ML BROWN GT RESIDUAL. WILL HOLD FEEDING AT THIS TIME AND WILL CONTINUE TO GIVE REGLAN ORDERED.
[2018-01-27] MEDS: ACETAMINOPHEN 325 MG TABLET PO PRN ×2 (04:02→20:20)
[2018-01-27] MEDS: hydrALAZINE HCL 10 MG TABLET GT PRN (04:03)
--- NOTE | 2018-01-27 04:15 | NUR ---
DISTRIBUTION LEAD: PT TEMP. NOW AT 101 FROM 100.9. CONTINUE COOLING MEASURES AND GIVEN TYLENOL ORDERED. PAGED SPLICING SUPERVISOR CURRICULUM WRITER FOR MORE ORDERS. ALSO GIVEN HYDRALAZINE FOR SBP ABOVE 165. WILL CONTINUE TO MONITOR.
[2018-01-27 04:39] LABS: BASOPHILS % (AUTO) 0.3 % (0.0-2.0); EOSINOPHILS % (AUTO) 0.8 % (0.0-6.0); HEMATOCRIT 28 % (39-51); HEMOGLOBIN 8.9 g/dL (13.5-17.5); LYMPHOCYTES # (AUTO) 1.1 /CMM (0.8-4.8); LYMPHOCYTES % (AUTO) 7.8 % (20.0-44.0); MEAN CORPUSCULAR HGB CONC 32 g/dl (31.0-36.0); MEAN CORPUSCULAR VOLUME 83 fL (80-96); MONOCYTES # (AUTO) 1.1 /CMM (0.1-1.30); MONOCYTES % (AUTO) 7.7 % (2.0-12.0); NEUTROPHILS # (AUTO) 11.7 /CMM (1.8-8.9); NEUTROPHILS % (AUTO) 83.4 % (43.0-81.0); PLATELET COUNT (AUTO) 449 /CMM (150-450); RDW COEFFICIENT OF VARIATION 20.5 (11.5-15.0); RED BLOOD CELL COUNT(AUTO) 3.38 MIL/uL (4.5-6.0); WHITE BLOOD COUNT (AUTO) 14.1 K/uL (4.3-11.0)
[2018-01-27 04:51] LABS: CALCIUM, SERUM 8.4 mg/dL (8.5-10.1); CREATININE 3.3 mg/dL (0.6-1.3); MAGNESIUM 1.9 mg/dL (1.8-2.4); PHOSPHORUS 3.5 mg/dL (2.5-4.9); POTASSIUM 3.7 mmol/L (3.5-5.1)
--- NOTE | 2018-01-27 05:00 | NUR ---
FACILITIES MANAGEMENT EXECUTIVE: REASSESSED AFTER GIVEN HYDRALAZINE WT GOOD EFFECT (SBP 135).
--- NOTE | 2018-01-27 05:24 | NUR ---
PT FRESHLY TRACHED WITH A SHILEY 8 TRACH,SUTURES STILL INTACT, PT PLACED BACK ON VENT WITH NOTED SETTINGS. SX'D MODERATE THICK BLOOD TINGED SECRETIONS. APIGEE DEVELOPER CUFF PRESSURE NOTED. EQUAL BILATERAL BREATHE SOUNDS AND CHEST RISE. NO RESPIRATORY DISTRESS NOTED AT THIS TIME, WILL CONTINUE TO MONITOR.
[2018-01-27] MEDS: METOCLOPRAMIDE HCL 10 MG/2 ML VIAL IV SCH ×4 (05:35→23:10)
[2018-01-27] MEDS: DEXTROSE 50%-WATER 50 ML DISP.SYRIN IV PRN (05:35)
--- NOTE | 2018-01-27 05:35 | NUR ---
MAGNETIC PROSPECTING SUPERVISOR: BLOOD SUGAR= 59. GT FEEDING IS STILL ON HOLD RESIDUAL IS NOW INCREASED AT 400CC. D50 GIVEN AND WILL CONTINUE TO MONITOR.
[2018-01-27] MEDS: IV NS 0.9% 250 ML IV PRN (05:46)
--- NOTE | 2018-01-27 06:15 | NUR ---
GENERAL SERVICE TECHNICIAN: BLOOD SUGAR RECHECKED AFTER GIVEN D50 WT RESULT OF 123. TEMP.=100.9, CONTINUE WT COOLING MEASURES. WILL CONTINUE TO HOLD GTF FOR HIGH RESIDUAL AND WILL ASK DAY SHIFT RN TO FF-UP WT MD IF WANT TO ORDER D5 IVF IF STILL UNABLE TO TOLERATE FEEDING. FREQUENT SUCTIONING RENDERED ON TRACH SITE FOR LARGE AMT. OF BLOOD TINGED SECRETIONS. NO SEIZURE NOTED DURING THE SHIFT. SAFETY, SEIZURE AND ASPIRATION PRECAUTIONS NOTED AT ALL TIMES.
--- NOTE | 2018-01-27 07:05 | NUR ---
RN INITIAL NOTES RECEIVED PT A/OX1, EYES OPEN, ABLE TO FOLLOW SIMPLE COMMANDS. TRACH IN PLACE. ON VENT. NO RESPIRATORY DISTRESS NOTED. NO SOB NOTED. NO SIGNS OF PAIN NOTED. JEB PICC IN PLACE. RCW HD CATH INTACT. GT CLAMPED DUE TO HIGH RESIDUALS, WILL CLOSELY MONITOR. PT REPOSITIONED. BLE ELEVATED. WILL MONITOR
[2018-01-27] MEDS: ACETYLCYSTEINE 10% SOLN 400 MG/4 ML VIAL NEB SCH ×3 (07:31→23:26)
[2018-01-27] MEDS: LABETALOL HCL (100MG) 100 MG TABLET GT SCH ×2 (08:19→20:19)
[2018-01-27] MEDS: CHOLECALCIFEROL 1,000 UNIT TABLET (VIT D3) GT SCH (08:19)
[2018-01-27] MEDS: LACTOBACILLUS RHAMNOSUS GG 1 EACH CAP.SPRINK GT SCH ×2 (08:19→17:01)
[2018-01-27] MEDS: PHENYTOIN SUSP UDC 100 MG/4 ML UDC GT SCH ×2 (08:19→20:18)
[2018-01-27] MEDS: MULTIVIT, IRON, MIN NO. 8, FA 1 TAB GT SCH (08:19)
[2018-01-27] MEDS: ATORVASTATIN 10 MG TABLET GT SCH (08:19)
[2018-01-27] MEDS: CALCIUM CARB 600MG /VIT D 1 EACH TABLET GT SCH (08:19)
[2018-01-27] MEDS: FOLIC ACID 1 MG TABLET GT SCH (08:19)
[2018-01-27] MEDS: PANTOPRAZOLE 40 MG VIAL IV SCH ×2 (08:19→20:19)
[2018-01-27] MEDS: HYDROGEL DRESSING 90 GM TUBE TP SCH ×2 (08:20→20:21)
[2018-01-27] MEDS: MUPIROCIN OINT 2% 22 GM TUBE SCH ×2 (08:20→20:21)
[2018-01-27] MEDS: SERTRALINE HCL 25 MG TABLET GT SCH (08:30)
--- NOTE | 2018-01-27 12:00 | NUR ---
RN NOTES [address] IGLESIAS. PT ON TRACH, PLACED YESTERDAY. TOLERATING VENT WELL. HOB ELEVATED. NO SOB NOTED. PICC LINE IN PLACE. GT CLAMPED DUE TO HIGH RESIDUAL. WILL MONITOR 1200 SEEN AND EXAMINED BY DR MEEKS. AWARE OF LAB VALUES AND CXR RESULT. LAST HD 01/26/18, 2100ML OUT. ORDERED LAB WORKS, HD AND EPOGEN IN AM. WILL CONTINUE TO MONITOR
[2018-01-27] MEDS: NEPRO 1,000 ML BOTTLE GT PRN (15:34)
--- NOTE | 2018-01-27 15:42 | NUR ---
RT NOTE: PATIENT RECEIVED TRACHED ON PB 840 VENT. ALARMS VERIFIED AND AUDIBLE. SUCTIONED AND LAVAGED THICK SPAULDING SECRETIONS. AMBU BAG AT [facility].
[2018-01-27] MEDS ORDERED: FEE PK DOSING 1 MIN EA MC ONE (17:40)
[2018-01-27] MEDS ORDERED: VANCOMYCIN 500 MG in IV D5W 100 ML IV ONE (18:00)
[2018-01-27] MEDS ORDERED: CEFEPIME 2 GM in IV D5W 100 ML IV SCH (18:00)
[2018-01-27] MEDS ORDERED: VANCOMYCIN 500 MG in IV D5W 100 ML IV PRN (18:00)
--- NOTE | 2018-01-27 18:37 | NUR ---
RN CLOSING NOTES NO SIGNIFICANT CHANGE NOTED. NO RESPIRATORY DISTRESS NOTED. NO SOB NOTED. KEPT HOB ELEVATED. GT CLAMPED, RESIDUAL AT 1800 WAS 200ML. PT ON REGLAN IVP. WILL RECHECK. KEPT CLEAN AND DRY. REPOSITIONED Q2. BLE ELEVATED. KEPT COMFORTABLE. WILL ENDORSE FOR CONTINUITY OF CARE.
--- NOTE | 2018-01-27 20:00 | NUR ---
RN INITIAL NOTES RECEIVED PT A/OX1, EYES OPEN, ABLE TO FOLLOW SIMPLE COMMANDS. TRACH IN PLACE. ON VENT. NO RESPIRATORY DISTRESS NOTED. NO SOB NOTED. NO SIGNS OF PAIN NOTED. JEB PICC IN PLACE. RCW HD CATH INTACT. GT CLAMPED DUE TO HIGH RESIDUALS, WILL CLOSELY MONITOR. PT REPOSITIONED. BLE ELEVATED. WILL CONT TO MONITOR
--- NOTE | 2018-01-27 21:05 | NUR ---
RECEIVED PT TRACHED SHLY 8 ON VENT. PT TOLERATING VENT SETTINGS. SX'D FOR SML AMT OF THIN TINGED SECRETIONS. VENT ALARMS SET AND AUDIBLE. TRACH SECURED, CUFF RANGE SCIENTIST. AMBU BAG AT BEDSIDE. VENT PLUGGED INTO RED OUTLET. WILL CONTINUE TO MONITOR. Addendum: 01/27/18 at 2107 by ALLYSSA NEGRO RT Amended: Links added.
[2018-01-27] MEDS: INSULIN GLARGINE, 100 UNIT/ML CARTRIDGE SQ SCH (23:13)
[2018-01-27] MEDS: INSULIN REGULAR, HUMAN 100 UNIT/ML 3 ML VIAL SQ PRN (23:14)
[2018-01-28] VITALS (39 sets, daily range): BP systolic 106–165; BP diastolic 54–84
[2018-01-28] MEDS: IPRATROPIUM NEB FS 0.5 MG/2.5 ML AMPUL.NEB NEB SCH ×4 (01:13→19:21)
[2018-01-28] MEDS: ALBUTEROL HALF STRENGTH 1.25 MG/3 ML VIAL.NEB NEB SCH ×4 (01:13→19:21)
[2018-01-28] MEDS: ACETAMINOPHEN 325 MG TABLET PO PRN ×2 (02:32→19:05)
[2018-01-28] MEDS: hydrALAZINE HCL 10 MG TABLET GT PRN (02:32)
[2018-01-28 04:45] LABS: BASOPHILS # (AUTO) 0.1 /CMM (0.0-0.2)
[2018-01-28 04:54] LABS: HEMATOCRIT 26 % (39-51); HEMOGLOBIN 8.4 g/dL (13.5-17.5); MEAN CORPUSCULAR HGB CONC 33 g/dl (31.0-36.0)
[2018-01-28 04:56] LABS: BASOPHILS % (AUTO) 0.6 % (0.0-2.0); EOSINOPHILS % (AUTO) 0.7 % (0.0-6.0); LYMPHOCYTES % (AUTO) 6.8 % (20.0-44.0); MEAN CORPUSCULAR VOLUME 82 fL (80-96); MONOCYTES # (AUTO) 1.3 /CMM (0.1-1.30); MONOCYTES % (AUTO) 8.4 % (2.0-12.0); NEUTROPHILS # (AUTO) 12.5 /CMM (1.8-8.9); NEUTROPHILS % (AUTO) 83.5 % (43.0-81.0); PLATELET COUNT (AUTO) 425 /CMM (150-450); RDW COEFFICIENT OF VARIATION 19.6 (11.5-15.0); RED BLOOD CELL COUNT(AUTO) 3.09 MIL/uL (4.5-6.0)
[2018-01-28 05:04] LABS: CALCIUM, SERUM 8.5 mg/dL (8.5-10.1); CREATININE 4.3 mg/dL (0.6-1.3); MAGNESIUM 2.1 mg/dL (1.8-2.4); PHOSPHORUS 4.5 mg/dL (2.5-4.9); POTASSIUM 3.9 mmol/L (3.5-5.1)
[2018-01-28] MEDS: BLOOD SUGAR DIAGNOSTIC 1 EACH STRIP IN SCH ×4 (05:48→23:47)
[2018-01-28] MEDS: METOCLOPRAMIDE HCL 10 MG/2 ML VIAL IV SCH ×4 (05:48→22:19)
--- NOTE | 2018-01-28 06:41 | NUR ---
RN CLOSING NOTES NO SIGNIFICANT CHANGE NOTED. NO RESPIRATORY DISTRESS NOTED. NO SOB NOTED. KEPT HOB ELEVATED. GT FEEDING RESTARTED AT RATE OF 10 AND INCREASED BY 10 EVERY 4HRS AFTER RESIDUAL WAS CHECKED. GT FEEDING RATE @ 45, NO RESIDUAL NOTED.COOLING BLANKET ON. KEPT CLEAN AND DRY. REPOSITIONED Q2. BLE ELEVATED. KEPT COMFORTABLE. WILL ENDORSE FOR CONTINUITY OF CARE.
[2018-01-28] MEDS: ACETYLCYSTEINE 10% SOLN 400 MG/4 ML VIAL NEB SCH ×3 (06:59→23:03)
[2018-01-28] MEDS: CALCIUM CARB 600MG /VIT D 1 EACH TABLET GT SCH (09:10)
[2018-01-28] MEDS: ATORVASTATIN 10 MG TABLET GT SCH (09:10)
[2018-01-28] MEDS: MULTIVIT, IRON, MIN NO. 8, FA 1 TAB GT SCH (09:10)
[2018-01-28] MEDS: FOLIC ACID 1 MG TABLET GT SCH (09:10)
[2018-01-28] MEDS: PHENYTOIN SUSP UDC 100 MG/4 ML UDC GT SCH ×2 (09:10→21:58)
[2018-01-28] MEDS: PANTOPRAZOLE 40 MG VIAL IV SCH ×2 (09:10→21:57)
[2018-01-28] MEDS: CHOLECALCIFEROL 1,000 UNIT TABLET (VIT D3) GT SCH (09:11)
[2018-01-28] MEDS: LABETALOL HCL (100MG) 100 MG TABLET GT SCH ×2 (09:11→21:58)
[2018-01-28] MEDS: LACTOBACILLUS RHAMNOSUS GG 1 EACH CAP.SPRINK GT SCH ×2 (09:11→16:29)
[2018-01-28] MEDS: SERTRALINE HCL 25 MG TABLET GT SCH (09:11)
[2018-01-28] MEDS: PROSOURCE / PROSTAT (PYXIS) 30 ML UDC GT SCH ×3 (09:12→17:42)
[2018-01-28] MEDS: HYDROGEL DRESSING 90 GM TUBE TP SCH ×2 (09:14→21:58)
[2018-01-28] MEDS: MUPIROCIN OINT 2% 22 GM TUBE SCH ×2 (09:14→21:59)
[2018-01-28] MEDS ORDERED: EPOETIN ALFA (10,000 UNIT) 10,000 UNIT/ML VIAL SQ ONE (09:30)
[2018-01-28] MEDS: DEXTROSE 50%-WATER 50 ML DISP.SYRIN IV PRN (11:54)
[2018-01-28] MEDS: NEPRO 1,000 ML BOTTLE GT PRN (16:29)
[2018-01-28] MEDS: CEFEPIME 1 GM in IV D5W 50 ML IV SCH (17:42)
[2018-01-28] MEDS: INSULIN REGULAR, HUMAN 100 UNIT/ML 3 ML VIAL SQ PRN ×2 (17:57→23:49)
--- NOTE | 2018-01-28 19:12 | NUR ---
REPORT GIVEN TO TAPING SUPERVISOR RN BAMB PT REMINDS WITH OUT PURPOSEFUL MOVEMENTS ON COOLING BLANKET HD DONE TODAY 1999 MO OUT. BLOOD CULTURES AND HEB B LABS DRAWN. PT MONITORED ALL SHIFT FOR COMPLICATIONS. BLOOD SUGAR CHECK AT NOON 56 GIVEN D50 RECHECK 121.
--- NOTE | 2018-01-28 19:30 | NUR ---
PHILATELIC CONSULTANT INITIAL NOTE RECEIVED PATIENT AROUSABLE TO NAME, SLEEPY. DENIES PAIN OR DISCOMFORT. RESPIRATIONS EVEN AND UNLABORED. TOLERATING CURRENT VENT SETTINGS AC 16, TV 450, FIO2 40%, PEEP 0, SPO2 100%. TRACH SITE CLEAN, NO BLEEDING NOTED, WITH SMALL AMOUNT OF SECRETIONS NOTED FROM TRACH STOMA SITE. GT PATENT, INTACT, IN PLACE, NO RESIDUAL NOTED. ON TELE MONITOR SR WITH BBB. WITH JEB PICC LINE PATENT AND INTACT., TKO RUNNING. NOTED WITH COOLING BLANKET IN PLACE, WITH RECTAL TEMP 100.2. PRN TYLENOL GIVEN, WILL CONTINUE COOLING MEASURES. HOB ELEVATED. TURNED AND REPOSITIONED. SEIZURE PRECAUTIONS OBSERVED. ISOLATION PRECAUTIONS OBSERVED. SIDE RAILS UP AND LOCKED. BED KEPT AT LOWEST POSITION. WILL CONTINUE TO MONITOR.
--- NOTE | 2018-01-28 20:10 | NUR ---
RECEIVED PT TRACHED SHLY 8 ON VENT. PT TOLERATING VENT SETTINGS. SX'D FOR SML AMT OF THIN TINGED SECRETIONS. VENT ALARMS SET AND AUDIBLE. TRACH SECURED, CUFF BASKETBALL COMMENTATOR. AMBU BAG AT BEDSIDE. VENT PLUGGED INTO RED OUTLET. WILL CONTINUE TO MONITOR. Addendum: 01/28/18 at 2010 by ALLYSSA NEGRO RT Amended: Links added.
[2018-01-28] MEDS: INSULIN GLARGINE, 100 UNIT/ML CARTRIDGE SQ SCH (21:59)
[2018-01-29] VITALS (35 sets, daily range): BP systolic 110–160; BP diastolic 47–71
[2018-01-29] MEDS: IPRATROPIUM NEB FS 0.5 MG/2.5 ML AMPUL.NEB NEB SCH ×4 (01:19→19:32)
[2018-01-29] MEDS: ALBUTEROL HALF STRENGTH 1.25 MG/3 ML VIAL.NEB NEB SCH ×4 (01:19→19:32)
[2018-01-29] MEDS: HYDROCODONE/APAP 5/325MG 1 EACH TABLET PO PRN ×3 (02:10→21:53)
[2018-01-29 04:33] LABS: BASOPHILS # (AUTO) 0.1 /CMM (0.0-0.2); BASOPHILS % (AUTO) 0.6 % (0.0-2.0); EOSINOPHILS % (AUTO) 0.7 % (0.0-6.0); HEMATOCRIT 23 % (39-51); HEMOGLOBIN 7.6 g/dL (13.5-17.5); LYMPHOCYTES # (AUTO) 0.8 /CMM (0.8-4.8); LYMPHOCYTES % (AUTO) 5.3 % (20.0-44.0); MEAN CORPUSCULAR HGB CONC 33 g/dl (31.0-36.0); MEAN CORPUSCULAR VOLUME 83 fL (80-96); MONOCYTES # (AUTO) 1.1 /CMM (0.1-1.30); MONOCYTES % (AUTO) 7.6 % (2.0-12.0); NEUTROPHILS # (AUTO) 12.8 /CMM (1.8-8.9); NEUTROPHILS % (AUTO) 85.8 % (43.0-81.0); PLATELET COUNT (AUTO) 416 /CMM (150-450); RED BLOOD CELL COUNT(AUTO) 2.79 MIL/uL (4.5-6.0); WHITE BLOOD COUNT (AUTO) 14.9 K/uL (4.3-11.0)
--- NOTE | 2018-01-29 04:40 | NUR ---
REPTILE KEEPER NOTE URINE CULTURE COLLECTED, SENT TO LAB
[2018-01-29] MEDS: METOCLOPRAMIDE HCL 10 MG/2 ML VIAL IV SCH ×4 (05:14→23:41)
[2018-01-29] MEDS: BLOOD SUGAR DIAGNOSTIC 1 EACH STRIP IN SCH ×4 (05:14→23:39)
[2018-01-29 05:30] LABS: CALCIUM, SERUM 8.3 mg/dL (8.5-10.1); CREATININE 3.9 mg/dL (0.6-1.3); MAGNESIUM 2.2 mg/dL (1.8-2.4); PHOSPHORUS 4.1 mg/dL (2.5-4.9); POTASSIUM 3.6 mmol/L (3.5-5.1)
[2018-01-29] MEDS: ACETAMINOPHEN 325 MG TABLET PO PRN (06:11)
--- NOTE | 2018-01-29 06:49 | NUR ---
BUYER PLANNER CLOSING NOTE NO SIGNIFICANT CHANGES OVERNIGHT. NO SEIZURE ACTIVITY NOTED. SEIZURE PRECAUTIONS OBSERVED. GT PATENT, INTACT, IN PLACE, TOLERATING GTF. TOLERATING CURRENT VENT SETTINGS, TRACH SITE KEPT CLEAN AND DRY, SUCTIONED NEEDED. KEPT CLEAN AND DRY. TURNED AND REPOSITIONED Q2 AND PRN. WOUND TX PROVIDED. HOB ELEVATED. SIDE RAILS UP AND LOCKED. SEIZURE PADS IN PLACE. DVT PUMPS IN PLACE. BED KEPT AT LOWEST POSITION. WILL ENDORSE CONTINUITY OF CARE TO AM NURSE.
[2018-01-29] MEDS: ACETYLCYSTEINE 10% SOLN 400 MG/4 ML VIAL NEB SCH ×2 (07:24→15:30)
--- NOTE | 2018-01-29 07:47 | NUR ---
INITIAL THIMBLE PRESS OPERATOR NOTE RCVD PT AWAKE ABLE TO COMMUNICATE NEEDS, SR ON TELE. TOLERATING ORDERED VENT SETTINGS. COPIOUS/THICK SECRETIONS FROM TRACH SITE WHICH HAS SUTURES PRESENT. PT ANURIC. JBE PICC C/D/I/PATENT. NO S/O INFILTRATION/PHLEBITIS OBSERVED. WILL CONTINUE TO MONITOR PT FOR SAFETY AND COMFORT. BED IN LOW AND LOCKED POSITION.
[2018-01-29] MEDS: PHENYTOIN SUSP UDC 100 MG/4 ML UDC GT SCH ×2 (08:17→21:39)
[2018-01-29] MEDS: ATORVASTATIN 10 MG TABLET GT SCH (08:17)
[2018-01-29] MEDS: FOLIC ACID 1 MG TABLET GT SCH (08:18)
[2018-01-29] MEDS: LACTOBACILLUS RHAMNOSUS GG 1 EACH CAP.SPRINK GT SCH ×2 (08:18→16:37)
[2018-01-29] MEDS: PROSOURCE / PROSTAT (PYXIS) 30 ML UDC GT SCH ×3 (08:18→16:37)
[2018-01-29] MEDS: CHOLECALCIFEROL 1,000 UNIT TABLET (VIT D3) GT SCH (08:18)
[2018-01-29] MEDS: SERTRALINE HCL 25 MG TABLET GT SCH (08:18)
[2018-01-29] MEDS: CALCIUM CARB 600MG /VIT D 1 EACH TABLET GT SCH (08:18)
[2018-01-29] MEDS: MULTIVIT, IRON, MIN NO. 8, FA 1 TAB GT SCH (08:18)
[2018-01-29] MEDS: PANTOPRAZOLE 40 MG VIAL IV SCH ×2 (08:18→21:40)
[2018-01-29] MEDS: LABETALOL HCL (100MG) 100 MG TABLET GT SCH ×2 (08:19→21:40)
[2018-01-29] MEDS: MUPIROCIN OINT 2% 22 GM TUBE SCH ×2 (08:21→21:48)
[2018-01-29] MEDS: HYDROGEL DRESSING 90 GM TUBE TP SCH ×2 (08:21→21:41)
[2018-01-29] MEDS: Z GUARD REMEDY 2 OZ OINT TP PRN (08:21)
[2018-01-29] MEDS: IV NS 0.9% 250 ML IV PRN (11:55)
[2018-01-29] MEDS: NEPRO 1,000 ML BOTTLE GT PRN (12:01)
[2018-01-29] MEDS ORDERED: LACTOBACILLUS RHAMNOSUS GG 1 EACH CAP.SPRINK GT SCH (17:00)
[2018-01-29] MEDS: CEFEPIME 1 GM in IV D5W 50 ML IV SCH (18:10)
[2018-01-29] MEDS: INSULIN REGULAR, HUMAN 100 UNIT/ML 3 ML VIAL SQ PRN (18:18)
--- NOTE | 2018-01-29 18:50 | NUR ---
HOUSEHOLD APPLIANCES SALESPERSON NOTE PT REMAINS STABLE, AFEBRILE, SR ON TELE TOLERATING ORDERED VENT SETTINGS AND TUBE FEEDING RATE. JEB PICC C/D/I/PATENT. NO S/O INFILTRATION/PHLEBITIS OBSERVED UPON FLUSHING. PT'S CARE WILL BE ENDORSED TO PRINTED CIRCUIT BOARD PREASSEMBLER RN FOR CONTINUITY OF CARE.
--- NOTE | 2018-01-29 19:30 | NUR ---
TILE MACHINE OPERATOR INITIAL SHIFT NOTES RECEIVED PATIENT IN BED, LETHARGIC, BUT AROUSABLE TO NAME. DENIES PAIN OR DISCOMFORT, NODDING YES/NO. RESPIRATIONS ARE EVEN AND UNLABORED, TOLERATING PRESCRIBED SETTINGS, SPO2 100%. TRACH MIDLINE AND INTACT, STITCHES IN PLACE, DRAIN GAUZE REPLACED. GT PATENT, INTACT, 90 ML OF STRAW COLORED GASTRIC RESIDUALS NOTED. ON TELEMETRY MONITORING, SHOWING SR WITH BBB. NOTED WITH JEB PICC LINE PATENT AND INTACT. COOLING BLANKET ON STANDBY AT BEDSIDE. HOB KEPT ELEVATED FOR ASPIRATION PRECAUTIONS. ISOLATION PRECAUTIONS OBSERVED. WILL CONTINUE TO CLOSELY MONITOR
--- NOTE | 2018-01-29 19:34 | NUR ---
pt received on vent via trach with charted settings. airway patent. secure via trach tie. ambu bag at bedside. alarms set and audible, disconnect alarms checked plugged into red outlet suctioned a small amount of thin white secretions. pt hob at 30 degrees. pt recieving breathing tx q6 at this time. suctioned oral secretion from pts mouth Addendum: 01/29/18 at 1938 by RENETTA FRANK RT Amended: Links added.
[2018-01-29] MEDS: INSULIN GLARGINE, 100 UNIT/ML CARTRIDGE SQ SCH (21:50)
[2018-01-30] VITALS (39 sets, daily range): BP systolic 119–170; BP diastolic 51–80
[2018-01-30] MEDS: ACETYLCYSTEINE 10% SOLN 400 MG/4 ML VIAL NEB SCH ×4 (00:21→23:59)
[2018-01-30] MEDS: ALBUTEROL HALF STRENGTH 1.25 MG/3 ML VIAL.NEB NEB SCH ×4 (02:03→20:16)
[2018-01-30] MEDS: IPRATROPIUM NEB FS 0.5 MG/2.5 ML AMPUL.NEB NEB SCH ×4 (02:03→20:16)
--- NOTE | 2018-01-30 04:00 | NUR ---
HOME SERVICE DEMONSTRATOR NOTES SACRAL WOUND SWABBED, SAMPLE SENT TO LAB FOR TESTING
[2018-01-30 04:46] LABS: BASOPHILS % (AUTO) 0.3 % (0.0-2.0); EOSINOPHILS % (AUTO) 1.7 % (0.0-6.0); HEMATOCRIT 24 % (39-51); HEMOGLOBIN 7.5 g/dL (13.5-17.5); LYMPHOCYTES # (AUTO) 0.8 /CMM (0.8-4.8); MEAN CORPUSCULAR HGB CONC 31 g/dl (31.0-36.0); MEAN CORPUSCULAR VOLUME 82 fL (80-96); MONOCYTES # (AUTO) 1.1 /CMM (0.1-1.30); MONOCYTES % (AUTO) 9.6 % (2.0-12.0); NEUTROPHILS # (AUTO) 9.2 /CMM (1.8-8.9); NEUTROPHILS % (AUTO) 81.4 % (43.0-81.0); PLATELET COUNT (AUTO) 510 /CMM (150-450); RDW COEFFICIENT OF VARIATION 20.3 (11.5-15.0); RED BLOOD CELL COUNT(AUTO) 2.93 MIL/uL (4.5-6.0); WHITE BLOOD COUNT (AUTO) 11.4 K/uL (4.3-11.0)
[2018-01-30 05:11] LABS: CALCIUM, SERUM 8.8 mg/dL (8.5-10.1); CREATININE 4.5 mg/dL (0.6-1.3); MAGNESIUM 2.3 mg/dL (1.8-2.4); PHOSPHORUS 4.4 mg/dL (2.5-4.9); POTASSIUM 3.4 mmol/L (3.5-5.1)
[2018-01-30] MEDS: METOCLOPRAMIDE HCL 10 MG/2 ML VIAL IV SCH ×4 (06:04→23:38)
[2018-01-30] MEDS: BLOOD SUGAR DIAGNOSTIC 1 EACH STRIP IN SCH ×4 (06:04→23:38)
[2018-01-30] MEDS: INSULIN REGULAR, HUMAN 100 UNIT/ML 3 ML VIAL SQ PRN ×3 (06:09→23:42)
--- NOTE | 2018-01-30 07:00 | NUR ---
CAN FILLING AND CLOSING MACHINE TENDER CLOSING NOTES NO SIGNIFICANT CHANGES THROUGHOUT SHIFT. NO SEIZURE ACTIVITY NOTED. WILL ENDORSE THE PATIENT TO THE AM SHIFT NURSE FOR CONTINUITY OF CARE
--- NOTE | 2018-01-30 07:50 | NUR ---
RT PT RECEIVED WITH A SHILEY 8 CUFFED TRACH ON THE VENT WITH NOTED SETTINGS. PT IS AWAKE AND RESPONDS TO STIMULI WHEN SX'D. VENT ALARMS ARE SET AND AUDIBLE WITH BVM BY BEDSIDE. HEDIS REGISTERED NURSE RN CUFF PRESSURE NOTED. VENT IS PLUGGED INTO RED OUTLET. HHN TX GIVEN INLINE WITH NO ADVERSE REACTIONS. SX'D SMALL THICK SPAULDING/YELLOW SECRETIONS. NO RESPIRATORY DISTRESS NOTED AT THIS TIME, WILL CONTINUE TO MONITOR. Addendum: 01/30/18 at 0932 by JESSIE BERMUDEZ RT Amended: Links added.
[2018-01-30] MEDS: LACTOBACILLUS RHAMNOSUS GG 1 EACH CAP.SPRINK GT SCH ×2 (10:00→17:18)
[2018-01-30] MEDS: SERTRALINE HCL 25 MG TABLET GT SCH (10:00)
[2018-01-30] MEDS: CALCIUM CARB 600MG /VIT D 1 EACH TABLET GT SCH (10:00)
[2018-01-30] MEDS: MULTIVIT, IRON, MIN NO. 8, FA 1 TAB GT SCH (10:00)
[2018-01-30] MEDS: PANTOPRAZOLE 40 MG VIAL IV SCH ×2 (10:00→21:36)
[2018-01-30] MEDS: FOLIC ACID 1 MG TABLET GT SCH (10:00)
[2018-01-30] MEDS: LABETALOL HCL (100MG) 100 MG TABLET GT SCH ×2 (10:01→21:38)
[2018-01-30] MEDS: ATORVASTATIN 10 MG TABLET GT SCH (10:01)
[2018-01-30] MEDS: PHENYTOIN SUSP UDC 100 MG/4 ML UDC GT SCH ×2 (10:01→21:37)
[2018-01-30] MEDS: HYDROCODONE/APAP 5/325MG 1 EACH TABLET PO PRN ×3 (10:02→21:38)
[2018-01-30] MEDS: PROSOURCE / PROSTAT (PYXIS) 30 ML UDC GT SCH ×3 (10:02→17:19)
[2018-01-30] MEDS: CHOLECALCIFEROL 1,000 UNIT TABLET (VIT D3) GT SCH (10:02)
[2018-01-30] MEDS: HYDROGEL DRESSING 90 GM TUBE TP SCH ×2 (10:04→21:37)
[2018-01-30] MEDS: Z GUARD REMEDY 2 OZ OINT TP PRN (10:04)
[2018-01-30] MEDS: MUPIROCIN OINT 2% 22 GM TUBE SCH ×2 (10:05→21:37)
[2018-01-30] MEDS: ACETAMINOPHEN 325 MG TABLET PO PRN (15:24)
[2018-01-30] MEDS: NEPRO 1,000 ML BOTTLE GT PRN (15:24)
[2018-01-30] MEDS: CEFEPIME 1 GM in IV D5W 50 ML IV SCH (18:13)
--- NOTE | 2018-01-30 18:45 | NUR ---
RN NOTES RECEIVED PT FROM ICU IN BED, ACCOMPANIED BY RN(PJ) AND RT. FAMILY AT BEDSIDE. ALERT AND NONVERBAL. WITH INTACT TRACH SHILEY 8, TOLERATING VENT SETTINGS: AC 16; TV 450; FIO2 40. WITH ONGOING NS @TKO, IVPB MERREM AT 100 ML/HR, INFUSING WELL ON JEB PICC. RCHEST WALL HD CATH DRESSING INTACT. WITH GT CLAMPED AND INPLACED, NO RESIDUAL NOTED. STARTED NEPRO@45ML/HR, GOAL 60 ML/HR. HOB ELEVATED. PLACED ON TELEMONITOR, SR HR 80S. VS TAKEN AND RECORDED. PLACED ON CONTACT ISOLATION. REPEAT MRSA RESULT PENDING. SAFETY MEASURES AND ASPIRATION PRECAUTION IN PLACED. CALL LIGHT WITHIN REACH. WILL CONT TO MONITOR
--- NOTE | 2018-01-30 20:42 | NUR ---
pt received on vent via trach with charted settings. airway patent. secure via trach tie. ambu bag at bedside. alarms set and audible, disconnect alarms checked plugged into red outlet suctioned a small amount of thin white secretions. pt hob at 30 degrees. pt receiving breathing tx q6 at this time. suctioned oral secretion from pts mouth Addendum: 01/30/18 at 2041 by RENETTA FRANK RT Amended: Links added.
[2018-01-30] MEDS: hydrALAZINE HCL 10 MG TABLET GT PRN (23:38)
[2018-01-30] MEDS: INSULIN GLARGINE, 100 UNIT/ML CARTRIDGE SQ SCH (23:44)
[2018-01-31] VITALS: BP 167/75
[2018-01-31] MEDS: IPRATROPIUM NEB FS 0.5 MG/2.5 ML AMPUL.NEB NEB SCH ×4 (01:46→18:59)
[2018-01-31] MEDS: ALBUTEROL HALF STRENGTH 1.25 MG/3 ML VIAL.NEB NEB SCH ×4 (01:46→18:59)
[2018-01-31 04:00] VITALS: BP 163/63
[2018-01-31] MEDS: hydrALAZINE HCL 10 MG TABLET GT PRN ×2 (05:19→17:35)
[2018-01-31] MEDS: BLOOD SUGAR DIAGNOSTIC 1 EACH STRIP IN SCH ×4 (05:19→23:35)
[2018-01-31] MEDS: HYDROCODONE/APAP 5/325MG 1 EACH TABLET PO PRN (05:19)
[2018-01-31] MEDS: METOCLOPRAMIDE HCL 10 MG/2 ML VIAL IV SCH ×4 (05:22→23:35)
[2018-01-31] MEDS: IV NS 0.9% 250 ML IV PRN (05:35)
[2018-01-31 06:25] LABS: CALCIUM, SERUM 8.8 mg/dL (8.5-10.1); MAGNESIUM 2.3 mg/dL (1.8-2.4); PHOSPHORUS 2.7 mg/dL (2.5-4.9); POTASSIUM 3.5 mmol/L (3.5-5.1)
[2018-01-31 06:45] LABS: BASOPHILS # (AUTO) 0.1 /CMM (0.0-0.2); BASOPHILS % (AUTO) 0.9 % (0.0-2.0); EOSINOPHILS % (AUTO) 2.7 % (0.0-6.0); HEMATOCRIT 26 % (39-51); HEMOGLOBIN 8.2 g/dL (13.5-17.5); LYMPHOCYTES % (AUTO) 10.7 % (20.0-44.0); MEAN CORPUSCULAR HGB CONC 32 g/dl (31.0-36.0); MEAN CORPUSCULAR VOLUME 83 fL (80-96); MONOCYTES # (AUTO) 1.1 /CMM (0.1-1.30); MONOCYTES % (AUTO) 11.3 % (2.0-12.0); NEUTROPHILS # (AUTO) 7.3 /CMM (1.8-8.9); NEUTROPHILS % (AUTO) 74.4 % (43.0-81.0); PLATELET COUNT (AUTO) 525 /CMM (150-450); RDW COEFFICIENT OF VARIATION 19.5 (11.5-15.0); RED BLOOD CELL COUNT(AUTO) 3.09 MIL/uL (4.5-6.0); WHITE BLOOD COUNT (AUTO) 9.8 K/uL (4.3-11.0)
[2018-01-31] MEDS: ACETYLCYSTEINE 10% SOLN 400 MG/4 ML VIAL NEB SCH ×3 (07:17→22:38)
[2018-01-31 08:00] VITALS: BP 146/71
[2018-01-31] MEDS: FOLIC ACID 1 MG TABLET GT SCH (08:44)
[2018-01-31] MEDS: LACTOBACILLUS RHAMNOSUS GG 1 EACH CAP.SPRINK GT SCH ×2 (08:45→17:28)
[2018-01-31] MEDS: MULTIVIT, IRON, MIN NO. 8, FA 1 TAB GT SCH (08:45)
[2018-01-31] MEDS: SERTRALINE HCL 25 MG TABLET GT SCH (08:45)
[2018-01-31] MEDS: PANTOPRAZOLE 40 MG VIAL IV SCH ×2 (08:45→21:11)
[2018-01-31] MEDS: ATORVASTATIN 10 MG TABLET GT SCH (08:45)
[2018-01-31] MEDS: CALCIUM CARB 600MG /VIT D 1 EACH TABLET GT SCH (08:45)
[2018-01-31] MEDS: CHOLECALCIFEROL 1,000 UNIT TABLET (VIT D3) GT SCH (08:45)
[2018-01-31] MEDS: LABETALOL HCL (100MG) 100 MG TABLET GT SCH ×2 (08:46→20:22)
[2018-01-31] MEDS: PROSOURCE / PROSTAT (PYXIS) 30 ML UDC GT SCH ×3 (08:47→17:28)
[2018-01-31] MEDS: PHENYTOIN SUSP UDC 100 MG/4 ML UDC GT SCH ×2 (08:47→20:20)
[2018-01-31] MEDS: Z GUARD REMEDY 2 OZ OINT TP PRN (08:49)
[2018-01-31] MEDS: MUPIROCIN OINT 2% 22 GM TUBE SCH ×2 (08:50→20:21)
[2018-01-31] MEDS: HYDROGEL DRESSING 90 GM TUBE TP SCH ×2 (08:50→20:21)
[2018-01-31] MEDS: HYDROCODONE/APAP 10/325MG 1 EA TABLET PO PRN ×2 (11:02→20:22)
[2018-01-31 12:00] VITALS: BP_SYST 144; BP_DIAS 63; BP_DIAS 71
[2018-01-31 16:00] VITALS: BP 171/63
[2018-01-31] MEDS: INSULIN REGULAR, HUMAN 100 UNIT/ML 3 ML VIAL SQ PRN ×2 (17:44→23:42)
[2018-01-31 20:00] VITALS: BP_SYST 146; BP_DIAS 69; BP_DIAS 71
[2018-01-31] MEDS: LINEZOLID 600 MG TABLET PO SCH (20:22)
--- NOTE | 2018-01-31 21:03 | NUR ---
PT RECEIVED ON [facility] VENT. PT IS AWAKE. VENT ALARMS ARE ON AND AUDIBLE. AMBU BAG IS AT BEDSIDE. MECHANICAL SYSTEMS DESIGNER CUFF PRESSURE NOTED. VENT IS PLUGGED INTO RED OUTLET. SUCTIONED SMALL THIN WHITE SECRETIONS. BREATHING TX WAS GIVEN, NO ADVERSE REACTIONS NOTED AT THIS TIME. WILL CONT TO MONITOR PT. FAMILY IS AT BEDSIDE. Addendum: 01/31/18 at 2105 by DARNELL MELENDEZ RT Amended: Links added.
[2018-01-31] MEDS: INSULIN GLARGINE, 100 UNIT/ML CARTRIDGE SQ SCH (23:41)
[2018-01-31] MEDS: NEPRO 1,000 ML BOTTLE GT PRN (23:43)
[2018-02-01] VITALS: BP 148/75
[2018-02-01] MEDS: ALBUTEROL HALF STRENGTH 1.25 MG/3 ML VIAL.NEB NEB SCH ×4 (00:39→19:37)
[2018-02-01] MEDS: IPRATROPIUM NEB FS 0.5 MG/2.5 ML AMPUL.NEB NEB SCH ×4 (00:39→19:37)
[2018-02-01 04:00] VITALS: BP_SYST 148; BP_DIAS 68; BP_DIAS 75
[2018-02-01] MEDS: BLOOD SUGAR DIAGNOSTIC 1 EACH STRIP IN SCH ×4 (05:13→23:39)
[2018-02-01] MEDS: HYDROCODONE/APAP 10/325MG 1 EA TABLET PO PRN ×4 (05:13→23:52)
[2018-02-01] MEDS: INSULIN REGULAR, HUMAN 100 UNIT/ML 3 ML VIAL SQ PRN ×4 (05:17→23:44)
[2018-02-01] MEDS: METOCLOPRAMIDE HCL 10 MG/2 ML VIAL IV SCH ×4 (05:24→22:10)
[2018-02-01 07:04] LABS: CALCIUM, SERUM 8.8 mg/dL (8.5-10.1); CREATININE 4.8 mg/dL (0.6-1.3); MAGNESIUM 2.4 mg/dL (1.8-2.4); PHOSPHORUS 2.9 mg/dL (2.5-4.9); POTASSIUM 3.5 mmol/L (3.5-5.1)
--- NOTE | 2018-02-01 07:20 | NUR ---
DELINQUENT TAX COLLECTOR OPENING NOTES RECEIVED REPORT FROM PM NURSE.PATIENT IN BED. AWAKE AND NONVERBAL. WITH INTACT TRACH SHILEY 8, TOLERATING VENT SETTINGS: AC 16; TV 450; FIO2 40. WITH ONGOING NS @TKO JEB PICC LINE DRESSING INTACT. R CHEST WALL HD CATH DRESSING INTACT. WITH GTF GOAL 60 ML/HR. HOB ELEVATED. ON TELEMONITOR, SR HR 82. ON CONTACT ISOLATION FOR VRE URINE. SAFETY MEASURES AND ASPIRATION PRECAUTION IN PLACED. CALL LIGHT WITHIN REACH. BED IS LOCKED AND IN LOW POSITION.SRX3.ONGOING DIALYSIS.WILL CONT TO MONITOR
[2018-02-01 08:00] VITALS: BP 161/77
[2018-02-01] MEDS: ACETYLCYSTEINE 10% SOLN 400 MG/4 ML VIAL NEB SCH ×2 (08:04→15:33)
[2018-02-01] MEDS: CALCIUM CARB 600MG /VIT D 1 EACH TABLET GT SCH (09:16)
[2018-02-01] MEDS: PANTOPRAZOLE 40 MG VIAL IV SCH ×2 (09:16→21:27)
[2018-02-01] MEDS: PHENYTOIN SUSP UDC 100 MG/4 ML UDC GT SCH ×2 (09:16→21:27)
[2018-02-01] MEDS: PROSOURCE / PROSTAT (PYXIS) 30 ML UDC GT SCH ×3 (09:16→16:43)
[2018-02-01] MEDS: LACTOBACILLUS RHAMNOSUS GG 1 EACH CAP.SPRINK GT SCH ×2 (09:17→16:42)
[2018-02-01] MEDS: VIT B CMPLX 3/FA/VIT C/BIOTIN 1 TAB TABLET PO SCH (09:17)
[2018-02-01] MEDS: SERTRALINE HCL 25 MG TABLET GT SCH (09:17)
[2018-02-01] MEDS: ATORVASTATIN 10 MG TABLET GT SCH (09:17)
[2018-02-01] MEDS: ASCORBIC ACID 500 MG TABLET PO SCH (09:17)
[2018-02-01] MEDS: LINEZOLID 600 MG TABLET PO SCH ×2 (09:17→21:32)
[2018-02-01] MEDS: CHOLECALCIFEROL 1,000 UNIT TABLET (VIT D3) GT SCH (09:18)
[2018-02-01] MEDS: FOLIC ACID 1 MG TABLET GT SCH (09:18)
[2018-02-01] MEDS: HYDROGEL DRESSING 90 GM TUBE TP SCH ×2 (09:20→21:37)
[2018-02-01] MEDS: LABETALOL HCL (100MG) 100 MG TABLET GT SCH ×2 (09:20→21:28)
--- NOTE | 2018-02-01 10:00 | NUR ---
SIGNAL OPERATOR NOTES SEEN BY CANCELLED WEANING TRIAL .RT BAUTISTA MADE AWARE.
--- NOTE | 2018-02-01 10:00 | NUR ---
CPAP trails d/c by Dr Tanner. Follow up [facility] d/c. ALFREDO Torres aware Addendum: 02/01/18 at 1002 by DB MOREAU RT Amended: Links added.
[2018-02-01] MEDS: ACETAMINOPHEN 325 MG TABLET PO PRN (10:09)
[2018-02-01] MEDS: MUPIROCIN OINT 2% 22 GM TUBE SCH ×2 (10:09→21:36)
[2018-02-01 12:00] VITALS: BP 137/64
--- NOTE | 2018-02-01 12:00 | NUR ---
ONCOLOGY ACCOUNT SPECIALIST NOTES SEEN BY THE UPDATED PATIENT CONDITION.D/C TODAY TO [facility].
--- NOTE | 2018-02-01 13:00 | NUR ---
CARTON FILLING MACHINE OPERATOR NOTES PATIENT NOTED WITH ELEVATED TEMP OF 102.1. MADE AWARE.GOT NEW ORDERS.CANCELLED THE DISCHARGE.COOLING MEASURES ALLIED.WILL CONTINUE TO MONITOR.
[2018-02-01 16:00] VITALS: BP 137/56
[2018-02-01] MEDS: NEPRO 1,000 ML BOTTLE GT PRN (17:17)
--- NOTE | 2018-02-01 19:32 | NUR ---
GOLF COURSE PATROLLER CLOSING NOTES PATIENT IN BED. AWAKE AND NONVERBAL. WITH INTACT TRACH SHILEY 8, TOLERATING VENT SETTINGS: AC 16; TV 450; FIO2 40. WITH ONGOING NS @TKO JEB PICC LINE DRESSING INTACT. R CHEST WALL HD CATH DRESSING INTACT. WITH GTF GOAL 60 ML/HR. HOB ELEVATED. ON TELEMONITOR, SR HR 84. ON CONTACT ISOLATION FOR VRE URINE. SAFETY MEASURES AND ASPIRATION PRECAUTION IN PLACED. CALL LIGHT WITHIN REACH. BED IS LOCKED AND IN LOW POSITION.SRX3.SEEN BY RAN SANDERSON.INSERTED F/C PER ORDER.STRAIGHT CATH DONE .GOT 250ML.ENDORSED TO PM NURSE FOR KARLENE.
[2018-02-01 20:00] VITALS: BP 133/60
--- NOTE | 2018-02-01 20:00 | NUR ---
RN INITIAL NOTES RECEIVED PATIENT IN BED. AWAKE AND NONVERBAL, A&O X1. WITH INTACT TRACH SHILEY 8, TOLERATING VENT SETTINGS: AC 16; TV 450; FIO2 40. WITH ONGOING NS @TKO JEB PICC LINE DRESSING INTACT. R CHEST WALL HD CATH DRESSING INTACT. WITH GTF @ 65 ML/HR. HOB ELEVATED. ON TELEMONITOR, SR HR 98. ON CONTACT ISOLATION FOR VRE URINE. SAFETY MEASURES AND ASPIRATION PRECAUTION IN PLACED. CALL LIGHT WITHIN REACH. BED IS LOCKED AND IN LOW POSITION.SRX3.WILL CONT TO MONITOR
--- NOTE | 2018-02-01 20:15 | NUR ---
PATIENT RECEIVED TRACHED ON MECHANICAL VENTILATION. AMBU BAG @ BEDSIDE. VENT PLUGGED INTO RED OUTLET. ALARMS ON AND AUDIBLE. CUFF CHECKED VIA AIRPORT OPERATIONS SPECIALIST. TX GIVEN, NO ADVERSE REACTIONS NOTED. SX DONE, SMALL THICK WHITE/YELLOW SECRETIONS NOTED. NO DISTRESS NOTED. WILL MONITOR T/O SHIFT. Addendum: 02/01/18 at 2017 by RAYSA WHITESIDE RT Amended: Links added.
[2018-02-01] MEDS: INSULIN GLARGINE, 100 UNIT/ML CARTRIDGE SQ SCH (21:43)
--- NOTE | 2018-02-01 22:00 | NUR ---
RN NOTES ALL SAFETY PRECAUTIONS IN PLACE. VENT PLUGGED INTO RED OUTLET.
[2018-02-02] VITALS: BP 140/74
[2018-02-02] MEDS: ALBUTEROL HALF STRENGTH 1.25 MG/3 ML VIAL.NEB NEB SCH ×4 (00:37→19:17)
[2018-02-02] MEDS: IPRATROPIUM NEB FS 0.5 MG/2.5 ML AMPUL.NEB NEB SCH ×4 (00:37→19:17)
[2018-02-02] MEDS: ACETYLCYSTEINE 10% SOLN 400 MG/4 ML VIAL NEB SCH ×4 (00:37→23:30)
[2018-02-02 04:00] VITALS: BP 138/54
[2018-02-02] MEDS: NEPRO 1,000 ML BOTTLE GT PRN (05:23)
[2018-02-02] MEDS: METOCLOPRAMIDE HCL 10 MG/2 ML VIAL IV SCH ×4 (05:24→23:21)
[2018-02-02] MEDS: BLOOD SUGAR DIAGNOSTIC 1 EACH STRIP IN SCH ×3 (05:41→18:02)
[2018-02-02] MEDS: INSULIN REGULAR, HUMAN 100 UNIT/ML 3 ML VIAL SQ PRN ×2 (05:48→18:12)
[2018-02-02] MEDS: IV NS 0.9% 250 ML IV PRN (05:51)
[2018-02-02] MEDS: ACETAMINOPHEN 325 MG TABLET PO PRN (05:51)
[2018-02-02 06:30] LABS: CALCIUM, SERUM 8.8 mg/dL (8.5-10.1); CREATININE 4.3 mg/dL (0.6-1.3); POTASSIUM 3.6 mmol/L (3.5-5.1)
--- NOTE | 2018-02-02 06:38 | NUR ---
RN CLOSING NOTES NO SIGNIFICANT CHANGES THROUGHOUT SHIFT. WILL ENDORSE THE PATIENT TO THE AM SHIFT NURSE FOR CONTINUITY OF CARE
[2018-02-02 08:00] VITALS: BP 131/63
[2018-02-02 08:26] LABS: BASOPHILS # (AUTO) 0.1 /CMM (0.0-0.2); BASOPHILS % (AUTO) 0.7 % (0.0-2.0); EOSINOPHILS % (AUTO) 1.8 % (0.0-6.0); HEMATOCRIT 24 % (39-51); HEMOGLOBIN 7.7 g/dL (13.5-17.5); LYMPHOCYTES # (AUTO) 1.3 /CMM (0.8-4.8); LYMPHOCYTES % (AUTO) 9.9 % (20.0-44.0); MEAN CORPUSCULAR HGB CONC 32 g/dl (31.0-36.0); MEAN CORPUSCULAR VOLUME 83 fL (80-96); MONOCYTES # (AUTO) 1.1 /CMM (0.1-1.30); MONOCYTES % (AUTO) 8.1 % (2.0-12.0); NEUTROPHILS # (AUTO) 10.8 /CMM (1.8-8.9); NEUTROPHILS % (AUTO) 79.5 % (43.0-81.0); PLATELET COUNT (AUTO) 487 /CMM (150-450); RED BLOOD CELL COUNT(AUTO) 2.92 MIL/uL (4.5-6.0); WHITE BLOOD COUNT (AUTO) 13.6 K/uL (4.3-11.0)
[2018-02-02] MEDS: LACTOBACILLUS RHAMNOSUS GG 1 EACH CAP.SPRINK GT SCH ×2 (08:54→16:25)
[2018-02-02] MEDS: CALCIUM CARB 600MG /VIT D 1 EACH TABLET GT SCH (08:54)
[2018-02-02] MEDS: PHENYTOIN SUSP UDC 100 MG/4 ML UDC GT SCH ×2 (08:55→20:57)
[2018-02-02] MEDS: VIT B CMPLX 3/FA/VIT C/BIOTIN 1 TAB TABLET PO SCH (08:55)
[2018-02-02] MEDS: FOLIC ACID 1 MG TABLET GT SCH (08:55)
[2018-02-02] MEDS: ASCORBIC ACID 500 MG TABLET PO SCH (08:55)
[2018-02-02] MEDS: PANTOPRAZOLE 40 MG VIAL IV SCH ×2 (08:55→20:58)
[2018-02-02] MEDS: LINEZOLID 600 MG TABLET PO SCH ×2 (08:57→20:57)
[2018-02-02] MEDS: ATORVASTATIN 10 MG TABLET GT SCH (08:57)
[2018-02-02] MEDS: CHOLECALCIFEROL 1,000 UNIT TABLET (VIT D3) GT SCH (08:57)
[2018-02-02] MEDS: SERTRALINE HCL 25 MG TABLET GT SCH (08:57)
[2018-02-02] MEDS: LABETALOL HCL (100MG) 100 MG TABLET GT SCH ×2 (08:58→20:56)
[2018-02-02] MEDS: PROSOURCE / PROSTAT (PYXIS) 30 ML UDC GT SCH ×3 (08:58→16:25)
[2018-02-02] MEDS: HYDROGEL DRESSING 90 GM TUBE TP SCH ×2 (09:01→21:04)
[2018-02-02] MEDS: MUPIROCIN OINT 2% 22 GM TUBE SCH ×2 (09:02→21:03)
--- NOTE | 2018-02-02 09:59 | NUR ---
RT NOTE: PATIENT RECEIVED TRACHED ON PB 840 VENT. ALARMS VERIFIED AND AUDIBLE. SUCTIONED AND LAVAGED MODERATE AMOUNT OF THICK SPAULDING SECRETIONS. VENT ALARMS VERIFIED AND AUDIBLE. VENT PLUGGED INTO RED OUTLET. AMBU BAG AT [facility].
[2018-02-02 12:00] VITALS: BP 154/72
[2018-02-02 16:00] VITALS: BP 152/70
[2018-02-02] MEDS: HYDROCODONE/APAP 10/325MG 1 EA TABLET PO PRN (16:25)
--- NOTE | 2018-02-02 19:10 | NUR ---
INDUSTRIAL ENGINEERING INTERN OPENING NOTES PATIENT IN BED,AWAKE, NONVERBAL. WITH INTACT TRACH SHILEY 8, VENT SETTINGS: AC 16; TV 450; FIO2 40. JEB PICC LINE DRESSING INTACT. R CHEST WALL HD CATH DRESSING INTACT. WITH G-TUBE FEEDING GOAL 60 ML/HR. HOB ELEVATED. SR HR 98. ON CONTACT ISOLATION FOR VRE URINE.F/C IN PLACE WITH PURULENT DISCHARGE. SAFETY MEASURES AND ASPIRATION PRECAUTION IN PLACE. CALL LIGHT WITHIN REACH.WILL CONTINUE TO MONITOR .
[2018-02-02 20:00] VITALS: BP 158/64
[2018-02-02] MEDS: INSULIN GLARGINE, 100 UNIT/ML CARTRIDGE SQ SCH (21:21)
[2018-02-03] VITALS: BP 170/78
[2018-02-03] MEDS: BLOOD SUGAR DIAGNOSTIC 1 EACH STRIP IN SCH ×5 (00:31→23:26)
[2018-02-03] MEDS: INSULIN REGULAR, HUMAN 100 UNIT/ML 3 ML VIAL SQ PRN ×4 (00:38→23:28)
[2018-02-03] MEDS: ALBUTEROL HALF STRENGTH 1.25 MG/3 ML VIAL.NEB NEB SCH ×4 (01:03→19:05)
[2018-02-03] MEDS: IPRATROPIUM NEB FS 0.5 MG/2.5 ML AMPUL.NEB NEB SCH ×4 (01:03→19:05)
--- NOTE | 2018-02-03 03:57 | NUR ---
RT NOTES PT RECEIVED TRACHED ON [facility] VENT WITH NOTED SETTING. . VENT TO RED OUTLET. ALARM SET AND AUDIBLE. PLASMA CENTER NURSE DONE. PT TOLERATING VENT SETTING WELL. Q6 TX GIVEN WITH NO ADVERSE EFFECTS NOTED. NO SOB OR RESP DISTRESS NOTED. Addendum: 02/03/18 at 0358 by MAKSIM OLIVARES RT Amended: Links added.
[2018-02-03 04:00] VITALS: BP 160/75
[2018-02-03] MEDS: NEPRO 1,000 ML BOTTLE GT PRN (04:31)
[2018-02-03] MEDS: METOCLOPRAMIDE HCL 10 MG/2 ML VIAL IV SCH ×4 (05:07→22:55)
--- NOTE | 2018-02-03 05:27 | NUR ---
UNABLE TO WEIGHT PATIENT DUE TO BED WASN'T CALIBRATED Addendum: 02/03/18 at 9498 by MAE ROYAL RN OTHER PT
--- NOTE | 2018-02-03 06:32 | NUR ---
COOK'S ASSISTANT CLOSING NOTES PATIENT IN BED,AWAKE, NONVERBAL. WITH INTACT TRACH SHILEY 8, VENT SETTINGS: AC 16; TV 450; FIO2 40. JEB PICC LINE DRESSING INTACT. R CHEST WALL HD CATH DRESSING INTACT. WITH G-TUBE FEEDING 65 ML/HR. HOB ELEVATED. SR HR 84. ON CONTACT ISOLATION FOR VRE URINE AND MRSA NARES .F/C IN PLACE WITH PURULENT DISCHARGE 25ML. PT WILL HAVE HD TODAY MORNING . ALL NEEDS ATTENDED, WOUND TREATMENT DONE, ALL SCHEDULED MEDS GIVEN. SAFETY MEASURES AND ASPIRATION PRECAUTION IN PLACE. CALL LIGHT WITHIN REACH.WILL ENDORSE TO NEXT SHIFT FOR KARLENE.
[2018-02-03 06:50] LABS: CREATININE 5.2 mg/dL (0.6-1.3); POTASSIUM 3.6 mmol/L (3.5-5.1)
[2018-02-03] MEDS: ACETYLCYSTEINE 10% SOLN 400 MG/4 ML VIAL NEB SCH ×3 (07:38→23:01)
--- NOTE | 2018-02-03 07:50 | NUR ---
RT PATIENT REC'D TRACHED ON [facility] VENT WITH ORDERED SETTINGS BALJINDER WELL. VENT ALARMS CHECKED + AUDIBLE. CUFF PRESSURE CHECKED JAVA ORACLE DEVELOPER. TRACH SECURE IN PROPER POSITION. PATIENT AIRWAY SUCTIONED AND PATENT. SECRETIONS ARE MOD AMT SPAULDING SEMITHICK. PATIENT AWAKE, OBTUNDED, NO SOB NOTED. AMBU BAG AT HOB Addendum: 02/04/18 at 0829 by CASTILLO QURESHI RT Amended: Links added.
[2018-02-03 08:00] VITALS: BP 155/68
[2018-02-03] MEDS: HYDROCODONE/APAP 10/325MG 1 EA TABLET PO PRN (10:09)
[2018-02-03] MEDS: PHENYTOIN SUSP UDC 100 MG/4 ML UDC GT SCH ×2 (10:10→21:52)
[2018-02-03] MEDS: PROSOURCE / PROSTAT (PYXIS) 30 ML UDC GT SCH ×3 (10:11→18:35)
[2018-02-03] MEDS: ATORVASTATIN 10 MG TABLET GT SCH (11:29)
[2018-02-03] MEDS: PANTOPRAZOLE 40 MG VIAL IV SCH ×2 (11:30→21:52)
[2018-02-03] MEDS: CHOLECALCIFEROL 1,000 UNIT TABLET (VIT D3) GT SCH (11:31)
[2018-02-03] MEDS: LACTOBACILLUS RHAMNOSUS GG 1 EACH CAP.SPRINK GT SCH ×2 (11:31→17:00)
[2018-02-03] MEDS: LINEZOLID 600 MG TABLET PO SCH ×2 (11:32→21:52)
[2018-02-03] MEDS: FOLIC ACID 1 MG TABLET GT SCH (11:32)
[2018-02-03] MEDS: VIT B CMPLX 3/FA/VIT C/BIOTIN 1 TAB TABLET PO SCH (11:32)
[2018-02-03] MEDS: SERTRALINE HCL 25 MG TABLET GT SCH (11:33)
[2018-02-03] MEDS: CALCIUM CARB 600MG /VIT D 1 EACH TABLET GT SCH (11:33)
[2018-02-03] MEDS: ASCORBIC ACID 500 MG TABLET PO SCH (11:33)
[2018-02-03] MEDS: ACETAMINOPHEN 325 MG TABLET PO PRN (11:34)
[2018-02-03] MEDS: LORAZEPAM INJ 2 MG/ML VIAL IV PRN (11:36)
[2018-02-03] MEDS: MUPIROCIN OINT 2% 22 GM TUBE SCH ×2 (11:42→21:55)
[2018-02-03] MEDS: HYDROGEL DRESSING 90 GM TUBE TP SCH ×2 (11:42→21:55)
[2018-02-03 12:00] VITALS: BP 133/58
[2018-02-03] MEDS: DEXTROSE 50%-WATER 50 ML DISP.SYRIN IV PRN (12:00)
[2018-02-03] MEDS: LABETALOL HCL (100MG) 100 MG TABLET GT SCH ×2 (12:00→21:52)
[2018-02-03 16:00] VITALS: BP 109/49
--- NOTE | 2018-02-03 19:05 | NUR ---
RT NOTE: RECEIVED TRACH PT ON MECHANICAL VENTILATION. AMBU BAG @ BEDSIDE. VENT PLUGGED INTO RED OUTLET. ALARMS ON AND AUDIBLE. CUFF CHECKED VIA SUPPLY CHAIN DEVELOPMENT MANAGER. HHN BREATHING TX GIVEN ORDERED PER MD. NO ADVERSE REACTIONS NOTED. SX SMALL AMOUNT OF THICK WHITE/YELLOW SECRETIONS. NO DISTRESS NOTED. WILL CONT TO MONITOR PT. Addendum: 02/03/18 at 2147 by MALLORY AMBRIZ RT Amended: Links added.
--- NOTE | 2018-02-03 19:30 | NUR ---
TELE/RN NOTES: RECEIVED PT. IN BED W/ HOB ELEVATED. ON MECHANICAL VENTILATORY TOLERATING VENT SETTINGS WELL. ON CONTACT ISOLATION. ON ASPIRATION PRECAUTION. ON TELE MONITOR SR W/ BBB. W/ GTF TOLERATING WELL W/ NO RESIDUAL NOTED. HAD HD TODAY. HAS JEB PICC LINE W/ DRESSING C/D/I. NO FACIAL GRIMACES OR MOANING NOTED. WILL CONTINUE TO MONITOR. WILL CONTINUE TO MONITOR.
[2018-02-03 20:00] VITALS: BP_SYST 106; BP_SYST 143; BP_DIAS 59; BP_DIAS 61
[2018-02-03] MEDS: INSULIN GLARGINE, 100 UNIT/ML CARTRIDGE SQ SCH (22:13)
[2018-02-03] MEDS ORDERED: CEFEPIME 1 GM in IV D5W 50 ML IV SCH (23:00)
[2018-02-03] MEDS ORDERED: CEFEPIME 1 GM in IV D5W 50 ML IV ONE (23:00)
[2018-02-03] MEDS ORDERED: CEFEPIME 1 GM VIAL ONE (23:03)
[2018-02-04] VITALS: BP_SYST 121; BP_SYST 124; BP_DIAS 54
[2018-02-04] MEDS: ALBUTEROL HALF STRENGTH 1.25 MG/3 ML VIAL.NEB NEB SCH ×4 (00:46→19:37)
[2018-02-04] MEDS: IPRATROPIUM NEB FS 0.5 MG/2.5 ML AMPUL.NEB NEB SCH ×4 (00:46→19:37)
[2018-02-04 04:00] VITALS: BP 111/50
[2018-02-04] MEDS: NEPRO 1,000 ML BOTTLE GT PRN (05:03)
[2018-02-04] MEDS: METOCLOPRAMIDE HCL 10 MG/2 ML VIAL IV SCH ×3 (05:37→16:40)
[2018-02-04] MEDS: BLOOD SUGAR DIAGNOSTIC 1 EACH STRIP IN SCH ×3 (05:42→17:19)
[2018-02-04 06:46] LABS: CALCIUM, SERUM 8.7 mg/dL (8.5-10.1); CREATININE 4.5 mg/dL (0.6-1.3); POTASSIUM 3.3 mmol/L (3.5-5.1)
[2018-02-04] MEDS: ACETYLCYSTEINE 10% SOLN 400 MG/4 ML VIAL NEB SCH ×3 (07:19→23:30)
--- NOTE | 2018-02-04 07:38 | NUR ---
TELE/RN NOTES: REPORT GIVEN TO NEXT SHIFT NURSE FOR KARLENE.
--- NOTE | 2018-02-04 07:52 | NUR ---
agent telegrapher note received patient in bed , all needs attended, with trach to vent setting as ordered , ambu bag at hob at all time , patient resting comfortably in bed ,response to verbal and tactile stimuli , on tele monitor sr , with Crespo cath to gravity with yellow cloudy urine, on g tube feeding as ordered, no residual noted, keep hob elevated at all time , lt ua picc line in place, no s\s infection noted , bed in lowest and locked position , call light within reach , will cont to monitor closely
[2018-02-04 08:00] VITALS: BP 142/61
[2018-02-04] MEDS: LACTOBACILLUS RHAMNOSUS GG 1 EACH CAP.SPRINK GT SCH ×2 (09:08→16:46)
[2018-02-04] MEDS: LINEZOLID 600 MG TABLET PO SCH ×2 (09:08→21:33)
[2018-02-04] MEDS: SERTRALINE HCL 25 MG TABLET GT SCH (09:08)
[2018-02-04] MEDS: PANTOPRAZOLE 40 MG VIAL IV SCH ×2 (09:09→21:33)
[2018-02-04] MEDS: PROSOURCE / PROSTAT (PYXIS) 30 ML UDC GT SCH ×3 (09:09→16:40)
[2018-02-04] MEDS: FOLIC ACID 1 MG TABLET GT SCH (09:09)
[2018-02-04] MEDS: LABETALOL HCL (100MG) 100 MG TABLET GT SCH ×2 (09:09→21:33)
[2018-02-04] MEDS: CALCIUM CARB 600MG /VIT D 1 EACH TABLET GT SCH (09:10)
[2018-02-04] MEDS: ASCORBIC ACID 500 MG TABLET PO SCH (09:10)
[2018-02-04] MEDS: VIT B CMPLX 3/FA/VIT C/BIOTIN 1 TAB TABLET PO SCH (09:11)
[2018-02-04] MEDS: CHOLECALCIFEROL 1,000 UNIT TABLET (VIT D3) GT SCH (09:11)
[2018-02-04] MEDS: ATORVASTATIN 10 MG TABLET GT SCH (09:13)
[2018-02-04] MEDS: PHENYTOIN SUSP UDC 100 MG/4 ML UDC GT SCH ×2 (09:16→21:32)
[2018-02-04] MEDS: MUPIROCIN OINT 2% 22 GM TUBE SCH ×2 (09:31→21:34)
[2018-02-04] MEDS: HYDROGEL DRESSING 90 GM TUBE TP SCH ×2 (09:31→21:34)
--- NOTE | 2018-02-04 09:33 | NUR ---
CONTROL ENGINEER NOTES DR NICHOLS SAW PATIENT. HD SCHEDULED FOR [facility].02/05/18
[2018-02-04 12:00] VITALS: BP 134/56
--- NOTE | 2018-02-04 12:07 | NUR ---
COOPERATIVE EDUCATION COORDINATOR NOTES PER DR BOLDEN PT OK TO TRANSFER TO [place] IF PT HAS NO FEVER.
--- NOTE | 2018-02-04 13:44 | NUR ---
ALIGNING CHECKER NOTES DR SAGE ROUNDING WITH PATIENT. NO NEW ORDERS AT THIS TIME.
--- NOTE | 2018-02-04 14:25 | NUR ---
PAYROLL EXAMINER NOTES SPOKE TO ANNIKA MARES ABOUT D/C. PATIENT IS NOT GOING TO [facility] YET SINCE NO BED IS AVAILABLE. WILL MOST PROBABLY GO TO THE FACILITY HE CAME FROM. WILL FOLLOW UP WITH ANNIKA.
[2018-02-04 16:00] VITALS: BP 141/62
[2018-02-04] MEDS ORDERED: SILVER NITRATE APPLICATOR 1 EA BOX TP ONE (17:00)
[2018-02-04] MEDS: INSULIN REGULAR, HUMAN 100 UNIT/ML 3 ML VIAL SQ PRN (17:00)
[2018-02-04] MEDS ORDERED: LIDOCAINE 1%-EPI 1:100,000 20 ML VIAL TP ONE (17:00)
--- NOTE | 2018-02-04 17:14 | NUR ---
A P MECHANIC NOTE PER RN RAN SUBRAMANIAN TELEPHONE CONSENT OBTAINED TO DO SACRAL DEBRIDEMENT , SPOKE WITH HONG STAHL
--- NOTE | 2018-02-04 18:36 | NUR ---
TELEPRINTER INSTALLER ENDING NOTES PATIENT IN BED ASLEEP; NOT IN DISTRESS. TRACH TO VENT. PT SUCTIONED AND NEEDS ATTENDED TO. SAFETY PRECAUTIONS MAINTAINED. BED IN LOCKED/LOWEST POSITION. CALL LIGHT IN REACH.
[2018-02-04 20:00] VITALS: BP 149/62
--- NOTE | 2018-02-04 20:00 | NUR ---
TELE 1 RN NOTE RECEIVED PT IN BED ASLEEP, AROUSABLE. A/O X 1-2, NODES HIS HEAD ON VERBAL STIMULATION. ON VENT/TRACH TOLERATING THE SETTINGS WELL. ON TELE SR WITH BBB HR 76. NO DISTRESS OR DISCOMFORT NOTED. DENIES PAIN. NO FEVER AT THIS TIME. F/C INTACT AND PATENT DRAINING CLOUDY URINE. DRESSING ON SACRUM WOUND I/C/D. GT FEEDING NEPRO INFUSING AT 65 ML/HR. 0 ML RESIDUAL NOTED. REPOSITION HIM FOR SKIN MANAGEMENT. JEB PICC LINE TRIPLE LUMEN INTACT AND PATENT. VSS. SIDE RAILS UP X 3 AND CALL LIGHT WITHIN REACH. CONTINUE TO MONITOR HIM.
[2018-02-04] MEDS: CEFEPIME 1 GM in IV D5W 50 ML IV SCH (21:32)
[2018-02-05] VITALS (8 sets, daily range): BP systolic 98–160; BP diastolic 41–70
[2018-02-05] MEDS: METOCLOPRAMIDE HCL 10 MG/2 ML VIAL IV SCH ×5 (00:20→23:05)
[2018-02-05] MEDS: INSULIN GLARGINE, 100 UNIT/ML CARTRIDGE SQ SCH ×2 (00:21→23:18)
[2018-02-05] MEDS: INSULIN REGULAR, HUMAN 100 UNIT/ML 3 ML VIAL SQ PRN ×4 (00:22→23:18)
[2018-02-05] MEDS: ALBUTEROL HALF STRENGTH 1.25 MG/3 ML VIAL.NEB NEB SCH ×4 (02:20→20:09)
[2018-02-05] MEDS: IPRATROPIUM NEB FS 0.5 MG/2.5 ML AMPUL.NEB NEB SCH ×4 (02:20→20:09)
[2018-02-05] MEDS: BLOOD SUGAR DIAGNOSTIC 1 EACH STRIP IN SCH ×5 (06:15→23:19)
--- NOTE | 2018-02-05 07:09 | NUR ---
TELE 1 RN NOTE SUCTIONED PT FREQUENTLY. THICK WHITE SECRETIONS NOTED. KEPT HIM DRY AND CLEAN. ALL NEEDS ATTENDED. WILL ENODRSE TO DAY SHIFT NURSE FOR CONTINUE TO CARE.
[2018-02-05] MEDS: ACETYLCYSTEINE 10% SOLN 400 MG/4 ML VIAL NEB SCH ×2 (07:50→15:53)
[2018-02-05] MEDS: LABETALOL HCL (100MG) 100 MG TABLET GT SCH ×2 (09:00→21:55)
[2018-02-05] MEDS: LACTOBACILLUS RHAMNOSUS GG 1 EACH CAP.SPRINK GT SCH ×2 (09:00→17:42)
[2018-02-05] MEDS: CALCIUM CARB 600MG /VIT D 1 EACH TABLET GT SCH (10:49)
[2018-02-05] MEDS: PHENYTOIN SUSP UDC 100 MG/4 ML UDC GT SCH ×2 (10:49→21:55)
[2018-02-05] MEDS: SERTRALINE HCL 25 MG TABLET GT SCH (10:49)
[2018-02-05] MEDS: DOCUSATE SODIUM LIQ 100 MG/10 ML UDC GT PRN (10:49)
[2018-02-05] MEDS: ASCORBIC ACID 500 MG TABLET PO SCH (10:49)
[2018-02-05] MEDS: LINEZOLID 600 MG TABLET PO SCH ×2 (10:50→21:55)
[2018-02-05] MEDS: VIT B CMPLX 3/FA/VIT C/BIOTIN 1 TAB TABLET PO SCH (10:50)
[2018-02-05] MEDS: ATORVASTATIN 10 MG TABLET GT SCH (10:51)
[2018-02-05] MEDS: FOLIC ACID 1 MG TABLET GT SCH (10:51)
[2018-02-05] MEDS: CHOLECALCIFEROL 1,000 UNIT TABLET (VIT D3) GT SCH (10:51)
[2018-02-05] MEDS: HYDROGEL DRESSING 90 GM TUBE TP SCH ×2 (10:57→21:57)
[2018-02-05] MEDS: MUPIROCIN OINT 2% 22 GM TUBE SCH ×2 (10:58→21:57)
[2018-02-05] MEDS: PROSOURCE / PROSTAT (PYXIS) 30 ML UDC GT SCH ×3 (10:58→17:48)
[2018-02-05] MEDS: PANTOPRAZOLE 40 MG VIAL IV SCH ×2 (10:58→21:54)
--- NOTE | 2018-02-05 11:40 | NUR ---
Cleaning of tracheostomy,Carlos 8, suction of tracheostomy and oral care. Dialysis output 2 liters today. Blood pressure systolic 99 mmHg. Held morning labetalol. Addendum: 02/05/18 at 1153 by NARCISO GARSIA RN diastolic 53 mmHg Dialysis output 1 liter
[2018-02-05] MEDS: ACETAMINOPHEN 325 MG TABLET PO PRN (12:17)
[2018-02-05 17:03] LABS: HEMATOCRIT 23 % (39-51); HEMOGLOBIN 7.7 g/dL (13.5-17.5); MEAN CORPUSCULAR HGB CONC 33 g/dl (31.0-36.0); MEAN CORPUSCULAR VOLUME 80 fL (80-96); PLATELET COUNT (AUTO) 471 /CMM (150-450); RDW COEFFICIENT OF VARIATION 18.2 (11.5-15.0); RED BLOOD CELL COUNT(AUTO) 2.91 MIL/uL (4.5-6.0); WHITE BLOOD COUNT (AUTO) 27.6 K/uL (4.3-11.0)
--- NOTE | 2018-02-05 17:16 | NUR ---
PT. 52 Y OLD MALE REC. @ 0700 AM TRACHED JORGE L # 8 ON [facility]. VENT WITH NOTED SETTINGS, ALARMS ARE SET AND FUNCTIONAL, B/S RHONCHI. RIVERA'X FOR LARGE AMT. OF SECRETIONS. FOAMY YELLOW ALSO NOTED AROUND THE TRACH WELL. TRACH CARE DONE. HME CHANGED EQUAL CHEST RISE NOTED. INLINE TX'S GIVEN NO ADVERSE REACTION NOTED. BALJINDER. WELL AND REMAIN ON SAME SETTINGS, VENT PLUGGED INTO RED OUT LET. CONTINUE FOR CARE AND MONITOR. AMBU BAG REMAIN AT THE BEDSIDE,. REPORT WILL PASS TO PM SHIFT. Addendum: 02/05/18 at 1719 by PRERNA MCCOLLUM RT Amended: Links added.
[2018-02-05 17:43] LABS: CALCIUM, SERUM 8.9 mg/dL (8.5-10.1); CREATININE 4.1 mg/dL (0.6-1.3); MAGNESIUM 2.1 mg/dL (1.8-2.4); PHOSPHORUS 1.1 mg/dL (2.5-4.9); POTASSIUM 3.2 mmol/L (3.5-5.1)
[2018-02-05 17:49] LABS: BAND % (MANUAL) 8 % (0.0-5.0); EOSINOPHILS % (MANUAL) 4 % (0-4); MONOCYTES % (MANUAL) 4 % (0-11.0); NEUTROPHILS % (MANUAL) 84 (42-76)
--- NOTE | 2018-02-05 19:31 | NUR ---
Handoff to night nurse, Ric Gordon RN. Lino Edward RN
--- NOTE | 2018-02-05 20:00 | NUR ---
TELE 1 RN NOTE PT IN BED AWAKE. NODES HIS HEAD ON VERBAL AND TACTILE STIMULATION. ON VENT/TRACH TOLERATING THE SETTINGS WELL. NO DISTRESS OR DISCOMFORT NOTED. NO S/S OF PAIN NOTED. FREQUENTLY SUCTION HIM, NOTED WHITE THICK SECRETIONS. ON TELE SR WITH BBB HR 92, KEPT HOB ELEVATED. GTF NEPRO INFUSING AT 65 ML/HR, HELD THE FEEDING AT THIS TIME DUE TO DILANTIN BE GIVEN LATER VIA GT. 0 ML RESIDUAL NOTED. F/C INTACT AND PATENT DRAINING CLOUDY URINE. SACRAL WOUND DRESSING I/C/D. REPOSITION HIM FOR SKIN MANAGEMENT. KEPT HIM DRY AND CLEAN. ALL NEEDS ATTENDED. SIDE RAILS UP X 3 AND CALL LIGHT WITHIN REACH. VSS. CONTINUE TO MONITOR HIM.
--- NOTE | 2018-02-05 20:09 | NUR ---
PT RECEIVED WITH A SHILEY 8 CUFFED TRACH ON THE VENT WITH NOTED SETTINGS. PT IS AWAKE AND RESPONDS TO STIMULI WHEN SUCTION. VENT ALARMS ARE SET AND AUDIBLE WITH AMBU BAG@ BEDSIDE. FINISHER HOT STRIP CUFF PRESSURE NOTED. TRACH PATENT AND SECURE. VENT IS PLUGGED INTO RED OUTLET. BREATHING TX GIVEN ORDERED. NO ADVERSE REACTIONS NOTED . SUCTIONED MODERATE AMOUNT OF THICK YELLOW SECRETIONS. NO RESPIRATORY DISTRESS NOTED AT THIS TIME, WILL CONTINUE TO MONITOR.
[2018-02-05] MEDS: CEFEPIME 1 GM in IV D5W 50 ML IV SCH (21:54)
[2018-02-06] VITALS: BP 142/70
[2018-02-06] MEDS: ACETYLCYSTEINE 10% SOLN 400 MG/4 ML VIAL NEB SCH ×4 (00:31→23:32)
[2018-02-06] MEDS: IPRATROPIUM NEB FS 0.5 MG/2.5 ML AMPUL.NEB NEB SCH ×4 (00:31→20:11)
[2018-02-06] MEDS: ALBUTEROL HALF STRENGTH 1.25 MG/3 ML VIAL.NEB NEB SCH ×4 (00:31→20:11)
[2018-02-06] MEDS: IV NS 0.9% 250 ML IV PRN (02:21)
[2018-02-06 04:00] VITALS: BP 138/67
[2018-02-06] MEDS: METOCLOPRAMIDE HCL 10 MG/2 ML VIAL IV SCH ×4 (05:19→22:10)
[2018-02-06] MEDS: BLOOD SUGAR DIAGNOSTIC 1 EACH STRIP IN SCH ×3 (05:40→18:22)
[2018-02-06] MEDS: INSULIN REGULAR, HUMAN 100 UNIT/ML 3 ML VIAL SQ PRN ×4 (05:42→23:57)
[2018-02-06] MEDS: NEPRO 1,000 ML BOTTLE GT PRN (06:05)
--- NOTE | 2018-02-06 06:45 | NUR ---
TELE 1 RN NOTE PT IN BED AWAKE. NO DISTRESS OR DISCOMFORT NOTED DURING THE NIGHT. FREQUENTLY SUCTIONED THE PT DURING THE NIGHT. ALL NEEDS ATTENDED. WILL ENDORSE TO DAY SHIFT NURSE FOR CONTINUE TO CARE.
[2018-02-06 06:56] LABS: CALCIUM, SERUM 9.1 mg/dL (8.5-10.1); CREATININE 4.7 mg/dL (0.6-1.3); MAGNESIUM 2.4 mg/dL (1.8-2.4); POTASSIUM 3.2 mmol/L (3.5-5.1)
[2018-02-06 07:45] LABS: BASOPHILS # (AUTO) 0.1 /CMM (0.0-0.2); BASOPHILS % (AUTO) 0.3 % (0.0-2.0); EOSINOPHILS % (AUTO) 2.3 % (0.0-6.0); HEMATOCRIT 23 % (39-51); HEMOGLOBIN 7.6 g/dL (13.5-17.5); LYMPHOCYTES # (AUTO) 1.8 /CMM (0.8-4.8); LYMPHOCYTES % (AUTO) 8.7 % (20.0-44.0); MEAN CORPUSCULAR HGB CONC 33 g/dl (31.0-36.0); MEAN CORPUSCULAR VOLUME 80 fL (80-96); MONOCYTES % (AUTO) 9.8 % (2.0-12.0); NEUTROPHILS # (AUTO) 16.3 /CMM (1.8-8.9); NEUTROPHILS % (AUTO) 78.9 % (43.0-81.0); PLATELET COUNT (AUTO) 418 /CMM (150-450); RDW COEFFICIENT OF VARIATION 17.8 (11.5-15.0); RED BLOOD CELL COUNT(AUTO) 2.85 MIL/uL (4.5-6.0); WHITE BLOOD COUNT (AUTO) 20.7 K/uL (4.3-11.0)
[2018-02-06 08:00] VITALS: BP 115/67
--- NOTE | 2018-02-06 08:00 | NUR ---
RN NOTES COOLING MEASURES INITIATED DUE TO PTIENT TEMPERATURE AT 99.4. TEPID SPONGE APPLIED ON THE FOREHEAD, BILATERAL ARMPIT. EXTRA BLANKETS REMOVED. PATIENT KEPT MONITORED
--- NOTE | 2018-02-06 08:15 | NUR ---
PLANT CUSTODIAN OPENING NOTES RECEIVED PATIENT IN BED. EASILY AWAKEN AND OPEN EYES SPONTANEOUSLY WHEN CALLED BY NAME. NONVERBAL. WITH INTACT TRACH SHILEY 8, TOLERATING VENT SETTINGS: AC 16; TV 450; FIO2 40. NO SHORTNESS OF BREATH NOTED AT THIS TIME. SUCTION AIRWAY. ON TELEMONITOR SR HR AT 85. WITH ONGOING NS @TKO JEB PICC LINE INTACT AND PATENT ON FLUSHING. R CHEST WALL HD CATH DRESSING INTACT. WITH GTF NEPHRO RUNNING AT 60 ML/HR. GT PATENT UPON FLUSHING. HOB KEPT ELEVATED. ON CONTACT ISOLATION FOR VRE URINE. SAFETY MEASURES IN PLACED. CALL LIGHT WITHIN REACH. BED IS LOCKED AND IN LOW POSITION.SRX3. WILL CONTINUE TO MONITOR Addendum: 02/06/18 at 0849 by MIREYA MOSQUEDA RN ADDENDUM: PATIENT WITH FELDMAN CATHETER IN PLACE AND DRAINING TO CLAIRE COLORED URINE.
--- NOTE | 2018-02-06 08:45 | NUR ---
RN NOTES SPOKE TO LYNN REGARDING SCHEDULE CT OF THE ABDOMEN WITH CONTRAST. LYNN HAVE ASKED A.)KACI OF DIALYSIS, PER ARLETH PATIENT NEED TO BE DIALYZE WITHIN 24 HOURS WITHIN THE INJECTION OF CONTRACT. SPOKE TO LIAN, DIALYSIS NURSE AND CLAIMED THAT HE WILL DIALYZE PATIENT IN AM AT 0800 AM. B.) IF CONSENT HAS BEEN OBTAINED- NO CONSENT YET BUT WILL PROCESS TODAY. C.) IF PATIENT HAS BEEN NPO, PATIENT ON CONTINUOUS GT FEEDING BUT HAVE SAID TO STOP FEEDING RIGHT AWAY.
--- NOTE | 2018-02-06 08:45 | NUR ---
RN NOTES OBTAINED CONSENT FOR THE CT OF THE ABDOMEN WITH CONTRAST FROM HONG BRYANT () THROUGH TELEPHONE. PATIENT UZBEK SPEAKING AND HAVE ESMER CONTRERAS (TEST RACK OPERATOR) TO TRANSLATE IN UZBEK. CONSENT VERIFIED WITH CHARGE NURSE ANNA MARIE FIELD RN.
[2018-02-06] MEDS: CALCIUM CARB 600MG /VIT D 1 EACH TABLET GT SCH (08:53)
[2018-02-06] MEDS: ATORVASTATIN 10 MG TABLET GT SCH (08:53)
[2018-02-06] MEDS: LABETALOL HCL (100MG) 100 MG TABLET GT SCH ×2 (08:54→21:58)
[2018-02-06] MEDS: LACTOBACILLUS RHAMNOSUS GG 1 EACH CAP.SPRINK GT SCH ×2 (08:54→16:43)
[2018-02-06] MEDS: CHOLECALCIFEROL 1,000 UNIT TABLET (VIT D3) GT SCH (08:54)
[2018-02-06] MEDS: VIT B CMPLX 3/FA/VIT C/BIOTIN 1 TAB TABLET PO SCH (08:54)
[2018-02-06] MEDS: SERTRALINE HCL 25 MG TABLET GT SCH (08:54)
[2018-02-06] MEDS: ASCORBIC ACID 500 MG TABLET PO SCH (08:54)
[2018-02-06] MEDS: PHENYTOIN SUSP UDC 100 MG/4 ML UDC GT SCH ×2 (08:55→21:58)
[2018-02-06] MEDS: PANTOPRAZOLE 40 MG VIAL IV SCH ×2 (08:55→21:57)
[2018-02-06] MEDS: LINEZOLID 600 MG TABLET PO SCH ×2 (08:55→21:58)
[2018-02-06] MEDS: PROSOURCE / PROSTAT (PYXIS) 30 ML UDC GT SCH ×3 (08:55→16:43)
[2018-02-06] MEDS: FOLIC ACID 1 MG TABLET GT SCH (08:55)
[2018-02-06] MEDS: HYDROGEL DRESSING 90 GM TUBE TP SCH ×2 (08:56→21:56)
[2018-02-06] MEDS: MUPIROCIN OINT 2% 22 GM TUBE SCH ×2 (08:57→21:56)
--- NOTE | 2018-02-06 09:00 | NUR ---
RN NOTES SEEN AND EXAMINED BY DR. RIVERA. NO NEW ORDER AT THIS TIME.
[2018-02-06 09:35] LABS: BAND % (MANUAL) 4 % (0.0-5.0); EOSINOPHILS % (MANUAL) 4 % (0-4); LYMPHOCYTES % (MANUAL) 12 % (16-48); MONOCYTES % (MANUAL) 6 % (0-11.0); NEUTROPHILS % (MANUAL) 74 (42-76)
[2018-02-06] MEDS ORDERED: Sodium Phosphate 7.5 MMOL in IV D5W 100 ML IV ONE (10:30)
[2018-02-06 12:00] VITALS: BP 113/62
--- NOTE | 2018-02-06 13:30 | NUR ---
RN NOTES SEEN AND EXAMINED KENDAL HINOJOSA NP. UPDATED ON THE PATIENT'S CONDITION. ORDERS FOR AM LABS
[2018-02-06 16:00] VITALS: BP 151/68
[2018-02-06] MEDS: HYDROCODONE/APAP 10/325MG 1 EA TABLET PO PRN (16:43)
--- NOTE | 2018-02-06 17:00 | NUR ---
RN NOTES ENDORSED PATIENT TO ALFREDO STUART FOR CONTINUITY OF CARE. PATIENT IN STABLE STATE, NO ACUTE CHANGES FOR THE ENTIRE SHIFT. ALL NEEDS ATTENDED AND MET. ASPIRATION PRECAUTION IN PLACED ALL THE TIME, CALL LIGHT WITHIN REACH. BED SAFE AND LOCK. PATIENT FOR PICKED UP FOR SCHEDULE CT OF THE ABDOMEN.
[2018-02-06] MEDS ORDERED: IV NS 0.9% 250 ML IV ONE (17:13)
[2018-02-06] MEDS ORDERED: IOHEXOL-300 100 ML VIAL IV ONE (17:13)
[2018-02-06] MEDS ORDERED: CT SWABBABLE VALVE TRANS SET 1 EA INFUS.SET MC ONE (17:13)
--- NOTE | 2018-02-06 19:08 | NUR ---
Handoff to night nurse, ALFREDO Wells. Patient family present asked to turn air mattress warmth off. Warmth was not on but mattress is warm near connection site. Patient diaphoretic chest noted by family member. Superintendent System Operation endorsed cooling measures, endotracheal secretion management as well as secretions around the site of the tracheostomy with yankeur suction.
[2018-02-06 20:00] VITALS: BP 155/49
--- NOTE | 2018-02-06 20:13 | NUR ---
pt received on vent via trach with charted settings. airway patent. secured via trach tie. pt awake ambu bag bedside. alarms set and audible, disconnect alarms checked plugged into red outlet suctioned a moderate amount of thick yellow secretions. pt receiving breathing tx q6 at this time. pt hob at 30 degrees. suctioned oral secretion from pts mouth Addendum: 02/06/18 at 2017 by RENETTA FRANK RT Amended: Links added.
--- NOTE | 2018-02-06 20:35 | NUR ---
RESIDENTIAL SOLAR CONSULTANT NOTES RECEIVED PT ON BED A/O X1. ON MECH VENT SETTING SATURATING WELL. ON TELE MONITOR SR 85 WITH BBB. ON FELDMAN CATH DRAINING WELL. ON G TUBE FEEDING @65CC/HR NO RESIDUAL. IV ACCESS ON JEB PICC LINE TRIPLE LUMEN PATENT AND INTACT. HD ACCESS ON RIGHT CHEST WALL NO BLEEDING NOTED. HEAD OF BED ELEVATED. SIDE RAILS UP. CALL LIGHT WITHIN REACH. WILL CONTINUE TO MONITOR PT CLOSELY.
[2018-02-06] MEDS: CEFEPIME 1 GM in IV D5W 50 ML IV SCH (21:57)
[2018-02-06] MEDS: INSULIN GLARGINE, 100 UNIT/ML CARTRIDGE SQ SCH (22:18)
[2018-02-07] VITALS (8 sets, daily range): BP systolic 118–157; BP diastolic 46–70
[2018-02-07] MEDS: BLOOD SUGAR DIAGNOSTIC 1 EACH STRIP IN SCH ×4 (00:01→18:26)
[2018-02-07] MEDS: ALBUTEROL HALF STRENGTH 1.25 MG/3 ML VIAL.NEB NEB SCH ×4 (01:37→19:05)
[2018-02-07] MEDS: IPRATROPIUM NEB FS 0.5 MG/2.5 ML AMPUL.NEB NEB SCH ×4 (01:38→19:05)
[2018-02-07] MEDS: NEPRO 1,000 ML BOTTLE GT PRN ×2 (03:00→23:45)
[2018-02-07] MEDS: METOCLOPRAMIDE HCL 10 MG/2 ML VIAL IV SCH ×4 (05:07→23:44)
[2018-02-07] MEDS: INSULIN REGULAR, HUMAN 100 UNIT/ML 3 ML VIAL SQ PRN ×5 (05:08→23:50)
--- NOTE | 2018-02-07 06:27 | NUR ---
BEVELING AND EDGING MACHINE OPERATOR NOTES NO ACUTE CHANGES NOTED DURING THE SHIFT. PROVIDED COMFORT AND SAFETY. REPOSITIONED Q2H. WOUND CARE DONE. FELDMAN CATH DRAINING WELL. WILL ENDORSE TO THE AM NURSE FOR CONTINUITY OF CARE.
[2018-02-07 07:00] LABS: CALCIUM, SERUM 9.4 mg/dL (8.5-10.1); CREATININE 5.5 mg/dL (0.6-1.3); MAGNESIUM 2.7 mg/dL (1.8-2.4); PHOSPHORUS 1.8 mg/dL (2.5-4.9); POTASSIUM 3.4 mmol/L (3.5-5.1)
[2018-02-07 07:11] LABS: BASOPHILS # (AUTO) 0.1 /CMM (0.0-0.2); BASOPHILS % (AUTO) 0.3 % (0.0-2.0); EOSINOPHILS % (AUTO) 2.3 % (0.0-6.0); HEMATOCRIT 23 % (39-51); HEMOGLOBIN 7.8 g/dL (13.5-17.5); LYMPHOCYTES # (AUTO) 1.4 /CMM (0.8-4.8); LYMPHOCYTES % (AUTO) 7.2 % (20.0-44.0); MEAN CORPUSCULAR HGB CONC 34 g/dl (31.0-36.0); MEAN CORPUSCULAR VOLUME 80 fL (80-96); MONOCYTES # (AUTO) 1.7 /CMM (0.1-1.30); MONOCYTES % (AUTO) 9.1 % (2.0-12.0); NEUTROPHILS # (AUTO) 15.4 /CMM (1.8-8.9); NEUTROPHILS % (AUTO) 81.1 % (43.0-81.0); PLATELET COUNT (AUTO) 436 /CMM (150-450); RDW COEFFICIENT OF VARIATION 17.6 (11.5-15.0)
--- NOTE | 2018-02-07 07:43 | NUR ---
EDUCATIONAL PROGRAMMING DIRECTOR OPENING NOTES RECEIVED PATIENT IN BED. EASILY AWAKEN AND OPEN EYES SPONTANEOUSLY WHEN CALLED BY NAME. NONVERBAL. WITH INTACT TRACH SHILEY 8, TOLERATING VENT SETTINGS: AC 16; TV 450; FIO2 40. NO SHORTNESS OF BREATH NOTED AT THIS TIME. SUCTION AIRWAY, SECRETION CLEAR TO WHITE, THIN IN CONSISTENCY. ON TELEMONITOR SR HR AT 85. AFEBRILE AT 98.3. WITH ONGOING NS @TKO JEB PICC LINE INTACT AND PATENT ON FLUSHING. R CHEST WALL HD CATH DRESSING INTACT. WITH GTF NEPHRO RUNNING AT 65 ML/HR. GT PATENT UPON FLUSHING. WITH FELDMAN CATHETER IN PLACE, DRAINING TO CLAIRE COLORED URINE. HOB KEPT ELEVATED. ON CONTACT ISOLATION FOR VRE URINE. SAFETY MEASURES IN PLACED. CALL LIGHT WITHIN REACH. BED IS LOCKED AND IN LOW POSITION.SRX3. WILL CONTINUE TO KEEP ON ISOLATION AND MONITOR
[2018-02-07] MEDS: ACETYLCYSTEINE 10% SOLN 400 MG/4 ML VIAL NEB SCH ×3 (08:07→23:35)
--- NOTE | 2018-02-07 08:27 | NUR ---
RT PT RECEIVED WITH A SHILEY 8 TRACHED ON THE VENT WITH NOTED SETINGS. PT IS AWAKE AND RESPONDS TO STIMULI WHEN SX'D. VENT ALARMS ARE SET AND AUDIBLE WITH BVM BY BEDSIDE. ATHLETIC TRAINING INTERNSHIP CUFF PRESSURE NOTED. HHN TX GIVEN IN LINE WITH NO ADVERSE REACTIONS. VENT IS PLUGGED INTO RED OUTLET. PT SX'D MODERATE THICK PALE YELLOW SECRETIONS. NO RESPIRATORY DISTRESS NOTED AT THIS TIME, WILL CONTINUE TO MONITOR. Addendum: 02/07/18 at 1012 by JESSIE BERMUDEZ RT Amended: Links added.
--- NOTE | 2018-02-07 08:30 | NUR ---
R NOTES PATIENT STARTED ON DIALYSIS AT THIS TIME.
[2018-02-07] MEDS: PANTOPRAZOLE 40 MG VIAL IV SCH ×2 (08:36→21:42)
[2018-02-07] MEDS: SERTRALINE HCL 25 MG TABLET GT SCH (08:37)
[2018-02-07] MEDS: CHOLECALCIFEROL 1,000 UNIT TABLET (VIT D3) GT SCH (08:37)
[2018-02-07] MEDS: ASCORBIC ACID 500 MG TABLET PO SCH (08:37)
[2018-02-07] MEDS: PHENYTOIN SUSP UDC 100 MG/4 ML UDC GT SCH ×2 (08:37→21:41)
[2018-02-07] MEDS: CALCIUM CARB 600MG /VIT D 1 EACH TABLET GT SCH (08:37)
[2018-02-07] MEDS: LACTOBACILLUS RHAMNOSUS GG 1 EACH CAP.SPRINK GT SCH ×2 (08:37→17:12)
[2018-02-07] MEDS: ATORVASTATIN 10 MG TABLET GT SCH (08:38)
[2018-02-07] MEDS: FOLIC ACID 1 MG TABLET GT SCH (08:38)
[2018-02-07] MEDS: VIT B CMPLX 3/FA/VIT C/BIOTIN 1 TAB TABLET PO SCH (08:38)
[2018-02-07] MEDS: LABETALOL HCL (100MG) 100 MG TABLET GT SCH ×2 (08:38→21:41)
[2018-02-07] MEDS: LINEZOLID 600 MG TABLET PO SCH ×2 (08:38→21:41)
[2018-02-07] MEDS: HYDROGEL DRESSING 90 GM TUBE TP SCH ×2 (08:40→21:43)
[2018-02-07] MEDS: MUPIROCIN OINT 2% 22 GM TUBE SCH ×2 (08:41→21:43)
[2018-02-07] MEDS: PROSOURCE / PROSTAT (PYXIS) 30 ML UDC GT SCH ×3 (09:03→17:12)
--- NOTE | 2018-02-07 10:00 | NUR ---
RN NOTES DIALYSIS TREATMENT DONE. PATIENT ABLE TO TOLERATE PROCEDURE WELL. NO SIGN AND SYMPTOM OF DISTRESS NOTED ON THE PATIENT. BP AT 142/69 HR AT 87. TOTAL OF 1 LITER TAKEN OUT OF THE PATEINT. WILL CONTINUE TO MONITOR PATIENT
[2018-02-07] MEDS: ACETAMINOPHEN 325 MG TABLET PO PRN (12:37)
--- NOTE | 2018-02-07 13:00 | NUR ---
RN NOTES PATIENT SEEN AND EXAMINED BY DR ZUNIGA. ALSO NOTED WITH FEVER OF 101. MD AWARE AND ORDERED FOR LABORATORY WORKS FOR AM. PRN TYLENOL 650 MG GIVEN FOR FEVER. COOLING MEASURES INITIATED WILL CONTINUE TRO MONITOR PATIENT
[2018-02-07] MEDS ORDERED: SODIUM PHOSPHATE IV ONE (15:30)
[2018-02-07] MEDS ORDERED: D5W IV ONE (15:30)
[2018-02-07] MEDS ORDERED: Sodium Phosphate 15 MMOL in IV D5W 250 ML IV ONE (16:00)
--- NOTE | 2018-02-07 19:41 | NUR ---
RN NOTES ENDORSED PATIENT FOR CONTINUITY OF CARE. NO ACUTE CHANGES FOR THE ENTIRE SHIFT ASIDE FROM THE EPISODE OF FEVER AT NOON TIIME. AFEBRILE AT THIS THIS. BRATHING UNLABORED. TOLERATING FEEDING WELL. ASPIRATION PRECAUTION IN PLACE. SAFETY MAINTAINED.
--- NOTE | 2018-02-07 20:00 | NUR ---
RN OPENING NOTES RECEIVED BEDSIDE REPORT FROM AM NURSE. PATIENT IN BED AWAKE AND OPEN EYES SPONTANEOUSLY WHEN CALLED BY NAME. NONVERBAL. WITH INTACT TRACH SHILEY 8, TOLERATING VENT SETTINGS: AC 16; TV 450; FIO2 40. NO SHORTNESS OF BREATH NOTED AT THIS TIME. SUCTION AIRWAY,ON TELEMONITOR SR HR AT 96. AFEBRILE AT 98.6. WITH ONGOING NS @TKO JEB PICC LINE INTACT AND PATENT ON FLUSHING. R CHEST WALL HD CATH DRESSING INTACT. WITH GTF NEPHRO RUNNING AT 65 ML/HR. GT PATENT UPON FLUSHING. WITH FELDMAN CATHETER IN PLACE, DRAINING URINE ON GRAVITY. HOB KEPT ELEVATED. ON CONTACT ISOLATION FOR VRE URINE. SAFETY MEASURES IN PLACED. CALL LIGHT WITHIN REACH. BED IS LOCKED AND IN LOW POSITION,SRX3. WILL CONTINUE TO KEEP ON ISOLATION AND MONITOR
[2018-02-07] MEDS: INSULIN GLARGINE, 100 UNIT/ML CARTRIDGE SQ SCH (21:45)
[2018-02-08] VITALS: BP 158/50
[2018-02-08] MEDS: BLOOD SUGAR DIAGNOSTIC 1 EACH STRIP IN SCH ×5 (00:03→23:19)
[2018-02-08] MEDS: HYDROCODONE/APAP 10/325MG 1 EA TABLET PO PRN (00:41)
[2018-02-08] MEDS: IPRATROPIUM NEB FS 0.5 MG/2.5 ML AMPUL.NEB NEB SCH ×4 (01:17→19:34)
[2018-02-08] MEDS: ALBUTEROL HALF STRENGTH 1.25 MG/3 ML VIAL.NEB NEB SCH ×4 (01:17→19:34)
--- NOTE | 2018-02-08 03:46 | NUR ---
RT Pt trach on [facility] vent on ordered settings. svn treatment given via inline. no resp distress noted. trach secure and patent. Addendum: 02/08/18 at 0354 by GRACIE CASTORENA RT Amended: Links added.
[2018-02-08 04:00] VITALS: BP 125/53
[2018-02-08] MEDS: METOCLOPRAMIDE HCL 10 MG/2 ML VIAL IV SCH ×4 (06:17→23:22)
[2018-02-08 06:25] LABS: BASOPHILS # (AUTO) 0.1 /CMM (0.0-0.2); BASOPHILS % (AUTO) 0.4 % (0.0-2.0); EOSINOPHILS % (AUTO) 1.3 % (0.0-6.0); HEMATOCRIT 23 % (39-51); HEMOGLOBIN 7.4 g/dL (13.5-17.5); LYMPHOCYTES # (AUTO) 1.9 /CMM (0.8-4.8); LYMPHOCYTES % (AUTO) 6.3 % (20.0-44.0); MEAN CORPUSCULAR HGB CONC 32 g/dl (31.0-36.0); MEAN CORPUSCULAR VOLUME 82 fL (80-96); MONOCYTES # (AUTO) 2.2 /CMM (0.1-1.30); MONOCYTES % (AUTO) 7.2 % (2.0-12.0); NEUTROPHILS # (AUTO) 25.5 /CMM (1.8-8.9); NEUTROPHILS % (AUTO) 84.8 % (43.0-81.0); PLATELET COUNT (AUTO) 399 /CMM (150-450); RDW COEFFICIENT OF VARIATION 19.2 (11.5-15.0); RED BLOOD CELL COUNT(AUTO) 2.85 MIL/uL (4.5-6.0)
[2018-02-08 06:34] LABS: CALCIUM, SERUM 9.1 mg/dL (8.5-10.1); CREATININE 5.2 mg/dL (0.6-1.3); MAGNESIUM 2.5 mg/dL (1.8-2.4); PHOSPHORUS 1.7 mg/dL (2.5-4.9); POTASSIUM 3.2 mmol/L (3.5-5.1)
[2018-02-08] MEDS: INSULIN REGULAR, HUMAN 100 UNIT/ML 3 ML VIAL SQ PRN ×4 (06:36→23:21)
[2018-02-08 06:46] LABS: WHITE BLOOD COUNT (AUTO) 30.1 K/uL (4.3-11.0)
--- NOTE | 2018-02-08 07:00 | NUR ---
RN NOTES I HAVE GOT A CALL FROM LAB PATIENT'S WBC IS 30.1 AND POTASSIUM 3.2. CHARGE NURSE PABLO AND UPCOMING NURSE IS INFORMED. PATIENT IS AFEBRILE AT THIS MOMENT, IN THE BED, SR ON PEST CONTROL OPERATOR , ON VENT AND TOLERATING SETTINGS WELL.FELDMAN CATHETER IN PLACE. DGF @ 65ML/HR. ALL SAFETY MEASURES ARE IMPLEMENTED, BED IN LOW, LOCKED POSITION, CALL LIGHT IN REACH. REPORT IS GIVEN AM NURSE TO [facility].
[2018-02-08] MEDS: ACETYLCYSTEINE 10% SOLN 400 MG/4 ML VIAL NEB SCH ×3 (07:37→23:54)
--- NOTE | 2018-02-08 07:37 | NUR ---
RT PT RECEIVED WITH A SHILEY 8 TRACHED ON THE VENT WITH NOTED SETINGS. PT IS AWAKE AND RESPONDS TO STIMULI WHEN SX'D. VENT ALARMS ARE SET AND AUDIBLE WITH BVM BY BEDSIDE. MANAGER HUMAN CAPITAL CUFF PRESSURE NOTED. HHN TX GIVEN IN LINE WITH NO ADVERSE REACTIONS. VENT IS PLUGGED INTO RED OUTLET. PT SX'D MODERATE THICK PALE YELLOW SECRETIONS. NO RESPIRATORY DISTRESS NOTED AT THIS TIME, WILL CONTINUE TO MONITOR. Addendum: 02/08/18 at 0842 by JESSIE BERMUDEZ RT Amended: Links added.
[2018-02-08 08:00] VITALS: BP 116/53
--- NOTE | 2018-02-08 08:00 | NUR ---
RN NOTES RECEIVED PATIENT IN BED. EASILY AWAKEN AND OPEN EYES SPONTANEOUSLY WHEN CALLED BY NAME. NONVERBAL. WITH INTACT TRACH SHILEY 8, TOLERATING VENT SETTINGS: AC 16; TV 450; FIO2 40. NO SHORTNESS OF BREATH NOTED AT THIS TIME. SUCTION AIRWAY, SECRETION YELLOW, THIN IN CONSISTENCY. ON TELEMONITOR SR HR AT 85. AFEBRILE AT 98.3. WITH ONGOING NS @TKO JEB PICC LINE INTACT AND PATENT ON FLUSHING. R CHEST WALL HD CATH DRESSING INTACT. WITH GTF NEPHRO RUNNING AT 65 ML/HR. GT PATENT UPON FLUSHING. WITH FELDMAN CATHETER IN PLACE DRAINING TO GRAVITY. ON CONTACT ISOLATION FOR VRE URINE. ASPIRATION PRECAUTION AND SAFETY MEASURES IN PLACED. CALL LIGHT WITHIN REACH. BED LOCKED AND IN LOW POSITION. SRX3. WILL CONTINUE TO KEEP ON ISOLATION AND WILL MONITOR
[2018-02-08] MEDS ORDERED: POTASSIUM CHLORIDE 20 MEQ TAB.PRT.SR PO ONE (08:30)
--- NOTE | 2018-02-08 08:30 | NUR ---
RN NOTES SEEN AND EXAMINED BY DR. ZUNIGA. WITH ORDER FOR LABORATORY WORKS TO BE DONE IN AM. MD ALSO UPDATED REGARDING PATIENT STATUS A.) WBC AT 30- PER MD PLANS WERE TO REMOVE HD CATH DUE TO POSSIBLE CAUSE OF INFECTION. B.) POTASSIUM LEVEL AT 3.2- PER MD WILL ORDER POTASSIUM REPLACEMENT C.) PICC LINE 2 PORT NOT WORKING AND ASKED IF MIDLINE INSERTION IS POSSIBLE- PER MD, KEEP LINE AT THE MOMENT. WILL TALK TO NEPHROLOGY. PLANS TO KEEP PATIENT TO BE OFF ANY INVASIVE LINE IN THE FUTURE.-
[2018-02-08 08:57] LABS: BAND % (MANUAL) 1 % (0.0-5.0); EOSINOPHILS % (MANUAL) 1 % (0-4); LYMPHOCYTES % (MANUAL) 5 % (16-48); MONOCYTES % (MANUAL) 8 % (0-11.0); NEUTROPHILS % (MANUAL) 85 (42-76)
[2018-02-08] MEDS: PANTOPRAZOLE 40 MG VIAL IV SCH ×2 (09:35→20:34)
[2018-02-08] MEDS: CHOLECALCIFEROL 1,000 UNIT TABLET (VIT D3) GT SCH (09:35)
[2018-02-08] MEDS: LINEZOLID 600 MG TABLET PO SCH ×2 (09:35→20:34)
[2018-02-08] MEDS: PROSOURCE / PROSTAT (PYXIS) 30 ML UDC GT SCH ×3 (09:36→17:20)
[2018-02-08] MEDS: CALCIUM CARB 600MG /VIT D 1 EACH TABLET GT SCH (09:36)
[2018-02-08] MEDS: LABETALOL HCL (100MG) 100 MG TABLET GT SCH ×2 (09:36→20:35)
[2018-02-08] MEDS: SERTRALINE HCL 25 MG TABLET GT SCH (09:41)
[2018-02-08] MEDS: VIT B CMPLX 3/FA/VIT C/BIOTIN 1 TAB TABLET PO SCH (09:41)
[2018-02-08] MEDS: FOLIC ACID 1 MG TABLET GT SCH (09:42)
[2018-02-08] MEDS: LACTOBACILLUS RHAMNOSUS GG 1 EACH CAP.SPRINK GT SCH ×2 (09:42→17:20)
[2018-02-08] MEDS: ASCORBIC ACID 500 MG TABLET PO SCH (09:42)
[2018-02-08] MEDS: PHENYTOIN SUSP UDC 100 MG/4 ML UDC GT SCH ×2 (09:42→20:34)
[2018-02-08] MEDS: ATORVASTATIN 10 MG TABLET GT SCH (09:42)
[2018-02-08] MEDS: HYDROGEL DRESSING 90 GM TUBE TP SCH ×2 (09:53→21:03)
[2018-02-08] MEDS: MUPIROCIN OINT 2% 22 GM TUBE SCH ×2 (09:54→21:03)
[2018-02-08 12:00] VITALS: BP 123/60
[2018-02-08 16:00] VITALS: BP 138/68
[2018-02-08] MEDS ORDERED: FEE PK DOSING 1 MIN EA MC ONE (18:28)
[2018-02-08] MEDS ORDERED: DOSING PER PHARMACY-AMIKACI IV XX PRN (18:30)
--- NOTE | 2018-02-08 19:30 | NUR ---
RN NOTES ENDORSED PATIENT FOR CONTINUITY OF CARE. NO ACUTE CHANGES FOR THE ENTIRE SHIFT. ALL NEEDS ANTICIPATED AND MET. KEEP COMFORTABLE AND CLEAN.
--- NOTE | 2018-02-08 19:35 | NUR ---
PT RECEIVED TRACHED ON THE VENT WITH NOTED SETINGS. VENT ALARMS ARE SET AND AUDIBLE WITH BVM BY BEDSIDE. FUR MIXER CUFF PRESSURE NOTED. HHN TX GIVEN IN LINE WITH NO ADVERSE REACTIONS. VENT IS PLUGGED INTO RED OUTLET. PT SX'D MODERATE THICK PALE YELLOW SECRETIONS. NO RESPIRATORY DISTRESS NOTED AT THIS TIME, WILL CONTINUE TO MONITOR. Addendum: 02/08/18 at 1936 by JOSIAS NGUYỄN RT Amended: Links added.
[2018-02-08] MEDS: NEPRO 1,000 ML BOTTLE GT PRN (19:42)
[2018-02-08 20:00] VITALS: BP 164/76
[2018-02-08] MEDS: METRONIDAZOLE 500 MG TABLET GT SCH (20:34)
[2018-02-08] MEDS ORDERED: AMIKACIN 500 MG in IV D5W 100 ML IV ONE (21:00)
--- NOTE | 2018-02-08 22:05 | NUR ---
RN NOTES UNABLE TO GET ANY READING FROM BLADDER SCANNER. PATIENT IS A DIALYSIS PATIENT AND BARELY PRODUCES AND URINE
[2018-02-08] MEDS: INSULIN GLARGINE, 100 UNIT/ML CARTRIDGE SQ SCH (23:19)
[2018-02-09] VITALS: BP 172/74
[2018-02-09] MEDS: ALBUTEROL HALF STRENGTH 1.25 MG/3 ML VIAL.NEB NEB SCH ×4 (01:42→19:40)
[2018-02-09] MEDS: IPRATROPIUM NEB FS 0.5 MG/2.5 ML AMPUL.NEB NEB SCH ×4 (01:42→19:40)
[2018-02-09 04:00] VITALS: BP 150/75
[2018-02-09] MEDS: METOCLOPRAMIDE HCL 10 MG/2 ML VIAL IV SCH ×4 (05:04→22:39)
[2018-02-09] MEDS: METRONIDAZOLE 500 MG TABLET GT SCH ×3 (05:04→21:36)
[2018-02-09] MEDS: BLOOD SUGAR DIAGNOSTIC 1 EACH STRIP IN SCH ×4 (05:57→23:47)
[2018-02-09] MEDS: INSULIN REGULAR, HUMAN 100 UNIT/ML 3 ML VIAL SQ PRN ×4 (05:59→23:48)
[2018-02-09 06:02] LABS: BASOPHILS # (AUTO) 0.1 /CMM (0.0-0.2); BASOPHILS % (AUTO) 0.3 % (0.0-2.0); EOSINOPHILS % (AUTO) 1.2 % (0.0-6.0); HEMATOCRIT 24 % (39-51); HEMOGLOBIN 7.5 g/dL (13.5-17.5); LYMPHOCYTES # (AUTO) 1.4 /CMM (0.8-4.8); MEAN CORPUSCULAR HGB CONC 32 g/dl (31.0-36.0); MEAN CORPUSCULAR VOLUME 81 fL (80-96); MONOCYTES # (AUTO) 1.5 /CMM (0.1-1.30); MONOCYTES % (AUTO) 6.1 % (2.0-12.0); NEUTROPHILS # (AUTO) 20.7 /CMM (1.8-8.9); NEUTROPHILS % (AUTO) 86.4 % (43.0-81.0); PLATELET COUNT (AUTO) 404 /CMM (150-450); RDW COEFFICIENT OF VARIATION 19.9 (11.5-15.0); RED BLOOD CELL COUNT(AUTO) 2.92 MIL/uL (4.5-6.0)
[2018-02-09 06:09] LABS: CALCIUM, SERUM 9.1 mg/dL (8.5-10.1); MAGNESIUM 2.5 mg/dL (1.8-2.4); PHOSPHORUS 1.4 mg/dL (2.5-4.9); POTASSIUM 3.6 mmol/L (3.5-5.1)
--- NOTE | 2018-02-09 06:19 | NUR ---
RN NOTES RECEIVED CRITICAL LAB RESULTS FROM [facility] (LABORATORY). BUN 115 AND GLUCOSE 368. JUST GIVEN 8 UNITS OF HUMOLOG FOR BLOOD SUGAR. PATIENT IS ON HEMODIALYSIS REGARDING BUN OF 115
--- NOTE | 2018-02-09 07:10 | NUR ---
BRIDGE CREW MEMBER OPENING NOTE RECEIVED PATIENT RESTING IN BED, NO RESPIRATORY DISTRESS NOTED. SINUS RHYTHM ON PELLET POST INSPECTOR, HEART RATE 85. G TUBE FEEDING INFUSING ORDERED, LEFT UPPER ARM PICC LINE INTACT TKO. RIGHT CHEST WALL HD ACCESS INTACT. SEQUENTIAL COMPRESSION DEVICES ON. CONDOM CATHETER DRAINING YELLOW URINE TO GRAVITY. HEAD OF BED ELEVATED, BED LOW AND LOCKED, ALARM ON, CALL LIGHT WITHIN REACH, WILL CONTINUE TO MONITOR CLOSELY.
[2018-02-09] MEDS: ACETYLCYSTEINE 10% SOLN 400 MG/4 ML VIAL NEB SCH ×2 (07:55→15:38)
--- NOTE | 2018-02-09 07:57 | NUR ---
Received a male vince pt on a mechanical vent. Pt porsha clarke is secure. Vent is plugged into a red outlet, alarms are set and audible, and BMV is at bedside. Addendum: 02/09/18 at 0759 by ILA CASTILLO RT Amended: Links added.
[2018-02-09 08:00] VITALS: BP 156/71
[2018-02-09] MEDS ORDERED: AMIKACIN 500 MG in IV D5W 100 ML IV PRN (09:00)
[2018-02-09 09:16] LABS: BAND % (MANUAL) 1 % (0.0-5.0); LYMPHOCYTES % (MANUAL) 6 % (16-48); MONOCYTES % (MANUAL) 6 % (0-11.0); NEUTROPHILS % (MANUAL) 87 (42-76)
[2018-02-09] MEDS: PHENYTOIN SUSP UDC 100 MG/4 ML UDC GT SCH ×2 (09:48→21:36)
[2018-02-09] MEDS: PROSOURCE / PROSTAT (PYXIS) 30 ML UDC GT SCH ×3 (09:48→16:36)
[2018-02-09] MEDS: SERTRALINE HCL 25 MG TABLET GT SCH (09:49)
[2018-02-09] MEDS: ATORVASTATIN 10 MG TABLET GT SCH (09:49)
[2018-02-09] MEDS: ASCORBIC ACID 500 MG TABLET PO SCH (09:49)
[2018-02-09] MEDS: CHOLECALCIFEROL 1,000 UNIT TABLET (VIT D3) GT SCH (09:50)
[2018-02-09] MEDS: LINEZOLID 600 MG TABLET PO SCH ×2 (09:50→21:36)
[2018-02-09] MEDS: LACTOBACILLUS RHAMNOSUS GG 1 EACH CAP.SPRINK GT SCH ×2 (09:50→16:36)
[2018-02-09] MEDS: CALCIUM CARB 600MG /VIT D 1 EACH TABLET GT SCH (09:50)
[2018-02-09] MEDS: VIT B CMPLX 3/FA/VIT C/BIOTIN 1 TAB TABLET PO SCH (09:50)
[2018-02-09] MEDS: FOLIC ACID 1 MG TABLET GT SCH (09:50)
[2018-02-09] MEDS: PANTOPRAZOLE 40 MG VIAL IV SCH ×2 (09:51→21:35)
[2018-02-09] MEDS: LABETALOL HCL (100MG) 100 MG TABLET GT SCH ×2 (09:51→21:36)
[2018-02-09] MEDS: MUPIROCIN OINT 2% 22 GM TUBE SCH ×2 (09:53→21:37)
[2018-02-09] MEDS: HYDROGEL DRESSING 90 GM TUBE TP SCH ×2 (09:54→21:37)
[2018-02-09] MEDS ORDERED: NEUTRA PHOS 1 POWD.PACKET NG ONE (11:00)
[2018-02-09 12:00] VITALS: BP 152/72
[2018-02-09] MEDS: ACETAMINOPHEN 325 MG TABLET PO PRN (13:30)
[2018-02-09] MEDS: NEPRO 1,000 ML BOTTLE GT PRN (15:27)
[2018-02-09 16:00] VITALS: BP 150/70
--- NOTE | 2018-02-09 17:00 | NUR ---
SENIOR COLDFUSION DEVELOPER NOTE RECEIVED A CALL FROM LAB THAT PATIENT'S AMIKACIN LEVEL IS 18.9. NOTIFIED DOCTOR EFRAIN, RECEIVED AN ORDER TO HOLD AMIKACIN FOR NOW. CALLED PHARMACY TO NOTIFY OF IT AND WILL ENDORSE TO ONCOMING NURSE TO HOLD IT.
--- NOTE | 2018-02-09 19:45 | NUR ---
FLOORING PROFESSIONAL OPENING NOTES RECEIVED REPORT FROM PORSCHE FUENTES. PATIENT A/A/O X1, NON-VERBAL, RESPONDS TO NAME & TOUCH. BREATHING EVEN & UNLABORED W/ TRACH INTACT & TOLERATING VENT SETTINGS AC 16, TV 450, FIO2 40%, PEEP 0. NO RESPIRATORY DISTRESS NOTED. ON TELE W/ SINUS RHYTHM W/ BBB, HR 87. LEFT FOREARM IV #20 W/ INTACT & PATENT W/ DRESSING CDI, SALINE LOCKED. RIGHT CHEST WALL HD CATH W/ DRESSING CDI & NO BLEEDING NOTED. G-TUBE FLUSHING WELL W/ GTF NEPRO RUNNING @ 65 ML/HR. NO RESIDUAL NOTED. NO S/S OF PAIN OR DISCOMFORT @ THIS TIME. SAFETY MEASURES IN PLACE W/ SIDE RAILS UP & BED LOCKED & IN LOWEST POSITION. WILL CONTINUE TO MONITOR.
--- NOTE | 2018-02-09 19:49 | NUR ---
CYBER SECURITY ADMINISTRATOR CLOSING NOTE PATIENT RESTING IN BED IN STABLE CONDITION, SINUS RHYTHM ON DIE TRY OUT WORKER STAMPING. VENT SETTINGS ORDERED. NO RESPIRATORY DISTRESS NOTED. NO SIGNS OF PAIN. IV SITE ON LEFT FOREARM INTACT SALINE LOCK. CONDOM CATHETER DRAINING A MINIMAL AMOUNT OF URINE TO GRAVITY. SEQUENTIAL COMPRESSION DEVICES ON. G TUBE FEEDING INFUSING ORDERED. WOUND CARE DONE, REPOSITIONED AND TURNED FREQUENTLY. HEAD OF BED ELEVATED, BED LOW AND LOCKED, ALARM ON. WILL ENDORSE TO ONCOMING NURSE FOR CONTINUITY OF CARE.
[2018-02-09 20:00] VITALS: BP 137/68
[2018-02-09] MEDS: INSULIN GLARGINE, 100 UNIT/ML CARTRIDGE SQ SCH (21:44)
[2018-02-10] VITALS: BP 169/70
[2018-02-10] MEDS: ACETYLCYSTEINE 10% SOLN 400 MG/4 ML VIAL NEB SCH ×4 (00:24→23:57)
[2018-02-10] MEDS: IPRATROPIUM NEB FS 0.5 MG/2.5 ML AMPUL.NEB NEB SCH ×5 (01:38→23:57)
[2018-02-10] MEDS: ALBUTEROL HALF STRENGTH 1.25 MG/3 ML VIAL.NEB NEB SCH ×5 (01:38→23:57)
[2018-02-10] MEDS: hydrALAZINE HCL 10 MG TABLET GT PRN (03:55)
[2018-02-10 04:00] VITALS: BP 165/79
[2018-02-10] MEDS: METRONIDAZOLE 500 MG TABLET GT SCH ×3 (05:23→22:29)
[2018-02-10] MEDS: METOCLOPRAMIDE HCL 10 MG/2 ML VIAL IV SCH ×4 (05:23→23:37)
[2018-02-10] MEDS: HYDROCODONE/APAP 10/325MG 1 EA TABLET PO PRN ×2 (05:23→13:59)
[2018-02-10] MEDS: INSULIN REGULAR, HUMAN 100 UNIT/ML 3 ML VIAL SQ PRN ×4 (05:24→23:42)
[2018-02-10] MEDS: BLOOD SUGAR DIAGNOSTIC 1 EACH STRIP IN SCH ×4 (05:24→23:42)
[2018-02-10 06:41] LABS: BASOPHILS % (AUTO) 0.2 % (0.0-2.0); EOSINOPHILS % (AUTO) 1.8 % (0.0-6.0); HEMATOCRIT 23 % (39-51); HEMOGLOBIN 7.1 g/dL (13.5-17.5); LYMPHOCYTES # (AUTO) 1.6 /CMM (0.8-4.8); LYMPHOCYTES % (AUTO) 7.7 % (20.0-44.0); MEAN CORPUSCULAR HGB CONC 31 g/dl (31.0-36.0); MEAN CORPUSCULAR VOLUME 82 fL (80-96); MONOCYTES % (AUTO) 4.9 % (2.0-12.0); NEUTROPHILS # (AUTO) 17.7 /CMM (1.8-8.9); NEUTROPHILS % (AUTO) 85.4 % (43.0-81.0); PLATELET COUNT (AUTO) 400 /CMM (150-450); RDW COEFFICIENT OF VARIATION 19.6 (11.5-15.0); RED BLOOD CELL COUNT(AUTO) 2.78 MIL/uL (4.5-6.0); WHITE BLOOD COUNT (AUTO) 20.8 K/uL (4.3-11.0)
[2018-02-10 06:59] LABS: CALCIUM, SERUM 8.7 mg/dL (8.5-10.1); CREATININE 3.9 mg/dL (0.6-1.3); MAGNESIUM 2.3 mg/dL (1.8-2.4); PHOSPHORUS 1.7 mg/dL (2.5-4.9); POTASSIUM 3.4 mmol/L (3.5-5.1)
--- NOTE | 2018-02-10 07:05 | NUR ---
HEAD OF COMMISSION DEPARTMENT OPENING NOTE PATIENT RESTING IN BED, NO RESPIRATORY DISTRESS NOTED. G TUBE FEEDING INFUSING ORDERED, VENT SETTINGS ORDERED. SINUS RHYTHM ON LAY OUT MACHINE OPERATOR, HEART RATE IN THE LOW 90S. CONDOM CATHETER DRAINING A MINIMAL AMOUNT OF URINE TO GRAVITY. IV SITE ON LEFT FOREARM INTACT SALINE LOCK. HEAD OF BED ELEVATED, BED LOW AND LOCKED, WILL CONTINUE TO MONITOR.
[2018-02-10 08:00] VITALS: BP 156/71
--- NOTE | 2018-02-10 08:19 | NUR ---
RECEIVED PT TRACH WITH A SHILEY 8 ON MECHANICAL VENT WITH NOTED SETTINGS. PT IS AWAKE AND RESPONDS TO STIMULI WHEN SX'D. VENT ALARMS ARE SET AND AUDIBLE WITH BVM BY BEDSIDE. BAKERY DEMONSTRATOR CUFF PRESSURE NOTED. HHN TX GIVEN IN LINE WITH NO ADVERSE REACTIONS. VENT IS PLUGGED INTO RED OUTLET. PT SX'D MODERATE AMOUNT OF THICK PALE YELLOW SECRETIONS. NO RESPIRATORY DISTRESS NOTED AT THIS TIME, WILL CONTINUE TO MONITOR PT. Addendum: 02/10/18 at 0828 by SOMMER RAND RT Amended: Links added.
[2018-02-10] MEDS: HYDROGEL DRESSING 90 GM TUBE TP SCH ×2 (09:00→22:30)
[2018-02-10] MEDS: LACTOBACILLUS RHAMNOSUS GG 1 EACH CAP.SPRINK GT SCH ×2 (09:00→16:07)
[2018-02-10] MEDS: NEPRO 1,000 ML BOTTLE GT PRN (09:54)
[2018-02-10] MEDS: LINEZOLID 600 MG TABLET PO SCH ×2 (09:57→22:30)
[2018-02-10] MEDS: PHENYTOIN SUSP UDC 100 MG/4 ML UDC GT SCH ×2 (09:58→22:29)
[2018-02-10] MEDS: CHOLECALCIFEROL 1,000 UNIT TABLET (VIT D3) GT SCH (09:58)
[2018-02-10] MEDS: CALCIUM CARB 600MG /VIT D 1 EACH TABLET GT SCH (09:58)
[2018-02-10] MEDS: PANTOPRAZOLE 40 MG VIAL IV SCH ×2 (09:58→22:29)
[2018-02-10] MEDS: SERTRALINE HCL 25 MG TABLET GT SCH (09:59)
[2018-02-10] MEDS: VIT B CMPLX 3/FA/VIT C/BIOTIN 1 TAB TABLET PO SCH (10:00)
[2018-02-10] MEDS: ATORVASTATIN 10 MG TABLET GT SCH (10:01)
[2018-02-10] MEDS: FOLIC ACID 1 MG TABLET GT SCH (10:01)
[2018-02-10] MEDS: ASCORBIC ACID 500 MG TABLET PO SCH (10:01)
[2018-02-10] MEDS: LABETALOL HCL (100MG) 100 MG TABLET GT SCH ×2 (10:02→22:29)
[2018-02-10] MEDS: MUPIROCIN OINT 2% 22 GM TUBE SCH ×2 (10:05→22:31)
[2018-02-10] MEDS: PROSOURCE / PROSTAT (PYXIS) 30 ML UDC GT SCH ×3 (10:06→16:07)
[2018-02-10 12:00] VITALS: BP 148/64
[2018-02-10] MEDS ORDERED: NEUTRA PHOS 1 POWD.PACKET NG ONE (13:30)
[2018-02-10 16:00] VITALS: BP 91/55
--- NOTE | 2018-02-10 16:00 | NUR ---
TREE SPECIALIST NOTE PATIENT WITH ONE EPISODE OF SMALL AMOUNT OF EMESIS. G TUBE FEEDING STOPPED TEMPORARILY, MD NOTIFIED, PRN ZOFRAN GIVEN IVP. HEAD OF BED ELEVATED, WILL CONTINUE TO MONITOR.
--- NOTE | 2018-02-10 17:29 | NUR ---
FOOD AND NUTRITION PROFESSOR NOTE RECEIVED A CALL FROM PHARMACY THAT IF AMIKACIN TROUGH LEVEL IS LESS THAN 10, ADMINISTER NEXT DOSE. IF LEVEL IS ABOVE 10, HOLD NEXT DOSE. WILL ENDORSE TO ONCOMING NURSE.
--- NOTE | 2018-02-10 19:28 | NUR ---
SHOP GIRL CLOSING NOTE PATIENT RESTING IN BED IN STABLE CONDITION, NO RESPIRATORY DISTRESS NOTED. DIALYZED TODAY, 1500 ML OUT. NO SIGNS OF PAIN. VENT SETTINGS ORDERED. IV SITE ON LEFT FOREARM INTACT SALINE LOCK. PATIENT WITH NO MORE EPISODES OF EMESIS SO RESTARTED G TUBE FEEDING. SEQUENTIAL COMPRESSION DEVICES ON. HEAD OF BED ELEVATED, BED LOW AND LOCKED, CALL LIGHT WITHIN REACH, WILL ENDORSE TO ONCOMING NURSE FOR CONTINUITY OF CARE.
[2018-02-10 20:00] VITALS: BP_SYST 142; BP_SYST 94; BP_DIAS 43; BP_DIAS 68
--- NOTE | 2018-02-10 20:12 | NUR ---
NURSING SPECIALIST OPENING NOTES RECEIVED REPORT FROM PORSCHE FUENTES. PATIENT A/A/O X1, NON-VERBAL, RESPONDS TO NAME & TOUCH. BREATHING EVEN & UNLABORED W/ TRACH INTACT & TOLERATING VENT SETTINGS AC 16, TV 450, FIO2 40%, PEEP 0. NO RESPIRATORY DISTRESS NOTED. SUCTIONED THIN, WHITE SECRETION NOTED @ TRACH STOMA SITE. ON TELE W/ SINUS RHYTHM W/ BBB, HR 94. LEFT FOREARM IV #20 W/ INTACT & PATENT W/ DRESSING CDI, SALINE LOCKED. RIGHT CHEST WALL HD CATH W/ DRESSING CDI & NO BLEEDING NOTED. G-TUBE FLUSHING WELL W/ GTF NEPRO RUNNING @ 65 ML/HR. NO RESIDUAL NOTED. NO S/S OF PAIN OR DISCOMFORT @ THIS TIME. SAFETY MEASURES IN PLACE W/ SIDE RAILS UP & BED LOCKED & IN LOWEST POSITION. WILL CONTINUE TO MONITOR.
[2018-02-10] MEDS: INSULIN GLARGINE, 100 UNIT/ML CARTRIDGE SQ SCH (22:38)
[2018-02-11] VITALS: BP 127/55
[2018-02-11] MEDS ORDERED: AMIKACIN 250 MG/ML VIAL ONE (02:21)
[2018-02-11 04:00] VITALS: BP 141/55
[2018-02-11] MEDS ORDERED: LIDOCAINE 1% INJ 50 ML MDV IJ ONE ×2 (05:00→08:00)
[2018-02-11] MEDS: METRONIDAZOLE 500 MG TABLET GT SCH ×3 (05:15→20:35)
[2018-02-11] MEDS: METOCLOPRAMIDE HCL 10 MG/2 ML VIAL IV SCH ×4 (05:15→22:49)
[2018-02-11] MEDS: BLOOD SUGAR DIAGNOSTIC 1 EACH STRIP IN SCH ×4 (05:16→23:13)
[2018-02-11] MEDS: INSULIN REGULAR, HUMAN 100 UNIT/ML 3 ML VIAL SQ PRN ×4 (05:22→23:07)
[2018-02-11 06:41] LABS: BASOPHILS % (AUTO) 0.3 % (0.0-2.0); EOSINOPHILS % (AUTO) 2.6 % (0.0-6.0); HEMATOCRIT 23 % (39-51); HEMOGLOBIN 7.2 g/dL (13.5-17.5); LYMPHOCYTES # (AUTO) 1.7 /CMM (0.8-4.8); LYMPHOCYTES % (AUTO) 10.6 % (20.0-44.0); MEAN CORPUSCULAR HGB CONC 32 g/dl (31.0-36.0); MEAN CORPUSCULAR VOLUME 82 fL (80-96); MONOCYTES % (AUTO) 6.4 % (2.0-12.0); NEUTROPHILS # (AUTO) 12.6 /CMM (1.8-8.9); NEUTROPHILS % (AUTO) 80.1 % (43.0-81.0); PLATELET COUNT (AUTO) 401 /CMM (150-450); RDW COEFFICIENT OF VARIATION 19.9 (11.5-15.0); RED BLOOD CELL COUNT(AUTO) 2.77 MIL/uL (4.5-6.0); WHITE BLOOD COUNT (AUTO) 15.7 K/uL (4.3-11.0)
[2018-02-11 07:05] LABS: CALCIUM, SERUM 8.7 mg/dL (8.5-10.1); CREATININE 3.3 mg/dL (0.6-1.3); MAGNESIUM 2.1 mg/dL (1.8-2.4); PHOSPHORUS 3.1 mg/dL (2.5-4.9); POTASSIUM 3.5 mmol/L (3.5-5.1)
[2018-02-11] MEDS: ACETYLCYSTEINE 10% SOLN 400 MG/4 ML VIAL NEB SCH ×3 (07:10→23:57)
[2018-02-11] MEDS: ALBUTEROL HALF STRENGTH 1.25 MG/3 ML VIAL.NEB NEB SCH ×4 (07:10→23:57)
[2018-02-11] MEDS: IPRATROPIUM NEB FS 0.5 MG/2.5 ML AMPUL.NEB NEB SCH ×4 (07:10→23:57)
--- NOTE | 2018-02-11 07:20 | NUR ---
FORMULA CHECKER NOTES NOTED W/ X2 BM DURING SHIFT BUT ONLY X1 LIQUID STOOL. WILL ENDORSE TO AM NURSE TO COLLECT FOR C-DIFF IF THIRD WATERY STOOL OCCURS.
--- NOTE | 2018-02-11 07:30 | NUR ---
LIVESTOCK FARMWORKER NOTES RECEIVED PATIENT IN BED. TRACH TO VENT SETTINGS MD ORDERED. ON TELE PT 78 SR WITH BBB. CLOUDY, CLAIRE COLORED URINE DRAINING FROM F/C. PT'S IV SITE PATENT/FLUIDS RUNNING. PATIENT IS ASLEEP BUT AROUSABLE. NONVERBAL. SAFETY PRECAUTIONS IN PLACE. CALL LIGHT IN REACH.
[2018-02-11 08:00] VITALS: BP 145/76
--- NOTE | 2018-02-11 08:30 | NUR ---
PREFLIGHT INSPECTOR NOTES DR PAZ AT BS. REMOVING HD CATH WITH ANNA MARIE FUENTES PRESENT.
--- NOTE | 2018-02-11 08:45 | NUR ---
GUEST SERVICE AIDE NOTE: DR. PAZ REMOVED THE (R) CHEST WALL HD CATHETER AT THE BEDSIDE. PATIENT TOLERATED THE PROCEDURE. APPLIED PRESSURE ON THE SITE AND COVERED WITH DRY GAUZE AND SECURED WITH TAPE.
[2018-02-11] MEDS: PHENYTOIN SUSP UDC 100 MG/4 ML UDC GT SCH ×2 (09:07→20:35)
[2018-02-11] MEDS: LACTOBACILLUS RHAMNOSUS GG 1 EACH CAP.SPRINK GT SCH ×2 (09:10→16:16)
[2018-02-11] MEDS: CHOLECALCIFEROL 1,000 UNIT TABLET (VIT D3) GT SCH (09:11)
[2018-02-11] MEDS: ATORVASTATIN 10 MG TABLET GT SCH (09:11)
[2018-02-11] MEDS: LINEZOLID 600 MG TABLET PO SCH (09:12)
[2018-02-11] MEDS: SERTRALINE HCL 25 MG TABLET GT SCH (09:13)
[2018-02-11] MEDS: ASCORBIC ACID 500 MG TABLET PO SCH (09:14)
[2018-02-11] MEDS: VIT B CMPLX 3/FA/VIT C/BIOTIN 1 TAB TABLET PO SCH (09:14)
[2018-02-11] MEDS: LABETALOL HCL (100MG) 100 MG TABLET GT SCH ×2 (09:15→20:35)
[2018-02-11] MEDS: CALCIUM CARB 600MG /VIT D 1 EACH TABLET GT SCH (09:15)
[2018-02-11] MEDS: PROSOURCE / PROSTAT (PYXIS) 30 ML UDC GT SCH ×3 (09:16→16:31)
[2018-02-11] MEDS: PANTOPRAZOLE 40 MG VIAL IV SCH ×2 (09:16→20:34)
[2018-02-11] MEDS: FOLIC ACID 1 MG TABLET GT SCH (09:16)
[2018-02-11] MEDS: MUPIROCIN OINT 2% 22 GM TUBE SCH ×2 (09:17→20:36)
[2018-02-11] MEDS: HYDROGEL DRESSING 90 GM TUBE TP SCH ×2 (09:17→20:37)
[2018-02-11] MEDS: NEPRO 1,000 ML BOTTLE GT PRN (10:57)
[2018-02-11 12:00] VITALS: BP 152/70
--- NOTE | 2018-02-11 15:33 | NUR ---
VEST FINISHER NOTES WOUND CONSULT ORDERED AND DR ZUNIGA NOTIFIED FOR WORSENING SACRAL PRESSURE ULCER.
[2018-02-11 16:00] VITALS: BP 162/76
[2018-02-11] MEDS: HYDROCODONE/APAP 10/325MG 1 EA TABLET PO PRN (16:17)
[2018-02-11] MEDS: FLUCONAZOLE (100 MG) 100 MG TABLET PO SCH (17:48)
--- NOTE | 2018-02-11 19:40 | NUR ---
WHIZZER ENDING NOTES ENDORSED PT TO PM NURSE FOR CONTINUITY OF CARE. PT NOT IN RESP DISTRESS. PT HAS CALM POSTURING AT THIS TIME. NO FEVER NOTED AT THIS TIME. ALL NEEDS MET. SAFETY MEASURES IN PLACE. CALL LIGHT IN REACH
[2018-02-11 20:00] VITALS: BP_SYST 162; BP_SYST 169; BP_DIAS 75; BP_DIAS 76
--- NOTE | 2018-02-11 20:00 | NUR ---
TELE 1 RN NOTE PT IN BED ASLEEP, AROUSABLE. NO VENT/TRACH TOLERATING THE SETTINGS WELL. NO DISTRESS OR DISCOMFORT NOTED. NO S/S OF PAIN NOTED. ON TELE MONITOR SR WITH BBB HR 79. CONDOM CATH ON DRAIING YELLOWISH COLOR URINE. SACRUM WOUND DRESSING I/C/D. GTF NEPRO INFUSING AT 65 ML/HR, 0 ML RESIDUAL NOTED. LFA # 20 G S/L INTACT AND PATENT. REPOSITION HIM FOR SKIN MANAGEMENT. SIDE RAILS UP X 3 AND CALL LIGHT WITHIN REACH. VSS. CONTINUE TO MONITOR HIM.
--- NOTE | 2018-02-11 20:29 | NUR ---
PT RECEIVED TRACHED ON VENT. NO RESP DISTRESS. PT TOLERATING VENT SETTINGS. SX'D FOR MOD AMT OF THICK SPAULDING SECRETIONS. VENT ALARMS SET AND AUDIBLE. VENT PLUGGED INTO RED OUTLET. TRACH SECURED, CUFF NEUROLOGICAL SURGERY TEACHER. WILL CONTINUE TO MONITOR. Addendum: 02/11/18 at 2031 by ALLYSSA NEGRO RT Amended: Links added.
[2018-02-11] MEDS: INSULIN GLARGINE, 100 UNIT/ML CARTRIDGE SQ SCH (23:12)
[2018-02-12] VITALS (7 sets, daily range): BP systolic 119–162; BP diastolic 56–76
[2018-02-12] MEDS: METRONIDAZOLE 500 MG TABLET GT SCH ×3 (04:32→21:15)
[2018-02-12] MEDS: ACETAMINOPHEN 325 MG TABLET PO PRN (04:32)
[2018-02-12] MEDS: METOCLOPRAMIDE HCL 10 MG/2 ML VIAL IV SCH ×4 (04:32→23:29)
--- NOTE | 2018-02-12 04:33 | NUR ---
TELE 1 RN NOTE PT IS RUNNING LOW GRADE FEVER 99.8 PO. TYLENOL 650 MG VIA GT GIVEN. CONTINUE TO MONITOR HIM.
[2018-02-12] MEDS: NEPRO 1,000 ML BOTTLE GT PRN (05:17)
--- NOTE | 2018-02-12 05:33 | NUR ---
TELE 1 RN NOTE TEMP CAME DOWN TO 98.2
[2018-02-12] MEDS: BLOOD SUGAR DIAGNOSTIC 1 EACH STRIP IN SCH ×4 (05:54→23:26)
[2018-02-12] MEDS: INSULIN REGULAR, HUMAN 100 UNIT/ML 3 ML VIAL SQ PRN ×4 (05:56→23:28)
--- NOTE | 2018-02-12 06:24 | NUR ---
TELE 1 RN NOTE PT IN BED ASLEEP, NO DISTRESS OR DISCOMFORT NOTED. NO S/S OF PAIN NOTED. ON TELE MONITOR SR WITH BBB HR 80. KEPT HIM DRY AND CLEAN. ALL NEEDS ATTENDED. CONDOM CATH INTACT AND PATENT DRAINING CLAIRE COLOR URINE. REPOSITION HIM Q2H, SIDE RAILS UP X 3 AND CALL LIGHT WITHIN REACH. WILL ENDORSE TO DAY SHIFT NURSE FOR CONTINUE TO CARE.
[2018-02-12 07:01] LABS: EOSINOPHILS % (AUTO) 1.9 % (0.0-6.0); HEMATOCRIT 23 % (39-51); HEMOGLOBIN 7.3 g/dL (13.5-17.5); LYMPHOCYTES # (AUTO) 1.2 /CMM (0.8-4.8); LYMPHOCYTES % (AUTO) 6.6 % (20.0-44.0); MEAN CORPUSCULAR HGB CONC 32 g/dl (31.0-36.0); MEAN CORPUSCULAR VOLUME 82 fL (80-96); MONOCYTES # (AUTO) 0.7 /CMM (0.1-1.30); NEUTROPHILS # (AUTO) 15.7 /CMM (1.8-8.9); NEUTROPHILS % (AUTO) 87.5 % (43.0-81.0); PLATELET COUNT (AUTO) 402 /CMM (150-450); RDW COEFFICIENT OF VARIATION 20.9 (11.5-15.0); RED BLOOD CELL COUNT(AUTO) 2.83 MIL/uL (4.5-6.0)
[2018-02-12 07:20] LABS: CREATININE 4.4 mg/dL (0.6-1.3); MAGNESIUM 2.3 mg/dL (1.8-2.4); PHOSPHORUS 4.6 mg/dL (2.5-4.9); POTASSIUM 3.9 mmol/L (3.5-5.1)
[2018-02-12] MEDS: ACETYLCYSTEINE 10% SOLN 400 MG/4 ML VIAL NEB SCH ×3 (07:23→23:46)
[2018-02-12] MEDS: ALBUTEROL HALF STRENGTH 1.25 MG/3 ML VIAL.NEB NEB SCH ×3 (07:23→19:39)
[2018-02-12] MEDS: IPRATROPIUM NEB FS 0.5 MG/2.5 ML AMPUL.NEB NEB SCH ×3 (07:23→19:39)
--- NOTE | 2018-02-12 07:35 | NUR ---
RN NOTE RECEIVED PATIENT AWAKE, ALERT AND ORIENTED X1, NON-VERBAL, RESPONDS TO NAME AND TACTILE STIMULI. VENT/TRACH DEPENDENT WITH APPROPRIATE SETTINGS DONE. NO DISTRESS NOTED. ON SIDEWALK REPAIRER SINUS RHYTHM HR OF 80. LEFT FOREARM IV SITE INTACT & PATENT. GT SITE INTACT AND PATENT WITH ONGOING FEEDINGS ORDERED. NO RESIDUAL NOTED. ALL SAFETY MEASURES DONE. BED LOW AND LOCKED POSITION. WILL CONTINUE TO MONITOR.
[2018-02-12] MEDS: PROSOURCE / PROSTAT (PYXIS) 30 ML UDC GT SCH ×3 (08:36→16:22)
[2018-02-12] MEDS: LACTOBACILLUS RHAMNOSUS GG 1 EACH CAP.SPRINK GT SCH ×2 (08:36→16:22)
[2018-02-12] MEDS: PHENYTOIN SUSP UDC 100 MG/4 ML UDC GT SCH ×2 (08:37→21:16)
[2018-02-12] MEDS: ATORVASTATIN 10 MG TABLET GT SCH (08:37)
[2018-02-12] MEDS: VIT B CMPLX 3/FA/VIT C/BIOTIN 1 TAB TABLET PO SCH (08:38)
[2018-02-12] MEDS: FLUCONAZOLE (100 MG) 100 MG TABLET PO SCH (08:38)
[2018-02-12] MEDS: FOLIC ACID 1 MG TABLET GT SCH (08:38)
[2018-02-12] MEDS: SERTRALINE HCL 25 MG TABLET GT SCH (08:38)
[2018-02-12] MEDS: ASCORBIC ACID 500 MG TABLET PO SCH (08:38)
[2018-02-12] MEDS: CHOLECALCIFEROL 1,000 UNIT TABLET (VIT D3) GT SCH (08:38)
[2018-02-12] MEDS: CALCIUM CARB 600MG /VIT D 1 EACH TABLET GT SCH (08:38)
[2018-02-12] MEDS: PANTOPRAZOLE 40 MG VIAL IV SCH ×2 (08:39→21:15)
[2018-02-12] MEDS: MUPIROCIN OINT 2% 22 GM TUBE SCH (08:40)
[2018-02-12] MEDS: HYDROGEL DRESSING 90 GM TUBE TP SCH ×2 (08:40→21:18)
[2018-02-12] MEDS: LABETALOL HCL (100MG) 100 MG TABLET GT SCH ×2 (09:05→21:15)
--- NOTE | 2018-02-12 10:04 | NUR ---
WOUND CARE CONSULT: PT FOLLOWED BY PLASTIC SURGERY TEAM FOR WOUND CARE. DEFER TO SURGICAL TEAM FOR WOUND TREATMENT PLAN. PT ON FIRST STEP LOW AIRLOSS MATTRESS. ALL SKIN PROTECTION AND PRESSURE ULCER PREVENTION MEASURES IN PLACE AND DISCUSSED WITH NURSING STAFF.
--- NOTE | 2018-02-12 10:40 | NUR ---
RT NOTE RECEIVED PT MECHANICALLY VENTILATED VIA SHILEY 8 CUFFED TRACHEOSTOMY TUBE. CUFF INFLATED. TRACH MIDLINE AND SECURE. ALARMS SET PER PROTOCOL AND AUDIBLE. VENT PLUGGED IN TO RED OUTLET. AMBU BAG AT BED SIDE. NO DISTRESS NOTED. Addendum: 02/12/18 at 1041 by HILARY SUBRAMANIAN RT Amended: Links added.
[2018-02-12] MEDS: LEVOFLOXACIN (250MG) 250 MG TABLET PO SCH (12:18)
[2018-02-12] MEDS: COLISTIMETHATE SODIUM 100 MG in IV NS 0.9% 50 ML IV SCH (12:45)
--- NOTE | 2018-02-12 19:02 | NUR ---
RN NOTE PATIENT REMAINED STABLE THROUGHOUT SHIFT. NO ACUTE CHANGES OR DISTRESS NOTED. WILL ENDORSE TO NEXT SHIFT TO CONTINUE TO MONITOR CONTINUITY OF CARE.
--- NOTE | 2018-02-12 20:00 | NUR ---
TELE 1 RN NOTE PT IN BED WITH EYES OPEN, NON VERBAL, ABLE TO USE FACIAL EXPRESSION. ON VENT/TRACH TOLERATING THE SETTINGS WELL. NO DISTRESS OR DISCOMFORT NOTED. DENIES PAIN. ON TELE SR WITH BBB HR 90. GTF NEPRO INFUSING WELL AT 65 ML/HR, 0 ML RESIDUAL NOTED. KEPT HOB ELEVATED. SUCTIONED HIM FREQUENTLY THICK WHITE SECRETIONS NOTED. LFA #20 SL INTACT AND PATENT. REPOSITION HIM FOR SKIN MANAGEMENT. SACRAL WOUND DRESSING REINFORCED. SIDE RAILS UP X 3 AND CALL LIGHT WITHIN REACH. CONTIUE TO MONITOR HIM.
[2018-02-12] MEDS: INSULIN GLARGINE, 100 UNIT/ML CARTRIDGE SQ SCH (23:30)
[2018-02-13] VITALS: BP 144/64
[2018-02-13] MEDS: ALBUTEROL HALF STRENGTH 1.25 MG/3 ML VIAL.NEB NEB SCH ×4 (01:17→19:59)
[2018-02-13] MEDS: IPRATROPIUM NEB FS 0.5 MG/2.5 ML AMPUL.NEB NEB SCH ×4 (01:17→19:59)
[2018-02-13 04:00] VITALS: BP 156/72
[2018-02-13] MEDS: NEPRO 1,000 ML BOTTLE GT PRN ×2 (04:18→22:03)
[2018-02-13] MEDS: METRONIDAZOLE 500 MG TABLET GT SCH ×3 (05:05→21:45)
[2018-02-13] MEDS: METOCLOPRAMIDE HCL 10 MG/2 ML VIAL IV SCH ×4 (05:05→23:12)
[2018-02-13] MEDS: BLOOD SUGAR DIAGNOSTIC 1 EACH STRIP IN SCH ×4 (05:11→23:12)
--- NOTE | 2018-02-13 05:31 | NUR ---
PT RECEIVED TRACHED ON VENT. NO RESP DISTRESS. PT TOLERATING VENT SETTINGS. SX'D FOR MOD AMT OF THICK SPAULDING SECRETIONS. VENT ALARMS SET AND AUDIBLE. VENT PLUGGED INTO RED OUTLET. TRACH SECURED, CUFF MARINE FISHERIES TECHNICIAN. WILL CONTINUE TO MONITOR. Addendum: 02/13/18 at 0531 by MOE GRIGSBY RT Amended: Links added.
--- NOTE | 2018-02-13 06:40 | NUR ---
TELE 1 RN NOTE PT IN BED ASLEEP, NO DISTRESS OR DISCOMFORT NOTED. NO S/S OF PAIN NOTED. ON TELE MONITOR SR WITH BBB HR 78. KEPT HIM DRY AND CLEAN. ALL NEEDS ATTENDED. CONDOM CATH INTACT AND PATENT DRAINING CLAIRE COLOR URINE. REPOSITION HIM Q2H, SIDE RAILS UP X 3 AND CALL LIGHT WITHIN REACH. WILL ENDORSE TO DAY SHIFT NURSE FOR CONTINUE TO CARE.
[2018-02-13 06:49] LABS: CALCIUM, SERUM 8.9 mg/dL (8.5-10.1); CREATININE 4.9 mg/dL (0.6-1.3); MAGNESIUM 2.4 mg/dL (1.8-2.4); PHOSPHORUS 4.6 mg/dL (2.5-4.9); POTASSIUM 3.6 mmol/L (3.5-5.1)
[2018-02-13 06:51] LABS: EOSINOPHILS % (AUTO) 2.5 % (0.0-6.0); HEMATOCRIT 23 % (39-51); HEMOGLOBIN 7.6 g/dL (13.5-17.5); LYMPHOCYTES # (AUTO) 1.8 /CMM (0.8-4.8); LYMPHOCYTES % (AUTO) 9.3 % (20.0-44.0); MEAN CORPUSCULAR HGB CONC 34 g/dl (31.0-36.0); MEAN CORPUSCULAR VOLUME 80 fL (80-96); MONOCYTES % (AUTO) 5.5 % (2.0-12.0); NEUTROPHILS # (AUTO) 15.7 /CMM (1.8-8.9); NEUTROPHILS % (AUTO) 82.7 % (43.0-81.0); PLATELET COUNT (AUTO) 390 /CMM (150-450); RDW COEFFICIENT OF VARIATION 19.1 (11.5-15.0); RED BLOOD CELL COUNT(AUTO) 2.83 MIL/uL (4.5-6.0)
[2018-02-13] MEDS: ACETYLCYSTEINE 10% SOLN 400 MG/4 ML VIAL NEB SCH ×3 (07:26→23:29)
--- NOTE | 2018-02-13 07:26 | NUR ---
RT PT RECEIVED WITH A [employer] 8 TRACH ON THE VENT WITH NOTED SETTINGS. PT IS AWAKE AND RESPONDS TO STIMULI WHEN SX'D. VENT ALARMS ARE SET AND AUDIBLE WITH BVM BY BEDSIDE. WELLNESS TRAINER CUFF PRESSURE NOTED. VENT IS PLUGGED INTO RED OUTLET. PT SX'D SPAULDING MODERATE THICK SECRETIONS. NO RESPIRATORY DISTRESS NOTED AT THIS TIME, WILL CONTINUE TO MONITOR. Addendum: 02/13/18 at 903 by JESSIE BERMUDEZ RT Amended: Links added.
[2018-02-13 08:00] VITALS: BP 168/69
--- NOTE | 2018-02-13 08:00 | NUR ---
RN NOTES PATIENT IN BED RESTING NOM SOB OR ACUTE DISTRESS. PATIENT VENT DEPENDENT, VENT SETTINGS NOTED. PERIPHERAL IV INTACT PATENT. BED IN LOW LOCKED POSITION. CALL LIGHT WITHIN REACH WILL CONTINUE TO MONITOR.
[2018-02-13] MEDS: FOLIC ACID 1 MG TABLET GT SCH (09:16)
[2018-02-13] MEDS: VIT B CMPLX 3/FA/VIT C/BIOTIN 1 TAB TABLET PO SCH (09:16)
[2018-02-13] MEDS: FLUCONAZOLE (100 MG) 100 MG TABLET PO SCH (09:16)
[2018-02-13] MEDS: LACTOBACILLUS RHAMNOSUS GG 1 EACH CAP.SPRINK GT SCH ×2 (09:16→16:46)
[2018-02-13] MEDS: PHENYTOIN SUSP UDC 100 MG/4 ML UDC GT SCH ×2 (09:16→21:45)
[2018-02-13] MEDS: SERTRALINE HCL 25 MG TABLET GT SCH (09:17)
[2018-02-13] MEDS: CALCIUM CARB 600MG /VIT D 1 EACH TABLET GT SCH (09:17)
[2018-02-13] MEDS: ATORVASTATIN 10 MG TABLET GT SCH (09:17)
[2018-02-13] MEDS: ASCORBIC ACID 500 MG TABLET PO SCH (09:17)
[2018-02-13] MEDS: PANTOPRAZOLE 40 MG VIAL IV SCH ×2 (09:17→21:46)
[2018-02-13] MEDS: CHOLECALCIFEROL 1,000 UNIT TABLET (VIT D3) GT SCH (09:17)
[2018-02-13] MEDS: LABETALOL HCL (100MG) 100 MG TABLET GT SCH ×2 (09:18→21:46)
[2018-02-13] MEDS: PROSOURCE / PROSTAT (PYXIS) 30 ML UDC GT SCH ×3 (09:18→16:46)
[2018-02-13] MEDS: HYDROGEL DRESSING 90 GM TUBE TP SCH ×2 (09:19→21:58)
[2018-02-13] MEDS: COLISTIMETHATE SODIUM 100 MG in IV NS 0.9% 50 ML IV SCH (11:36)
[2018-02-13] MEDS: LEVOFLOXACIN (250MG) 250 MG TABLET PO SCH (11:43)
[2018-02-13] MEDS: ACETAMINOPHEN 325 MG TABLET PO PRN ×2 (11:45→20:14)
[2018-02-13] MEDS: INSULIN REGULAR, HUMAN 100 UNIT/ML 3 ML VIAL SQ PRN ×2 (11:46→23:12)
[2018-02-13 12:00] VITALS: BP 153/63
[2018-02-13 16:00] VITALS: BP 136/63
--- NOTE | 2018-02-13 18:46 | NUR ---
RN NOTES PATIENT IN BED RESTING NO SOB OR ACUTE DISTRESS ALL DUE MEDICATIONS ADMINISTERED ALL NEEDS MET WILL ENDORSE TO PM SHIFT KARLENE.
--- NOTE | 2018-02-13 20:00 | NUR ---
TELE 1 RN NOTE PT IN BED ASLEEP AROUSABLE. NO VENT/TRACH TOLERATING SETTINGS WELL. NO DISTRESS OR DISCOMFORT NOTED. NO S/S OF PAIN NOTED. PT IS RUNNING FEVER OF 101.6, TYLENOL 650 MG GIVEN VIA GT, ALSO BODY COOLING MEASRUES APPLIED. WILL RECHECK TEMP IN AN HOUR. ON TELE MONITOR SR WITH BBB HR 96. GTF INFUSING WELL NEPRO AT 65 ML/HR, 0 ML RESIDUAL NOTED. CONDOM CATH INTACT AND PATENT DRAINING CLAIRE COLOR URINE. SACRAL DECUB DRESSING I/C/D. REPOSITION HIM FOR SKIN MANAGMENT. SIDE RAILS UP X 3 AND CALL LIGHT WITHIN REACH. CONTINUE TO MONITOR HIM.
[2018-02-13 20:04] VITALS: BP 149/64
--- NOTE | 2018-02-13 20:14 | NUR ---
PT RECEIVED TRACHED ON VENT. NO RESP DISTRESS. PT TOLERATING VENT SETTINGS. SX'D FOR MOD AMT OF THICK SPAULDING SECRETIONS. VENT ALARMS SET AND AUDIBLE. VENT PLUGGED INTO RED OUTLET. TRACH SECURED, CUFF WATERPROOFING SUPERVISOR. WILL CONTINUE TO MONITOR. Addendum: 02/13/18 at 2014 by ALLYSSA NEGRO RT Amended: Links added.
--- NOTE | 2018-02-13 21:00 | NUR ---
TELE 1 RN NOTE BODY TEMP CAME DOWN TO 99.6. CONTINUE TO MONITOR HIM.
[2018-02-13] MEDS: INSULIN GLARGINE, 100 UNIT/ML CARTRIDGE SQ SCH (23:11)
[2018-02-14] VITALS: BP 139/60
[2018-02-14] MEDS: ALBUTEROL HALF STRENGTH 1.25 MG/3 ML VIAL.NEB NEB SCH ×4 (01:23→19:52)
[2018-02-14] MEDS: IPRATROPIUM NEB FS 0.5 MG/2.5 ML AMPUL.NEB NEB SCH ×4 (01:23→19:52)
[2018-02-14 04:00] VITALS: BP 152/68
[2018-02-14] MEDS: METRONIDAZOLE 500 MG TABLET GT SCH ×3 (04:35→23:51)
[2018-02-14] MEDS: METOCLOPRAMIDE HCL 10 MG/2 ML VIAL IV SCH ×4 (04:35→23:54)
[2018-02-14] MEDS: BLOOD SUGAR DIAGNOSTIC 1 EACH STRIP IN SCH ×4 (05:50→23:58)
[2018-02-14] MEDS: INSULIN REGULAR, HUMAN 100 UNIT/ML 3 ML VIAL SQ PRN ×3 (05:51→23:59)
--- NOTE | 2018-02-14 06:46 | NUR ---
TELE 1 RN NOTE PT IN BED ASLEEP, AROUSABLE. BODY TEMP WNL. GTF INFUSING WELL. ON TELE MONITOR SR WITH BBB HR 90. ALL NEEDS ATTENDED. SIDE RAILS UP X 3 AND CALL LIGHT WITHIN REACH. WILL ENDORSE TO DAY SHIFT NURSE FOR CONTINUE TO CARE.
[2018-02-14] MEDS: ACETYLCYSTEINE 10% SOLN 400 MG/4 ML VIAL NEB SCH ×3 (07:09→23:59)
--- NOTE | 2018-02-14 07:15 | NUR ---
TELE/RN INITIAL NOTES RECEIVED PT IN BED, ALERT, NON-VERBAL. SR WITH BBB ON TELEMONITOR. WITH INTACT TRACH SHILEY#8, TOLERATING VENT SETTINGS: AC:16; TV:450; FIO2:40. NO SOB NOTED. GT INTACT AND IN PLACED, WITH ONGOING GTF NEPRO AT 65 ML/HR, TOLERATING WELL. HOB ELEVATED. CONDOM CATH INTACT. LFA G20 SL INTACT. SAFETY MEASURES IN PLACED. CALL LIGHT WITHIN EASY REACH. WILL CONT TO MONITOR
[2018-02-14 08:00] VITALS: BP 132/68
[2018-02-14] MEDS: PANTOPRAZOLE 40 MG VIAL IV SCH ×2 (08:34→23:52)
[2018-02-14] MEDS: PHENYTOIN SUSP UDC 100 MG/4 ML UDC GT SCH ×2 (08:35→23:50)
[2018-02-14] MEDS: FLUCONAZOLE (100 MG) 100 MG TABLET PO SCH (08:35)
[2018-02-14] MEDS: CHOLECALCIFEROL 1,000 UNIT TABLET (VIT D3) GT SCH (08:35)
[2018-02-14] MEDS: LABETALOL HCL (100MG) 100 MG TABLET GT SCH ×2 (08:35→23:51)
[2018-02-14] MEDS: SERTRALINE HCL 25 MG TABLET GT SCH (08:35)
[2018-02-14] MEDS: CALCIUM CARB 600MG /VIT D 1 EACH TABLET GT SCH (08:35)
[2018-02-14] MEDS: PROSOURCE / PROSTAT (PYXIS) 30 ML UDC GT SCH ×3 (08:35→16:15)
[2018-02-14] MEDS: LACTOBACILLUS RHAMNOSUS GG 1 EACH CAP.SPRINK GT SCH ×2 (08:35→16:15)
[2018-02-14] MEDS: FOLIC ACID 1 MG TABLET GT SCH (08:35)
[2018-02-14] MEDS: ASCORBIC ACID 500 MG TABLET PO SCH (08:36)
[2018-02-14] MEDS: VIT B CMPLX 3/FA/VIT C/BIOTIN 1 TAB TABLET PO SCH (08:36)
[2018-02-14] MEDS: ATORVASTATIN 10 MG TABLET GT SCH (08:36)
[2018-02-14] MEDS: HYDROGEL DRESSING 90 GM TUBE TP SCH ×2 (08:36→23:50)
[2018-02-14] MEDS: LEVOFLOXACIN (250MG) 250 MG TABLET PO SCH (11:48)
[2018-02-14 12:00] VITALS: BP 137/58
--- NOTE | 2018-02-14 12:30 | NUR ---
RN NOTES 1300 HD PLACEMENT ON RIGHT FEMORAL DONE BY DR CAM AT BEDSIDE. PT TOLERATED PROCEDURE WELL, NO IMMEDIATE COMPLICATION NOTED. WILL CONT TO MONITOR
[2018-02-14] MEDS: COLISTIMETHATE SODIUM 100 MG in IV NS 0.9% 50 ML IV SCH (13:09)
[2018-02-14] MEDS: ACETAMINOPHEN 325 MG TABLET PO PRN ×2 (13:59→23:51)
[2018-02-14 16:00] VITALS: BP 100/55
[2018-02-14] MEDS: NEPRO 1,000 ML BOTTLE GT PRN (16:45)
--- NOTE | 2018-02-14 17:30 | NUR ---
RN NOTES CURRENT F/C REMOVED. UNABLE TO INSERT NEW F/C. WILL RETRY LATER
--- NOTE | 2018-02-14 18:49 | NUR ---
TELE/RN CLOSING NOTES PT IN STABLE CONDITION. NO ACUTE CHANGES NOTED. SAFETY MEASURES AND ASPIRATION PRECAUTION OBSERVED AT ALL TIMES. ALL NEEDS ANTICIPATED. WILL ENDORSED TO PM SHIFT RN FOR KARLENE
--- NOTE | 2018-02-14 19:00 | NUR ---
RN NOTES OFFERED PT TO REINSERT NEW F/C, PT REFUSED. PER PT, "WILL JUST WAIT FOR THE NEXT SHIFT." WILL ENDORSED TO PM RN
[2018-02-14 20:00] VITALS: BP 169/66
[2018-02-14] MEDS: INSULIN GLARGINE, 100 UNIT/ML CARTRIDGE SQ SCH (23:58)
[2018-02-15] VITALS (9 sets, daily range): BP systolic 132–149; BP diastolic 40–67
--- NOTE | 2018-02-15 00:43 | NUR ---
RN NOTES 02/14/18 @ 20:00 PATIENT NOTED WITH FEVER 102. [address] PAULA AND ORDERED COOLING MEASURES AND TO GIVE TYLENOL PRN. PROVIDED COOLING MEASURES, NOT ABLE TO GIVE MEDS YET DUE TO PATIENT HAVING HD. 02/15/18 @ 00:00 PATIENT JUST FINISHED HD WITH 700ML OUTPUT. GIVEN MORE COOLING MEASURES AND TYLENOL VIA GT PER DR PAULA'S INSTRUCTIONS
[2018-02-15] MEDS: ALBUTEROL HALF STRENGTH 1.25 MG/3 ML VIAL.NEB NEB SCH ×4 (01:58→19:41)
[2018-02-15] MEDS: IPRATROPIUM NEB FS 0.5 MG/2.5 ML AMPUL.NEB NEB SCH ×4 (01:58→19:41)
[2018-02-15] MEDS: METRONIDAZOLE 500 MG TABLET GT SCH ×3 (05:12→20:19)
[2018-02-15] MEDS: METOCLOPRAMIDE HCL 10 MG/2 ML VIAL IV SCH ×4 (05:13→23:44)
[2018-02-15] MEDS: NEPRO 1,000 ML BOTTLE GT PRN (05:19)
[2018-02-15] MEDS: BLOOD SUGAR DIAGNOSTIC 1 EACH STRIP IN SCH ×4 (05:42→23:50)
[2018-02-15] MEDS: INSULIN REGULAR, HUMAN 100 UNIT/ML 3 ML VIAL SQ PRN ×4 (05:43→23:55)
[2018-02-15 06:47] LABS: CALCIUM, SERUM 8.7 mg/dL (8.5-10.1); CREATININE 4.4 mg/dL (0.6-1.3)
[2018-02-15] MEDS: ACETYLCYSTEINE 10% SOLN 400 MG/4 ML VIAL NEB SCH ×3 (07:27→23:33)
[2018-02-15 07:29] LABS: RED BLOOD CELL COUNT(AUTO) 2.67 MIL/uL (4.5-6.0); WHITE BLOOD COUNT (AUTO) 20.3 K/uL (4.3-11.0)
[2018-02-15 07:31] LABS: HEMATOCRIT 22 % (39-51); HEMOGLOBIN 6.9 g/dL (13.5-17.5); MEAN CORPUSCULAR HGB CONC 32 g/dl (31.0-36.0); MEAN CORPUSCULAR VOLUME 81 fL (80-96)
[2018-02-15 07:32] LABS: BASOPHILS # (AUTO) 0.1 /CMM (0.0-0.2); BASOPHILS % (AUTO) 0.5 % (0.0-2.0); EOSINOPHILS % (AUTO) 0.9 % (0.0-6.0); LYMPHOCYTES # (AUTO) 1.6 /CMM (0.8-4.8); LYMPHOCYTES % (AUTO) 7.7 % (20.0-44.0); MONOCYTES # (AUTO) 0.9 /CMM (0.1-1.30); MONOCYTES % (AUTO) 4.2 % (2.0-12.0); NEUTROPHILS # (AUTO) 17.6 /CMM (1.8-8.9); NEUTROPHILS % (AUTO) 86.7 % (43.0-81.0); PLATELET COUNT (AUTO) 329 /CMM (150-450)
--- NOTE | 2018-02-15 08:00 | NUR ---
COAL DUMPING EQUIPMENT OPERATOR NOTES RECEIVED PT ON BED.ALERT,OPEN EYES AND NONVERBAL.HE IS ON HEMODIALYSIS WHILE SEEING THE PT.PT IS ON TRACH AND VENT SETTINGS.AMBU BAG IS ON HOB.PERIPHERAL IV IS ON LFA.PT IS ON TELEMONITORING WITH HR 87 .HAS GTUBE FEEDING NO RESUDUAL NOTED KEEP HOB ELEVATE AT ALL TIME,AND RF HD CATH IN PLACE , BED IN LOWEST AND LOCKED POSITION, NOT IN AUTE DISTRESS, WILL F\U
[2018-02-15] MEDS: FOLIC ACID 1 MG TABLET GT SCH (08:52)
[2018-02-15] MEDS: PHENYTOIN SUSP UDC 100 MG/4 ML UDC GT SCH ×2 (08:52→20:18)
[2018-02-15] MEDS: CALCIUM CARB 600MG /VIT D 1 EACH TABLET GT SCH (08:52)
[2018-02-15] MEDS: VIT B CMPLX 3/FA/VIT C/BIOTIN 1 TAB TABLET PO SCH (08:53)
[2018-02-15] MEDS: SERTRALINE HCL 25 MG TABLET GT SCH (08:53)
[2018-02-15] MEDS: LABETALOL HCL (100MG) 100 MG TABLET GT SCH ×2 (08:53→20:18)
[2018-02-15] MEDS: LACTOBACILLUS RHAMNOSUS GG 1 EACH CAP.SPRINK GT SCH ×2 (08:53→16:36)
[2018-02-15] MEDS: FLUCONAZOLE (100 MG) 100 MG TABLET PO SCH (08:53)
[2018-02-15] MEDS: PANTOPRAZOLE 40 MG VIAL IV SCH ×2 (08:53→20:25)
[2018-02-15] MEDS: CHOLECALCIFEROL 1,000 UNIT TABLET (VIT D3) GT SCH (08:53)
[2018-02-15] MEDS: ASCORBIC ACID 500 MG TABLET PO SCH (08:54)
[2018-02-15] MEDS: PROSOURCE / PROSTAT (PYXIS) 30 ML UDC GT SCH ×3 (08:55→16:37)
[2018-02-15] MEDS: ATORVASTATIN 10 MG TABLET GT SCH (08:58)
[2018-02-15] MEDS: HYDROGEL DRESSING 90 GM TUBE TP SCH ×2 (09:06→20:19)
--- NOTE | 2018-02-15 09:34 | NUR ---
CONCRETE PLACEMENT EQUIPMENT OPERATOR NOTES HD COMPLETED,NO FLUIDS OUT.BP 120/70,NO COMPLICATIONS NOTED AND PT IS COMFORTABLE ON BED.CALLED DR SKYE CAM FOR LOW HGB,6.9,NO ORDER GIVEN
[2018-02-15] MEDS: LEVOFLOXACIN (250MG) 250 MG TABLET PO SCH (11:11)
--- NOTE | 2018-02-15 12:00 | NUR ---
SLIDE MACHINE TENDER NOTE PER NUNO FUENTES WEATHERIZATION ADMINISTRATOR OK TO BLOOD TRANSFUSION I UNIT PRBC, WILL F\U
[2018-02-15] MEDS ORDERED: FEE PK DOSING 1 MIN EA MC ONE (12:09)
[2018-02-15] MEDS ORDERED: VANCOMYCIN 1 GM in IV D5W 250 ML IV ONE (13:00)
[2018-02-15] MEDS: COLISTIMETHATE SODIUM 100 MG in IV NS 0.9% 50 ML IV SCH (13:12)
[2018-02-15] MEDS: ACETAMINOPHEN 325 MG TABLET PO PRN ×2 (13:25→20:31)
--- NOTE | 2018-02-15 13:30 | NUR ---
telephone technician note t 100.7 cooling measure done , Tylenol radha g tube given, will f\u
--- NOTE | 2018-02-15 15:45 | NUR ---
OVEN OPERATOR AUTOMATIC NOTE NO BLOOD READY YET, [facility] BLOOD BANK
--- NOTE | 2018-02-15 18:22 | NUR ---
TELE RNN NOTE BLOOD BANK CALLED , BLOOD READY TO TRANSFUSE, WILL ENDORSE NEXT SHIFT RN
--- NOTE | 2018-02-15 18:42 | NUR ---
DISTILLERY MILLER NOTE CONT ON GTUBE FEEDING, WITH TRACH TO VENT SETTING ,FREQUENT TRACH SUCTION DONE, WILL CONT TO MONITOR CLOSELY
[2018-02-15] MEDS: HYDROCODONE/APAP 10/325MG 1 EA TABLET PO PRN (20:19)
--- NOTE | 2018-02-15 21:52 | NUR ---
TELE-1/MANAGED SERVICES SALES CONSULTANT PT NOTED WITH ELEVATED TEMPS. PTS AIR MATTRESS IS HOT TO TOUCH DESPITE WARMING SETTING BEING TURNED OFF. COOLING MEASURES IN PLACE AND PRN MEDICATIONS ADMINISTERED. WILL CONTINUE TO MONITOR.
[2018-02-15] MEDS: INSULIN GLARGINE, 100 UNIT/ML CARTRIDGE SQ SCH (22:00)
[2018-02-16] VITALS: BP 141/61
[2018-02-16] MEDS: NEPRO 1,000 ML BOTTLE GT PRN (00:25)
[2018-02-16] MEDS: HYDROCODONE/APAP 10/325MG 1 EA TABLET PO PRN ×2 (00:26→05:21)
[2018-02-16] MEDS: IPRATROPIUM NEB FS 0.5 MG/2.5 ML AMPUL.NEB NEB SCH ×4 (01:13→19:54)
[2018-02-16] MEDS: ALBUTEROL HALF STRENGTH 1.25 MG/3 ML VIAL.NEB NEB SCH ×4 (01:13→19:54)
[2018-02-16 04:00] VITALS: BP 149/70
[2018-02-16] MEDS: METOCLOPRAMIDE HCL 10 MG/2 ML VIAL IV SCH ×4 (05:08→23:29)
[2018-02-16] MEDS: BLOOD SUGAR DIAGNOSTIC 1 EACH STRIP IN SCH ×4 (05:17→23:29)
[2018-02-16] MEDS: METRONIDAZOLE 500 MG TABLET GT SCH ×3 (05:21→20:27)
--- NOTE | 2018-02-16 07:05 | NUR ---
TELE/RN INITIAL NOTES RECEIVED PT IN BED. Addendum: 02/16/18 at 0935 by GLEN SMITH RN ADD: NON-VERBAL. SR ON TELEMONITOR. WITH INTACT TRACH SHILEY 8, TOLERATING VENT SETTINGS: AC 16, TV: 450, FIO2: 40%. CONDOM CATH INPLACED. HOB ELEVATED. WITH GT INTACT AND IN PLACE. WITH ONGOING GTF NEPRO @65ML/HR, TOLERATING WELL. LFA G20 SL INTACT AND PATENT. RFEMORAL CATH INTACT. SAFETY MEASURES AND ASPIRATION PRECAUTION IN PLACED. WILL CONT TO MONITOR
[2018-02-16 07:34] LABS: HEMATOCRIT 24 % (39-51); HEMOGLOBIN 7.8 g/dL (13.5-17.5); MEAN CORPUSCULAR HGB CONC 33 g/dl (31.0-36.0); MEAN CORPUSCULAR VOLUME 82 fL (80-96); WHITE BLOOD COUNT (AUTO) 16.7 K/uL (4.3-11.0)
[2018-02-16 07:35] LABS: BASOPHILS # (AUTO) 0.1 /CMM (0.0-0.2); BASOPHILS % (AUTO) 0.5 % (0.0-2.0); EOSINOPHILS % (AUTO) 3.5 % (0.0-6.0); LYMPHOCYTES # (AUTO) 1.7 /CMM (0.8-4.8); LYMPHOCYTES % (AUTO) 10.2 % (20.0-44.0); MONOCYTES # (AUTO) 1.3 /CMM (0.1-1.30); MONOCYTES % (AUTO) 7.5 % (2.0-12.0); NEUTROPHILS # (AUTO) 13.1 /CMM (1.8-8.9); NEUTROPHILS % (AUTO) 78.3 % (43.0-81.0); PLATELET COUNT (AUTO) 358 /CMM (150-450); RDW COEFFICIENT OF VARIATION 19.3 (11.5-15.0)
[2018-02-16 07:47] LABS: CALCIUM, SERUM 9.2 mg/dL (8.5-10.1)
[2018-02-16 08:00] VITALS: BP 151/63
[2018-02-16] MEDS: VIT B CMPLX 3/FA/VIT C/BIOTIN 1 TAB TABLET PO SCH (08:10)
[2018-02-16] MEDS: ASCORBIC ACID 500 MG TABLET PO SCH (08:10)
[2018-02-16] MEDS: SERTRALINE HCL 25 MG TABLET GT SCH (08:10)
[2018-02-16] MEDS: PHENYTOIN SUSP UDC 100 MG/4 ML UDC GT SCH ×2 (08:10→20:26)
[2018-02-16] MEDS: PANTOPRAZOLE 40 MG VIAL IV SCH ×2 (08:10→20:28)
[2018-02-16] MEDS: CALCIUM CARB 600MG /VIT D 1 EACH TABLET GT SCH (08:10)
[2018-02-16] MEDS: ACETAMINOPHEN 325 MG TABLET PO PRN ×3 (08:10→20:27)
[2018-02-16] MEDS: FOLIC ACID 1 MG TABLET GT SCH (08:10)
[2018-02-16] MEDS: LACTOBACILLUS RHAMNOSUS GG 1 EACH CAP.SPRINK GT SCH ×2 (08:10→16:12)
[2018-02-16] MEDS: CHOLECALCIFEROL 1,000 UNIT TABLET (VIT D3) GT SCH (08:11)
[2018-02-16] MEDS: PROSOURCE / PROSTAT (PYXIS) 30 ML UDC GT SCH ×3 (08:11→16:13)
[2018-02-16] MEDS: ATORVASTATIN 10 MG TABLET GT SCH (08:11)
[2018-02-16] MEDS: FLUCONAZOLE (100 MG) 100 MG TABLET PO SCH (08:11)
[2018-02-16] MEDS: LABETALOL HCL (100MG) 100 MG TABLET GT SCH ×2 (08:11→20:27)
[2018-02-16] MEDS: HYDROGEL DRESSING 90 GM TUBE TP SCH ×2 (08:12→20:40)
[2018-02-16] MEDS: ACETYLCYSTEINE 10% SOLN 400 MG/4 ML VIAL NEB SCH ×3 (08:32→23:27)
[2018-02-16] MEDS ORDERED: VANCOMYCIN 500 MG in IV D5W 100 ML IV PRN (09:00)
[2018-02-16] MEDS: COLISTIMETHATE SODIUM 100 MG in IV NS 0.9% 50 ML IV SCH (11:16)
[2018-02-16] MEDS: LEVOFLOXACIN (250MG) 250 MG TABLET PO SCH (11:17)
[2018-02-16] MEDS: INSULIN REGULAR, HUMAN 100 UNIT/ML 3 ML VIAL SQ PRN ×2 (11:57→17:21)
[2018-02-16 12:00] VITALS: BP 149/62
--- NOTE | 2018-02-16 15:52 | NUR ---
RT NOTE PT RECEIVED TRACHED ON VENT. NO RESP DISTRESS. PT TOLERATING VENT SETTINGS. SX'D FOR MOD AMT OF THICK SPAULDING SECRETIONS. VENT ALARMS SET AND AUDIBLE. VENT PLUGGED INTO RED OUTLET. TRACH SECURED, CUFF MACHINE SPRAYER. WILL CONTINUE TO MONITOR.
[2018-02-16 16:00] VITALS: BP_SYST 149; BP_SYST 155; BP_DIAS 62; BP_DIAS 72
--- NOTE | 2018-02-16 17:00 | NUR ---
RN NOTES RECHECKED TEMP=99.4
--- NOTE | 2018-02-16 19:05 | NUR ---
RN NOTES PT IN STABLE CONDITION, NO ACUTE CHANGES THROUGHOUT SHIFT. SAFETY MEASURES AND ASPIRATION PRECAUTION OBSERVED AT ALL TIMES. ALL NEEDS ANTICIPATED. ENDORSED TO PM SHIFT RN FOR KARLENE
--- NOTE | 2018-02-16 19:39 | NUR ---
RT NOTE PT RECEIVED TRACHED ON VENT. NO RESP DISTRESS. PT TOLERATING VENT SETTINGS. SX'D FOR MOD AMT OF THICK SPAULDING SECRETIONS, NOTED W/FEVER 101.8 WBC 16 TRENDING DOWN. PRN TYLENOL 650 WILL BE GIVEN. VENT ALARMS SET AND AUDIBLE. VENT PLUGGED INTO RED OUTLET. TRACH SECURED, CUFF CERTIFIED MEDICATION AIDE. WILL CONTINUE TO MONITOR. Addendum: 02/17/18 at 0618 by CHEPE FRANCISCO RN ALFREDO INITAL NOTES
[2018-02-16 20:00] VITALS: BP 140/70
[2018-02-16] MEDS: INSULIN GLARGINE, 100 UNIT/ML CARTRIDGE SQ SCH (21:39)
--- NOTE | 2018-02-16 23:34 | NUR ---
0000 BS 123. UNABLE TO ENTER VALUE, D/T ERROR OCCURRED.
[2018-02-17] VITALS (7 sets, daily range): BP systolic 107–147; BP diastolic 61–70
[2018-02-17] MEDS: ALBUTEROL HALF STRENGTH 1.25 MG/3 ML VIAL.NEB NEB SCH ×4 (01:06→19:19)
[2018-02-17] MEDS: IPRATROPIUM NEB FS 0.5 MG/2.5 ML AMPUL.NEB NEB SCH ×4 (01:06→19:19)
--- NOTE | 2018-02-17 03:27 | NUR ---
RT Pt trach on [facility] vent on ordered settings. Pt appears comfortable w/ no resp distress noted. svn treatments given inline. Addendum: 02/17/18 at 0329 by GRACIE CASTORENA RT Amended: Links added.
[2018-02-17] MEDS: METOCLOPRAMIDE HCL 10 MG/2 ML VIAL IV SCH ×4 (04:56→23:13)
[2018-02-17] MEDS: METRONIDAZOLE 500 MG TABLET GT SCH ×3 (04:56→21:47)
[2018-02-17] MEDS: BLOOD SUGAR DIAGNOSTIC 1 EACH STRIP IN SCH ×4 (05:03→23:13)
--- NOTE | 2018-02-17 06:15 | NUR ---
RN CLOSING NOTE ENDORSED PT, TRACHED ON VENT. NO RESP DISTRESS. PT TOLERATING VENT SETTINGS. SX'D FOR MOD AMT OF THICK SPAULDING SECRETIONS, SUCTIONED QS AND PRN. VENT ALARMS SET AND AUDIBLE. VENT PLUGGED INTO RED OUTLET. TRACH SECURED, CUFF COUTURIERE. WILL CONTINUE TO MONITOR.
--- NOTE | 2018-02-17 07:30 | NUR ---
RN OPENING NOTES RECEIVED PT. PT IS STABLE AND IN BED. PT IS NON-VERBAL, DOES NOT APPEAR TO BE IN PAIN. NO S/S OF RESP DISTRESS OR SOB. TRACH NOTED, PT IS VENT DEPENDENT, SETTINGS IN PLACE. TELE MONITOR READING SR 90 BPM AT THIS TIME. PER TEACHER PUBLIC HEALTH REPORT, H/H WAS BELOW 7 ON 02/16, PER NEPHROLOGY STANDING ORDER TRANSFUSION PERFORMED. LATEST CBC FOUND H/H 7.8/24. SAFETY MEASURES IN PLACE, CALL LIGHT WITHIN REACH. WILL CONTINUE TO MONITOR.
[2018-02-17] MEDS: ACETYLCYSTEINE 10% SOLN 400 MG/4 ML VIAL NEB SCH ×2 (07:50→15:58)
[2018-02-17] MEDS: ATORVASTATIN 10 MG TABLET GT SCH (08:34)
[2018-02-17] MEDS: PANTOPRAZOLE 40 MG VIAL IV SCH ×2 (08:34→21:47)
[2018-02-17] MEDS: VIT B CMPLX 3/FA/VIT C/BIOTIN 1 TAB TABLET PO SCH (08:34)
[2018-02-17] MEDS: LABETALOL HCL (100MG) 100 MG TABLET GT SCH ×2 (08:34→21:47)
[2018-02-17] MEDS: FLUCONAZOLE (100 MG) 100 MG TABLET PO SCH (08:34)
[2018-02-17] MEDS: PHENYTOIN SUSP UDC 100 MG/4 ML UDC GT SCH ×2 (08:34→21:47)
[2018-02-17] MEDS: SERTRALINE HCL 25 MG TABLET GT SCH (08:34)
[2018-02-17] MEDS: LACTOBACILLUS RHAMNOSUS GG 1 EACH CAP.SPRINK GT SCH ×2 (08:35→16:56)
[2018-02-17] MEDS: CALCIUM CARB 600MG /VIT D 1 EACH TABLET GT SCH (08:35)
[2018-02-17] MEDS: CHOLECALCIFEROL 1,000 UNIT TABLET (VIT D3) GT SCH (08:35)
[2018-02-17] MEDS: FOLIC ACID 1 MG TABLET GT SCH (08:35)
[2018-02-17] MEDS: ASCORBIC ACID 500 MG TABLET PO SCH (08:35)
[2018-02-17] MEDS: PROSOURCE / PROSTAT (PYXIS) 30 ML UDC GT SCH ×3 (08:36→18:02)
[2018-02-17] MEDS: HYDROGEL DRESSING 90 GM TUBE TP SCH ×2 (09:43→21:54)
[2018-02-17] MEDS: LEVOFLOXACIN (250MG) 250 MG TABLET PO SCH (11:35)
[2018-02-17] MEDS: COLISTIMETHATE SODIUM 100 MG in IV NS 0.9% 50 ML IV SCH (13:06)
--- NOTE | 2018-02-17 13:30 | NUR ---
RN NOTES HD PERFORMED RESULTING IN 2L OUTPUT. BP STABLE. TEMPERATURE FOUND TO BE MODERATELY ELEVATED WITH LOW GRADE FEVER OF 100.4. PER HD NURSE, TEMPERATURE ADJUSTED, WILL CONTINUE TO MONITOR.
[2018-02-17] MEDS: NEPRO 1,000 ML BOTTLE GT PRN (16:57)
[2018-02-17] MEDS: ACETAMINOPHEN 325 MG TABLET PO PRN (17:58)
[2018-02-17] MEDS: INSULIN REGULAR, HUMAN 100 UNIT/ML 3 ML VIAL SQ PRN ×2 (18:04→22:03)
--- NOTE | 2018-02-17 19:03 | NUR ---
RN CLOSING NOTES PT IN BED RESTING. NO S/S OF RESP DISTRESS/SOB. PT DOES NOT APPEAR TO BE IN PAIN. VENT SETTINGS IN PLACE. PER MD NOTE, PT WILL REQUIRE REVISION OF HD CATH. SAFETY MEASURES INP LACE, CALL LIGHT WITHIN REACH. WILL ENDORSE TO AIR EXPORT COORDINATOR FOR KARLENE.
--- NOTE | 2018-02-17 19:20 | NUR ---
PT ON VENT A/C MODE. PT BALJINDER WELL WITH NO RESPIRATORY DISTRESS NOTED ATT. PT HAS A TRACH WHICH IS INTACT, PATENT, AND SECURE. PT BREATH SOUNDS COURSE SX PRN RETURNING SMALL WHITE/PALE YELLOW SECRETIONS. VENT ALARMS CHECKED FOUND TO BE FUNCTIONAL, AUDIBLE, AND WITHIN LIMITS. TX MD ORDERED. VENT PLUGGED INTO RED OUTLET. BVM AT BEDSIDE.
[2018-02-17] MEDS: INSULIN GLARGINE, 100 UNIT/ML CARTRIDGE SQ SCH (22:02)
[2018-02-18] VITALS (7 sets, daily range): BP systolic 110–169; BP diastolic 65–77
[2018-02-18] MEDS: ACETYLCYSTEINE 10% SOLN 400 MG/4 ML VIAL NEB SCH ×3 (00:05→15:39)
[2018-02-18] MEDS: ALBUTEROL HALF STRENGTH 1.25 MG/3 ML VIAL.NEB NEB SCH ×4 (01:36→20:03)
[2018-02-18] MEDS: IPRATROPIUM NEB FS 0.5 MG/2.5 ML AMPUL.NEB NEB SCH ×4 (01:36→20:03)
[2018-02-18] MEDS: DEXTROSE 50%-WATER 50 ML DISP.SYRIN IV PRN (04:44)
--- NOTE | 2018-02-18 04:44 | NUR ---
TELE/RN ACCU CHECK WAS DONE, BLOOD SUGAR 50, D50 IV WAS GIVEN PER PROTOCOL. PATIENT ASYMPTOMATIC, UNABLE TO ENTER NOTE IN ACCU CHECK MACHINE. WILL RECHECK BLOOD SUGAR IN 30 MINUTES. WILL MONITOR.
[2018-02-18] MEDS: METRONIDAZOLE 500 MG TABLET GT SCH ×3 (05:07→20:41)
[2018-02-18] MEDS: METOCLOPRAMIDE HCL 10 MG/2 ML VIAL IV SCH ×3 (05:07→17:34)
--- NOTE | 2018-02-18 05:35 | NUR ---
TELE/RN RECHECKED BLOOD SUGAR AT AROUND 0520, BLOOD SUGAR = 119. WILL CONTIN UE TO MONITOR.
[2018-02-18] MEDS: BLOOD SUGAR DIAGNOSTIC 1 EACH STRIP IN SCH ×3 (06:07→18:06)
--- NOTE | 2018-02-18 06:08 | NUR ---
TELE/RN PATIENT IS AWAKE AT THIS TIME, COMFORTABLE, NO S/S OF PAIN, GT FEEDING INFUSING, VENT WORKING WELL, MORNING CARE WAS DONE AT 0530, SACRAL WOUND DRESSING WAS CHANGED PER ORDER, TRACH CARE WAS DONE, TOLERATED, ALL NEEDS ATTENDED AT THIS TIME, WILL CONTINUE TO MONITOR.
[2018-02-18 06:44] LABS: BASOPHILS % (AUTO) 0.3 % (0.0-2.0); EOSINOPHILS % (AUTO) 3.7 % (0.0-6.0); HEMATOCRIT 23 % (39-51); HEMOGLOBIN 7.4 g/dL (13.5-17.5); LYMPHOCYTES # (AUTO) 1.6 /CMM (0.8-4.8); MEAN CORPUSCULAR HGB CONC 33 g/dl (31.0-36.0); MEAN CORPUSCULAR VOLUME 82 fL (80-96); MONOCYTES % (AUTO) 8.3 % (2.0-12.0); NEUTROPHILS # (AUTO) 8.6 /CMM (1.8-8.9); NEUTROPHILS % (AUTO) 73.7 % (43.0-81.0); PLATELET COUNT (AUTO) 325 /CMM (150-450); RDW COEFFICIENT OF VARIATION 19.4 (11.5-15.0); RED BLOOD CELL COUNT(AUTO) 2.73 MIL/uL (4.5-6.0); WHITE BLOOD COUNT (AUTO) 11.6 K/uL (4.3-11.0)
[2018-02-18 07:32] LABS: CALCIUM, SERUM 7.9 mg/dL (8.5-10.1); CREATININE 4.2 mg/dL (0.6-1.3); MAGNESIUM 2.1 mg/dL (1.8-2.4); PHOSPHORUS 3.7 mg/dL (2.5-4.9); POTASSIUM 3.7 mmol/L (3.5-5.1)
--- NOTE | 2018-02-18 08:25 | NUR ---
PT REC'D ON VENT VIA TRACH. LABORATORY APPARATUS GLASS GRINDER DONE. PT IS OBTUNDED. NO RESP. DISTRESS NOTED. VENT SETTINGS PER MD ORDERS, ALARMS SET AND AUDIBLE PER POLICY. VENT PLUGGED INTO RED OUTLET. AMBU BAG AT HOB. SX'D SCANT AMT OF THICK SPAULDING SECRETIONS. B/S BILAT. EQUAL AND COARSE. Addendum: 02/18/18 at 0828 by BRIAN RAVI RT Amended: Links added.
--- NOTE | 2018-02-18 09:01 | NUR ---
Patient refused eye drops and by mouth medications. While applying silvadene cream to left lower extremity patient says "you are a sadist and have nothing to help [place]. You must get a doctor's consent to come back. Bring a doctor with you next time." Addendum: 02/18/18 at 0903 by NARCISO GARSIA RN disregard note, wrong patient
[2018-02-18] MEDS: ATORVASTATIN 10 MG TABLET GT SCH (09:12)
[2018-02-18] MEDS: PHENYTOIN SUSP UDC 100 MG/4 ML UDC GT SCH ×2 (09:12→20:41)
[2018-02-18] MEDS: CHOLECALCIFEROL 1,000 UNIT TABLET (VIT D3) GT SCH (09:12)
[2018-02-18] MEDS: LACTOBACILLUS RHAMNOSUS GG 1 EACH CAP.SPRINK GT SCH ×2 (09:12→17:34)
[2018-02-18] MEDS: PROSOURCE / PROSTAT (PYXIS) 30 ML UDC GT SCH ×3 (09:14→17:34)
[2018-02-18] MEDS: ASCORBIC ACID 500 MG TABLET PO SCH (09:14)
[2018-02-18] MEDS: FLUCONAZOLE (100 MG) 100 MG TABLET PO SCH (09:14)
[2018-02-18] MEDS: LABETALOL HCL (100MG) 100 MG TABLET GT SCH ×2 (09:14→20:41)
[2018-02-18] MEDS: VIT B CMPLX 3/FA/VIT C/BIOTIN 1 TAB TABLET PO SCH (09:14)
[2018-02-18] MEDS: FOLIC ACID 1 MG TABLET GT SCH (09:14)
[2018-02-18] MEDS: SERTRALINE HCL 25 MG TABLET GT SCH (09:14)
[2018-02-18] MEDS: CALCIUM CARB 600MG /VIT D 1 EACH TABLET GT SCH (09:14)
[2018-02-18] MEDS: HYDROGEL DRESSING 90 GM TUBE TP SCH ×2 (09:16→20:46)
[2018-02-18] MEDS: PANTOPRAZOLE 40 MG VIAL IV SCH ×2 (09:51→20:41)
[2018-02-18] MEDS: COLISTIMETHATE SODIUM 100 MG in IV NS 0.9% 50 ML IV SCH (12:35)
[2018-02-18] MEDS: LEVOFLOXACIN (250MG) 250 MG TABLET PO SCH (12:35)
--- NOTE | 2018-02-18 12:59 | NUR ---
Repositioning to right side. Oral and tracheostomy care and suctioning. Intravenous line piggyback antibiotic and keep vein open dextrose 5% water bag up at this time.
[2018-02-18] MEDS ORDERED: VANCOMYCIN 1 GM in IV D5W 250 ML IV ONE (16:00)
[2018-02-18] MEDS: INSULIN REGULAR, HUMAN 100 UNIT/ML 3 ML VIAL SQ PRN (18:11)
--- NOTE | 2018-02-18 19:47 | NUR ---
Handoff to night nurse, ALFREDO Danielson. Lino Edward RN
[2018-02-18] MEDS: ACETAMINOPHEN 325 MG TABLET PO PRN (21:01)
[2018-02-18] MEDS: INSULIN GLARGINE, 100 UNIT/ML CARTRIDGE SQ SCH (21:21)
[2018-02-19] VITALS: BP_SYST 141; BP_SYST 173; BP_DIAS 58; BP_DIAS 88
[2018-02-19] MEDS: METOCLOPRAMIDE HCL 10 MG/2 ML VIAL IV SCH ×5 (00:03→23:38)
[2018-02-19] MEDS: ACETYLCYSTEINE 10% SOLN 400 MG/4 ML VIAL NEB SCH ×4 (00:05→23:19)
[2018-02-19] MEDS: INSULIN REGULAR, HUMAN 100 UNIT/ML 3 ML VIAL SQ PRN ×2 (01:01→07:41)
[2018-02-19] MEDS: IPRATROPIUM NEB FS 0.5 MG/2.5 ML AMPUL.NEB NEB SCH ×4 (01:06→20:15)
[2018-02-19] MEDS: ALBUTEROL HALF STRENGTH 1.25 MG/3 ML VIAL.NEB NEB SCH ×4 (01:06→20:15)
[2018-02-19 04:00] VITALS: BP 136/75
[2018-02-19] MEDS: BLOOD SUGAR DIAGNOSTIC 1 EACH STRIP IN SCH ×5 (06:00→23:38)
[2018-02-19 06:37] LABS: BASOPHILS % (AUTO) 0.4 % (0.0-2.0); EOSINOPHILS % (AUTO) 5.4 % (0.0-6.0); HEMATOCRIT 23 % (39-51); HEMOGLOBIN 7.6 g/dL (13.5-17.5); LYMPHOCYTES # (AUTO) 1.7 /CMM (0.8-4.8); LYMPHOCYTES % (AUTO) 15.4 % (20.0-44.0); MEAN CORPUSCULAR HGB CONC 33 g/dl (31.0-36.0); MEAN CORPUSCULAR VOLUME 83 fL (80-96); MONOCYTES # (AUTO) 0.9 /CMM (0.1-1.30); MONOCYTES % (AUTO) 8.1 % (2.0-12.0); NEUTROPHILS # (AUTO) 7.6 /CMM (1.8-8.9); NEUTROPHILS % (AUTO) 70.7 % (43.0-81.0); PLATELET COUNT (AUTO) 351 /CMM (150-450); RDW COEFFICIENT OF VARIATION 19.2 (11.5-15.0); RED BLOOD CELL COUNT(AUTO) 2.82 MIL/uL (4.5-6.0); WHITE BLOOD COUNT (AUTO) 10.7 K/uL (4.3-11.0)
[2018-02-19 07:16] LABS: CALCIUM, SERUM 9.4 mg/dL (8.5-10.1); CREATININE 5.2 mg/dL (0.6-1.3); POTASSIUM 4.4 mmol/L (3.5-5.1)
--- NOTE | 2018-02-19 07:30 | NUR ---
THERMOMETER TESTER NOTE: RECEIVED PATIENT AWAKE, NONVERBAL AND VENT-TRACH DEPENDENT SATURATING 100%. RESPIRATION IS EVEN AND UNLABORED. ON FIELD CONSULTANT, SR HR= 91. ON GT FEEDING OF NEPHRO @65ML/HR, BUT PATIENT'S GT FEEDING WAS HELD DUE TO THE DILANTIN MEDICATION SCHEDULED AT 0900. (R) FEMORAL HD CATH IN PLACED WITH 2 PORTS COVERED WITH DRY DRESSING AND NOTED INTACT. HOB ELEVATED. BED ALARMED AND LOCKED AT ALL TIMES. CALL LIGHT WITHIN REACH. NEEDS ANTICIPATED. WILL CONTINUE TO MONITOR FOR THE PATIENT'S TEMPERATURE. REMAINED ON CONTACT ISOLATION FOR VRE URINE. PATIENT ON CONDOM CATHETER, BUT NO URINE OUTPUT NOTED.
[2018-02-19 08:00] VITALS: BP_SYST 146; BP_DIAS 54; BP_DIAS 57
--- NOTE | 2018-02-19 08:00 | NUR ---
TEACHER ADVENTURE EDUCATION NOTE: INFORMED NUNO ANDREWS NP RE: THE PATIENT'S BUN 116. SPEECH THERAPY TEACHER WITH NO NEW ORDER AT THIS TIME.
[2018-02-19] MEDS: ACETAMINOPHEN 325 MG TABLET PO PRN ×3 (08:58→21:22)
[2018-02-19] MEDS: CALCIUM CARB 600MG /VIT D 1 EACH TABLET GT SCH (08:59)
[2018-02-19] MEDS: PHENYTOIN SUSP UDC 100 MG/4 ML UDC GT SCH ×2 (08:59→21:22)
[2018-02-19] MEDS: FOLIC ACID 1 MG TABLET GT SCH (08:59)
[2018-02-19] MEDS: ATORVASTATIN 10 MG TABLET GT SCH (08:59)
[2018-02-19] MEDS: PROSOURCE / PROSTAT (PYXIS) 30 ML UDC GT SCH ×3 (08:59→16:32)
[2018-02-19] MEDS: LACTOBACILLUS RHAMNOSUS GG 1 EACH CAP.SPRINK GT SCH ×2 (08:59→16:32)
[2018-02-19] MEDS: VIT B CMPLX 3/FA/VIT C/BIOTIN 1 TAB TABLET PO SCH (09:00)
[2018-02-19] MEDS: ASCORBIC ACID 500 MG TABLET PO SCH (09:00)
[2018-02-19] MEDS: CHOLECALCIFEROL 1,000 UNIT TABLET (VIT D3) GT SCH (09:00)
[2018-02-19] MEDS: PANTOPRAZOLE 40 MG VIAL IV SCH ×2 (09:00→21:22)
[2018-02-19] MEDS: LABETALOL HCL (100MG) 100 MG TABLET GT SCH ×2 (09:00→21:23)
[2018-02-19] MEDS: SERTRALINE HCL 25 MG TABLET GT SCH (09:00)
[2018-02-19] MEDS: HYDROGEL DRESSING 90 GM TUBE TP SCH ×2 (09:01→21:23)
--- NOTE | 2018-02-19 10:04 | NUR ---
PATIENT RECEIVED TRACHED ON MECHANICAL VENT. ALARMS VERIFIED AND AUDIBLE. SUCTIONED AND LAVAGED MODERATE-LARGE AMOUNT OF THIN CLEAR/WHITE SECRETIONS. VENT PLUGGED INTO RED OUTLET. AMBU BAG AT [facility].
[2018-02-19] MEDS: COLISTIMETHATE SODIUM 100 MG in IV NS 0.9% 50 ML IV SCH (11:26)
[2018-02-19 12:00] VITALS: BP 137/66
[2018-02-19] MEDS: NEPRO 1,000 ML BOTTLE GT PRN (12:08)
[2018-02-19 16:00] VITALS: BP 143/57
--- NOTE | 2018-02-19 17:30 | NUR ---
RETAIL SALES CONSULTANT NOTE: PATIENT'S TEMP WAS RECHECKED AND IT WAS 99.5F. COOLING MEASURES WAS GIVEN. WILL CONTINUE TO MONITOR.
--- NOTE | 2018-02-19 19:45 | NUR ---
OPERATIONS TECH NOTE: PATIENT ON STABLE CONDITION. REPORT GIVEN TO PM SHIFT NURSE FOR CONTINUITY OF CARE.
[2018-02-19 20:00] VITALS: BP 144/63
--- NOTE | 2018-02-19 20:00 | NUR ---
RN OPENING NOTES RECEIVED BEDSIDE REPORT FROM AM NURSE. PATIENT AWAKE, NONVERBAL AND VENT-TRACH DEPENDENT SATURATING 100%. RESPIRATION IS EVEN AND UNLABORED. ON FORMING MACHINE UPKEEP MECHANIC, SR HR= 91. ON GT FEEDING OF NEPHRO @65ML/HR, BUT PATIENT'S GT FEEDING WAS HELD DUE TO THE DILANTIN MEDICATION SCHEDULED AT 2100. (R) FEMORAL HD CATH IN PLACED WITH 2 PORTS COVERED WITH DRY DRESSING AND NOTED INTACT. HOB ELEVATED AT ALL TIME. BED ALARMED AND LOCKED AT ALL TIMES. CALL LIGHT WITHIN REACH. NEEDS ANTICIPATED. WILL CONTINUE TO MONITOR FOR THE PATIENT'S TEMPERATURE. REMAINED ON CONTACT ISOLATION FOR VRE URINE. PATIENT ON CONDOM CATHETER, BUT NO URINE OUTPUT NOTED.
--- NOTE | 2018-02-19 21:30 | NUR ---
RECEIVED PT TRACHED ON VENT. PT TOLERATING VENT SETTINGS. SX'D FOR MOD AMT OF THIN SPAULDING SECRETIONS. VENT ALARMS SET AND AUDIBLE. TRACH SECURE, CUFF FUSING MACHINE OPERATOR. AMBU BAG AT BEDSIDE. VENT PLUGGED INTO RED OUTLET. WILL CONTINUE TO MONITOR. Addendum: 02/19/18 at 2132 by ALLYSSA NEGRO RT Amended: Links added.
[2018-02-19] MEDS: INSULIN GLARGINE, 100 UNIT/ML CARTRIDGE SQ SCH (21:55)
[2018-02-20] VITALS (9 sets, daily range): BP systolic 113–158; BP diastolic 59–84
--- NOTE | 2018-02-20 | NUR ---
RN NOTES PATIENT IS NPO AT MIDNIGHT DUE TO PERMA CATH PLACEMENT 0700 AM. CONSENT SIGNED IN THE CHART.
[2018-02-20] MEDS: IPRATROPIUM NEB FS 0.5 MG/2.5 ML AMPUL.NEB NEB SCH ×4 (01:44→19:59)
[2018-02-20] MEDS: ALBUTEROL HALF STRENGTH 1.25 MG/3 ML VIAL.NEB NEB SCH ×4 (01:44→19:59)
[2018-02-20] MEDS: DEXTROSE 50%-WATER 50 ML DISP.SYRIN IV PRN ×2 (02:52→05:23)
--- NOTE | 2018-02-20 02:55 | NUR ---
RN NOTES PATIENT'S BLOOD GLUCOSE CHECKED AND IT'S 61. PATIENT IS SYMPTOMATIC, SWEATY, STILL NPO. CHARGE NURSE STACY NOTIFIED AND DEXTROSE IV HAS BEEN ADMINISTERED.
[2018-02-20] MEDS: ACETAMINOPHEN 325 MG TABLET PO PRN ×3 (03:53→23:02)
[2018-02-20] MEDS: METOCLOPRAMIDE HCL 10 MG/2 ML VIAL IV SCH ×4 (05:14→23:03)
--- NOTE | 2018-02-20 05:23 | NUR ---
rn notes patient's blood glucose level is 56 and iv push dextrose has been administered.
[2018-02-20 05:47] LABS: BASOPHILS % (AUTO) 0.4 % (0.0-2.0); EOSINOPHILS % (AUTO) 5.2 % (0.0-6.0); HEMATOCRIT 21 % (39-51); LYMPHOCYTES # (AUTO) 1.7 /CMM (0.8-4.8); LYMPHOCYTES % (AUTO) 14.1 % (20.0-44.0); MEAN CORPUSCULAR HGB CONC 33 g/dl (31.0-36.0); MEAN CORPUSCULAR VOLUME 83 fL (80-96); MONOCYTES # (AUTO) 1.1 /CMM (0.1-1.30); MONOCYTES % (AUTO) 9.1 % (2.0-12.0); NEUTROPHILS # (AUTO) 8.3 /CMM (1.8-8.9); NEUTROPHILS % (AUTO) 71.2 % (43.0-81.0); PLATELET COUNT (AUTO) 327 /CMM (150-450); RDW COEFFICIENT OF VARIATION 18.4 (11.5-15.0); RED BLOOD CELL COUNT(AUTO) 2.51 MIL/uL (4.5-6.0); WHITE BLOOD COUNT (AUTO) 11.7 K/uL (4.3-11.0)
[2018-02-20 05:53] LABS: HEMOGLOBIN 6.8 g/dL (13.5-17.5)
--- NOTE | 2018-02-20 05:58 | NUR ---
RN NOTES GOT A CALL ROSI FROM LAB ABOUT PATIENT'S LAB HGB IS 6.8. CALL THE MD PAULA AND WAITING A CALL BACK FROM DOCTOR.
[2018-02-20 06:10] LABS: CALCIUM, SERUM 9.2 mg/dL (8.5-10.1); CREATININE 4.6 mg/dL (0.6-1.3); MAGNESIUM 2.2 mg/dL (1.8-2.4); PHOSPHORUS 4.7 mg/dL (2.5-4.9); POTASSIUM 3.7 mmol/L (3.5-5.1)
--- NOTE | 2018-02-20 06:25 | NUR ---
ANSELMO CALLED FROM LAB WITH PATIENT'S LAB VALUE BUN IS 91
[2018-02-20] MEDS: BLOOD SUGAR DIAGNOSTIC 1 EACH STRIP IN SCH ×3 (06:46→17:11)
--- NOTE | 2018-02-20 06:50 | NUR ---
RN CLOSING NOTES PATIENT ON STABLE CONDITION. NO SOB , NO DISCOMFORT NOTED AT THIS TIME. STILL WAITING MD'S CALL, TALKED TO OR AND EXPLAINED PATIENTS CONDITION AND LATEST LAB VALUES. REPORT GIVEN TO AM SHIFT NURSE FOR CONTINUITY OF PATIENT'S CARE.
--- NOTE | 2018-02-20 07:30 | NUR ---
MISCELLANEOUS MACHINE OPERATOR NOTE CALLED SURGERY UNIT,SPOKE WITH PINO FUENTES STATED THAT PATIENT IS SCHEDULE IN AM FIRST CASE WITH DR DANG FOR PERMCATH PLACEMENT ,CONT KEEP NPO,
[2018-02-20] MEDS: ACETYLCYSTEINE 10% SOLN 400 MG/4 ML VIAL NEB SCH ×3 (07:35→23:21)
--- NOTE | 2018-02-20 07:39 | NUR ---
INSPECTION MANAGER NOTE RECEIVED PATIENT IN BED , ALL NEEDS ATTENDED WITH TRACH TO VENT SETTING ORDERED, ON TELE MONITOR SR 84, WITH CONDOM CATH ORDERED NO URINE OUTPUT NOTED AT THIS TIME ,ON NPO AT THIS TIME FOR SX PLACEMENT PERMA CATH TODAY , RT WRIST HL INTACT ,BED IN LOWEST AND LOCKED POSITION, SKIN IS DIAPHORETIC AT THIS TIME , BED IN LOWEST AND LOCKED POSITION , WILL CONT TO MONITOR CLOSELY
--- NOTE | 2018-02-20 08:01 | NUR ---
INSPECTION CLERK NOTE ARA GARAY RN LABEL OPERATOR CALLED BACK, AWARE THAT HG 6.8 NO NEW ORDER GIVEN AT THIS TIME
[2018-02-20 08:03] LABS: EOSINOPHILS % (MANUAL) 6 % (0-4); LYMPHOCYTES % (MANUAL) 14 % (16-48); MONOCYTES % (MANUAL) 9 % (0-11.0); NEUTROPHILS % (MANUAL) 71 (42-76)
--- NOTE | 2018-02-20 08:16 | NUR ---
RT PT RECEIVED WITH A [employer] 8 TRACH ON THE VENT WITH NOTED SETTINGS. PT IS AWAKE AND RESPONDS TO STIMULI. VENT ALARMS ARE SET AND AUDIBLE WITH BVM BY BEDSIDE. AUTOMATION SALES MANAGER CUFF PRESSURE NOTED. VENT IS PLUGGED INTO RED OUTLET. PT SX'D SMALL THICK PALE YELLOW SECRETIONS. HHN TX GIVEN WITH NO ADVERSE REACTIONS. NO RESPIRATORY DISTRESS NOTED AT THIS TIME, WILL CONTINUE TO MONITOR. Addendum: 02/20/18 at 0850 by JESSIE BERMUDEZ RT Amended: Links added.
[2018-02-20] MEDS: LACTOBACILLUS RHAMNOSUS GG 1 EACH CAP.SPRINK GT SCH ×2 (08:59→17:05)
[2018-02-20] MEDS: CALCIUM CARB 600MG /VIT D 1 EACH TABLET GT SCH (08:59)
[2018-02-20] MEDS: ATORVASTATIN 10 MG TABLET GT SCH (09:00)
[2018-02-20] MEDS: VIT B CMPLX 3/FA/VIT C/BIOTIN 1 TAB TABLET PO SCH (09:00)
[2018-02-20] MEDS: FOLIC ACID 1 MG TABLET GT SCH (09:00)
[2018-02-20] MEDS: PHENYTOIN SUSP UDC 100 MG/4 ML UDC GT SCH ×2 (09:00→20:49)
[2018-02-20] MEDS: LABETALOL HCL (100MG) 100 MG TABLET GT SCH ×2 (09:00→20:52)
[2018-02-20] MEDS: ASCORBIC ACID 500 MG TABLET PO SCH (09:00)
[2018-02-20] MEDS: PROSOURCE / PROSTAT (PYXIS) 30 ML UDC GT SCH ×3 (09:00→17:06)
[2018-02-20] MEDS: CHOLECALCIFEROL 1,000 UNIT TABLET (VIT D3) GT SCH (09:00)
[2018-02-20] MEDS: SERTRALINE HCL 25 MG TABLET GT SCH (09:00)
[2018-02-20] MEDS: PANTOPRAZOLE 40 MG VIAL IV SCH ×2 (09:08→20:50)
[2018-02-20] MEDS: HYDROGEL DRESSING 90 GM TUBE TP SCH ×2 (09:09→21:00)
--- NOTE | 2018-02-20 09:35 | NUR ---
YISSEL WHITE CALLED AGAIN TO SURGERY SPOKE WITH DIANE ABOUT PROCEDURE STATED THAT SX IS CANCELLED FOR CADY BY KATHERINE WEATHRES TO START G TUBE FEEDING , HD NURSE AT BEDSIDE, STARTED HD FOR NOW Addendum: 02/20/18 at 1354 by MIRANDA JEROME RN surgery is cancelled by leonora conner
--- NOTE | 2018-02-20 10:14 | NUR ---
SUPERVISOR ROUGH END NOTE DR RIVERA AT BEDSIDE NOTIFIED THAT HG 6.8 0K TO DO BLOOD TRANSFUSING WITH HD 1 UNIT PRBC
[2018-02-20] MEDS: COLISTIMETHATE SODIUM 100 MG in IV NS 0.9% 50 ML IV SCH (11:01)
--- NOTE | 2018-02-20 12:10 | NUR ---
LICENSED CLUB MANAGER NOTE HD AT BEDSIDE ,OK TO TRANSFUSE 1 UNIT PRBC WITH HD , STARTED ORDERED
--- NOTE | 2018-02-20 12:40 | NUR ---
WIRE LOOP MACHINE OPERATOR NOTE HD COMPETED, 1,5 L OF FLUIDS REMOVED , ALSO BLOOD TRANSFUSION1 UNIT PRBC VIA HD NURSE DONE, BP 131/62 HR 84 T 99.0 ,WILL CONT TO MONITOR CLOSELY
--- NOTE | 2018-02-20 13:54 | NUR ---
telegraph office manager note cont on g tube feeding and vent setting as ordered ,keep hob elevated at all time, will cont to monitor closely
--- NOTE | 2018-02-20 14:50 | NUR ---
RESPIRATORY CLINICIAN NOTE T 100.4 ,CADY RN OFFICE CLIN ASST AWARE ,ALSO NOTIFIED THAT EARLIER HD DONE AND I UNIT PRBC GIVEN WITH HD , HG 6.8 ALSO AWARE THAT BLOOD SUGAR 70MG\DL AT 1200 WILL F\U . TYLENOL GIVEN FOR T 100.4 ORDERED AND COOLING MEASURE PROVIDED, CADY ORDERED TO GET STOOL SPECIMEN FOR OB , ORDER CARRIED OUT
--- NOTE | 2018-02-20 16:00 | NUR ---
ACUTE DIALYSIS REGISTERED NURSE NOTE T 98.2 AT THIS TIME , KEEP CLEAN DRY , ALL NEEDS ATTENDED ,WILL ONT TO MONITOR CLOSELY
[2018-02-20] MEDS: NEPRO 1,000 ML BOTTLE GT PRN (17:17)
[2018-02-20] MEDS: INSULIN REGULAR, HUMAN 100 UNIT/ML 3 ML VIAL SQ PRN (17:33)
[2018-02-20] MEDS: LORAZEPAM INJ 2 MG/ML VIAL IV PRN (17:53)
--- NOTE | 2018-02-20 18:00 | NUR ---
HELICOPTER OFFICER NOTE PATIENT IS RESTLESS .SHAKING FREQUENTLY UPPER ARMS .BP 158/73 HR 91 ATIVAN 2 MG IVP GIVEN ORDERED ,WILL CONT TO MONITOR CLOSELY
--- NOTE | 2018-02-20 18:22 | NUR ---
BEAM DEPARTMENT SUPERVISOR NOTE T NOW 100.2 AGAIN ,COOLIE MEASURE PROVIDED,JESSICA FUENTES CORRECTIONAL CASEWORK SPECIALIST ID NOTIFIED, WILL MONITOR
[2018-02-20] MEDS: HYDROCODONE/APAP 10/325MG 1 EA TABLET PO PRN (18:37)
--- NOTE | 2018-02-20 18:44 | NUR ---
ENDO TECH NOTE NEAR RN TRAFFIC COURT MAGISTRATE ID AT BEDSIDE ,SEEN PATENT , NOTIFIED THAT PATIENT STILL RESTLESS. T 100.2 ATIVAN AT 1800 GIVEN ,STATED OK TO GIVE NORCO OF FOR PAIN , NORCO GIVEN BP 158/78 SAT 99%, FAMILY AT BEDSIDE, ALL NEEDS ATTENDED ,WILL CONT TO MONITOR CLOSELY, CONT TO PROVIDE COOLING MEASURE,
--- NOTE | 2018-02-20 20:00 | NUR ---
RN OPENING NOTES RECEIVED BEDSIDE REPORT FROM AM NURSE. PATIENT AWAKE, NONVERBAL AND VENT-TRACH DEPENDENT SATURATING 98%. RESPIRATION IS EVEN AND UNLABORED. ON OCCUPATIONAL THERAPY INSTRUCTOR, SR-ST HR= 94-101. ON GT FEEDING OF NEPHRO @65ML/HR RESUMED,RIGHT WRIST IV LINE IS PATIENT, INTACT,(R) FEMORAL HD CATH IN PLACED WITH 2 PORTS COVERED WITH DRY DRESSING AND NOTED INTACT. HOB ELEVATED AT ALL TIME. BED ALARMED AND LOCKED AT ALL TIMES. CALL LIGHT WITHIN REACH. NEEDS ANTICIPATED. WILL CONTINUE TO MONITOR FOR THE PATIENT'S TEMPERATURE. REMAINED ON CONTACT ISOLATION FOR VRE URINE. PATIENT ON CONDOM CATHETER, BUT NO URINE OUTPUT NOTED.
--- NOTE | 2018-02-20 20:01 | NUR ---
RECEIVED PT TRACHED ON VENT. PT TOLERATING VENT SETTINGS. SX'D FOR MOD AMT OF THIN SPAULDING SECRETIONS. VENT ALARMS SET AND AUDIBLE. TRACH SECURE, CUFF CANDY CUTTER HAND. AMBU BAG AT BEDSIDE. VENT PLUGGED INTO RED OUTLET. WILL CONTINUE TO MONITOR. Addendum: 02/20/18 at 2001 by JOSIAS NGUYỄN RT Amended: Links added.
[2018-02-20] MEDS: INSULIN GLARGINE, 100 UNIT/ML CARTRIDGE SQ SCH (21:18)
--- NOTE | 2018-02-20 22:50 | NUR ---
PATIENT TEMP IS RECHECKED 101.8. COOLING MEASURES ARE IMPLEMENTED.
--- NOTE | 2018-02-20 23:00 | NUR ---
RN NOTES PATIENT'S TEMP IS 101.8, TYLENOL IS ADMINISTERED, ICE PACKS ARE PLACED UNDER PATIENT'S ARMPITS AND BY RAN DURAN NOTES BLOOD CULTURE IS ORDERED AND LAB IS NOTIFIED.
[2018-02-21] VITALS: BP 121/68
--- NOTE | 2018-02-21 | NUR ---
PATIENT'S TEMPERATURE RECHECKED IT'S 101.6 AT MIDNIGHT. COLD BATH IS DONE AND ICE PAKS ARE UNDER THE PT. ARMPITS. WILL CONT. TO MONITOR CLOSELY.
[2018-02-21] MEDS: BLOOD SUGAR DIAGNOSTIC 1 EACH STRIP IN SCH ×5 (00:37→23:03)
[2018-02-21] MEDS: HYDROCODONE/APAP 10/325MG 1 EA TABLET PO PRN (00:42)
[2018-02-21] MEDS: ALBUTEROL HALF STRENGTH 1.25 MG/3 ML VIAL.NEB NEB SCH ×4 (01:47→20:12)
[2018-02-21] MEDS: IPRATROPIUM NEB FS 0.5 MG/2.5 ML AMPUL.NEB NEB SCH ×4 (01:47→20:12)
[2018-02-21 04:00] VITALS: BP 150/75
[2018-02-21 04:13] LABS: OCCULT BLOOD STOOL NEGATIVE (NEGATIVE)
[2018-02-21] MEDS: METOCLOPRAMIDE HCL 10 MG/2 ML VIAL IV SCH ×4 (06:04→23:08)
[2018-02-21] MEDS: DEXTROSE 50%-WATER 50 ML DISP.SYRIN IV PRN (06:20)
--- NOTE | 2018-02-21 06:31 | NUR ---
patient's blood glucose level is 51, charge nurse Ivonne notified and iv push dextrose has been administered. will monitor closely and recheck after 15minutes.
[2018-02-21 06:36] LABS: BASOPHILS % (AUTO) 0.3 % (0.0-2.0); EOSINOPHILS % (AUTO) 4.6 % (0.0-6.0); HEMATOCRIT 26 % (39-51); HEMOGLOBIN 8.3 g/dL (13.5-17.5); LYMPHOCYTES # (AUTO) 1.8 /CMM (0.8-4.8); LYMPHOCYTES % (AUTO) 14.2 % (20.0-44.0); MEAN CORPUSCULAR HGB CONC 32 g/dl (31.0-36.0); MEAN CORPUSCULAR VOLUME 84 fL (80-96); MONOCYTES # (AUTO) 1.1 /CMM (0.1-1.30); MONOCYTES % (AUTO) 8.4 % (2.0-12.0); NEUTROPHILS # (AUTO) 9.2 /CMM (1.8-8.9); NEUTROPHILS % (AUTO) 72.5 % (43.0-81.0); PLATELET COUNT (AUTO) 389 /CMM (150-450); RDW COEFFICIENT OF VARIATION 17.9 (11.5-15.0); RED BLOOD CELL COUNT(AUTO) 3.06 MIL/uL (4.5-6.0); WHITE BLOOD COUNT (AUTO) 12.6 K/uL (4.3-11.0)
--- NOTE | 2018-02-21 06:51 | NUR ---
rn notes patient's blood glucose rechecked level is 131, charge nurse Ivonne notified , no insulin will be administered at this time . will be endorsed to am shift rn for customer support specialist.
[2018-02-21] MEDS: ACETYLCYSTEINE 10% SOLN 400 MG/4 ML VIAL NEB SCH ×2 (07:37→15:58)
[2018-02-21 08:00] VITALS: BP_SYST 156; BP_DIAS 74; BP_DIAS 94
[2018-02-21] MEDS: CHOLECALCIFEROL 1,000 UNIT TABLET (VIT D3) GT SCH (09:09)
[2018-02-21] MEDS: FOLIC ACID 1 MG TABLET GT SCH (09:09)
[2018-02-21] MEDS: ATORVASTATIN 10 MG TABLET GT SCH (09:09)
[2018-02-21] MEDS: VIT B CMPLX 3/FA/VIT C/BIOTIN 1 TAB TABLET PO SCH (09:09)
[2018-02-21] MEDS: ASCORBIC ACID 500 MG TABLET PO SCH (09:09)
[2018-02-21] MEDS: SERTRALINE HCL 25 MG TABLET GT SCH (09:10)
[2018-02-21] MEDS: LACTOBACILLUS RHAMNOSUS GG 1 EACH CAP.SPRINK GT SCH ×2 (09:10→18:49)
[2018-02-21] MEDS: LABETALOL HCL (100MG) 100 MG TABLET GT SCH ×2 (09:13→21:11)
[2018-02-21] MEDS: ACETAMINOPHEN 325 MG TABLET PO PRN ×2 (09:14→19:22)
[2018-02-21] MEDS: PHENYTOIN SUSP UDC 100 MG/4 ML UDC GT SCH ×2 (09:14→21:10)
[2018-02-21] MEDS: PANTOPRAZOLE 40 MG VIAL IV SCH ×2 (09:16→21:10)
[2018-02-21] MEDS: CALCIUM CARB 600MG /VIT D 1 EACH TABLET GT SCH (09:16)
[2018-02-21] MEDS: PROSOURCE / PROSTAT (PYXIS) 30 ML UDC GT SCH ×3 (09:17→18:50)
[2018-02-21] MEDS: HYDROGEL DRESSING 90 GM TUBE TP SCH ×2 (09:17→21:12)
[2018-02-21] MEDS: COLISTIMETHATE SODIUM 100 MG in IV NS 0.9% 50 ML IV SCH (13:31)
[2018-02-21 16:00] VITALS: BP 94/43
[2018-02-21] MEDS: DOCUSATE SODIUM LIQ 100 MG/10 ML UDC GT PRN (18:48)
--- NOTE | 2018-02-21 19:06 | NUR ---
dialysis completed by dialysis nurse nil fluids out pt comfortable bs check 92mg/dl no coverage , will endorse to hardware press operator
--- NOTE | 2018-02-21 19:30 | NUR ---
RIDING SILKS CUSTODIAN NOTE PT RECEIVED IN BED WITH FAMILY AT BEDSIDE. A/O X1 TO NAME AND ABLE TO FOLLOW SIMPLE COMMANDS. ON MECH VENT WITH SETTINGS WELL TOLERATED AND SATURATING WELL. HOB ELEVATED AND ON ASPIRATION PRECAUTIONS. GT FEEDING WELL TOLERATED AND NO RESIDUALS NOTED. ISOLATION PRECAUTIONS OBSERVED. DIALYSIS JUST ENDED. WILL CONTINUE TO MONITOR.
[2018-02-21 20:00] VITALS: BP 151/76
--- NOTE | 2018-02-21 20:12 | NUR ---
PT RECEIVED WITH A SHILEY 8 TRACH ON THE VENT WITH NOTED SETTINGS. PT IS OBTUNDED . VENT ALARMS ARE SET AND AUDIBLE WITH AMBU BAG AT BEDSIDE. TIRE MAINTENANCE TECHNICIAN CUFF PRESSURE NOTED. VENT IS PLUGGED INTO RED OUTLET. Q6 BREATHING TX GIVEN ORDERED. NO ADVERSE REACTIONS NOTED.SUCTIONED COPIOUS AMOUNT OF PALE YELLOW THICK SECRETIONS. NO RESPIRATORY DISTRESS NOTED AT THIS TIME, WILL CONTINUE TO MONITOR. Addendum: 02/22/18 at 0542 by CONNOR MAY RT PT IS AWAKE AND ALERT.
[2018-02-21] MEDS ORDERED: FEE PK DOSING 1 MIN EA MC ONE (20:45)
[2018-02-21] MEDS ORDERED: GENTAMICIN 80 MG in IV D5W 50 ML IV PRN (21:00)
[2018-02-21] MEDS ORDERED: GENTAMICIN 120 MG in IV D5W 100 ML IV ONE (21:00)
[2018-02-21] MEDS: FLUCONAZOLE (100 MG) 100 MG TABLET PO SCH (21:14)
[2018-02-21] MEDS ORDERED: GENTAMICIN 80 MG/2 ML VIAL ONE (21:50)
[2018-02-21] MEDS: INSULIN GLARGINE, 100 UNIT/ML CARTRIDGE SQ SCH (23:23)
[2018-02-21] MEDS: INSULIN REGULAR, HUMAN 100 UNIT/ML 3 ML VIAL SQ PRN (23:25)
[2018-02-22] VITALS: BP 126/59
[2018-02-22] MEDS: HYDROCODONE/APAP 10/325MG 1 EA TABLET PO PRN (00:24)
[2018-02-22] MEDS: ACETYLCYSTEINE 10% SOLN 400 MG/4 ML VIAL NEB SCH ×4 (00:33→23:27)
[2018-02-22] MEDS: ALBUTEROL HALF STRENGTH 1.25 MG/3 ML VIAL.NEB NEB SCH ×4 (00:33→19:59)
[2018-02-22] MEDS: IPRATROPIUM NEB FS 0.5 MG/2.5 ML AMPUL.NEB NEB SCH ×4 (00:33→19:59)
[2018-02-22 04:00] VITALS: BP 153/61
[2018-02-22] MEDS: NEPRO 1,000 ML BOTTLE GT PRN (04:49)
[2018-02-22] MEDS: METOCLOPRAMIDE HCL 10 MG/2 ML VIAL IV SCH ×3 (04:50→17:17)
[2018-02-22] MEDS: BLOOD SUGAR DIAGNOSTIC 1 EACH STRIP IN SCH ×3 (05:49→17:35)
[2018-02-22] MEDS: IV NS 0.9% 250 ML IV PRN (05:55)
[2018-02-22 06:34] LABS: BASOPHILS # (AUTO) 0.1 /CMM (0.0-0.2); BASOPHILS % (AUTO) 0.7 % (0.0-2.0); EOSINOPHILS % (AUTO) 5.7 % (0.0-6.0); HEMATOCRIT 24 % (39-51); HEMOGLOBIN 7.9 g/dL (13.5-17.5); LYMPHOCYTES # (AUTO) 1.6 /CMM (0.8-4.8); LYMPHOCYTES % (AUTO) 16.4 % (20.0-44.0); MEAN CORPUSCULAR HGB CONC 33 g/dl (31.0-36.0); MEAN CORPUSCULAR VOLUME 84 fL (80-96); MONOCYTES % (AUTO) 10.2 % (2.0-12.0); NEUTROPHILS # (AUTO) 6.7 /CMM (1.8-8.9); PLATELET COUNT (AUTO) 373 /CMM (150-450); RDW COEFFICIENT OF VARIATION 17.7 (11.5-15.0); RED BLOOD CELL COUNT(AUTO) 2.88 MIL/uL (4.5-6.0)
--- NOTE | 2018-02-22 06:34 | NUR ---
EUCLID OPERATOR NOTE PT REMAINED STABLE DURING SHIFT. NO ACUTE DISTRESS NOTED. ALL NEEDS ATTENDED TO PROMPTLY. KEPT CLEAN AND DRY. REPOSITIONED Q2H. MECH VENT WELL TOLERATED AND SUCTIONED NEEDED. ISOLATION PRECAUTIONS OBSERVED. WILL ENDORSE TO NEXT SHIFT FOR CONTINUITY OF CARE.
[2018-02-22 06:47] LABS: CALCIUM, SERUM 9.3 mg/dL (8.5-10.1); CREATININE 3.2 mg/dL (0.6-1.3); MAGNESIUM 2.1 mg/dL (1.8-2.4); POTASSIUM 3.7 mmol/L (3.5-5.1)
[2018-02-22 06:57] LABS: ALBUMIN 1.9 g/dL (3.4-5.0); BILIRUBIN,DIRECT 0.2 mg/dL (0.0-0.2); BILIRUBIN,TOTAL 0.5 mg/dL (0.2-1.0)
[2018-02-22 07:04] LABS: PHOSPHORUS 3.5 mg/dL (2.5-4.9)
[2018-02-22 08:00] VITALS: BP_SYST 133; BP_SYST 153; BP_SYST 156; BP_DIAS 61; BP_DIAS 78; BP_DIAS 79
--- NOTE | 2018-02-22 08:00 | NUR ---
RN NOTES RECEIVED PATIENT COMFORTABLY IN BED, TRACH DEPENDENT, NO SIGN OF SHORTNESS OF BREATH NOTED, ON VENTILATOR WITH SETTINGS PRESCRIBED, TOLERATING WELL AND SATURATING WELL AT 100%, SUCTIONED AIRWAY FOR PATENCY, ON TELEMONITOR: SINUS RHYTHM HR AT 90. PATIENT SLIGHT FEBRILE AT 99.0. INITIATED COOLING MEASURES AND ADEQUATE VENTILATION, WITH R HAND IV G 22 INTACT AND PATENT ON FLUSHING. GTF NEPRO RUNNING AT65CC/HR, GT PATENT ON FLUSHING. NO RESIDUAL TAKEN AT THIS TIME, SCD STOCKINGS IN PLACE, ASPIRATION AND SAFETY MEASURES KEEP IN PLACE, WILL CONTINUE TO MONITOR PATIENT
[2018-02-22] MEDS: FOLIC ACID 1 MG TABLET GT SCH (08:58)
[2018-02-22] MEDS: VIT B CMPLX 3/FA/VIT C/BIOTIN 1 TAB TABLET PO SCH (08:58)
[2018-02-22] MEDS: ATORVASTATIN 10 MG TABLET GT SCH (08:58)
[2018-02-22] MEDS: LACTOBACILLUS RHAMNOSUS GG 1 EACH CAP.SPRINK GT SCH ×2 (08:58→17:17)
[2018-02-22] MEDS: PHENYTOIN SUSP UDC 100 MG/4 ML UDC GT SCH ×2 (08:58→21:26)
[2018-02-22] MEDS: LABETALOL HCL (100MG) 100 MG TABLET GT SCH ×2 (08:59→21:27)
[2018-02-22] MEDS: ASCORBIC ACID 500 MG TABLET PO SCH (08:59)
[2018-02-22] MEDS: SERTRALINE HCL 25 MG TABLET GT SCH (08:59)
[2018-02-22] MEDS: CALCIUM CARB 600MG /VIT D 1 EACH TABLET GT SCH (08:59)
[2018-02-22] MEDS: CHOLECALCIFEROL 1,000 UNIT TABLET (VIT D3) GT SCH (08:59)
[2018-02-22] MEDS: PANTOPRAZOLE 40 MG VIAL IV SCH ×2 (08:59→21:28)
[2018-02-22] MEDS: HYDROGEL DRESSING 90 GM TUBE TP SCH ×2 (09:00→21:29)
[2018-02-22] MEDS: PROSOURCE / PROSTAT (PYXIS) 30 ML UDC GT SCH ×3 (09:03→17:17)
[2018-02-22 12:00] VITALS: BP_SYST 132; BP_SYST 145; BP_DIAS 74; BP_DIAS 83
[2018-02-22 16:00] VITALS: BP_SYST 129; BP_SYST 141; BP_DIAS 56; BP_DIAS 78
[2018-02-22] MEDS: ACETAMINOPHEN 325 MG TABLET PO PRN (17:35)
--- NOTE | 2018-02-22 19:29 | NUR ---
RN NOTES ENDORESED PATIENT FOR CONTIUITY OF CARE. NO ACUTE CHANGES WITHIN THE SHIFT. ALL NURSING NEEDS ANTICIPATED AND MET. ASPIRATION AND SAFETY MEASURES IN PLACE AT ALL TIMES.
[2018-02-22 20:00] VITALS: BP_SYST 126; BP_SYST 149; BP_DIAS 62; BP_DIAS 69
--- NOTE | 2018-02-22 20:01 | NUR ---
PT RECEIVED ON THE VENT WITH NOTED SETTINGS. VENT ALARMS ARE SET AND AUDIBLE WITH BVM BY BEDSIDE. PHYSICAL THERAPY ATTENDANT CUFF PRESSURE NOTED. VENT IS PLUGGED INTO RED OUTLET. PT SX'D SMALL THICK PALE YELLOW SECRETIONS. NO RESPIRATORY DISTRESS NOTED AT THIS TIME, WILL CONTINUE TO MONITOR. Addendum: 02/22/18 at 2000 by JOSIAS NGUYỄN RT Amended: Links added.
[2018-02-22] MEDS: FLUCONAZOLE (100 MG) 100 MG TABLET PO SCH (21:26)
[2018-02-22] MEDS: INSULIN GLARGINE, 100 UNIT/ML CARTRIDGE SQ SCH (21:36)
--- NOTE | 2018-02-22 23:00 | NUR ---
RN INITIAL TELE NOTES RECEIVED PATIENT AWAKE, NONVERBAL ON VENT-TRACH DEPENDENT SATURATING 98%. RESPIRATION IS EVEN AND UNLABORED. ON MACHINIST/MACHINE BUILDER, SR 80'S. ON GT FEEDING OF NEPHRO @65ML/HR WELL BALJINDER, 5CC RESIDUAL,RIGHT WRIST IV LINE IS PATIENT, INTACT,(R) FEMORAL HD CATH IN PLACED WITH 2 PORTS COVERED WITH DRY DRESSING AND NOTED INTACT. HOB ELEVATED AT ALL TIME. BED ALARMED AND LOCKED AT ALL TIMES. CALL LIGHT WITHIN REACH. NEEDS ANTICIPATED. WILL CONTINUE TO MONITOR FOR THE PATIENT'S TEMPERATURE. REMAINED ON CONTACT ISOLATION FOR VRE URINE. PATIENT ON CONDOM CATHETER, BUT NO URINE OUTPUT NOTED.
[2018-02-23] VITALS (7 sets, daily range): BP systolic 113–158; BP diastolic 44–72
[2018-02-23] MEDS: METOCLOPRAMIDE HCL 10 MG/2 ML VIAL IV SCH ×5 (00:26→23:26)
[2018-02-23] MEDS: BLOOD SUGAR DIAGNOSTIC 1 EACH STRIP IN SCH ×5 (00:27→23:17)
[2018-02-23] MEDS: IPRATROPIUM NEB FS 0.5 MG/2.5 ML AMPUL.NEB NEB SCH ×4 (01:31→19:45)
[2018-02-23] MEDS: ALBUTEROL HALF STRENGTH 1.25 MG/3 ML VIAL.NEB NEB SCH ×4 (01:31→19:45)
--- NOTE | 2018-02-23 02:00 | NUR ---
PROFESSOR OF OCEANOGRAPHY OPENING NOTE - Assignment change, sent from 3W to ALMA Report received from RN. Patient seen sleeping in bed, opens eye to touch. On Vent/trach tolerating settings well. O2 Sat 99%. G-tube running Nepro at 65ml/hr. HD cath noted on right femoral - clean, dry, and intact. SL IV in the right hand is intact and patent. Bed is low/locked, three side rails up. Will continue to monitor.
[2018-02-23] MEDS: ACETAMINOPHEN 325 MG TABLET PO PRN ×2 (04:42→21:55)
--- NOTE | 2018-02-23 04:46 | NUR ---
VIBRATORY PILE DRIVER NOTE - Tylenol, fever Patient had temperature of 101.2 F. Per report and MD notes, patient has had on-going fevers and MD is aware. 650 mg of Tylenol was given through G-tube to reduce fever.
[2018-02-23] MEDS: NEPRO 1,000 ML BOTTLE GT PRN (04:56)
[2018-02-23] MEDS: ACETYLCYSTEINE 10% SOLN 400 MG/4 ML VIAL NEB SCH ×2 (07:17→15:41)
--- NOTE | 2018-02-23 07:20 | NUR ---
ENDLESS TRACK VEHICLE MECHANIC NOTE: PATIENT ON CONTACT ISOLATION FOR VRE URINE. VENT-TRACH DEPENDENT SATURATING 100%. NO FACIAL GRIMACING NOTED. NON-VERBAL. ON SECURITIES COMPLIANCE EXAMINER SR HR= 88. HOB ELEVATED. GT FEEDING WAS HELD FOR NOW IN ORDER FOR ADMINISTER THE DILANTIN ORDERED. GT SITE REMAINED INTACT AND PATENT. (R) HAND IV SITE INTACT AND PATENT. CALL LIGHT WITHIN REACH. NEEDS ANTICIPATED.
--- NOTE | 2018-02-23 08:00 | NUR ---
PROCESS CONTROL ENGINEER NOTE: PATIENT'S TEMP WAS 100.9F AND COOLING MEASURE WAS PROVIDED. NOT DUE FOR A TYLENOL AT THIS TIME. CADY ROSARIO NP WAS AWARE ABOUT IT.
[2018-02-23] MEDS: VIT B CMPLX 3/FA/VIT C/BIOTIN 1 TAB TABLET PO SCH (09:57)
[2018-02-23] MEDS: ASCORBIC ACID 500 MG TABLET PO SCH (09:57)
[2018-02-23] MEDS: ATORVASTATIN 10 MG TABLET GT SCH (09:57)
[2018-02-23] MEDS: FOLIC ACID 1 MG TABLET GT SCH (09:57)
[2018-02-23] MEDS: SERTRALINE HCL 25 MG TABLET GT SCH (09:57)
[2018-02-23] MEDS: CALCIUM CARB 600MG /VIT D 1 EACH TABLET GT SCH (09:58)
[2018-02-23] MEDS: LABETALOL HCL (100MG) 100 MG TABLET GT SCH ×2 (09:58→21:56)
[2018-02-23] MEDS: PROSOURCE / PROSTAT (PYXIS) 30 ML UDC GT SCH ×3 (09:58→17:01)
[2018-02-23] MEDS: LACTOBACILLUS RHAMNOSUS GG 1 EACH CAP.SPRINK GT SCH ×2 (09:58→17:01)
[2018-02-23] MEDS: HYDROGEL DRESSING 90 GM TUBE TP SCH (09:59)
[2018-02-23] MEDS: CHOLECALCIFEROL 1,000 UNIT TABLET (VIT D3) GT SCH (09:59)
[2018-02-23] MEDS: PANTOPRAZOLE 40 MG VIAL IV SCH ×2 (10:00→21:55)
[2018-02-23] MEDS: PHENYTOIN SUSP UDC 100 MG/4 ML UDC GT SCH ×2 (10:00→21:55)
[2018-02-23] MEDS ORDERED: LIDOCAINE 2%-EPI 1:100,000 30 ML VIAL TP ONE (12:00)
[2018-02-23] MEDS ORDERED: SILVER NITRATE APPLICATOR 1 EA BOX TP SCH (12:00)
--- NOTE | 2018-02-23 13:20 | NUR ---
FORESTRY INSTRUCTOR NOTE: PATIENT'S SACRAL AND BUTTOCK WOUND WAS DEBRIDED BY PETE SUBRAMANIAN NP AT THE BEDSIDE. PATIENT TOLERATED IT. LIDOCAINE WAS GIVEN. PHOTO POST WOUND DEBRIDEMENT WAS TAKEN AND TOOK PICTURE OF IT AND FILED ON THE PATIENT'S CHART.
[2018-02-23] MEDS: INSULIN REGULAR, HUMAN 100 UNIT/ML 3 ML VIAL SQ PRN ×2 (17:58→23:21)
[2018-02-23] MEDS ORDERED: KEY,NONCONTROL,TO KEEP IN PYXI 1 EA MC ONE (18:43)
--- NOTE | 2018-02-23 19:44 | NUR ---
RN INITIAL TELE NOTES RECEIVED PATIENT AWAKE, NONVERBAL ON VENT-TRACH DEPENDENT SATURATING 98%. RESPIRATION IS EVEN AND UNLABORED. ON CHAR CONVEYOR TENDER, SR 90'S. ON GT FEEDING OF NEPHRO @65ML/HR WELL BALJINDER, 5CC RESIDUAL,RIGHT WRIST IV LINE IS PATIENT, INTACT,(R) FEMORAL HD CATH IN PLACED WITH 2 PORTS COVERED WITH DRY DRESSING AND NOTED INTACT. HOB ELEVATED AT ALL TIME. BED ALARMED AND LOCKED AT ALL TIMES. CALL LIGHT WITHIN REACH. NEEDS ANTICIPATED. WILL CONTINUE TO MONITOR FOR THE PATIENT'S TEMPERATURE. REMAINED ON CONTACT ISOLATION FOR VRE URINE.
--- NOTE | 2018-02-23 19:45 | NUR ---
DESKTOP ENGINEER NOTE: PATIENT ON STABLE CONDITION. HD WAS DONE TODAY AND 1L OF FLUID WAS TAKEN OUT. GENTAMICIN IV WAS GIVEN POST HD TODAY PER MD ORDER. PATIENT'S TEMPERATURE WAS MONITORED. COOLING MEASURES WAS GIVEN. REPORT GIVEN TO PM SHIFT NURSE FOR CONTINUITY OF CARE.
--- NOTE | 2018-02-23 19:45 | NUR ---
pt rec'd trached on [facility] vent on ac mode. no resp distress and sob noted. sx'd for thick mod amt of yellow secretions. trach patent and secured. alarms are set and audible. vent plugged into red outlet. ambu bag bedside. will continue to monitor. Addendum: 02/23/18 at 2223 by SHABANA CHANCE RT Amended: Links added.
[2018-02-23] MEDS: DAKINS QUARTER STRENGTH (0.125%) 480 ML BOTTLE TOP SCH (22:08)
[2018-02-23] MEDS: INSULIN GLARGINE, 100 UNIT/ML CARTRIDGE SQ SCH (22:19)
[2018-02-24] VITALS (7 sets, daily range): BP systolic 130–164; BP diastolic 36–85
[2018-02-24] MEDS: IPRATROPIUM NEB FS 0.5 MG/2.5 ML AMPUL.NEB NEB SCH ×4 (02:19→20:09)
[2018-02-24] MEDS: ALBUTEROL HALF STRENGTH 1.25 MG/3 ML VIAL.NEB NEB SCH ×4 (02:20→20:09)
[2018-02-24] MEDS: ACETYLCYSTEINE 10% SOLN 400 MG/4 ML VIAL NEB SCH ×3 (02:20→16:11)
[2018-02-24] MEDS: ACETAMINOPHEN 325 MG TABLET PO PRN ×2 (04:24→10:35)
[2018-02-24] MEDS: METOCLOPRAMIDE HCL 10 MG/2 ML VIAL IV SCH ×4 (04:24→22:38)
[2018-02-24] MEDS: BLOOD SUGAR DIAGNOSTIC 1 EACH STRIP IN SCH ×4 (05:29→23:40)
[2018-02-24 06:42] LABS: BASOPHILS # (AUTO) 0.1 /CMM (0.0-0.2); BASOPHILS % (AUTO) 0.4 % (0.0-2.0); EOSINOPHILS % (AUTO) 3.2 % (0.0-6.0); HEMATOCRIT 22 % (39-51); HEMOGLOBIN 7.2 g/dL (13.5-17.5); LYMPHOCYTES # (AUTO) 1.7 /CMM (0.8-4.8); LYMPHOCYTES % (AUTO) 13.2 % (20.0-44.0); MEAN CORPUSCULAR HGB CONC 33 g/dl (31.0-36.0); MEAN CORPUSCULAR VOLUME 84 fL (80-96); MONOCYTES # (AUTO) 1.2 /CMM (0.1-1.30); MONOCYTES % (AUTO) 9.2 % (2.0-12.0); NEUTROPHILS # (AUTO) 9.4 /CMM (1.8-8.9); PLATELET COUNT (AUTO) 368 /CMM (150-450); RDW COEFFICIENT OF VARIATION 17.7 (11.5-15.0); WHITE BLOOD COUNT (AUTO) 12.7 K/uL (4.3-11.0)
--- NOTE | 2018-02-24 06:47 | NUR ---
RN CLOSING TELE NOTES ENDORSED PATIENT AWAKE, NONVERBAL ON VENT-TRACH DEPENDENT SATURATING 98%. RESPIRATION IS EVEN AND UNLABORED. ON BOW REHAIRER, SR 80'S. ON GT FEEDING OF NEPHRO @65ML/HR WELL BALJINDER, 10CC RESIDUAL,RIGHT WRIST IV LINE IS PATIENT, INTACT,(R) FEMORAL HD CATH IN PLACED WITH 2 PORTS COVERED WITH DRY DRESSING AND NOTED INTACT. HOB ELEVATED AT ALL TIME. BED ALARMED AND LOCKED AT ALL TIMES. CALL LIGHT WITHIN REACH. NEEDS ANTICIPATED. WILL CONTINUE TO MONITOR FOR THE PATIENT'S TEMPERATURE. REMAINED ON CONTACT ISOLATION FOR VRE URINE.
[2018-02-24 06:48] LABS: CALCIUM, SERUM 9.4 mg/dL (8.5-10.1); CREATININE 4.6 mg/dL (0.6-1.3); POTASSIUM 3.9 mmol/L (3.5-5.1)
--- NOTE | 2018-02-24 07:00 | NUR ---
HELP DESK SUPPORT SPECIALIST INITIAL NOTES RECEIVED PATIENT AWAKE, NONVERBAL ON VENT-TRACH DEPENDENT SATURATING 98%. RESPIRATION IS EVEN AND UNLABORED. ON CUSTOMS COMPLIANCE ANALYST, SR 92. ON GT FEEDING OF NEPHRO @65ML/HR. RIGHT WRIST IV LINE IS PATIENT, INTACT,(R) FEMORAL HD CATH IN PLACED WITH 2 PORTS COVERED WITH DRY DRESSING AND NOTED INTACT. HOB ELEVATED. BED ALARMED AND LOCKED. CALL LIGHT WITHIN REACH. WILL CONTINUE TO MONITOR FOR THE PATIENT'S TEMPERATURE. REMAINED ON CONTACT ISOLATION FOR VRE URINE.
[2018-02-24] MEDS: PROSOURCE / PROSTAT (PYXIS) 30 ML UDC GT SCH ×3 (10:02→18:09)
[2018-02-24] MEDS: CALCIUM CARB 600MG /VIT D 1 EACH TABLET GT SCH (10:02)
[2018-02-24] MEDS: PANTOPRAZOLE 40 MG VIAL IV SCH ×2 (10:02→20:37)
[2018-02-24] MEDS: PHENYTOIN SUSP UDC 100 MG/4 ML UDC GT SCH ×2 (10:02→20:22)
[2018-02-24] MEDS: ATORVASTATIN 10 MG TABLET GT SCH (10:03)
[2018-02-24] MEDS: LABETALOL HCL (100MG) 100 MG TABLET GT SCH ×2 (10:03→20:22)
[2018-02-24] MEDS: FOLIC ACID 1 MG TABLET GT SCH (10:03)
[2018-02-24] MEDS: LACTOBACILLUS RHAMNOSUS GG 1 EACH CAP.SPRINK GT SCH ×2 (10:04→16:22)
[2018-02-24] MEDS: VIT B CMPLX 3/FA/VIT C/BIOTIN 1 TAB TABLET PO SCH (10:04)
[2018-02-24] MEDS: ASCORBIC ACID 500 MG TABLET PO SCH (10:04)
[2018-02-24] MEDS: CHOLECALCIFEROL 1,000 UNIT TABLET (VIT D3) GT SCH (10:09)
[2018-02-24] MEDS: SERTRALINE HCL 25 MG TABLET GT SCH (10:09)
[2018-02-24] MEDS: INSULIN REGULAR, HUMAN 100 UNIT/ML 3 ML VIAL SQ PRN ×3 (13:40→23:44)
[2018-02-24] MEDS: NEPRO 1,000 ML BOTTLE GT PRN (14:24)
[2018-02-24 16:03] LABS: ALBUMIN 1.8 g/dL (3.4-5.0); BILIRUBIN,DIRECT 0.2 mg/dL (0.0-0.2); BILIRUBIN,TOTAL 0.4 mg/dL (0.2-1.0); TOTAL PROTEIN, SERUM 6.7 g/dL (6.4-8.2)
[2018-02-24] MEDS: DAKINS QUARTER STRENGTH (0.125%) 480 ML BOTTLE TOP SCH ×2 (18:09→20:25)
--- NOTE | 2018-02-24 18:34 | NUR ---
RT END OF THE SHIFT REPORT: PT. 52 Y OLD MALE TRACH'D JORGE L # 8 REMAIN ON VENT WITH NOTED SETTINGS, ALARMS ARE SET AND FUNCTIONAL. EQUAL CHEST RISE NOTED. B/S BILATERALLY RHONCHI SUX'D FOR MOD. AMT OF YELLOW THICK SECRETIONS, NO CHANGES T/O DAY AND PT. REMAIN STABLE. VENT PLUGGED INTO RED OUT LET. AMBU BAG REMAIN AT THE BEDSIDE. REPORT WILL PASS TO PM SHIFT. Addendum: 02/24/18 at 1837 by PRERNA MCCOLLUM RT Amended: Links added.
--- NOTE | 2018-02-24 19:30 | NUR ---
WEBSITE/BLOG EDITOR INITIAL NOTES REPORTED KARLENE TO PM NURSE. PT IN BED, WITH COLD PACK UNDER ARMS FOR FEVER. NOTIFIED NURSE OF PERSISTENT FEVERS. SAFETY PRECAUTIONS IN PLACE. CALL LIGHT IN REACH.
[2018-02-24 19:38] LABS: AMYLASE 79 U/L (25-115); LIPASE 211 U/L (73-393)
[2018-02-24] MEDS: HYDROCODONE/APAP 10/325MG 1 EA TABLET PO PRN (20:24)
[2018-02-24] MEDS: INSULIN GLARGINE, 100 UNIT/ML CARTRIDGE SQ SCH (23:43)
[2018-02-25] VITALS (10 sets, daily range): BP systolic 104–154; BP diastolic 48–82
[2018-02-25] MEDS: IPRATROPIUM NEB FS 0.5 MG/2.5 ML AMPUL.NEB NEB SCH ×4 (01:21→20:05)
[2018-02-25] MEDS: ACETYLCYSTEINE 10% SOLN 400 MG/4 ML VIAL NEB SCH ×3 (01:21→14:34)
[2018-02-25] MEDS: ALBUTEROL HALF STRENGTH 1.25 MG/3 ML VIAL.NEB NEB SCH ×4 (01:21→20:05)
[2018-02-25] MEDS: METOCLOPRAMIDE HCL 10 MG/2 ML VIAL IV SCH ×3 (05:17→17:35)
[2018-02-25] MEDS: BLOOD SUGAR DIAGNOSTIC 1 EACH STRIP IN SCH ×3 (06:23→18:07)
[2018-02-25] MEDS: INSULIN REGULAR, HUMAN 100 UNIT/ML 3 ML VIAL SQ PRN ×3 (06:24→18:31)
[2018-02-25] MEDS: HYDROCODONE/APAP 10/325MG 1 EA TABLET PO PRN ×2 (06:28→11:45)
--- NOTE | 2018-02-25 07:00 | NUR ---
CERAMIC TILE INSTALLATION HELPER INITIAL NOTES RECEIVED PATIENT ASLEEP, ON VENT-TRACH DEPENDENT SATURATING 98%. RESPIRATION IS EVEN AND UNLABORED. ON PRIMARY EDUCATION PROFESSOR, SR 87. ON GT FEEDING OF NEPHRO @65ML/HR. RIGHT WRIST IV LINE IS PATIENT, INTACT,(R) FEMORAL HD CATH IN PLACED WITH 2 PORTS COVERED WITH DRY DRESSING AND NOTED INTACT. HOB ELEVATED. BED ALARMED AND LOCKED. CALL LIGHT WITHIN REACH. WILL CONTINUE TO MONITOR FOR THE PATIENT'S TEMPERATURE. REMAINED ON CONTACT ISOLATION.
[2018-02-25 07:39] LABS: BASOPHILS % (AUTO) 0.4 % (0.0-2.0); EOSINOPHILS % (AUTO) 3.3 % (0.0-6.0); HEMATOCRIT 21 % (39-51); LYMPHOCYTES # (AUTO) 1.6 /CMM (0.8-4.8); LYMPHOCYTES % (AUTO) 12.1 % (20.0-44.0); MEAN CORPUSCULAR HGB CONC 32 g/dl (31.0-36.0); MEAN CORPUSCULAR VOLUME 85 fL (80-96); MONOCYTES # (AUTO) 1.1 /CMM (0.1-1.30); MONOCYTES % (AUTO) 8.3 % (2.0-12.0); NEUTROPHILS # (AUTO) 10.2 /CMM (1.8-8.9); NEUTROPHILS % (AUTO) 75.9 % (43.0-81.0); PLATELET COUNT (AUTO) 425 /CMM (150-450); RDW COEFFICIENT OF VARIATION 17.7 (11.5-15.0); RED BLOOD CELL COUNT(AUTO) 2.44 MIL/uL (4.5-6.0); WHITE BLOOD COUNT (AUTO) 13.4 K/uL (4.3-11.0)
[2018-02-25 07:47] LABS: CALCIUM, SERUM 9.5 mg/dL (8.5-10.1); CREATININE 5.4 mg/dL (0.6-1.3); MAGNESIUM 2.5 mg/dL (1.8-2.4); PHOSPHORUS 4.2 mg/dL (2.5-4.9); POTASSIUM 3.9 mmol/L (3.5-5.1)
[2018-02-25 07:54] LABS: HEMOGLOBIN 6.5 g/dL (13.5-17.5)
[2018-02-25 08:25] LABS: FREE PSA 0.43 ng/mL (0.00-45); PROSTATE SPECIFIC ANTIGEN SCR 2.89 ng/mL (0.00-4.00)
[2018-02-25 08:31] LABS: C-REACTIVE PROTEIN 32.4 mg/dL (0.0-0.9)
[2018-02-25 09:05] LABS: BAND % (MANUAL) 2 % (0.0-5.0); LYMPHOCYTES % (MANUAL) 9 % (16-48); MONOCYTES % (MANUAL) 7 % (0-11.0); NEUTROPHILS % (MANUAL) 82 (42-76)
[2018-02-25] MEDS: PHENYTOIN SUSP UDC 100 MG/4 ML UDC GT SCH ×2 (09:44→21:21)
[2018-02-25] MEDS: VIT B CMPLX 3/FA/VIT C/BIOTIN 1 TAB TABLET PO SCH (09:44)
[2018-02-25] MEDS: PANTOPRAZOLE 40 MG VIAL IV SCH ×2 (09:44→21:21)
[2018-02-25] MEDS: LACTOBACILLUS RHAMNOSUS GG 1 EACH CAP.SPRINK GT SCH ×2 (09:45→17:35)
[2018-02-25] MEDS: FOLIC ACID 1 MG TABLET GT SCH (09:45)
[2018-02-25] MEDS: ATORVASTATIN 10 MG TABLET GT SCH (09:45)
[2018-02-25] MEDS: CALCIUM CARB 600MG /VIT D 1 EACH TABLET GT SCH (09:45)
[2018-02-25] MEDS: PROSOURCE / PROSTAT (PYXIS) 30 ML UDC GT SCH ×3 (09:45→17:35)
[2018-02-25] MEDS: SERTRALINE HCL 25 MG TABLET GT SCH (09:46)
[2018-02-25] MEDS: LABETALOL HCL (100MG) 100 MG TABLET GT SCH ×2 (09:46→21:21)
[2018-02-25] MEDS: ASCORBIC ACID 500 MG TABLET PO SCH (09:46)
[2018-02-25] MEDS: CHOLECALCIFEROL 1,000 UNIT TABLET (VIT D3) GT SCH (09:47)
[2018-02-25] MEDS: DAKINS QUARTER STRENGTH (0.125%) 480 ML BOTTLE TOP SCH ×2 (11:18→21:27)
[2018-02-25] MEDS: NEPRO 1,000 ML BOTTLE GT PRN (11:44)
--- NOTE | 2018-02-25 13:00 | NUR ---
FACILITY MANAGER HISTOLOGY NOTES CRITICAL LAB ALBUMIN LAB CALLED WITH REPORT OF ALBUMIN 1.3
--- NOTE | 2018-02-25 13:10 | NUR ---
NATURAL RESOURCES ENGINEER NOTES LAB CALLED : DISREGARD REPORT OF LOW ALBUMIN.
[2018-02-25 13:34] LABS: BILIRUBIN,DIRECT 0.2 mg/dL (0.0-0.2); BILIRUBIN,TOTAL 0.5 mg/dL (0.2-1.0)
[2018-02-25 13:35] LABS: ALBUMIN 1.9 g/dL (3.4-5.0)
[2018-02-25] MEDS: ACETAMINOPHEN 325 MG TABLET PO PRN (17:35)
--- NOTE | 2018-02-25 19:00 | NUR ---
FABRIC DESIGNER CLOSING NOTE REPORTED TO PM NURSE FOR KARLENE. PT NOT IN DISTRESS AT THIS TIME. TRACH TO VENT. BEING MONITORED ON TELE. FEEDING RUNNING. SAFETY PRECAUTIONS IN PLACE. CALL LIGHT IN REACH.
--- NOTE | 2018-02-25 20:00 | NUR ---
TELE 1 RN NOTE PT IN BED WITH EYES OPEN. NON VERBAL. ON VENT/TRACH TOLERATING SETTINGS WELL. SUCTIONED THE PT THICK WHITE SECRETIONS NOTED. NO DISTRESS OR DISCOMFORT NOTED. NO S/S OF PAIN NOTED. GTF INFUSING WELL, 0 ML RESIDUAL NOTED. ON TELE MONITOR SR WITH BBB HR 91. RT HAND WITH S/L INTACT AND PATENT. RT FEMORAL HD CATH INTACT AND PATENT. NO S/S OF HYPO OR HYPERGLYCEMIA NOTED. REPOSITION HIM Q2H, KEPT HIM DRY AND CLEAN. ALL NEEDS ATTENDED. VSS. SIDE RAILS UP X 3 AND CALL LIGHT WITHIN REACH. CONTINUE TO MONITOR HIM.
--- NOTE | 2018-02-25 20:05 | NUR ---
[facility]. NO RESP DISTRESS OR SOB NOTED. SX'D FOR THICK MOD AMT OF YELLOW SECRETIONS. TRACH PATENT AND SECURED. ALARMS ARE SET AND AUDIBLE. VENT PLUGGED INTO RED OUTLET. AMBU BAG BEDSIDE. WILL CONTINUE TO MONITOR. Addendum: 02/25/18 at 2019 by SHABANA CHANCE RT Amended: Links added.
--- NOTE | 2018-02-25 21:50 | NUR ---
TELE 1 RN NOTE CONSENT FOR HIDA SCAN RECEIVED OVER THE PHONE FROM HONG STAHL.
--- NOTE | 2018-02-25 22:10 | NUR ---
TELE 1 RN NOTE PT WENT DOWN FOR HIDA SCAN WITH RT AND CHARGE NURSE WITH ACLS PROTOCOL. PT IN NO DISTRESS OR DISCOMFORT.
--- NOTE | 2018-02-25 22:25 | NUR ---
2225 TAKEN TO NUCLEAR MEDICINE FOR HIDA SCAN ON ACLS PROTOCOL. PT. AWAKE AND RESPONSIVE, RT AT BEDSIDE.
--- NOTE | 2018-02-25 23:40 | NUR ---
2340 BACK TO ROOM FROM NUCLEAR MEDICINE. PT. AWAKE AND RESPONSIVE TO SIMPLE COMMANDS. NO SIGNS OF DISTRESS NOTED. CONNECTED BACK TO BEDSIDE MONITOR.
[2018-02-26] VITALS (8 sets, daily range): BP systolic 110–176; BP diastolic 41–79
[2018-02-26] MEDS: METOCLOPRAMIDE HCL 10 MG/2 ML VIAL IV SCH ×5 (00:18→23:07)
[2018-02-26] MEDS: BLOOD SUGAR DIAGNOSTIC 1 EACH STRIP IN SCH ×5 (00:19→23:07)
[2018-02-26] MEDS: INSULIN REGULAR, HUMAN 100 UNIT/ML 3 ML VIAL SQ PRN ×3 (00:22→17:51)
[2018-02-26] MEDS: INSULIN GLARGINE, 100 UNIT/ML CARTRIDGE SQ SCH ×2 (00:22→21:21)
[2018-02-26] MEDS: IPRATROPIUM NEB FS 0.5 MG/2.5 ML AMPUL.NEB NEB SCH ×4 (01:05→19:17)
[2018-02-26] MEDS: hydrALAZINE HCL 10 MG TABLET GT PRN (01:05)
[2018-02-26] MEDS: ALBUTEROL HALF STRENGTH 1.25 MG/3 ML VIAL.NEB NEB SCH ×4 (01:05→19:17)
[2018-02-26] MEDS: ACETYLCYSTEINE 10% SOLN 400 MG/4 ML VIAL NEB SCH ×4 (01:05→23:12)
--- NOTE | 2018-02-26 01:10 | NUR ---
TELE 1 RN NOTE TOOK THE PT BACK TO RADIOLOGY PER RADIOLOGY TACH WITH ACLS PROTOCOL. BROUGHT BACK THE PT AFTER 20 MINUTES. PT IN NO DISTRESS OR DISCOMFORT NOTED.
--- NOTE | 2018-02-26 01:59 | NUR ---
NM:HIDA SCAN WAS COMPLETED. TECH:RB.
--- NOTE | 2018-02-26 04:00 | NUR ---
TELE 1 RN NOTE PT NOTED WITH TEMP 101.4 BODY COOLING MEASURES APPLIED. ALSO LAB INFORMED TO DRAW BLOOD CULTURE.
--- NOTE | 2018-02-26 04:45 | NUR ---
TELE 1 RN NOTE BLOOD CULTURE DRAWN BY LAB TACH. ALSO TYLENOL 650 MG VIG GT GIVEN. REPOSITION HIM Q2H. KEPT HIM DRY AND CLEAN. CONTINUE TO MONITOR HIM.
[2018-02-26] MEDS: NEPRO 1,000 ML BOTTLE GT PRN (04:58)
[2018-02-26] MEDS: ACETAMINOPHEN 325 MG TABLET PO PRN ×3 (05:06→18:08)
[2018-02-26 06:16] LABS: BASOPHILS # (AUTO) 0.1 /CMM (0.0-0.2); BASOPHILS % (AUTO) 0.4 % (0.0-2.0); EOSINOPHILS % (AUTO) 2.4 % (0.0-6.0); HEMATOCRIT 25 % (39-51); HEMOGLOBIN 8.1 g/dL (13.5-17.5); LYMPHOCYTES # (AUTO) 1.7 /CMM (0.8-4.8); LYMPHOCYTES % (AUTO) 9.8 % (20.0-44.0); MEAN CORPUSCULAR HGB CONC 32 g/dl (31.0-36.0); MEAN CORPUSCULAR VOLUME 85 fL (80-96); MONOCYTES # (AUTO) 1.4 /CMM (0.1-1.30); MONOCYTES % (AUTO) 7.6 % (2.0-12.0); NEUTROPHILS # (AUTO) 14.3 /CMM (1.8-8.9); NEUTROPHILS % (AUTO) 79.8 % (43.0-81.0); PLATELET COUNT (AUTO) 476 /CMM (150-450); RDW COEFFICIENT OF VARIATION 16.5 (11.5-15.0); RED BLOOD CELL COUNT(AUTO) 2.93 MIL/uL (4.5-6.0); WHITE BLOOD COUNT (AUTO) 17.9 K/uL (4.3-11.0)
--- NOTE | 2018-02-26 06:21 | NUR ---
TELE 1 RN NOTE TEMP CAME DOWN TO 99.2. NO DISTRESS OR DISCOMFORT NOTED. NO S/S OF PAIN NOTED. GTF INFUSING WELL, NO RESIDUAL NOTED. REPOSITION HIM Q2H, KEPT HIM DRY AND CLEAN. ALL NEEDS ATTENDED. WILL ENDORSE TO DAY SHIFT NURSE FOR CONTINUE TO CARE.
[2018-02-26 06:52] LABS: CALCIUM, SERUM 9.6 mg/dL (8.5-10.1); CREATININE 4.4 mg/dL (0.6-1.3); POTASSIUM 3.8 mmol/L (3.5-5.1)
--- NOTE | 2018-02-26 07:55 | NUR ---
RN NOTE RECEIVED PATIENT AWAKE, ALERT AND ORIENTED X1, NON-VERBAL, RESPONDS TO NAME AND TACTILE STIMULI. VENT/TRACH DEPENDENT WITH APPROPRIATE SETTINGS DONE. NO DISTRESS NOTED. ON LITHOGRAPH PRINTER SINUS RHYTHM HR OF 95. RIGHT IV SITE INTACT & PATENT. GT SITE INTACT AND PATENT WITH ONGOING FEEDINGS ORDERED. NO RESIDUAL NOTED. PATIENT NOTED WITH LOW GRADE OF 99.5. COOL MEASURES PROVIDED. WILL CONTINUE TO MONITOR. MD MADE AWARE. ALL SAFETY MEASURES DONE. BED LOW AND LOCKED POSITION.
[2018-02-26] MEDS: PHENYTOIN SUSP UDC 100 MG/4 ML UDC GT SCH ×2 (08:21→21:20)
[2018-02-26] MEDS: PROSOURCE / PROSTAT (PYXIS) 30 ML UDC GT SCH ×3 (08:21→17:08)
[2018-02-26] MEDS: LACTOBACILLUS RHAMNOSUS GG 1 EACH CAP.SPRINK GT SCH ×2 (08:21→17:06)
[2018-02-26] MEDS: ASCORBIC ACID 500 MG TABLET PO SCH (08:22)
[2018-02-26] MEDS: CALCIUM CARB 600MG /VIT D 1 EACH TABLET GT SCH (08:22)
[2018-02-26] MEDS: FOLIC ACID 1 MG TABLET GT SCH (08:22)
[2018-02-26] MEDS: PANTOPRAZOLE 40 MG VIAL IV SCH ×2 (08:22→21:20)
[2018-02-26] MEDS: VIT B CMPLX 3/FA/VIT C/BIOTIN 1 TAB TABLET PO SCH (08:22)
[2018-02-26] MEDS: SERTRALINE HCL 25 MG TABLET GT SCH (08:22)
[2018-02-26] MEDS: ATORVASTATIN 10 MG TABLET GT SCH (08:22)
[2018-02-26] MEDS: CHOLECALCIFEROL 1,000 UNIT TABLET (VIT D3) GT SCH (08:22)
[2018-02-26] MEDS: DAKINS QUARTER STRENGTH (0.125%) 480 ML BOTTLE TOP SCH ×2 (08:23→21:20)
[2018-02-26] MEDS: LABETALOL HCL (100MG) 100 MG TABLET GT SCH ×2 (08:23→21:21)
[2018-02-26 11:04] LABS: OCCULT BLOOD STOOL NEGATIVE (NEGATIVE)
[2018-02-26] MEDS: PIPERACILLIN /TAZOBACTAM 2.25 G in IV D5W 50 ML IV SCH (17:20)
--- NOTE | 2018-02-26 19:02 | NUR ---
RN NOTE PATIENT REMAINED STABLE THROUGHOUT SHIFT. NO ACUTE CHANGES OR DISTRESS NOTED. WILL ENDORSE TO NEXT SHIFT TO CONTINUE TO MONITOR CONTINUITY OF CARE.
--- NOTE | 2018-02-26 20:07 | NUR ---
CULINARY INSTRUCTOR NOTES RECEIVED PT ON BED. ON [facility] VENT SETTING SATURATING WELL. IV ACCESS ON RIGHT HAND G22 TKO.HD ACCESS ON RIGHT FEMORAL HD CATH NO BLEEDING NOTED. PT ON NPO. HEAD OF BED ELEVATED. SIDE RAILS UP. CALL LIGHT WITHIN REACH. BED ALARM ON. WILL CONTINUE TO MONITOR PT CLOSELY.
--- NOTE | 2018-02-26 20:08 | NUR ---
HELP DESK SUPPORT NOTES PER CARLITO PATEL BATH MIXER , KEPT PT NPO. WILL CONTINUE TO MONITOR PT CLOSELY.
[2018-02-27] VITALS (8 sets, daily range): BP systolic 143–173; BP diastolic 60–79
[2018-02-27] MEDS: hydrALAZINE HCL 10 MG TABLET GT PRN (00:24)
[2018-02-27] MEDS: ALBUTEROL HALF STRENGTH 1.25 MG/3 ML VIAL.NEB NEB SCH ×4 (01:07→20:08)
[2018-02-27] MEDS: IPRATROPIUM NEB FS 0.5 MG/2.5 ML AMPUL.NEB NEB SCH ×4 (01:07→20:08)
[2018-02-27] MEDS: ACETYLCYSTEINE 10% SOLN 400 MG/4 ML VIAL NEB SCH ×3 (01:25→15:52)
[2018-02-27 02:17] LABS: IMMUNOGLOBULIN A, SERUM 443 mg/dL (90-386); IMMUNOGLOBULIN G, SERUM 1208 mg/dL (700-1600); IMMUNOGLOBULIN M, SERUM 61 mg/dL (20-172)
[2018-02-27 04:08] LABS: AFP, TUMOR MARKER 0.7 ng/mL (0.0-8.3)
[2018-02-27] MEDS: METOCLOPRAMIDE HCL 10 MG/2 ML VIAL IV SCH ×3 (05:16→16:13)
[2018-02-27] MEDS: PIPERACILLIN /TAZOBACTAM 2.25 G in IV D5W 50 ML IV SCH ×3 (05:16→21:29)
[2018-02-27] MEDS: HYDROCODONE/APAP 10/325MG 1 EA TABLET PO PRN (05:16)
[2018-02-27] MEDS: BLOOD SUGAR DIAGNOSTIC 1 EACH STRIP IN SCH ×4 (05:19→21:30)
--- NOTE | 2018-02-27 07:37 | NUR ---
CO OP NOTES NO ACUTE CHANGES NOTED DURING THE SHIFT. PROVIDED COMFORT AND SAFETY. DUE MEDS GIVEN. PROVIDED COMFORT AND SAFETY. WILL ENDORSE TO THE AM NURSE FOR CONTINUITY OF CARE.
--- NOTE | 2018-02-27 08:00 | NUR ---
JOB CAPTAIN NOTES RECEIVED PT ON BED. ON MECH VENT TO TRACH SETTING ,SATURATING WELL. IV ACCESS ON RIGHT HAND G22 TKO.HD ACCESS ON RIGHT FEMORAL HD CATH NO BLEEDING NOTED. PT ON NPO. HEAD OF BED ELEVATED. SIDE RAILS UP. CALL LIGHT WITHIN REACH. BED ALARM ON. WILL CONTINUE TO MONITOR PT CLOSELY.ON TELE MONITOR SR 89 BED IN LOWEST AND LOCKED POSITION TRACH SUCTION DONE
[2018-02-27 08:41] LABS: *SPE A/G RATIO 0.6 (0.7-1.7); *SPE ALBUMIN 2.3 g/dL (2.9-4.4); *SPE ALPHA-1-GLOBULIN 0.5 g/dL (0.0-0.4); *SPE ALPHA-2-GLOBULIN 1.1 g/dL (0.4-1.0); *SPE BETA GLOBULIN 1.2 g/dL (0.7-1.3); *SPE GLOBULIN, TOTAL 3.7 g/dL (2.2-3.9); *SPE M-SPIKE Not Observed g/dL (Not Observed); *SPEGAMMA GLOBULIN 0.9 g/dL (0.4-1.8)
[2018-02-27] MEDS: CALCIUM CARB 600MG /VIT D 1 EACH TABLET GT SCH (09:08)
[2018-02-27] MEDS: ASCORBIC ACID 500 MG TABLET PO SCH (09:08)
[2018-02-27] MEDS: SERTRALINE HCL 25 MG TABLET GT SCH (09:08)
[2018-02-27] MEDS: CHOLECALCIFEROL 1,000 UNIT TABLET (VIT D3) GT SCH (09:08)
[2018-02-27] MEDS: PHENYTOIN SUSP UDC 100 MG/4 ML UDC GT SCH ×2 (09:08→21:29)
[2018-02-27] MEDS: LACTOBACILLUS RHAMNOSUS GG 1 EACH CAP.SPRINK GT SCH ×2 (09:08→16:13)
[2018-02-27] MEDS: FOLIC ACID 1 MG TABLET GT SCH (09:09)
[2018-02-27] MEDS: PANTOPRAZOLE 40 MG VIAL IV SCH ×2 (09:09→21:29)
[2018-02-27] MEDS: LABETALOL HCL (100MG) 100 MG TABLET GT SCH ×2 (09:09→21:30)
[2018-02-27] MEDS: PROSOURCE / PROSTAT (PYXIS) 30 ML UDC GT SCH ×3 (09:10→16:13)
[2018-02-27] MEDS: VIT B CMPLX 3/FA/VIT C/BIOTIN 1 TAB TABLET PO SCH (09:10)
[2018-02-27] MEDS: ATORVASTATIN 10 MG TABLET GT SCH (09:10)
[2018-02-27] MEDS: DAKINS QUARTER STRENGTH (0.125%) 480 ML BOTTLE TOP SCH ×2 (09:11→21:36)
--- NOTE | 2018-02-27 09:30 | NUR ---
NET UI DEVELOPER DR RIVERA AWARE THAT PATIENT HAS A LOT OF SECRETION, NO NEW ORDER AT THIS TIME
--- NOTE | 2018-02-27 11:10 | NUR ---
GRANITE POLISHER APPRENTICE NOTE PER HD NURSE HOLD YANET AT THIS TIME, WILL HAVE HD TODAY
[2018-02-27 11:11] LABS: ANTI-MITOCHONDRIAL AB 7.7 Units (0.0-20.0)
--- NOTE | 2018-02-27 11:30 | NUR ---
AIRWAY TRAFFIC CONTROLLER NOTE STARTED ON HD, WILL F\U DR MYRICK AWARE THAT T 100.3 AT THIS TIME ,OK TO GIVE TYLENOL AND COOLING MEASURE
--- NOTE | 2018-02-27 15:00 | NUR ---
SALES AND SERVICE OFFICER NOTE HD COMPLETED, REMOVED 2L OUT ,BP 136/56 HR 95
--- NOTE | 2018-02-27 15:31 | NUR ---
VISUAL DISPLAY ASSOCIATE NOTE ABLE TO MAKE BM ,NO DIARRHEA NOTED ,KEEP CLEAN DRY ,WILL CONT TO MONITOR CLOSELY
[2018-02-27] MEDS: ACETAMINOPHEN 325 MG TABLET PO PRN (16:13)
--- NOTE | 2018-02-27 16:19 | NUR ---
ESTATE ADMINISTRATOR NOTE PER RAT SX OK TO KEEP NPO AT THIS TIME, AWARE THAT T 100.7 OK TO GIVE TYLENOL TYLENOL GIVE CONT ON COOLING MEASURE
--- NOTE | 2018-02-27 18:45 | NUR ---
YISSEL FUENTES NOTE SEEN BY CARLITO FUENTES NP GI ORDERED HOLLIE GUERRA Q4 HOUR AND STOOL FOR OB ASO STATED CALL HER WHEN ALL LAB IS READY WILL F\U Addendum: 02/27/18 at 1849 by MIRANDA JEROME RN PER CARLITO ALLEN RN CORRECTIONS SERGEANT OK TO KEEP NPO AND ACCU CHEK Q4 HOUR ALSO AWARE THAT PER DR DIAZ TIRE CHANGER AIRCRAFT NO IVF AT THIS TIME
[2018-02-27] MEDS ORDERED: DEXTROSE 50%-WATER 50 ML DISP.SYRIN IV PRN (19:00)
[2018-02-27 19:49] LABS: ALBUMIN 1.8 g/dL (3.4-5.0); BILIRUBIN,DIRECT 0.3 mg/dL (0.0-0.2); BILIRUBIN,TOTAL 0.7 mg/dL (0.2-1.0); TOTAL PROTEIN, SERUM 7.3 g/dL (6.4-8.2)
--- NOTE | 2018-02-27 20:08 | NUR ---
PT REC'D TRACHED ON [facility] VENT SETTINGS CHARTED. NO RESP DISTRESS OR SOB NOTED. SX'D THICK YELLOW MOD AMT OF SECRETIONS. TRACH TUBE PATENT AND SECURED. ALARMS ARE SET AND AUDIBLE. VENT PLUGGED INTO RED OUTLET. AMBU BAG BEDSIDE. WILL CONTINUE TO MONITOR. Addendum: 02/28/18 at 0509 by SHABANA CHANCE RT Amended: Links added.
[2018-02-27] MEDS: INSULIN GLARGINE, 100 UNIT/ML CARTRIDGE SQ SCH (22:27)
[2018-02-27 22:47] LABS: BASOPHILS # (AUTO) 0.1 /CMM (0.0-0.2); BASOPHILS % (AUTO) 0.6 % (0.0-2.0); EOSINOPHILS % (AUTO) 1.9 % (0.0-6.0); HEMATOCRIT 22 % (39-51); HEMOGLOBIN 7.1 g/dL (13.5-17.5); LYMPHOCYTES # (AUTO) 1.8 /CMM (0.8-4.8); LYMPHOCYTES % (AUTO) 10.8 % (20.0-44.0); MEAN CORPUSCULAR HGB CONC 32 g/dl (31.0-36.0); MEAN CORPUSCULAR VOLUME 85 fL (80-96); MONOCYTES # (AUTO) 1.6 /CMM (0.1-1.30); MONOCYTES % (AUTO) 9.6 % (2.0-12.0); NEUTROPHILS # (AUTO) 12.5 /CMM (1.8-8.9); NEUTROPHILS % (AUTO) 77.1 % (43.0-81.0); PLATELET COUNT (AUTO) 455 /CMM (150-450); RDW COEFFICIENT OF VARIATION 16.8 (11.5-15.0); RED BLOOD CELL COUNT(AUTO) 2.58 MIL/uL (4.5-6.0); WHITE BLOOD COUNT (AUTO) 16.3 K/uL (4.3-11.0)
[2018-02-28] VITALS (16 sets, daily range): BP systolic 138–166; BP diastolic 50–82
[2018-02-28] MEDS: METOCLOPRAMIDE HCL 10 MG/2 ML VIAL IV SCH ×4 (01:11→16:31)
[2018-02-28] MEDS: BLOOD SUGAR DIAGNOSTIC 1 EACH STRIP IN SCH ×6 (01:12→21:00)
[2018-02-28] MEDS: IPRATROPIUM NEB FS 0.5 MG/2.5 ML AMPUL.NEB NEB SCH ×5 (01:25→23:51)
[2018-02-28] MEDS: ALBUTEROL HALF STRENGTH 1.25 MG/3 ML VIAL.NEB NEB SCH ×5 (01:25→23:51)
[2018-02-28] MEDS: PIPERACILLIN /TAZOBACTAM 2.25 G in IV D5W 50 ML IV SCH ×3 (05:19→22:13)
[2018-02-28 06:56] LABS: BASOPHILS % (AUTO) 0.2 % (0.0-2.0); EOSINOPHILS % (AUTO) 1.9 % (0.0-6.0); HEMATOCRIT 21 % (39-51); LYMPHOCYTES # (AUTO) 2.1 /CMM (0.8-4.8); LYMPHOCYTES % (AUTO) 12.4 % (20.0-44.0); MEAN CORPUSCULAR HGB CONC 33 g/dl (31.0-36.0); MEAN CORPUSCULAR VOLUME 86 fL (80-96); MONOCYTES # (AUTO) 1.3 /CMM (0.1-1.30); MONOCYTES % (AUTO) 7.7 % (2.0-12.0); NEUTROPHILS # (AUTO) 13.1 /CMM (1.8-8.9); NEUTROPHILS % (AUTO) 77.8 % (43.0-81.0); PLATELET COUNT (AUTO) 477 /CMM (150-450); RDW COEFFICIENT OF VARIATION 16.7 (11.5-15.0); RED BLOOD CELL COUNT(AUTO) 2.48 MIL/uL (4.5-6.0); WHITE BLOOD COUNT (AUTO) 16.9 K/uL (4.3-11.0)
[2018-02-28 07:05] LABS: ALBUMIN 1.9 g/dL (3.4-5.0); BILIRUBIN,TOTAL 0.8 mg/dL (0.2-1.0); CALCIUM, SERUM 9.3 mg/dL (8.5-10.1); CREATININE 5.3 mg/dL (0.6-1.3); MAGNESIUM 2.2 mg/dL (1.8-2.4); PHOSPHORUS 2.9 mg/dL (2.5-4.9); POTASSIUM 4.3 mmol/L (3.5-5.1); TOTAL PROTEIN, SERUM 7.3 g/dL (6.4-8.2)
--- NOTE | 2018-02-28 07:10 | NUR ---
SPRAYER MACHINE OPENING NOTE RECEIVED REPORT FROM PM NURSE.PATIENT IS OBTUNDED.NO SOB NO DISTRESS NOTED AT THIS TIME.ON VENT TOLERATING SETTINGS WELL.HAS CONDOM CATH DRAINING CLEAR YELLOW URINE.IV ON R HAND INTACT AND PATENT ,HAS R FEMORAL HD ACTH.ON TELE MONITOR SR99.BE DIS LOW AND IN LOCKED POSITION.CALL LIGHT IN REACH.SRX3.ON ISOLATION FOR VRE URINE.WILL CONTINUE TO MONITOR.
[2018-02-28] MEDS: ACETYLCYSTEINE 10% SOLN 400 MG/4 ML VIAL NEB SCH ×3 (07:16→23:50)
[2018-02-28 07:25] LABS: HEMOGLOBIN 6.9 g/dL (13.5-17.5)
--- NOTE | 2018-02-28 07:33 | NUR ---
RN NOTE PT REMAINS IN NO ACUTE DISTRESS IN BED. PT DID NOT HAVE ANY SIGNIFICANT CHANGE IN CONDITION DURING SHIFT. PT TOLERATED VENT SETTING WELL. ALL NEEDS MET, ALL ORDERS CARRIED OUT. WILL ENDORSE CARE TO AM RN FOR CONTINUITY OF CARE.
--- NOTE | 2018-02-28 08:00 | NUR ---
WORD PROCESSING MACHINE OPERATOR NOTES CALL MADE TO REGARDING LOW H/H CALLED BY LAB.HgB6.9 ,HCT 21.GOT NEW ORDER TO RECHECK LABS AT 1000AM.PLACED ORDER.WILL CONTINUE TO MONITOR.
[2018-02-28 08:07] LABS: EOSINOPHILS % (MANUAL) 2 % (0-4); LYMPHOCYTES % (MANUAL) 10 % (16-48); MONOCYTES % (MANUAL) 5 % (0-11.0); NEUTROPHILS % (MANUAL) 83 (42-76)
[2018-02-28 08:46] LABS: OCCULT BLOOD STOOL NEGATIVE (NEGATIVE)
[2018-02-28] MEDS: PANTOPRAZOLE 40 MG VIAL IV SCH ×2 (09:28→22:12)
[2018-02-28] MEDS: FOLIC ACID 1 MG TABLET GT SCH (09:28)
[2018-02-28] MEDS: CALCIUM CARB 600MG /VIT D 1 EACH TABLET GT SCH (09:28)
[2018-02-28] MEDS: CHOLECALCIFEROL 1,000 UNIT TABLET (VIT D3) GT SCH (09:28)
[2018-02-28] MEDS: LACTOBACILLUS RHAMNOSUS GG 1 EACH CAP.SPRINK GT SCH ×2 (09:28→16:31)
[2018-02-28] MEDS: PHENYTOIN SUSP UDC 100 MG/4 ML UDC GT SCH ×2 (09:28→20:24)
[2018-02-28] MEDS: VIT B CMPLX 3/FA/VIT C/BIOTIN 1 TAB TABLET PO SCH (09:28)
[2018-02-28] MEDS: ASCORBIC ACID 500 MG TABLET PO SCH (09:29)
[2018-02-28] MEDS: SERTRALINE HCL 25 MG TABLET GT SCH (09:29)
[2018-02-28] MEDS: LABETALOL HCL (100MG) 100 MG TABLET GT SCH ×2 (09:29→22:14)
[2018-02-28] MEDS: ACETAMINOPHEN 325 MG TABLET PO PRN ×3 (09:29→14:57)
[2018-02-28] MEDS: DAKINS QUARTER STRENGTH (0.125%) 480 ML BOTTLE TOP SCH ×2 (09:30→22:14)
[2018-02-28] MEDS: PROSOURCE / PROSTAT (PYXIS) 30 ML UDC GT SCH ×3 (09:31→16:31)
[2018-02-28] MEDS: ATORVASTATIN 10 MG TABLET GT SCH (09:35)
[2018-02-28 10:37] LABS: BASOPHILS # (AUTO) 0.1 /CMM (0.0-0.2); BASOPHILS % (AUTO) 0.5 % (0.0-2.0); EOSINOPHILS % (AUTO) 1.4 % (0.0-6.0); HEMATOCRIT 21 % (39-51); LYMPHOCYTES # (AUTO) 1.7 /CMM (0.8-4.8); LYMPHOCYTES % (AUTO) 9.7 % (20.0-44.0); MEAN CORPUSCULAR HGB CONC 32 g/dl (31.0-36.0); MEAN CORPUSCULAR VOLUME 86 fL (80-96); MONOCYTES # (AUTO) 1.6 /CMM (0.1-1.30); MONOCYTES % (AUTO) 9.2 % (2.0-12.0); NEUTROPHILS # (AUTO) 14.2 /CMM (1.8-8.9); NEUTROPHILS % (AUTO) 79.2 % (43.0-81.0); PLATELET COUNT (AUTO) 508 /CMM (150-450); RDW COEFFICIENT OF VARIATION 16.8 (11.5-15.0); RED BLOOD CELL COUNT(AUTO) 2.46 MIL/uL (4.5-6.0); WHITE BLOOD COUNT (AUTO) 17.9 K/uL (4.3-11.0)
[2018-02-28 10:44] LABS: HEMOGLOBIN 6.8 g/dL (13.5-17.5)
[2018-02-28 11:41] LABS: LYMPHOCYTES % (MANUAL) 7 % (16-48); MONOCYTES % (MANUAL) 8 % (0-11.0); NEUTROPHILS % (MANUAL) 85 (42-76)
--- NOTE | 2018-02-28 12:00 | NUR ---
CHIEF COMPRESSOR STATION ENGINEER NOTES SEEN BY RAN SANDERSON .UPDATED ABOUT PATIENT CONDITION.ELEVATED TEMP,AND LOW H/H.GOT NEW ORDERS TO DA BLADER SCAN AND DO QSHIFT STRAIGHT CATH IF >250ML URINE.
[2018-02-28] MEDS: METRONIDAZOLE 500 MG TABLET PO SCH ×2 (12:26→20:24)
[2018-02-28] MEDS ORDERED: IV D5/ 0.9% NACL 1,000 ML IV PRN (13:30)
[2018-02-28 14:18] LABS: *CARD ANTI-CARDIOLIPIN AB IgG <9 GPL U/mL (0-14); *CARD ANTI-CARDIOLIPIN AB IgM <9 MPL U/mL (0-12)
--- NOTE | 2018-02-28 14:30 | NUR ---
OPTICAL GLASS SILVERER NOTES SEEN BY .UPDATED PATIENT CONDITION.MADE AWARE PATIENT NPO.GOT NEW ORDERS FOR IVF.
--- NOTE | 2018-02-28 15:15 | NUR ---
SAFETY COMPANION NOTES CALL MADE TO REGARDING ELEVATED TEMP OF 100.7,ITS OK TO DO BLOOD TRANSFUSION ,GIVE TYLENOL PRN.CONTINUE TO MONITOR.
--- NOTE | 2018-02-28 16:00 | NUR ---
COAL MILL OPERATOR NOTES BLADDER SCAN DONE .NO RESIDUAL.
[2018-02-28] MEDS: HYDROCODONE/APAP 10/325MG 1 EA TABLET PO PRN (16:31)
--- NOTE | 2018-02-28 17:04 | NUR ---
CT ON HOLD, PT. MIGHT GET TRANSFERRED TODAY PER RN (DAMIÁN).
--- NOTE | 2018-02-28 17:18 | NUR ---
TRACER CLERK NOTES RADIOLOGY SCHEDULED CT FOR TONIGHT,WILL BE HAVING MORNING DIALYSIS.RAN SANDERSON AWARE.
[2018-02-28] MEDS ORDERED: NA PHOS,M-B/NA PHOS,DI-BA 1 EA ENEMA RC PRN (18:30)
[2018-02-28] MEDS ORDERED: MAGNESIUM CITRATE 296 ML BOTTLE GT ONE (18:30)
--- NOTE | 2018-02-28 18:40 | NUR ---
EMERGENCY COMMUNICATIONS OPERATOR NOTES SEEN BY RAN ESTEBAN WITH NEW ORDER FOR EGD AND COLONOSCOPY TOMORROW MORNING.
[2018-02-28 18:58] LABS: INR 1.19 (0.87-1.13)
[2018-02-28] MEDS ORDERED: PEG 3350/NA SULF,BICARB,CL/KCL 4,000 ML BOTTLE GT ONE (19:00)
--- NOTE | 2018-02-28 19:26 | NUR ---
DIABETES SOLUTIONS SPECIALIST CLOSING NOTE PATIENT IS OBTUNDED.NO SOB NO DISTRESS NOTED AT THIS TIME.ON VENT TOLERATING SETTINGS WELL.HAS CONDOM CATH DRAINING CLEAR YELLOW URINE.IV ON R HAND INTACT AND PATENT ,HAS R FEMORAL HD ACTH.ON TELE MONITOR SR98.BE DIS LOW AND IN LOCKED POSITION.CALL LIGHT IN REACH.SRX3.ON ISOLATION FOR VRE URINE.WILL CONTINUE TO MONITOR.
--- NOTE | 2018-02-28 21:05 | NUR ---
2105 RECEIVED A CALL FROM ANNIKA FORD REGARDING PT.'S TRANSFER ORDER TO [facility]. TRANSFER INFORMATION OBTAINED.
--- NOTE | 2018-02-28 22:15 | NUR ---
0035 [facility] DIRECTOR [facility] CALLED TO VERIFY TRANSFER OF PTSami GRAMAJO, INFORMED HIM THAT PATIENT WILL BE PICKED UP AT 8300.
[2018-02-28] MEDS: INSULIN GLARGINE, 100 UNIT/ML CARTRIDGE SQ SCH (22:26)
[2018-02-28] MEDS: INSULIN REGULAR, HUMAN 100 UNIT/ML 3 ML VIAL SQ PRN (22:27)
[2018-03-01] VITALS: BP 122/68
--- NOTE | 2018-03-01 00:45 | NUR ---
0045 [facility] CALLED AND SAID THEY ARE RUNNING ONE HOUR LATE FOR [employer] SUPERVISOR.
[2018-03-01] MEDS: BLOOD SUGAR DIAGNOSTIC 1 EACH STRIP IN SCH ×2 (01:00→05:18)
[2018-03-01] MEDS: LORAZEPAM INJ 2 MG/ML VIAL IV PRN (01:47)
[2018-03-01] MEDS: HYDROCODONE/APAP 10/325MG 1 EA TABLET PO PRN (01:47)
[2018-03-01] MEDS: METOCLOPRAMIDE HCL 10 MG/2 ML VIAL IV SCH ×2 (01:48→04:50)
[2018-03-01] MEDS: INSULIN REGULAR, HUMAN 100 UNIT/ML 3 ML VIAL SQ PRN ×2 (02:22→05:19)
--- NOTE | 2018-03-01 02:53 | NUR ---
RN NOTES TOOK PATIENT SKIN PICTURES FOR DISCHARGE PER PROTOCOL. GAVE REPORT TO ALFREDO NEGRETE FROM [facility]. NOTIFIED FAMILY. SPOKE WITH AND SON JOSSELYN OVER THE PHONE REGARDING PATIENT TO BE DISCHARGED.
--- NOTE | 2018-03-01 03:25 | NUR ---
0325 CALLED [facility] TO FOLLOW UP ON PT.'S CHEMICAL PATHOLOGIST TIME, SPOKE WITH STEPHANIE AND SHE SAID THE TRANSPORT WILL COME AT 0730 TO CHEMICAL PATHOLOGIST PT.
--- NOTE | 2018-03-01 03:30 | NUR ---
0300 CALLED [facility] ICU AND SPOKE WITH FREDDY AND NOTIFIED HER THAT PT. WILL BE PICKED UP 0733
[2018-03-01 04:00] VITALS: BP 105/62
[2018-03-01] MEDS: METRONIDAZOLE 500 MG TABLET PO SCH (04:50)
[2018-03-01] MEDS: PIPERACILLIN /TAZOBACTAM 2.25 G in IV D5W 50 ML IV SCH (04:50)
[2018-03-01 06:39] LABS: BASOPHILS # (AUTO) 0.1 /CMM (0.0-0.2); BASOPHILS % (AUTO) 0.3 % (0.0-2.0); EOSINOPHILS % (AUTO) 1.7 % (0.0-6.0); HEMATOCRIT 22 % (39-51); LYMPHOCYTES # (AUTO) 1.9 /CMM (0.8-4.8); LYMPHOCYTES % (AUTO) 11.1 % (20.0-44.0); MEAN CORPUSCULAR HGB CONC 32 g/dl (31.0-36.0); MEAN CORPUSCULAR VOLUME 87 fL (80-96); MONOCYTES # (AUTO) 1.5 /CMM (0.1-1.30); MONOCYTES % (AUTO) 8.9 % (2.0-12.0); NEUTROPHILS # (AUTO) 13.3 /CMM (1.8-8.9); PLATELET COUNT (AUTO) 495 /CMM (150-450); RDW COEFFICIENT OF VARIATION 16.9 (11.5-15.0); RED BLOOD CELL COUNT(AUTO) 2.48 MIL/uL (4.5-6.0)
[2018-03-01 06:54] LABS: HEMOGLOBIN 6.8 g/dL (13.5-17.5)
[2018-03-01 06:57] LABS: CALCIUM, SERUM 9.4 mg/dL (8.5-10.1); CREATININE 6.2 mg/dL (0.6-1.3); POTASSIUM 4.3 mmol/L (3.5-5.1)
--- NOTE | 2018-03-01 07:15 | NUR ---
0715 CALLED [facility] AGAIN FOR [facility]ER FOLLOW UP, SPOKE WITH DISPATCH AND SHE SAID THEY ARE GOING TO [facility]ER PT. AT 0730. ENDORSED TO AM CHARGE NURSE
--- NOTE | 2018-03-01 07:25 | NUR ---
RN NOTES RECEIVED CRITICAL LAB RESULT. HGB 6.8 ATTEMPTED TO NOTIFY [facility], NO ONE IS PICKING UP. REPORTED TO THE AM CHARGE NURSE THAT I CALLED [facility] AND THEY'RE NOT PICKING UP. AM CHARGE NURSE, SOON SAYS SHE'S GOING TO CALL
[2018-03-01] MEDS: IPRATROPIUM NEB FS 0.5 MG/2.5 ML AMPUL.NEB NEB SCH (07:26)
[2018-03-01] MEDS: ALBUTEROL HALF STRENGTH 1.25 MG/3 ML VIAL.NEB NEB SCH (07:26)
[2018-03-01] MEDS: ACETYLCYSTEINE 10% SOLN 400 MG/4 ML VIAL NEB SCH (07:26)
--- NOTE | 2018-03-01 07:45 | NUR ---
TEL NURSE , called back and notified re; patient's hgb 6.8 hct 22 wbc 17 was given 1 units of prbc yesterday stated that ok to transfer today already arranged to [facility] room 318 icu under Am nurse given reports to [facility]
[2018-03-01 08:00] VITALS: BP_SYST 116; BP_SYST 130; BP_DIAS 65; BP_DIAS 68
--- NOTE | 2018-03-01 08:00 | NUR ---
CONCERT PROMOTER NOTES RECEIVED PT IN THE BED, OPEN EYES, NOT FOLLOW ANY COMMANDS. PT WITH A TRACH TO VENT SETTING. PT HAS NO SOB, PT ON G TUBE FEEDING ORDERD. PT HAS NO RESIDUAL. KEEP HOB ELEVATED. ON TELE MONITOR SR 79. NPO EXCEPT MEDS. RIGHT FEMORAL HD CATH INTACT. BED LOWEST AND LOCKED POSITION. WAITING FOR AMBULANCE TO PILOT CAPTAIN PT TO [facility]. CALL AMBULANCE STATED THAT AMBULANCE WILL BE HERE BY 8:20AM. CALL DR. MYRICK, NOTIFIED THAT HG 6.8 OK TO CONTINUE TO TRANSFERE. CALLED HOSPITAL SPOKE WITH EDWIN REPORT GIVEN. WE WILL CONTINUE TO MONITOR CLOSELY
[2018-03-01 08:34] LABS: LYMPHOCYTES % (MANUAL) 4 % (16-48); MONOCYTES % (MANUAL) 8 % (0-11.0); NEUTROPHILS % (MANUAL) 88 (42-76)
--- NOTE | 2018-03-01 09:30 | NUR ---
DUMPER BAILER OPERATOR NOTES AMBULANCE ARRIVED REPORT GIVEN. HEP LOCK INTACT ON THE RIGHT HAND. CONDOM CATH IN PLACE. RT AT BED SIDE. PT LEFT TO HOSPITAL IN STABLE CONDITION.
--- NOTE | 2018-03-01 09:45 | NUR ---
TOURIST HOME KEEPER NOTE MEDS B NOT GIVEN PATIENT IS DISCHARGE TO ACUTE HOSPITAL
== END 2018-03-01 09:29 | disposition short-term general hospital (02) | DRG 4 ==
LOC: ER 14:18 → TELE-TD 18:13 → ICU 20:40 → TELE-TD 01-30 18:28 → TELE1 01-31 13:06
PROVIDERS: ADMIT Nurse Practitioner Acute Care; ATTEND Nurse Practitioner Acute Care
PROC: 5A1D70Z Performance of Urinary Filtration, Intermittent, Less than 6 Hours Per Day (ICD-10-PCS; principal; 2018-01-10)
PROC: 5A1955Z Respiratory Ventilation, Greater than 96 Consecutive Hours (ICD-10-PCS; principal; 2018-01-10)
PROC: 0BH18EZ Insertion of Endotracheal Airway into Trachea, Via Natural or Artificial Opening Endoscopic (ICD-10-PCS; principal; 2018-01-10)
PROC: B548ZZA Ultrasonography of Superior Vena Cava, Guidance (ICD-10-PCS; 2018-01-11)
PROC: 02HV33Z Insertion of Infusion Device into Superior Vena Cava, Percutaneous Approach (ICD-10-PCS; 2018-01-11)
PROC: 5A1D70Z Performance of Urinary Filtration, Intermittent, Less than 6 Hours Per Day (ICD-10-PCS; 2018-01-14)
PROC: 5A1D70Z Performance of Urinary Filtration, Intermittent, Less than 6 Hours Per Day (ICD-10-PCS; 2018-01-16)
PROC: 0JB90ZZ Excision of Buttock Subcutaneous Tissue and Fascia, Open Approach (ICD-10-PCS; 2018-01-18)
PROC: 5A1D70Z Performance of Urinary Filtration, Intermittent, Less than 6 Hours Per Day (ICD-10-PCS; 2018-01-18)
PROC: 0JB70ZZ Excision of Back Subcutaneous Tissue and Fascia, Open Approach (ICD-10-PCS; 2018-01-18)
PROC: 5A1D70Z Performance of Urinary Filtration, Intermittent, Less than 6 Hours Per Day (ICD-10-PCS; 2018-01-20)
PROC: 5A1D70Z Performance of Urinary Filtration, Intermittent, Less than 6 Hours Per Day (ICD-10-PCS; 2018-01-22)
PROC: 5A1D70Z Performance of Urinary Filtration, Intermittent, Less than 6 Hours Per Day (ICD-10-PCS; 2018-01-24)
PROC: 0B110F4 Bypass Trachea to Cutaneous with Tracheostomy Device, Open Approach (ICD-10-PCS; 2018-01-26)
PROC: 5A1D70Z Performance of Urinary Filtration, Intermittent, Less than 6 Hours Per Day (ICD-10-PCS; 2018-01-26)
PROC: 5A1D70Z Performance of Urinary Filtration, Intermittent, Less than 6 Hours Per Day (ICD-10-PCS; 2018-01-28)
PROC: 5A1D70Z Performance of Urinary Filtration, Intermittent, Less than 6 Hours Per Day (ICD-10-PCS; 2018-01-30)
PROC: 5A1D70Z Performance of Urinary Filtration, Intermittent, Less than 6 Hours Per Day (ICD-10-PCS; 2018-02-01)
PROC: 5A1D70Z Performance of Urinary Filtration, Intermittent, Less than 6 Hours Per Day (ICD-10-PCS; 2018-02-03)
PROC: 0KBN0ZZ Excision of Right Hip Muscle, Open Approach (ICD-10-PCS; 2018-02-05)
PROC: 0KBP0ZZ Excision of Left Hip Muscle, Open Approach (ICD-10-PCS; 2018-02-05)
PROC: 5A1D70Z Performance of Urinary Filtration, Intermittent, Less than 6 Hours Per Day (ICD-10-PCS; 2018-02-05)
PROC: 5A1D70Z Performance of Urinary Filtration, Intermittent, Less than 6 Hours Per Day (ICD-10-PCS; 2018-02-07)
PROC: 5A1D70Z Performance of Urinary Filtration, Intermittent, Less than 6 Hours Per Day (ICD-10-PCS; 2018-02-09)
PROC: 5A1D70Z Performance of Urinary Filtration, Intermittent, Less than 6 Hours Per Day (ICD-10-PCS; 2018-02-10)
PROC: 05PYX3Z Removal of Infusion Device from Upper Vein, External Approach (ICD-10-PCS; 2018-02-11)
PROC: B54BZZA Ultrasonography of Right Lower Extremity Veins, Guidance (ICD-10-PCS; 2018-02-14)
PROC: 06HM33Z Insertion of Infusion Device into Right Femoral Vein, Percutaneous Approach (ICD-10-PCS; 2018-02-14)
PROC: 5A1D70Z Performance of Urinary Filtration, Intermittent, Less than 6 Hours Per Day (ICD-10-PCS; 2018-02-14)
PROC: 5A1D70Z Performance of Urinary Filtration, Intermittent, Less than 6 Hours Per Day (ICD-10-PCS; 2018-02-15)
PROC: 30233N1 Transfusion of Nonautologous Red Blood Cells into Peripheral Vein, Percutaneous Approach (ICD-10-PCS; 2018-02-15)
PROC: 5A1D70Z Performance of Urinary Filtration, Intermittent, Less than 6 Hours Per Day (ICD-10-PCS; 2018-02-17)
PROC: 5A1D70Z Performance of Urinary Filtration, Intermittent, Less than 6 Hours Per Day (ICD-10-PCS; 2018-02-19)
PROC: 5A1D70Z Performance of Urinary Filtration, Intermittent, Less than 6 Hours Per Day (ICD-10-PCS; 2018-02-20)
PROC: 5A1D70Z Performance of Urinary Filtration, Intermittent, Less than 6 Hours Per Day (ICD-10-PCS; 2018-02-21)
PROC: 0KBG0ZZ Excision of Left Trunk Muscle, Open Approach (ICD-10-PCS; 2018-02-23)
PROC: 0KBF0ZZ Excision of Right Trunk Muscle, Open Approach (ICD-10-PCS; 2018-02-23)
PROC: 5A1D70Z Performance of Urinary Filtration, Intermittent, Less than 6 Hours Per Day (ICD-10-PCS; 2018-02-23)
PROC: 0KBN0ZZ Excision of Right Hip Muscle, Open Approach (ICD-10-PCS; 2018-02-23)
PROC: 0KBP0ZZ Excision of Left Hip Muscle, Open Approach (ICD-10-PCS; 2018-02-23)
PROC: 5A1D70Z Performance of Urinary Filtration, Intermittent, Less than 6 Hours Per Day (ICD-10-PCS; 2018-02-25)
PROC: 5A1D70Z Performance of Urinary Filtration, Intermittent, Less than 6 Hours Per Day (ICD-10-PCS; 2018-02-27)
DX: T82.7XXA Infection and inflammatory reaction due to other cardiac and vascular devices, implants and grafts, initial encounter (principal); R65.21 Severe sepsis with septic shock; A41.9 Sepsis, unspecified organism; E43 Unspecified severe protein-calorie malnutrition; G93.41 Metabolic encephalopathy; J15.6 Pneumonia due to other Gram-negative bacteria; J15.9 Unspecified bacterial pneumonia; L89.154 Pressure ulcer of sacral region, stage 4; L89.324 Pressure ulcer of left buttock, stage 4; L89.314 Pressure ulcer of right buttock, stage 4; E11.22 Type 2 diabetes mellitus with diabetic chronic kidney disease; G40.901 Epilepsy, unspecified, not intractable, with status epilepticus; R53.2 Functional quadriplegia; R13.10 Dysphagia, unspecified; G93.89 Other specified disorders of brain; J96.01 Acute respiratory failure with hypoxia; N18.6 End stage renal disease; I12.0 Hypertensive chronic kidney disease with stage 5 chronic kidney disease or end stage renal disease; N39.0 Urinary tract infection, site not specified; Z99.2 Dependence on renal dialysis; Z93.1 Gastrostomy status; E78.5 Hyperlipidemia, unspecified; D69.6 Thrombocytopenia, unspecified; D68.59 Other primary thrombophilia; D72.823 Leukemoid reaction; D50.0 Iron deficiency anemia secondary to blood loss (chronic); Y84.8 Other medical procedures as the cause of abnormal reaction of the patient, or of later complication, without mention of misadventure at the time of the procedure; E83.39 Other disorders of phosphorus metabolism; E55.9 Vitamin D deficiency, unspecified; Z87.440 Personal history of urinary (tract) infections; Z74.01 Bed confinement status; I69.351 Hemiplegia and hemiparesis following cerebral infarction affecting right dominant side; Z87.01 Personal history of pneumonia (recurrent); K76.0 Fatty (change of) liver, not elsewhere classified; E88.09 Other disorders of plasma-protein metabolism, not elsewhere classified; Z68.24 Body mass index [BMI] 24.0-24.9, adult; Z22.322 Carrier or suspected carrier of Methicillin resistant Staphylococcus aureus; E87.2 Acidosis; B95.2 Enterococcus as the cause of diseases classified elsewhere; Z16.21 Resistance to vancomycin; B96.1 Klebsiella pneumoniae [K. pneumoniae] as the cause of diseases classified elsewhere; R33.9 Retention of urine, unspecified; R74.0 Nonspecific elevation of levels of transaminase and lactic acid dehydrogenase [LDH]; J32.9 Chronic sinusitis, unspecified; R74.8 Abnormal levels of other serum enzymes; L89.610 Pressure ulcer of right heel, unstageable; D63.8 Anemia in other chronic diseases classified elsewhere; Y82.8 Other medical devices associated with adverse incidents; Y92.009 Unspecified place in unspecified non-institutional (private) residence as the place of occurrence of the external cause; K81.0 Acute cholecystitis
CPT/HCPCS: 31720; 36415; 36569; 36600; 70450-TC; 70470-TC; 70496-TC; 70498-TC; 71045-TC; 76700-TC; 78226; 80048-TC; 80053-TC; 80061-TC; 80076-TC; 80150; 80170-TC; 80185-TC; 80202-TC; 81000-TC; 82103; 82105; 82140-TC; 82150-TC; 82247-TC; 82248-TC; 82272-TC; 82378; 82652; 82728-TC; 82784; 82803-TC; 82962-TC; 82977-TC; 83516; 83540-TC; 83605-TC; 83615-TC; 83690-TC; 83735-TC; 83880; 84100-TC; 84134-TC; 84153-TC; 84154-TC; 84155; 84165; 84443-TC; 85025-TC; 85610-TC; 85730-TC; 86140-TC; 86147; 86301; 86334; 86431-TC; 86704; 86705; 86706; 86850-TC; 86921-TC; 87040-TC; 87045-TC; 87070-TC; 87081-TC; 87086-TC; 87186-TC; 87340; 87806; 90935-TC; 93307-TC; 94003-TC; 94640-TC; 94760-TC; 94762-TC; 94799-TC; 95819-TC; 99082-TC; A4216; A4349; A4606; A6248; A6253; A6402; A6403; A7526; A9537; A9563; C1750; C9113; J0278; J0330; J0360; J0637; J0692; J0696; J0770; J0885; J1165; J1580; J1815; J1953; J2060; J2150; J2185; J2248; J2250; J2370; J2405; J2543; J2704; J2765; J3370; J3490; J7030; J7040; J7042; J7050; J7060; P9016-BL; Q9967; Z7610